=== PATIENT | male | born 1940 | race Caucasian/White ===

== ENCOUNTER → 2016-07-02 | Outpatient (CLI) | payer MEDICARE ==
[2016-07-02 13:36] LABS: CHLORIDE,CL 105 mmol/L (98-110); SODIUM,NA 140 mmol/L (136-146)
== END | disposition home or self-care (01) ==
LOC: MW.CHFP 12:37
PROVIDERS: ATTEND Student in an Organized Health Care Education/Training Program
DX: R63.4 Abnormal weight loss (principal); Z87.01 Personal history of pneumonia (recurrent)
CPT/HCPCS: 36415; 80053; G0463

== ENCOUNTER → 2016-07-30 | Outpatient (CLI) | payer MEDICARE | LOC: MW.CHFP 10:41 | PROVIDERS: ATTEND Student in an Organized Health Care Education/Training Program | DX: D64.9 Anemia, unspecified (principal) | CPT/HCPCS: 36415; 85027; G0463 ==

== ENCOUNTER 2016-08-08 03:04 | Emergency (ER) | payer MEDICARE ==
[2016-08-08 04:26] LABS: CHLORIDE,CL 108 mmol/L (98-110); SODIUM,NA 142 mmol/L (136-146)
--- NOTE | 2016-08-08 05:45 | EDM.PDOC ---
ED HPI GENERAL MEDICAL PROBLEM - General Chief Complaint: General Stated Complaint: AMBULANCE Time Seen by Provider: 08/08/16 05:45 - History of Present Illness INITIAL COMMENTS - FREE TEXT/NARRATIVE: HISTORY AND PHYSICAL: History of present illness: Patient is a 76-year-old white male well-known to our hospital history COPD chronic anemia who presents with generalized weakness is not unusual for the patient needs to multiple ER visits multiple hospitalizations and been compliant with her medications she also had a fall one week prior and has some right abdominal/flank bruising from his fall he has chronic shortness of breath related to COPD denies chest pain vomiting head or neck pain or trauma or other concern Review of systems: As per history of present illness and below otherwise all systems reviewed and negative. Past medical history: As per history of present illness and as reviewed below otherwise noncontributory. Surgical history: As per history of present illness and as reviewed below otherwise noncontributory. Social history: No reported history of drug or alcohol abuse. Family history: As per history of present illness and as reviewed below otherwise noncontributory. Physical exam: HEENT: Atraumatic, normocephalic, pupils reactive, negative for conjunctival pallor or scleral icterus, mucous membranes dry, throat clear, neck supple, nontender, trachea midline. Lungs: Slightly coarse bilaterally, breath sounds equal bilaterally, chest nontender. Heart: S1S2, regular, negative for clicks, rubs, or JVD. Abdomen: Soft, nondistended, mild tenderness in the area of bruising in the right abdomen and flank nonlocalized no rebound no guarding. Negative for masses or hepatosplenomegaly. Negative for costovertebral tenderness. Pelvis: Stable nontender. Genitourinary: Deferred. Rectal: Deferred. Extremities: Atraumatic, negative for cords or calf pain. Neurovascular unremarkable. Neuro: Awake, alert, moves all extremities follows commands at baseline per family nonfocal Diagnostics: CBC CMP troponin lactic acid CT abdomen and pelvis chest x-ray EKG Therapeutics: IV O2 monitor Impression: #1 generalized weakness #2 chronic anemia #3 COPD Definitive disposition and diagnosis as appropriate pending reevaluation and review of above. right hand and back area Pain Score (Numeric/FACES): 4 - Related Data Allergies Allergy/AdvReac Type Severity Reaction Status Date / Time No Known Allergies Allergy Verified 07/18/16 04:30 Home Meds: Home Meds Albuterol Sulfate [Proair Hfa] 2 puff IH QID PRN 06/14/16 [History] Albuterol/Ipratropium [DuoNeb 3.0-0.5 MG/3 ML] 3 ml NEB Q4H PRN 06/14/16 [ History] Bisacodyl [Dulcolax] 5 - 10 mg PO DAILY PRN 06/14/16 [History] Bisacodyl [Dulcolax] 10 mg RC DAILY PRN 06/14/16 [History] Budesonide/Formoterol Fumarate [Symbicort 160-4.5 Mcg Inhaler] 2 puff IH BID 01/21 [History] Diltiazem [Cardizem CD] 240 mg PO DAILY 06/14/16 [History] Hypromellose [Genteal Mild] 2 drop EYEBOTH DAILY 06/14/16 [History] Metoclopramide HCl [Reglan] 10 mg PO QIDACANDBED PRN 06/14/16 [History] Multivitamin [Multivitamins] 1 each PO DAILY 06/14/16 [History] Orphenadrine Citrate 100 mg PO Q12HR PRN 06/14/16 [History] Tamsulosin [Flomax] 0.4 mg PO PCBREAKFAST 06/14/16 [History] Ticagrelor [Brilinta] 90 mg PO BID 06/14/16 [History] Acetaminophen [Tylenol] 500 mg PO Q4H PRN 06/15/16 [History] Albuterol Sulfate 2.5 mg IH Q6H PRN 06/15/16 [History] Pantoprazole [Protonix] 40 mg PO BIDAC 06/15/16 [History] Tiotropium [Spiriva HandiHaler] 18 mcg IH DAILY 06/15/16 [History] Iron Polysaccharides Complex [Ferrex 150] 150 mg PO BID cap 06/17/16 [Rx] Vancomycin 125 mg .XX QID #40 sdv 06/17/16 [Rx] Prednisone [IMW: Prednisone] 10 mg PO DAILY 06/23/16 [History] Potassium Chloride 20 meq PO BID #30 tab.er.prt 06/26/16 [Rx] Cephalexin 500 mg PO BID 08/08/16 [History] Past Medical History HEENT History: Reports: Cataract Other HEENT History: glasses Cardiovascular History: Reports: Afib, CAD, High cholesterol, Hypertension, Stents Respiratory History: Reports: COPD, Pneumonia, recurrent, Pneumothorax, SOB, Other (see below) Other Respiratory History: chronic respiratory failure with hypoxia Gastrointestinal History: Reports: GI bleed Other Gastrointestinal History: GI Bleed. 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 - Past Surgical History Head Surgeries/Procedures: Reports: None Cardiovascular Surgical History: Reports: Coronary artery stent, Carotid stents Social & Family History - Family History Family Medical History: Noncontributory Cardiac: Reports: Hypertension Other Cardiac Family History: Father, Mother GI: Reports: GI bleed OBGYN: Reports: Musculoskeletal: Reports: Arthritis Psychiatric: Reports: None Endocrine/Metabolic: Reports: Diabetes, type II Hematologic: Reports: None Immunologic: Reports: None Oncologic: Reports: Prostate - Tobacco Use Smoking Status *Q: Former Smoker Years of Tobacco use: 50 Packs/Tins Daily: 4 Used Tobacco, but Quit: Yes Month Tobacco Last Used: 2004 Second Hand Smoke Exposure: No - Caffeine Use Caffeine Use: Reports: Coffee, Soda - Alcohol Use Days Per Week of Alcohol Use: 2 Number of Drinks Per Day: 2 Total Drinks Per Week: 4 - Recreational Drug Use Recreational Drug Use: No Drug Use in Last 12 Months: No ED ROS GENERAL - Review of Systems Review Of Systems: ROS reveals no pertinent complaints other than HPI. ED EXAM, GENERAL - Physical Exam Exam: See Below (See dictation) Course - Vital Signs Text/Narrative:: Discussed with patient and son CT and diagnostics offered admission for observation patient family declined request discharge home and followup private medical doctor Last Recorded V/S: Last Vital Signs Temp 36.6 C 08/08/16 03:14 Pulse 120 H 08/08/16 03:14 Resp 32 H 08/08/16 03:14 BP 127/64 08/08/16 03:14 Pulse Ox 97 08/08/16 03:14 - Orders/Labs/Meds Orders: Active Orders 24 hr Category Date Time Status EKG 12 Lead [EKG Documentation Completion] [RC] STAT Care 08/08/16 03:16 Active Abdomen Pelvis wo Cont [CT] Stat Exams 08/08/16 03:28 Taken Chest 1V Frontal [CR] Stat Exams 08/08/16 03:29 Taken CULTURE BLOOD [BC] Stat Lab 08/08/16 02:35 Received CULTURE BLOOD [BC] Stat Lab 08/08/16 04:35 Results UA W/MICROSCOPIC [URIN] Stat Lab 08/08/16 03:15 Uncollected Blood Culture x2 Reflex Set [OM.PC] Stat Oth 08/08/16 04:35 Ordered Labs: Laboratory Tests 08/08/16 08/08/16 08/08/16 Range/Units 03:30 03:30 03:30 WBC 15.18 H (4.0-11.0) K/uL RBC 2.63 L (4.50-5.90) M/uL Hgb 8.0 L (13.0-17.0) g/dL Hct 25.6 L (38.0-50.0) % MCV 97.3 (80.0-98.0) fL MCH 30.4 (27.0-32.0) pg MCHC 31.3 (31.0-37.0) g/dL RDW Std Deviation 57.3 (28.0-62.0) fl RDW Coeff of Mavis 17 H (11.0-15.0) % Plt Count 271 (150-400) K/uL MPV 8.40 (7.40-12.00) fL Neut % (Auto) 82.3 H (48.0-80.0) % Lymph % (Auto) 8.0 L (16.0-40.0) % [place] % (Auto) 8.6 (0.0-15.0) % Eos % (Auto) 0.8 (0.0-7.0) % Baso % (Auto) 0.3 (0.0-1.5) % Neut # 12.5 H (1.4-5.7) K/uL Lymph # 1.2 (0.6-2.4) K/uL [place] # 1.3 H (0.0-0.8) K/uL Eos # 0.1 (0.0-0.7) K/uL Baso # 0.1 (0.0-0.1) K/uL INR (0.86-1.11) Lactate (0.20-2.00) mmol/L Sodium 142 (136-146) mmol/L Potassium 5.2 H (3.5-5.1) mmol/L Chloride 108 (98-110) mmol/L Carbon Dioxide 26 (21-31) mmol/L BUN 30 H (6.0-23.0) mg/dL Creatinine 1.0 (0.6-1.5) mg/dL Est Cr Clr Drug Dosing 53.18 mL/min Estimated GFR (MDRD) > 60.0 ml/min Glucose 102 (60-110) mg/dL Calcium 8.5 L (8.8-10.8) mg/dL Total Bilirubin 0.3 (0.1-1.5) mg/dL AST 13 (5-40) IU/L ALT 15 (8-54) IU/L Alkaline Phosphatase 63 (40-150) Troponin I < 0.10 (0.0-0.29) NG/ML Total Protein 5.2 L (6.0-8.0) g/dL Albumin 2.7 L (3.4-4.8) g/dL Globulin 2.5 (2.0-3.5) g/dL Albumin/Globulin Ratio 1.1 L (1.3-2.8) 08/08/16 08/08/16 Range/Units 03:30 04:35 WBC (4.0-11.0) K/uL RBC (4.50-5.90) M/uL Hgb (13.0-17.0) g/dL Hct (38.0-50.0) % MCV (80.0-98.0) fL MCH (27.0-32.0) pg MCHC (31.0-37.0) g/dL RDW Std Deviation (28.0-62.0) fl RDW Coeff of Mavis (11.0-15.0) % Plt Count (150-400) K/uL MPV (7.40-12.00) fL Neut % (Auto) (48.0-80.0) % Lymph % (Auto) (16.0-40.0) % [place] % (Auto) (0.0-15.0) % Eos % (Auto) (0.0-7.0) % Baso % (Auto) (0.0-1.5) % Neut # (1.4-5.7) K/uL Lymph # (0.6-2.4) K/uL [place] # (0.0-0.8) K/uL Eos # (0.0-0.7) K/uL Baso # (0.0-0.1) K/uL INR 0.95 (0.86-1.11) Lactate 1.3 (0.20-2.00) mmol/L Sodium (136-146) mmol/L Potassium (3.5-5.1) mmol/L Chloride (98-110) mmol/L Carbon Dioxide (21-31) mmol/L BUN (6.0-23.0) mg/dL Creatinine (0.6-1.5) mg/dL Est Cr Clr Drug Dosing mL/min Estimated GFR (MDRD) ml/min Glucose (60-110) mg/dL Calcium (8.8-10.8) mg/dL Total Bilirubin (0.1-1.5) mg/dL AST (5-40) IU/L ALT (8-54) IU/L Alkaline Phosphatase (40-150) Troponin I (0.0-0.29) NG/ML Total Protein (6.0-8.0) g/dL Albumin (3.4-4.8) g/dL Globulin (2.0-3.5) g/dL Albumin/Globulin Ratio (1.3-2.8) Departure - Departure Time of Disposition: 05:44 Disposition: Home, Self-Care 01 Condition: good Clinical Impression: COPD (chronic obstructive pulmonary disease), Anemia, Generalized weakness Forms: ED Department Discharge Additional Instructions: The following information is given to patients seen in the emergency department who are being discharged to home. This information is to outline your options for follow-up care. We provide all patients seen in our emergency department with a follow-up referral. The need for follow-up, as well as the timing and circumstances, are variable depending upon the specifics of your emergency department visit. If you don't have a primary care physician on staff, we will provide you with a referral. We always advise you to contact your personal physician following an emergency department visit to inform them of the circumstance of the visit and for follow-up with them and/or the need for any referrals to a consulting specialist. The emergency department will also refer you to a specialist when appropriate. This referral assures that you have the opportunity for followup care with a specialist. All of these measure are taken in an effort to provide you with optimal care, which includes your followup. Under all circumstances we always encourage you to contact your private physician who remains a resource for coordinating your care. When calling for followup care, please make the office aware that this follow-up is from your recent emergency room visit. If for any reason you are refused follow-up, please contact the [facility] emergency department at and asked to speak to the emergency department charge nurse. Continue current medications follow up private medical doctor 24-48 hours return as needed as discussed - My Orders Last 24 Hours: My Active Orders 08/08/16 02:35 CULTURE BLOOD [BC] Stat 08/08/16 03:15 UA W/MICROSCOPIC [URIN] Stat 08/08/16 03:16 EKG 12 Lead [EKG Documentation Completion] [RC] STAT 08/08/16 03:28 Abdomen Pelvis wo Cont [CT] Stat 08/08/16 03:29 Chest 1V Frontal [CR] Stat 08/08/16 04:35 CULTURE BLOOD [BC] Stat Blood Culture x2 Reflex Set [OM.PC] Stat - Assessment/Plan Last 24 Hours: My Active Orders 08/08/16 02:35 CULTURE BLOOD [BC] Stat 08/08/16 03:15 UA W/MICROSCOPIC [URIN] Stat 08/08/16 03:16 EKG 12 Lead [EKG Documentation Completion] [RC] STAT 08/08/16 03:28 Abdomen Pelvis wo Cont [CT] Stat 08/08/16 03:29 Chest 1V Frontal [CR] Stat 08/08/16 04:35 CULTURE BLOOD [BC] Stat Blood Culture x2 Reflex Set [OM.PC] Stat
[2016-08-08 06:46] VITALS: BP 110/76
--- NOTE | 2016-08-10 17:19 | CR ---
EXAM DATE: 08/08/16 PATIENT'S AGE: 76 Patient: GILBERTO SIMONS Facility: [place], [place] Site . Site : 1940 Study: XRay Chest [id number]/4/2017 4:15:55 AM Ordering Physician: Luisa Urrutia Final Report: INDICATION: Trauma with right leg bruising TECHNIQUE: Chest 2 views. COMPARISON: 07/18/2016 FINDINGS: Cardiovascular and mediastinum: Heart size and vasculature are normal in caliber and appearance. Mediastinum is within normal limits. Lungs and pleural spaces: Lungs are clear. No sign of infiltrate or mass. No sign of pleural effusion. No pneumothorax. Bones and soft tissues: No significant findings. IMPRESSION: Unremarkable chest. Dictated by Adam Knight MD @ 08/08/2016 4:22:47 AM Dictated by: Adam Knight MD @ 08/08/2016 04:22:55 (Electronic Signature) Report Signed by Proxy and Original Signed Document filed in the Medical Record. MTDD
--- NOTE | 2016-08-10 17:20 | CT ---
EXAM DATE: 08/08/16 PATIENT'S AGE: 76 Patient: GILBERTO SIMONS Facility: [place], [place] Site . Site : 1940 Study: CT Abdomen/Pelvis [id number]/4/2017 4:17:05 AM Ordering Physician: Luisa Urrutia Final Report: INDICATION: Fall on right side of 5 days prior. TECHNIQUE: CT abdomen and pelvis without contrast. COMPARISON: 06/14/2016 FINDINGS: Lower chest: Unremarkable. Liver: Unremarkable. Spleen: Unremarkable. Pancreas: Unremarkable. Gallbladder and bile ducts: Unremarkable. Kidneys: Stable left renal and parapelvic cysts. No kidney or ureteral stones and no hydronephrosis. Adrenal glands: Unremarkable. GI tract: Unremarkable. Appendix is normal. Vascular structures: Slight prominence of the infrarenal abdominal aorta measuring 2.8 centimeters. . Lymph nodes: Unremarkable. Miscellaneous: Unremarkable. No free air or significant free fluid. Pelvic Organs: Unremarkable. Bones: Slightly increased within T12 compression fracture compared to 2016. Stable severe T11 compression deformity. Slight increase superior endplate compression L3 vertebral body. IMPRESSION: No evidence of intra-abdominal or pelvic trauma. Slight increased T12 compression fracture compared to 06/14/16. Slight increased superior endplate compression L3 vertebral body fracture. Stable T11 severe compression deformity. Dictated by Adam Knight MD @ 08/08/2016 4:55:12 AM Dictated by: Adam Knight MD @ 08/08/2016 04:55:34 (Electronic Signature) Report Signed by Proxy and Original Signed Document filed in the Medical Record. [facility]
== END 2016-08-08 06:00 | disposition home or self-care (01) ==
LOC: MW.ED 03:04
DX: J44.9 Chronic obstructive pulmonary disease, unspecified (principal); D64.9 Anemia, unspecified; R53.1 Weakness; I48.91 Unspecified atrial fibrillation; E78.00 Pure hypercholesterolemia, unspecified; I10 Essential (primary) hypertension; Z86.73 Personal history of transient ischemic attack (TIA), and cerebral infarction without residual deficits; Z98.49 Cataract extraction status, unspecified eye; Z87.891 Personal history of nicotine dependence
CPT/HCPCS: 71010; 71010-26; 74176; 74176-26; 80053; 83605; 84484; 85025; 85610; 87040; 87804; 93005; 99284; 99285-25

== ENCOUNTER 2016-08-08 13:22 | Inpatient (IN) | payer MEDICARE ==
--- NOTE | 2016-08-08 14:30 | EDM.PDOC ---
ED HPI Trauma - General Chief Complaint: Lower Extremity Injury/Pain Stated Complaint: FALL Time Seen by Provider: 08/08/16 13:25 Source: Reports: Patient, EMS, Family History Limitations: Reports: No limitations - History of Present Illness INITIAL COMMENTS - FREE TEXT/NARRATIVE: HISTORY AND PHYSICAL: History of present illness: [Patient comes to the emergency room via EMS. Patient reports that he fell this morning landing on his right hip while he was walking by himself to the bathroom. He lives with his daughter and his . He complains of pain to his right hip. States that he also fell on Wednesday, August 03. He was evaluated in the ER earlier this morning for generalized weakness and anemia. Since he was discharged home, he has been having dark brown to black colored grainy stools. Has a history of anemia requiring frequent blood transfusions.] Review of systems: As per history of present illness and below otherwise all systems reviewed and negative. Past medical history: As per history of present illness and as reviewed below otherwise noncontributory. Surgical history: As per history of present illness and as reviewed below otherwise noncontributory. Social history: No reported history of drug or alcohol abuse. Family history: As per history of present illness and as reviewed below otherwise noncontributory. Physical exam: General: Well-developed well-nourished, frail elderly male in no acute distress lying on exam table. HEENT: Atraumatic, normocephalic. Lungs: Clear to auscultation, breath sounds equal bilaterally., chest nontender. Heart: S1S2, regular, negative for clicks, rubs, or JVD. Abdomen: Ecchymosis present to left side of chest and abdomen. Soft, nondistended, nontender. Pelvis: Stable nontender. Genitourinary: Deferred. Rectal: Normal sphincter tone. Small amount of soft stool in his rectum. SFOB positive Extremities: Atraumatic, negative for cords or calf pain. No external or internal rotation of his leg. Palpation over his hip reveals no tenderness to Neuro: Awake, alert, oriented. Motor and sensory unremarkable throughout. Exam nonfocal. Diagnostics: [Pelvis x-ray, CBC] Therapeutics: [250 mL's normal saline IV] Impression: [symptomatic anemia Recent falls] Plan: [Hemoglobin 7.1. This is down from 8.0 at 3:30 this morning area. Discussed patient's condition and lab results with Dr. Brown, hospitalist. She agrees to accept patient to inpatient services on the medical/surgical floor with telemetry, with the diagnosis of upper GI bleed. Patient and his family are in agreement with today's plan.] Definitive disposition and diagnosis as appropriate pending reevaluation and review of above. Allergies/ADRs: Allergies No Known Allergies Allergy (Verified 08/08/16 13:36) Home Medications: Ambulatory Orders Albuterol Sulfate [Proair Hfa] 2 puff IH QID PRN 06/14/16 [Confirmed 08/08/16] Albuterol/Ipratropium [DuoNeb 3.0-0.5 MG/3 ML] 3 ml NEB Q4H PRN 06/14/16 [ Confirmed 08/08/16] Bisacodyl [Dulcolax] 5 - 10 mg PO DAILY PRN 06/14/16 [Confirmed 08/08/16] Bisacodyl [Dulcolax] 10 mg RC DAILY PRN 06/14/16 [Confirmed 08/08/16] Budesonide/Formoterol Fumarate [Symbicort 160-4.5 Mcg Inhaler] 2 puff IH BID 01/21 [Confirmed 08/08/16] Diltiazem [Cardizem CD] 240 mg PO DAILY 06/14/16 [Confirmed 08/08/16] Hypromellose [Genteal Mild] 2 drop EYEBOTH DAILY 06/14/16 [Confirmed 08/08/16] Metoclopramide HCl [Reglan] 10 mg PO QIDACANDBED PRN 06/14/16 [Confirmed ] Multivitamin [Multivitamins] 1 each PO DAILY 06/14/16 [Confirmed 08/08/16] Orphenadrine Citrate 100 mg PO Q12HR PRN 06/14/16 [Confirmed 08/08/16] Tamsulosin [Flomax] 0.4 mg PO PCBREAKFAST 06/14/16 [Confirmed 08/08/16] Ticagrelor [Brilinta] 90 mg PO BID 06/14/16 [Confirmed 08/08/16] Acetaminophen [Tylenol] 500 mg PO Q4H PRN 06/15/16 [Confirmed 08/08/16] Albuterol Sulfate 2.5 mg IH Q6H PRN 06/15/16 [Confirmed 08/08/16] Pantoprazole [Protonix] 40 mg PO BIDAC 06/15/16 [Confirmed 08/08/16] Tiotropium [Spiriva HandiHaler] 18 mcg IH DAILY 06/15/16 [Confirmed 08/08/16] Iron Polysaccharides Complex [Ferrex 150] 150 mg PO BID cap 06/17/16 [ Confirmed 08/08/16] Prednisone [IMW: Prednisone] 10 mg PO DAILY 06/23/16 [Confirmed 08/08/16] Potassium Chloride 20 meq PO BID #30 tab.er.prt 06/26/16 [Confirmed 08/08/16] Cephalexin 500 mg PO BID 08/08/16 [Confirmed 08/08/16] Vancomycin 125 mg PO DAILY 08/08/16 [Confirmed 08/08/16] Past Medical History HEENT History: Reports: Cataract Other HEENT History: glasses Cardiovascular History: Reports: Afib, CAD, High cholesterol, Hypertension, Stents Respiratory History: Reports: COPD, Pneumonia, recurrent, Pneumothorax, SOB, Other (see below) Other Respiratory History: chronic respiratory failure with hypoxia Gastrointestinal History: Reports: GI bleed Other Gastrointestinal History: GI Bleed. 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 - Past Surgical History Head Surgeries/Procedures: Reports: None HEENT Surgical History: Reports: None Cardiovascular Surgical History: Reports: Coronary artery stent, Carotid stents Respiratory Surgical History: Reports: None GI Surgical History: Reports: None Male Surgical History: Reports: None Endocrine Surgical History: Reports: None Neurological Surgical History: Reports: None Musculoskeletal Surgical History: Reports: None Oncologic Surgical History: Reports: None Dermatological Surgical History: Reports: None Social & Family History - Family History Family Medical History: Noncontributory Cardiac: Reports: Hypertension Other Cardiac Family History: Father, Mother GI: Reports: GI bleed OBGYN: Reports: Musculoskeletal: Reports: Arthritis Neurological: Reports: None Psychiatric: Reports: None Endocrine/Metabolic: Reports: Diabetes, type II Hematologic: Reports: None Immunologic: Reports: None Dermatologic: Reports: None Oncologic: Reports: Prostate - Tobacco Use Smoking Status *Q: Never Smoker Years of Tobacco use: 50 Packs/Tins Daily: 4 Used Tobacco, but Quit: Yes Month Tobacco Last Used: 2004 Second Hand Smoke Exposure: No - Caffeine Use Caffeine Use: Reports: None - Alcohol Use Days Per Week of Alcohol Use: 2 Number of Drinks Per Day: 2 Total Drinks Per Week: 4 - Recreational Drug Use Recreational Drug Use: No Drug Use in Last 12 Months: No Review of Systems - Review of Systems Review Of Systems: ROS reveals no pertinent complaints other than HPI. Trauma Exam - Physical Exam Exam: See Below Course - Vital Signs Last Recorded V/S: Last Vital Signs Temp 98.2 F 08/08/16 16:58 Pulse 90 08/08/16 16:58 Resp 19 08/08/16 16:58 BP 131/58 L 08/08/16 16:58 Pulse Ox 99 08/08/16 16:58 - Orders/Labs/Meds Orders: Active Orders 24 hr Category Date Time Status Pelvis 1V or 2V [CR] Stat Exams 08/08/16 13:27 Taken PACKED CELLS [RED BLOOD CELLS LP] [BBK] Stat Lab 08/08/16 14:45 Results TYPE AND SCREEN [BBK] Stat Lab 08/08/16 14:45 Results Sodium Chloride 0.9% [Normal Saline] 250 ml Med 08/08/16 14:45 Active IV STAT Sodium Chloride 0.9% [Saline Flush] Med 08/08/16 14:31 Active 10 ml FLUSH ASDIRECTED PRN Sodium Chloride 0.9% [Saline Flush] Med 08/08/16 14:31 Active 2.5 ml FLUSH ASDIRECTED PRN Saline Lock Insert [OM.PC] Stat Oth 08/08/16 14:31 Ordered Medication Orders Sodium Chloride (Normal Saline) 250 mls @ 999 mls/hr IV STAT KYMBERLY Last Admin: 08/08/16 15:04 Dose: 999 mls/hr Pantoprazole Sodium 80 mg/ (Sodium Chloride) 100 mls @ 10 mls/hr IV Q10H KYMBERLY Sodium Chloride (Saline Flush) 10 ml FLUSH ASDIRECTED PRN PRN Reason: Keep Vein Open Last Admin: 08/08/16 15:04 Dose: 10 ml Sodium Chloride (Saline Flush) 2.5 ml FLUSH ASDIRECTED PRN PRN Reason: Keep Vein Open Last Admin: 08/08/16 15:04 Dose: 2.5 ml Sodium Chloride (Saline Flush) 10 ml FLUSH ASDIRECTED PRN PRN Reason: Keep Vein Open Sodium Chloride (Saline Flush) 2.5 ml FLUSH ASDIRECTED PRN PRN Reason: Keep Vein Open Labs: Laboratory Tests 08/08/16 08/08/16 08/08/16 Range/Units 14:45 14:45 14:45 WBC 16.34 H (4.0-11.0) K/uL RBC 2.37 L (4.50-5.90) M/uL Hgb 7.1 L (13.0-17.0) g/dL Hct 22.2 L (38.0-50.0) % MCV 93.7 (80.0-98.0) fL MCH 30.0 (27.0-32.0) pg MCHC 32.0 (31.0-37.0) g/dL RDW Std Deviation 58.8 (28.0-62.0) fl RDW Coeff of Mavis 17 H (11.0-15.0) % Plt Count 185 (150-400) K/uL MPV 8.40 (7.40-12.00) fL Neut % (Auto) 91.3 H (48.0-80.0) % Lymph % (Auto) 3.4 L (16.0-40.0) % [place] % (Auto) 5.1 (0.0-15.0) % Eos % (Auto) 0.1 (0.0-7.0) % Baso % (Auto) 0.1 (0.0-1.5) % Neut # 14.9 H (1.4-5.7) K/uL Lymph # 0.6 (0.6-2.4) K/uL [place] # 0.8 (0.0-0.8) K/uL Eos # 0.0 (0.0-0.7) K/uL Baso # 0.0 (0.0-0.1) K/uL Nucleated RBC % 0.0 /100WBC Nucleated RBCs # 0 K/uL Sodium 140 (136-146) mmol/L Potassium 5.0 (3.5-5.1) mmol/L Chloride 108 (98-110) mmol/L Carbon Dioxide 23 (21-31) mmol/L BUN 49 H (6.0-23.0) mg/dL Creatinine 0.9 (0.6-1.5) mg/dL Est Cr Clr Drug Dosing 59.01 mL/min Estimated GFR (MDRD) > 60.0 ml/min Glucose 94 (60-110) mg/dL Calcium 8.6 L (8.8-10.8) mg/dL Total Bilirubin 0.3 (0.1-1.5) mg/dL AST 13 (5-40) IU/L ALT 15 (8-54) IU/L Alkaline Phosphatase 57 (40-150) Total Protein 5.0 L (6.0-8.0) g/dL Albumin 2.7 L (3.4-4.8) g/dL Globulin 2.3 (2.0-3.5) g/dL Albumin/Globulin Ratio 1.2 L (1.3-2.8) Blood Type O POSITIVE Antibody Screen NEGATIVE Crossmatch See Detail Meds: Medications Generic Name Dose Route Start Last Admin Trade Name Freq PRN Reason Stop Dose Admin Sodium Chloride 250 mls @ 999 mls/hr 08/08/16 14:45 08/08/16 15:04 Normal Saline IV 999 mls/hr STAT KYMBERLY Administration Pantoprazole Sodium 80 mg/ 100 mls @ 10 mls/hr 08/08/16 17:30 Sodium Chloride IV Q10H KYMBERLY Sodium Chloride 10 ml 08/08/16 14:31 08/08/16 15:04 Saline Flush FLUSH 10 ml ASDIRECTED PRN Administration Keep Vein Open Sodium Chloride 2.5 ml 08/08/16 14:31 08/08/16 15:04 Saline Flush FLUSH 2.5 ml ASDIRECTED PRN Administration Keep Vein Open Sodium Chloride 10 ml 08/08/16 17:15 Saline Flush FLUSH ASDIRECTED PRN Keep Vein Open Sodium Chloride 2.5 ml 08/08/16 17:15 Saline Flush FLUSH ASDIRECTED PRN Keep Vein Open Departure - Departure Time of Disposition: 15:30 Disposition: Admitted As Inpatient 65 Condition: fair Clinical Impression: Symptomatic anemia Fall at home Qualifiers: Encounter type: initial encounter Qualified Code(s): W19.XXXA - Unspecified fall, initial encounter; Y92.099 - Unspecified place in other non-institutional residence as the place of occurrence of the external cause - My Orders Last 24 Hours: My Active Orders 08/08/16 13:27 Pelvis 1V or 2V [CR] Stat 08/08/16 14:31 Sodium Chloride 0.9% [Saline Flush] 10 ml FLUSH ASDIRECTED PRN Sodium Chloride 0.9% [Saline Flush] 2.5 ml FLUSH ASDIRECTED PRN Saline Lock Insert [OM.PC] Stat 08/08/16 14:45 PACKED CELLS [RED BLOOD CELLS LP] [BBK] Stat TYPE AND SCREEN [BBK] Stat Sodium Chloride 0.9% [Normal Saline] 250 ml IV STAT - Assessment/Plan Last 24 Hours: My Active Orders 08/08/16 13:27 Pelvis 1V or 2V [CR] Stat 08/08/16 14:31 Sodium Chloride 0.9% [Saline Flush] 10 ml FLUSH ASDIRECTED PRN Sodium Chloride 0.9% [Saline Flush] 2.5 ml FLUSH ASDIRECTED PRN Saline Lock Insert [OM.PC] Stat 08/08/16 14:45 PACKED CELLS [RED BLOOD CELLS LP] [BBK] Stat TYPE AND SCREEN [BBK] Stat Sodium Chloride 0.9% [Normal Saline] 250 ml IV STAT
[2016-08-08] MEDS ORDERED: Sodium Chloride 0.9% 10 ML Syringe FLUSH PRN ×2 (14:31→17:15)
[2016-08-08] MEDS ORDERED: Sodium Chloride 0.9% 2.5 ML Syringe FLUSH PRN ×2 (14:31→17:15)
[2016-08-08] MEDS ORDERED: Sodium Chloride 0.9% 250 ML IV SCH (14:45)
[2016-08-08 18:19] LABS: CHLORIDE,CL 108 mmol/L (98-110); SODIUM,NA 140 mmol/L (136-146)
[2016-08-08] MEDS: Pantoprazole 80 MG in Sodium Chloride 0.9% 100 ML IV SCH (18:23)
[2016-08-08] MEDS: SYMBICORT IH SCH (21:41)
[2016-08-09] MEDS: Pantoprazole 80 MG in Sodium Chloride 0.9% 100 ML IV SCH ×3 (03:48→16:40)
[2016-08-09 06:11] LABS: CHLORIDE,CL 113 mmol/L (98-110); SODIUM,NA 144 mmol/L (136-146)
[2016-08-09] MEDS: SYMBICORT IH SCH ×2 (08:38→20:04)
[2016-08-09] MEDS: Diltiazem 120 MG Cap.CD PO SCH (10:21)
[2016-08-09] MEDS: Tamsulosin 0.4 MG Cap.ER PO SCH (10:21)
[2016-08-09] MEDS: predniSONE 10 MG Tab PO SCH (10:22)
[2016-08-09] MEDS: Albuterol/Ipratropium 3.0-0.5 MG/3 ML Neb Soln NEB PRN ×2 (11:49→17:55)
[2016-08-09] MEDS ORDERED: Vancomycin 25 MG/ML Compounding Kit PO SCH (12:00)
--- NOTE | 2016-08-09 12:27 | PCM.PN ---
- General Info Date of Service: 08/09/16 Admission Dx/Problem (Free Text): generalized weakness , melena Functional Status: Reports: pain controlled - Review of Systems General: Reports: no symptoms HEENT: Reports: no symptoms Pulmonary: Reports: no symptoms Cardiovascular: Reports: no symptoms Gastrointestinal: Reports: No symptoms Genitourinary: Reports: no symptoms Musculoskeletal: Reports: no symptoms Skin: Reports: no symptoms Neurological: Reports: no symptoms Psychiatric: Reports: no symptoms - Patient Data Vitals - most recent: Last Vital Signs Temp 97.3 F 08/09/16 10:49 Pulse 82 08/09/16 10:49 Resp 18 08/09/16 10:49 BP 121/57 L 08/09/16 10:49 Pulse Ox 96 08/09/16 10:49 Weight - most recent: 134 lb 7.712 oz I&O - last 24 hours: Intake & Output 08/08/16 08/09/16 08/09/16 22:59 06:59 14:59 Intake Total 208 113 Output Total 660 Balance 208 -547 Lab Results last 24 hrs: Laboratory Results - last 24 hr 08/08/16 08/09/16 08/09/16 Range/Units 23:23 05:35 05:35 WBC 10.64 9.56 (4.0-11.0) K/uL RBC 3.07 L 3.38 L (4.50-5.90) M/uL Hgb 9.1 L 10.0 L (13.0-17.0) g/dL Hct 27.2 L 29.5 L (38.0-50.0) % MCV 88.6 87.3 (80.0-98.0) fL MCH 29.6 29.6 (27.0-32.0) pg MCHC 33.5 33.9 (31.0-37.0) g/dL RDW Std Deviation 51.9 51.5 (28.0-62.0) fl RDW Coeff of Mavis 16 H 16 H (11.0-15.0) % Plt Count 137 L 126 L (150-400) K/uL MPV 8.30 8.40 (7.40-12.00) fL Nucleated RBC % 0.0 0.0 /100WBC Nucleated RBCs # 0 0 K/uL Sodium 144 (136-146) mmol/L Potassium 3.7 (3.5-5.1) mmol/L Chloride 113 H (98-110) mmol/L Carbon Dioxide 23 (21-31) mmol/L BUN 30 H (6.0-23.0) mg/dL Creatinine 0.8 (0.6-1.5) mg/dL Est Cr Clr Drug Dosing 66.72 mL/min Estimated GFR (MDRD) > 60.0 ml/min Glucose 68 (60-110) mg/dL Calcium 8.1 L (8.8-10.8) mg/dL 08/09/16 Range/Units 09:09 WBC 9.62 (4.0-11.0) K/uL RBC 3.52 L (4.50-5.90) M/uL Hgb 10.5 L (13.0-17.0) g/dL Hct 30.9 L (38.0-50.0) % MCV 87.8 (80.0-98.0) fL MCH 29.8 (27.0-32.0) pg MCHC 34.0 (31.0-37.0) g/dL RDW Std Deviation 53.0 (28.0-62.0) fl RDW Coeff of Mavis 17 H (11.0-15.0) % Plt Count 123 L (150-400) K/uL MPV 8.50 (7.40-12.00) fL Nucleated RBC % 0.0 /100WBC Nucleated RBCs # 0 K/uL Sodium (136-146) mmol/L Potassium (3.5-5.1) mmol/L Chloride (98-110) mmol/L Carbon Dioxide (21-31) mmol/L BUN (6.0-23.0) mg/dL Creatinine (0.6-1.5) mg/dL Est Cr Clr Drug Dosing mL/min Estimated GFR (MDRD) ml/min Glucose (60-110) mg/dL Calcium (8.8-10.8) mg/dL Med Orders - Current: Current Medications Acetaminophen (Tylenol Extra Strength) 500 mg PO Q4H PRN PRN Reason: fever/pain Albuterol/Ipratropium (Duoneb 3.0-0.5 Mg/3 Ml) 3 ml NEB Q4H PRN PRN Reason: Shortness of Breath Last Admin: 08/09/16 11:49 Dose: 3 ml Diltiazem HCl (Cardizem Cd) 240 mg PO DAILY [facility] Last Admin: 08/09/16 10:21 Dose: 240 mg Pantoprazole Sodium 80 mg/ (Sodium Chloride) 100 mls @ 10 mls/hr IV Q10H [facility] Last Admin: 08/09/16 03:48 Dose: 10 mls/hr Symbicort 160/4.5 (Inhaler Own Med) 0 puff IH BID [facility] Last Admin: 08/09/16 08:38 Dose: 2 puff Prednisone (Prednisone) 10 mg PO DAILY [facility] Last Admin: 08/09/16 10:22 Dose: 10 mg Sodium Chloride (Saline Flush) 10 ml FLUSH ASDIRECTED PRN PRN Reason: Keep Vein Open Sodium Chloride (Saline Flush) 2.5 ml FLUSH ASDIRECTED PRN PRN Reason: Keep Vein Open Tamsulosin HCl (Flomax) 0.4 mg PO PCBREAKFAST [facility] Last Admin: 08/09/16 10:21 Dose: 0.4 mg Vancomycin HCl (First-Vancomycin 25 Compounding Kit) 125 mg PO QID [facility] Discontinued Medications Sodium Chloride (Normal Saline) 250 mls @ 999 mls/hr IV STAT [facility] Last Admin: 08/08/16 15:04 Dose: 999 mls/hr Sodium Chloride (Saline Flush) 10 ml FLUSH ASDIRECTED PRN PRN Reason: Keep Vein Open Last Admin: 08/08/16 15:04 Dose: 10 ml Sodium Chloride (Saline Flush) 2.5 ml FLUSH ASDIRECTED PRN PRN Reason: Keep Vein Open Last Admin: 08/08/16 15:04 Dose: 2.5 ml - Exam Quality Assessment: supplemental oxygen General: alert, oriented HEENT: Pupils equal, Pupils reactive, EOMI, Mucous membr. moist/pink Neck: supple Lungs: Clear to auscultation, Normal respiratory effort Cardiovascular: regular rate, regular rhythm Abdomen: bowel sounds present, soft, no tenderness, no distension (Male) Exam: No hernia, Normal inspection, Normal prostate, Circumcised Back Exam: normal inspection, full range of motion Extremities: no edema Skin: warm, dry, intact Wound/Incisions: healing well Neurological: no new focal deficit Psy/Mental Status: alert, normal affect, normal mood - Problem List & Annotations (1) C. difficile colitis SNOMED Code(s): 668316697 Code(s): A04.7 - ENTEROCOLITIS DUE TO CLOSTRIDIUM DIFFICILE Status: Acute Current Visit: Yes (2) Fall at home SNOMED Code(s): 38811954 Code(s): W19.XXXA - UNSPECIFIED FALL, INITIAL ENCOUNTER; Y92.099 - UNSP PLACE IN OTH NON-INSTITUTIONAL RESIDENCE PLACE Status: Acute Current Visit: Yes Qualifiers: Encounter type: initial encounter Qualified Code(s): W19.XXXA - Unspecified fall, initial encounter; Y92.099 - Unspecified place in other non- institutional residence as the place of occurrence of the external cause (3) Symptomatic anemia SNOMED Code(s): 019331617 Code(s): D64.9 - ANEMIA, UNSPECIFIED Status: Acute Current Visit: Yes (4) COPD (chronic obstructive pulmonary disease) SNOMED Code(s): 31086509 Code(s): J44.9 - CHRONIC OBSTRUCTIVE PULMONARY DISEASE, UNSPECIFIED Status : Acute Current Visit: No (5) GI bleed SNOMED Code(s): 63602344 Code(s): K92.2 - GASTROINTESTINAL HEMORRHAGE, UNSPECIFIED Status: Acute Current Visit: No - Problem List Review Problem List Initiated/Reviewed/Updated: Yes - My Orders Last 24 Hours: My Active Orders 08/08/16 17:15 Patient Status [ADT] Routine Blood Glucose Check, Bedside [RC] WITHMEALSANDBED Oxygen Therapy [RC] PRN Up ad Gretchen [RC] ASDIRECTED VTE/DVT Education [RC] PER UNIT ROUTINE Vital Signs [RC] Q4H Sodium Chloride 0.9% [Saline Flush] 10 ml FLUSH ASDIRECTED PRN Sodium Chloride 0.9% [Saline Flush] 2.5 ml FLUSH ASDIRECTED PRN Peripheral IV Insertion Adult [OM.PC] Routine 08/08/16 17:17 Sequential Compression Device [OM.PC] Per Unit Routine 08/08/16 17:18 Antiembolic Devices [RC] PER UNIT ROUTINE 08/08/16 17:30 Pantoprazole [Protonix IV] 80 mg Sodium Chloride 0.9% [Normal Saline] 100 ml IV Q10H 08/08/16 17:44 Telemetry Monitoring [Cardiac Monitoring] [RC] Q8H 08/08/16 17:47 Isolation [COMM] Routine 08/08/16 21:00 Acetaminophen [Tylenol Extra Strength] 500 mg PO Q4H PRN Albuterol/Ipratropium [DuoNeb 3.0-0.5 MG/3 ML] 3 ml NEB Q4H PRN Budesonide/Formoterol 0 puff IH BID 08/08/16 21:04 Communication Order [RC] ROUTINE 08/08/16 23:49 Transfuse PRBC [Transfuse Red Blood Cells] [COMM] Routine 08/08/16 23:54 Communication Order [RC] ROUTINE 08/09/16 08:30 Tamsulosin [Flomax] 0.4 mg PO PCBREAKFAST 08/09/16 08:42 Code Status [Resuscitation Status] Routine 08/09/16 09:00 Diltiazem [Cardizem CD] 240 mg PO DAILY predniSONE 10 mg PO DAILY 08/09/16 12:00 Vancomycin [First-Vancomycin 25 Compounding Kit] 125 mg PO QID 08/09/16 15:15 CBC W/O DIFF,HEMOGRAM [HEME] Q6H 08/09/16 21:15 CBC W/O DIFF,HEMOGRAM [HEME] Q6H 08/09/16 Lunch Mechanical Soft Diet [DIET] 08/10/16 05:11 BASIC METABOLIC PANEL,BMP [CHEM] AM CBC W/O DIFF,HEMOGRAM [HEME] AM 08/11/16 05:11 BASIC METABOLIC PANEL,BMP [CHEM] AM CBC W/O DIFF,HEMOGRAM [HEME] AM 08/12/16 05:11 BASIC METABOLIC PANEL,BMP [CHEM] AM CBC W/O DIFF,HEMOGRAM [HEME] AM 08/13/16 05:11 BASIC METABOLIC PANEL,BMP [CHEM] AM CBC W/O DIFF,HEMOGRAM [HEME] AM - Plan Plan:: s/p transfussion of 3 units of blood , will monitor hb q 12h , and transfuse prn to maintain hb above 10. repeat hb if patient has frequent or large amount of melena cont protonix drip , started on soft diet , thickend liquids , anticoagulation on hold. for comorbidities will continue treatment as per reconciliation DVT prof : scd
[2016-08-09] MEDS: Acetaminophen 500 MG Tab PO PRN (18:00)
[2016-08-10] MEDS: Pantoprazole 80 MG in Sodium Chloride 0.9% 100 ML IV SCH ×3 (02:42→21:54)
[2016-08-10 06:35] LABS: CHLORIDE,CL 110 mmol/L (98-110); SODIUM,NA 143 mmol/L (136-146)
--- NOTE | 2016-08-10 07:38 | HP ---
DATE OF : 1940 PRIMARY CARE PHYSICIAN: None PCP CHIEF COMPLAINT: Generalized weakness, status post fall, and melena. HISTORY OF PRESENT ILLNESS: The patient, a 76-year-old man, on anticoagulation with Brilinta and aspirin, status post carotid surgery in the middle of April as per his son, presented to the emergency room because today he felt weak and he fell landing on the floor on his right hip when he tried to walk to the bathroom. The patient lives with his daughter and his . He denies any hip pain at the moment of examination. He had this hip pain when he came to the emergency room. He also fell on Wednesday on August 03. He was evaluated in the ER earlier this morning for generalized weakness and anemia. He was found to have a hemoglobin of 8 early in the morning, and later on, the patient had black stool, and he came to the emergency room where he had his Hb 7.2 . REVIEW OF SYSTEMS: A 12-point review of systems is negative except as in the history of present illness. ALLERGIES: The patient does not have any known drug allergies. PAST MEDICAL HISTORY: He has cataract; history of AFib; coronary artery disease; high cholesterol; hypertension; stent; COPD with pneumonia, recurrent; history of pneumothorax; shortness of breath; history of chronic respiratory failure with hypoxia; history of GI bleed history of back problem; and history of TIA. He has a history of C. diff, and he is on vancomycin. FAMILY HISTORY: He has hypertension and history of GI bleed in his family, also arthritis. PAST SURGICAL HISTORY: He has a history of carotid surgery. SOCIAL HISTORY: He is a former smoker, he smoked for about 50 years, and last tobacco exposure was in 2004. No drug use. No alcohol use. VITAL SIGNS: At admission, his temperature was 96.8, heart rate was 111, blood pressure was sitting 91/52, respiratory rate was 16, and oxygen by pulse oximetry was 98. PE Head : atraumatic , normocephalic Pupils: PERRLA Lungs: CTA b/l Heart : S1 , S2 IRR , No M Abd : soft , NT , mild D , positive bs Ext : no edema Neurol : AO times 3 , no gross focal neurologic deficits LABORATORY DATA: At admission: WBC 16.34, hemoglobin 7.1, hematocrit 22.2, platelets 185. Sodium 140, potassium 5, chloride 108, BUN 49, creatinine 0.9, GFR more than 60, glucose 94, calcium 8.6, total bilirubin 0.3, AST 13, ALT 15, alkaline phosphatase 57, total protein 5, albumin 2.7, globulin 2.3. The patient had a pelvis x-ray, which was negative for fracture, and also he had a chest x-ray, which did not show any acute disease. Follow up official report. ASSESSMENT AND PLAN: Upper gastrointestinal bleed and melena, we will admit the patient to medical telemetry, and we will transfuse the patient with 2 units of blood. We will put the patient on Protonix IV. The patient was started on transfusion in the ER, and we will follow up hemoglobin and hematocrit q.6 hours, and we will transfuse as needed with a goal to have the patient's hemoglobin above 10, and we will hold his aspirin and Brilinta right now. For history of Clostridium difficile, we will put the patient on contact isolation, and we will continue the patient on his vancomycin 125 mg p.o. every other day for another 9 days. . For benign prostatic hyperplasia, we will continue the patient with tamsulosin 0.4 mg p.o. daily. For chronic obstructive pulmonary disease, we will continue the patient with prednisone 10 mg p.o. daily and Symbicort 2 puffs inhalation b.i.d. For atrial fibrillation, we will continue the patient with diltiazem 240 mg p.o. daily currently when we will start the patient on p.o. Also, because of gastrointestinal bleed, we will hold his BP medication tonight, and we will put the patient n.p.o. ANTOPET / MODL /[id number] MTDHeladio
[2016-08-10] MEDS: SYMBICORT IH SCH ×2 (09:09→20:30)
[2016-08-10] MEDS: Tamsulosin 0.4 MG Cap.ER PO SCH (09:30)
[2016-08-10] MEDS: Diltiazem 120 MG Cap.CD PO SCH (09:31)
[2016-08-10] MEDS: predniSONE 10 MG Tab PO SCH (09:32)
--- NOTE | 2016-08-10 10:29 | PCM.PN ---
- General Info Date of Service: 08/10/16 Admission Dx/Problem (Free Text): generalized weakness , melena Subjective Update: Doing well this morning, still feeling slightly weak. Denies increased SOB. Some chest pain to the L lower chest and flank from fall. It is tender to palpation. No palpitations. Still having black soft stools. Functional Status: Reports: pain controlled, tolerating diet, ambulating - Review of Systems General: Reports: weakness, fatigue. Denies: fever HEENT: Reports: no symptoms. Denies: headaches, sore throat Pulmonary: Reports: cough (intermittently). Denies: shortness of breath Cardiovascular: Reports: no symptoms. Denies: chest pain, palpitations Gastrointestinal: Reports: No symptoms. Denies: Abdominal pain, Nausea, Vomiting Genitourinary: Reports: no symptoms. Denies: dysuria, frequency, burning Musculoskeletal: Reports: no symptoms Skin: Reports: no symptoms Neurological: Reports: no symptoms Psychiatric: Reports: no symptoms - Patient Data Vitals - most recent: Last Vital Signs Temp 97.6 F 08/10/16 09:18 Pulse 74 08/10/16 09:31 Resp 16 08/10/16 09:18 BP 131/62 08/10/16 09:31 Pulse Ox 96 08/10/16 09:18 Weight - most recent: 61 kg I&O - last 24 hours: Intake & Output 08/09/16 08/10/16 08/10/16 22:59 06:59 14:59 Intake Total 300 100 Output Total 495 300 Balance -195 -200 Lab Results last 24 hrs: Laboratory Results - last 24 hr 08/09/16 08/09/16 08/10/16 Range/Units 15:15 21:18 05:25 WBC 11.12 H 9.26 7.96 (4.0-11.0) K/uL RBC 3.42 L 3.30 L 3.29 L (4.50-5.90) M/uL Hgb 10.4 L 9.8 L 9.7 L (13.0-17.0) g/dL Hct 30.1 L 29.1 L 29.4 L (38.0-50.0) % MCV 88.0 88.2 89.4 (80.0-98.0) fL MCH 30.4 29.7 29.5 (27.0-32.0) pg MCHC 34.6 33.7 33.0 (31.0-37.0) g/dL RDW Std Deviation 53.2 53.6 54.6 (28.0-62.0) fl RDW Coeff of Mavis 17 H 17 H 17 H (11.0-15.0) % Plt Count 127 L 128 L 127 L (150-400) K/uL MPV 8.50 8.40 8.50 (7.40-12.00) fL Nucleated RBC % 0.0 0.0 0.0 /100WBC Nucleated RBCs # 0 0 0 K/uL Sodium (136-146) mmol/L Potassium (3.5-5.1) mmol/L Chloride (98-110) mmol/L Carbon Dioxide (21-31) mmol/L BUN (6.0-23.0) mg/dL Creatinine (0.6-1.5) mg/dL Est Cr Clr Drug Dosing mL/min Estimated GFR (MDRD) ml/min Glucose (60-110) mg/dL Calcium (8.8-10.8) mg/dL 08/10/16 Range/Units 05:25 WBC (4.0-11.0) K/uL RBC (4.50-5.90) M/uL Hgb (13.0-17.0) g/dL Hct (38.0-50.0) % MCV (80.0-98.0) fL MCH (27.0-32.0) pg MCHC (31.0-37.0) g/dL RDW Std Deviation (28.0-62.0) fl RDW Coeff of Mavis (11.0-15.0) % Plt Count (150-400) K/uL MPV (7.40-12.00) fL Nucleated RBC % /100WBC Nucleated RBCs # K/uL Sodium 143 (136-146) mmol/L Potassium 3.6 (3.5-5.1) mmol/L Chloride 110 (98-110) mmol/L Carbon Dioxide 23 (21-31) mmol/L BUN 18 (6.0-23.0) mg/dL Creatinine 0.8 (0.6-1.5) mg/dL Est Cr Clr Drug Dosing 66.72 mL/min Estimated GFR (MDRD) > 60.0 ml/min Glucose 64 (60-110) mg/dL Calcium 8.4 L (8.8-10.8) mg/dL Med Orders - Current: Current Medications Acetaminophen (Tylenol Extra Strength) 500 mg PO Q4H PRN PRN Reason: fever/pain Last Admin: 08/09/16 18:00 Dose: 500 mg Albuterol/Ipratropium (Duoneb 3.0-0.5 Mg/3 Ml) 3 ml NEB Q4H PRN PRN Reason: Shortness of Breath Last Admin: 08/09/16 17:55 Dose: 3 ml Diltiazem HCl (Cardizem Cd) 240 mg PO DAILY [facility] Last Admin: 08/10/16 09:31 Dose: 240 mg Pantoprazole Sodium 80 mg/ (Sodium Chloride) 100 mls @ 10 mls/hr IV Q10H [facility] Last Admin: 08/10/16 02:42 Dose: 10 mls/hr Symbicort 160/4.5 (Inhaler Own Med) 0 puff IH BID [facility] Last Admin: 08/10/16 09:09 Dose: 1 puff Prednisone (Prednisone) 10 mg PO DAILY [facility] Last Admin: 08/10/16 09:32 Dose: 10 mg Sodium Chloride (Saline Flush) 10 ml FLUSH ASDIRECTED PRN PRN Reason: Keep Vein Open Sodium Chloride (Saline Flush) 2.5 ml FLUSH ASDIRECTED PRN PRN Reason: Keep Vein Open Tamsulosin HCl (Flomax) 0.4 mg PO PCBREAKFAST [facility] Last Admin: 08/10/16 09:30 Dose: 0.4 mg Vancomycin HCl (First-Vancomycin 25 Compounding Kit) 125 mg PO SEECOMMENT [facility] Stop: 08/18/16 09:01 Discontinued Medications Sodium Chloride (Normal Saline) 250 mls @ 999 mls/hr IV STAT [facility] Last Admin: 08/08/16 15:04 Dose: 999 mls/hr Pantoprazole Sodium 80 mg/ (Sodium Chloride) 100 mls @ 10 mls/hr IV Q10H [facility] Last Admin: 08/09/16 13:47 Dose: Not Given Sodium Chloride (Saline Flush) 10 ml FLUSH ASDIRECTED PRN PRN Reason: Keep Vein Open Last Admin: 08/08/16 15:04 Dose: 10 ml Sodium Chloride (Saline Flush) 2.5 ml FLUSH ASDIRECTED PRN PRN Reason: Keep Vein Open Last Admin: 08/08/16 15:04 Dose: 2.5 ml Vancomycin HCl (First-Vancomycin 25 Compounding Kit) 125 mg PO QID [facility] Last Admin: 08/09/16 12:40 Dose: 125 mg - Exam Quality Assessment: supplemental oxygen, DVT prophylaxis (SCDs) General: alert, oriented, cooperative HEENT: Pupils equal, Pupils reactive, EOMI, Mucous membr. moist/pink Neck: supple, no JVD Lungs: Clear to auscultation, Normal respiratory effort Cardiovascular: regular rate, no murmurs, irregular rhythm Abdomen: bowel sounds present, soft, no tenderness, no distension Extremities: no edema, normal pulses Skin: other (bruising and skin tears noted to R and L arms from falls. Also noted to R flank. Small bruise to L flank with tenderness. ) Neurological: no new focal deficit Psy/Mental Status: alert, normal affect, normal mood - Problem List & Annotations (1) Symptomatic anemia SNOMED Code(s): 261832710 Code(s): D64.9 - ANEMIA, UNSPECIFIED Status: Acute Current Visit: Yes (2) Fall at home SNOMED Code(s): 07647968 Code(s): W19.XXXA - UNSPECIFIED FALL, INITIAL ENCOUNTER; Y92.099 - UNSP PLACE IN OTH NON-INSTITUTIONAL RESIDENCE PLACE Status: Acute Current Visit: Yes Qualifiers: Encounter type: initial encounter Qualified Code(s): W19.XXXA - Unspecified fall, initial encounter; Y92.099 - Unspecified place in other non- institutional residence as the place of occurrence of the external cause (3) Generalized weakness SNOMED Code(s): 82652825 Code(s): R53.1 - WEAKNESS Status: Acute Current Visit: No (4) COPD (chronic obstructive pulmonary disease) SNOMED Code(s): 02839468 Code(s): J44.9 - CHRONIC OBSTRUCTIVE PULMONARY DISEASE, UNSPECIFIED Status : Chronic Current Visit: No Qualifiers: COPD type: unspecified COPD Qualified Code(s): J44.9 - Chronic obstructive pulmonary disease, unspecified (5) CHF (congestive heart failure) SNOMED Code(s): 19593154 Code(s): I50.9 - HEART FAILURE, UNSPECIFIED Status: Chronic Current Visit : No Qualifiers: Congestive heart failure type: diastolic Congestive heart failure chronicity: chronic Qualified Code(s): I50.32 - Chronic diastolic (congestive ) heart failure (6) COPD (chronic obstructive pulmonary disease) SNOMED Code(s): 35527915 Code(s): J44.9 - CHRONIC OBSTRUCTIVE PULMONARY DISEASE, UNSPECIFIED Status : Chronic Priority: High Current Visit: No Qualifiers: COPD type: emphysema Emphysema type: unspecified Qualified Code(s): J43.9 - Emphysema, unspecified (7) Pulmonary aspiration, history of SNOMED Code(s): 616816675 Code(s): Z87.09 - PERSONAL HISTORY OF OTHER DISEASES OF THE RESPIRATORY SYSTEM Status: Chronic Current Visit: Yes (8) Hx of carotid stenosis SNOMED Code(s): 567967924 Code(s): Z86.79 - PERSONAL HISTORY OF OTHER DISEASES OF THE CIRCULATORY SYSTEM Status: Acute Current Visit: Yes (9) Afib SNOMED Code(s): 07481203 Code(s): I48.91 - UNSPECIFIED ATRIAL FIBRILLATION Status: Chronic Priority: Medium Current Visit: No Qualifiers: Atrial fibrillation type: chronic Qualified Code(s): I48.2 - Chronic atrial fibrillation - Problem List Review Problem List Initiated/Reviewed/Updated: Yes - My Orders Last 24 Hours: My Active Orders 08/10/16 10:12 Consult to Physical Therapy [PT Evaluation and Treatment] [CONS] Routine 08/10/16 10:18 MAGNESIUM [CHEM] Routine - Plan Plan:: This 76 year old male admitted with melena and symptomatic anemia 1. GI bleed: Holding Brillinta for now. Continues to have some melena last evening. Hgb 9.7 this morning. Will check this afternoon. Continue Protonix gtt. Mechanical soft diet I spoke with Dr. Andrade, Line Maintenance Technician in [place] who placed R carotid stent. He recommends stopping Brillinta until bleeding controlled, a couple days, then restart. Dr. Andrade recommends some type of anticoagulation needs to be continued or else there is a definite chance of stroke. But he also stated, if Ishmael and family understand the risks of stroke being off anticoagulation then he is ok with stopping everything. I discussed this briefly with Ishmael. He wants me to return when Fran, Son and POA is present. 2. Falls/generalized weakness: Consult PT to evaluate and treat. 3. Afib: Continue Diltiazem. supplement Magnesium as needed to keep at 2.0.Supplemented with 4 gm Magnesium today. 4. COPD: Stable. Continue Home nebulizers and inhalers 5. Hx silent aspiration: Continue with thickened liquids. 6. CHF: stable. Monitor fluid status. daily weights. VTE: SCDs only due to GI bleeding Dispo: 1-2 days pending improvement. Hope is to be discharged home with Home Health with PT/OT
[2016-08-10] MEDS ORDERED: ORPHENADRINE CITRATE 100 MG PO PRN (11:00)
[2016-08-10] MEDS ORDERED: Albuterol 8 GM Inhaler INH PRN (11:01)
[2016-08-10] MEDS ORDERED: Albuterol 0.083% 2.5 MG/3 ML Neb Soln INH PRN (11:01)
[2016-08-10] MEDS: Magnesium Sulfate/Water 4 GM in Premix Bag 1 BAG IV ONE ×2 (11:24→12:02)
[2016-08-10] MEDS: Tiotropium Inhaler 18 MCG Inhalation Powder Cap Kit of 5 INH SCH (11:25)
[2016-08-10] MEDS: Potassium Chloride 20 MEQ Tab.ER PO SCH ×2 (11:38→21:30)
[2016-08-10] MEDS: Acetaminophen 500 MG Tab PO PRN ×2 (11:49→18:13)
--- NOTE | 2016-08-10 17:38 | CR ---
EXAM DATE: 08/08/16 PATIENT'S AGE: 76 Patient: GILBERTO SIMONS Facility: [place], [place] Site . Site : 1940 Study: XRay Pelvis [id number]/4/2017 2:05:34 PM Ordering Physician: Doctor Sadler Final Report: INDICATION: Pain. Technique: Single view of the pelvis. Findings: The bony pelvic ring is intact. No acute abnormality of either hip. Sacroiliac joints bilaterally symmetrical. Mild narrowing of hip joint spaces. Impression: 1. No acute fracture. 2. Mild narrowing of the hip joint spaces. Dictated by Madeline Govea MD @ Aug 08 2016 2:07PM (Electronic Signature) Report Signed by Proxy and Original Signed Document filed in the Medical Record. MTDHeladio
[2016-08-11 05:15] LABS: CHLORIDE,CL 108 mmol/L (98-110); SODIUM,NA 142 mmol/L (136-146)
[2016-08-11] MEDS: Pantoprazole 80 MG in Sodium Chloride 0.9% 100 ML IV SCH (07:56)
[2016-08-11] MEDS: Tamsulosin 0.4 MG Cap.ER PO SCH (07:57)
[2016-08-11] MEDS: predniSONE 10 MG Tab PO SCH (08:04)
[2016-08-11] MEDS: Potassium Chloride 20 MEQ Tab.ER PO SCH (08:04)
[2016-08-11] MEDS: Diltiazem 120 MG Cap.CD PO SCH (08:04)
[2016-08-11] MEDS: Tiotropium Inhaler 18 MCG Inhalation Powder Cap Kit of 5 INH SCH (08:57)
[2016-08-11] MEDS ORDERED: Iron Polysaccharides Complex 150 MG Cap PO SCH (09:00)
[2016-08-11] MEDS ORDERED: Carboxymethylcellulose Sodium 0.5% Ophth Soln 0.4 ML UD Box of 30 EYEBOTH SCH (09:00)
[2016-08-11] MEDS ORDERED: Vancomycin 25 MG/ML Compounding Kit PO SCH ×2 (09:00)
[2016-08-11] MEDS: SYMBICORT IH SCH (09:15)
--- NOTE | 2016-08-11 09:28 | PCM.PN ---
- General Info Date of Service: 08/11/16 Admission Dx/Problem (Free Text): generalized weakness , melena Subjective Update: Doing well this morning, still feeling slightly weak. Would like to do PT this morning. Nervous about going home due to weakness. Denies increased SOB. Continues to have some R and L flank pain from falls at home. No palpitations. Only had 1 stool yesterday evening, still black soft. Functional Status: Reports: pain controlled, tolerating diet, ambulating, urinating - Review of Systems General: Reports: weakness HEENT: Reports: no symptoms. Denies: sinus congestion, sore throat Pulmonary: Reports: shortness of breath (at baseline.) Cardiovascular: Denies: chest pain, palpitations Gastrointestinal: Denies: Abdominal pain, Nausea, Vomiting Genitourinary: Reports: no symptoms. Denies: dysuria, frequency, burning Musculoskeletal: Reports: no symptoms Skin: Reports: no symptoms Neurological: Reports: no symptoms Psychiatric: Reports: no symptoms - Patient Data Vitals - most recent: Last Vital Signs Temp 97.9 F 08/11/16 08:00 Pulse 66 08/11/16 08:04 Resp 16 08/11/16 08:00 BP 122/57 L 08/11/16 08:04 Pulse Ox 95 08/11/16 08:00 Weight - most recent: 61 kg I&O - last 24 hours: Intake & Output 08/10/16 08/11/16 08/11/16 22:59 06:59 14:59 Intake Total 980 240 100 Output Total 800 350 Balance 180 -110 100 Lab Results last 24 hrs: Laboratory Results - last 24 hr 08/10/16 08/10/16 08/11/16 Range/Units 05:25 14:47 04:37 WBC 7.29 (4.0-11.0) K/uL RBC 3.34 L (4.50-5.90) M/uL Hgb 10.2 L 9.9 L (13.0-17.0) g/dL Hct 30.6 L 30.1 L (38.0-50.0) % MCV 90.1 (80.0-98.0) fL MCH 29.6 (27.0-32.0) pg MCHC 32.9 (31.0-37.0) g/dL RDW Std Deviation 53.7 (28.0-62.0) fl RDW Coeff of Mavis 17 H (11.0-15.0) % Plt Count 130 L (150-400) K/uL MPV 8.60 (7.40-12.00) fL Nucleated RBC % 0.0 /100WBC Nucleated RBCs # 0 K/uL Sodium (136-146) mmol/L Potassium (3.5-5.1) mmol/L Chloride (98-110) mmol/L Carbon Dioxide (21-31) mmol/L BUN (6.0-23.0) mg/dL Creatinine (0.6-1.5) mg/dL Est Cr Clr Drug Dosing mL/min Estimated GFR (MDRD) ml/min Glucose (60-110) mg/dL Calcium (8.8-10.8) mg/dL Magnesium 1.2 L (1.5-2.3) mEq/L 08/11/16 08/11/16 Range/Units 04:37 04:37 WBC (4.0-11.0) K/uL RBC (4.50-5.90) M/uL Hgb (13.0-17.0) g/dL Hct (38.0-50.0) % MCV (80.0-98.0) fL MCH (27.0-32.0) pg MCHC (31.0-37.0) g/dL RDW Std Deviation (28.0-62.0) fl RDW Coeff of Mavis (11.0-15.0) % Plt Count (150-400) K/uL MPV (7.40-12.00) fL Nucleated RBC % /100WBC Nucleated RBCs # K/uL Sodium 142 (136-146) mmol/L Potassium 4.0 (3.5-5.1) mmol/L Chloride 108 (98-110) mmol/L Carbon Dioxide 25 (21-31) mmol/L BUN 11 (6.0-23.0) mg/dL Creatinine 0.8 (0.6-1.5) mg/dL Est Cr Clr Drug Dosing 66.72 mL/min Estimated GFR (MDRD) > 60.0 ml/min Glucose 71 (60-110) mg/dL Calcium 8.1 L (8.8-10.8) mg/dL Magnesium 2.2 (1.5-2.3) mEq/L Med Orders - Current: Current Medications Acetaminophen (Tylenol Extra Strength) 500 mg PO Q4H PRN PRN Reason: fever/pain Last Admin: 08/10/16 18:13 Dose: 500 mg Albuterol (Proventil Neb Soln) 2.5 mg INH Q6H PRN PRN Reason: Shortness of Breath Albuterol (Ventolin Hfa) 0 gm INH QID PRN PRN Reason: Shortness of Breath Albuterol/Ipratropium (Duoneb 3.0-0.5 Mg/3 Ml) 3 ml NEB Q4H PRN PRN Reason: Shortness of Breath Last Admin: 08/09/16 17:55 Dose: 3 ml Artificial Tears (Refresh Plus 0.5%) 1 each EYEBOTH DAILY [facility] Last Admin: 08/11/16 08:04 Dose: 1 each Diltiazem HCl (Cardizem Cd) 240 mg PO DAILY [facility] Last Admin: 08/11/16 08:04 Dose: 240 mg Pantoprazole Sodium 80 mg/ (Sodium Chloride) 100 mls @ 10 mls/hr IV Q10H [facility] Last Admin: 08/11/16 07:56 Dose: 10 mls/hr Symbicort 160/4.5 (Inhaler Own Med) 0 puff IH BID [facility] Last Admin: 08/10/16 20:30 Dose: 2 puff Orphenadrine Citrate (100 Mg) 1 each PO Q12HR PRN PRN Reason: Pain Last Admin: 08/11/16 08:56 Dose: 1 each Polysaccharide Iron Complex (Ferrex 150) 150 mg PO BID [facility] Last Admin: 08/11/16 08:11 Dose: 150 mg Potassium Chloride (Klor-Con M20) 20 meq PO BID [facility] Last Admin: 08/11/16 08:04 Dose: 20 meq Prednisone (Prednisone) 10 mg PO DAILY [facility] Last Admin: 08/11/16 08:04 Dose: 10 mg Sodium Chloride (Saline Flush) 10 ml FLUSH ASDIRECTED PRN PRN Reason: Keep Vein Open Sodium Chloride (Saline Flush) 2.5 ml FLUSH ASDIRECTED PRN PRN Reason: Keep Vein Open Tamsulosin HCl (Flomax) 0.4 mg PO PCBREAKFAST [facility] Last Admin: 08/11/16 07:57 Dose: 0.4 mg Tiotropium [place] (Spiriva Handihaler) 18 mcg INH DAILY [facility] Last Admin: 08/11/16 08:57 Dose: 1 cap Vancomycin HCl (First-Vancomycin 25 Compounding Kit) 125 mg PO Q2D@0900 [facility] Stop: 08/18/16 09:01 Last Admin: 08/11/16 08:11 Dose: 125 mg Vancomycin HCl (First-Vancomycin 25 Compounding Kit) 125 mg PO Q3D@0900 [facility] Discontinued Medications Sodium Chloride (Normal Saline) 250 mls @ 999 mls/hr IV STAT [facility] Last Admin: 08/08/16 15:04 Dose: 999 mls/hr Pantoprazole Sodium 80 mg/ (Sodium Chloride) 100 mls @ 10 mls/hr IV Q10H [facility] Last Admin: 08/09/16 13:47 Dose: Not Given Magnesium Sulfate 4 gm/ Premix 100 mls @ 50 mls/hr IV ONETIME ONE Stop: 08/10/16 12:59 Last Admin: 08/10/16 12:02 Dose: 50 mls/hr Sodium Chloride (Saline Flush) 10 ml FLUSH ASDIRECTED PRN PRN Reason: Keep Vein Open Last Admin: 08/08/16 15:04 Dose: 10 ml Sodium Chloride (Saline Flush) 2.5 ml FLUSH ASDIRECTED PRN PRN Reason: Keep Vein Open Last Admin: 08/08/16 15:04 Dose: 2.5 ml Vancomycin HCl (First-Vancomycin 25 Compounding Kit) 125 mg PO QID [facility] Last Admin: 08/09/16 12:40 Dose: 125 mg Vancomycin HCl (First-Vancomycin 25 Compounding Kit) 125 mg PO SEECOMMENT [facility] Stop: 08/18/16 09:01 - Exam General: alert, oriented, cooperative HEENT: Pupils equal, Pupils reactive, EOMI, Mucous membr. moist/pink Neck: supple Lungs: Clear to auscultation, Normal respiratory effort. No: Decreased breath sounds, Crackles, Wheezing Cardiovascular: regular rate, regular rhythm, no murmurs Abdomen: bowel sounds present, soft, no tenderness, no distension Extremities: no edema, normal pulses Psy/Mental Status: alert, normal affect, normal mood - Problem List & Annotations (1) Symptomatic anemia SNOMED Code(s): 345285882 Code(s): D64.9 - ANEMIA, UNSPECIFIED Status: Acute Current Visit: Yes (2) Fall at home SNOMED Code(s): 64667240 Code(s): W19.XXXA - UNSPECIFIED FALL, INITIAL ENCOUNTER; Y92.099 - UNSP PLACE IN OTH NON-INSTITUTIONAL RESIDENCE PLACE Status: Acute Current Visit: Yes Qualifiers: Encounter type: initial encounter Qualified Code(s): W19.XXXA - Unspecified fall, initial encounter; Y92.099 - Unspecified place in other non- institutional residence as the place of occurrence of the external cause (3) Generalized weakness SNOMED Code(s): 63258065 Code(s): R53.1 - WEAKNESS Status: Acute Current Visit: No (4) COPD (chronic obstructive pulmonary disease) SNOMED Code(s): 22232683 Code(s): J44.9 - CHRONIC OBSTRUCTIVE PULMONARY DISEASE, UNSPECIFIED Status : Chronic Current Visit: No Qualifiers: COPD type: unspecified COPD Qualified Code(s): J44.9 - Chronic obstructive pulmonary disease, unspecified (5) CHF (congestive heart failure) SNOMED Code(s): 98314325 Code(s): I50.9 - HEART FAILURE, UNSPECIFIED Status: Chronic Current Visit : No Qualifiers: Congestive heart failure type: diastolic Congestive heart failure chronicity: chronic Qualified Code(s): I50.32 - Chronic diastolic (congestive ) heart failure (6) COPD (chronic obstructive pulmonary disease) SNOMED Code(s): 00728804 Code(s): J44.9 - CHRONIC OBSTRUCTIVE PULMONARY DISEASE, UNSPECIFIED Status : Chronic Priority: High Current Visit: No Qualifiers: COPD type: emphysema Emphysema type: unspecified Qualified Code(s): J43.9 - Emphysema, unspecified (7) Pulmonary aspiration, history of SNOMED Code(s): 682148641 Code(s): Z87.09 - PERSONAL HISTORY OF OTHER DISEASES OF THE RESPIRATORY SYSTEM Status: Chronic Current Visit: Yes (8) Hx of carotid stenosis SNOMED Code(s): 488161568 Code(s): Z86.79 - PERSONAL HISTORY OF OTHER DISEASES OF THE CIRCULATORY SYSTEM Status: Acute Current Visit: Yes (9) Afib SNOMED Code(s): 23568660 Code(s): I48.91 - UNSPECIFIED ATRIAL FIBRILLATION Status: Chronic Priority: Medium Current Visit: No Qualifiers: Atrial fibrillation type: chronic Qualified Code(s): I48.2 - Chronic atrial fibrillation - Problem List Review Problem List Initiated/Reviewed/Updated: Yes - My Orders Last 24 Hours: My Active Orders 08/10/16 10:12 Consult to Physical Therapy [PT Evaluation and Treatment] [CONS] Routine 08/10/16 11:00 Patient's Own Medication [Ptom] 1 each PO Q12HR PRN Tiotropium [Spiriva HandiHaler] 18 mcg INH DAILY 08/10/16 11:01 Albuterol [Proventil Neb Soln] 2.5 mg INH Q6H PRN Albuterol [Ventolin HFA] 0 gm INH QID PRN 08/10/16 11:15 Potassium Chloride [Klor-Con M20] 20 meq PO BID 08/11/16 09:00 Carboxymethylcellulose Sodium [Refresh Plus 0.5%] 1 each EYEBOTH DAILY Iron Polysaccharides Complex [Ferrex 150] 150 mg PO BID 08/12/16 05:00 MAGNESIUM [CHEM] DAILY 08/13/16 05:00 MAGNESIUM [CHEM] DAILY - Plan Plan:: This 76 year old male admitted with melena and symptomatic anemia 1. GI bleed: Holding Brillinta for now. Continues to have 1 melena stool last evening. Hgb 9.9 this morning. Continue Protonix gtt. Mechanical soft diet with thickened liquids 2. Falls/generalized weakness: Consult PT to evaluate and treat. 3. Afib: Continue Diltiazem. Magnesium today 2.2, K+ 4.0 4. COPD: Stable. Continue Home nebulizers and inhalers 5. Hx silent aspiration: Continue with thickened liquids. 6. CHF: stable. Monitor fluid status. daily weights. VTE: SCDs only due to GI bleeding Dispo: Hope is to be discharged home with Home Health with PT/OT today. Will reassess after seeing PT this morning.
[2016-08-11] MEDS: Albuterol/Ipratropium 3.0-0.5 MG/3 ML Neb Soln NEB PRN (11:35)
[2016-08-11 12:59] VITALS: BP 116/58
--- NOTE | 2016-08-11 13:18 | PCM.DCSUM1 ---
Discharge Summary - Hospital Course Brief History: This 76 year old male with pmh of CHF, Afib, severe enstage COPD oxygen dependent, R carotid stent (04/2016), recurrent GI bleed and recurrent aspiration pneumonia presented to the ED with complaints of falls, generalized weakness, falls and melena. Hgb in the ED was noted to be 7.1. He was admitted for symptomatic anemia, GI bleed and weakness. - Discharge Data Discharge Date: 08/11/16 Discharge Disposition: Home, W Home Health Agency 06 Condition: Good - Discharge Diagnosis/Problem(s) (1) Symptomatic anemia SNOMED Code(s): 544708503 ICD Code: D64.9 - ANEMIA, UNSPECIFIED Status: Acute Current Visit: Yes (2) Fall at home SNOMED Code(s): 40158817 ICD Code: W19.XXXA - UNSPECIFIED FALL, INITIAL ENCOUNTER; Y92.099 - UNSP PLACE IN OTH NON-INSTITUTIONAL RESIDENCE PLACE Status: Acute Current Visit: Yes Qualifiers: Encounter type: initial encounter Qualified Code(s): W19.XXXA - Unspecified fall, initial encounter; Y92.099 - Unspecified place in other non- institutional residence as the place of occurrence of the external cause (3) Generalized weakness SNOMED Code(s): 52043432 ICD Code: R53.1 - WEAKNESS Status: Acute Current Visit: No (4) COPD (chronic obstructive pulmonary disease) SNOMED Code(s): 56936655 ICD Code: J44.9 - CHRONIC OBSTRUCTIVE PULMONARY DISEASE, UNSPECIFIED Status : Chronic Current Visit: No Qualifiers: COPD type: unspecified COPD Qualified Code(s): J44.9 - Chronic obstructive pulmonary disease, unspecified (5) CHF (congestive heart failure) SNOMED Code(s): 99179354 ICD Code: I50.9 - HEART FAILURE, UNSPECIFIED Status: Chronic Current Visit: No Qualifiers: Congestive heart failure type: diastolic Congestive heart failure chronicity: chronic Qualified Code(s): I50.32 - Chronic diastolic (congestive ) heart failure (6) COPD (chronic obstructive pulmonary disease) SNOMED Code(s): 07738486 ICD Code: J44.9 - CHRONIC OBSTRUCTIVE PULMONARY DISEASE, UNSPECIFIED Status : Chronic Priority: High Current Visit: No Qualifiers: COPD type: emphysema Emphysema type: unspecified Qualified Code(s): J43.9 - Emphysema, unspecified (7) Pulmonary aspiration, history of SNOMED Code(s): 546382242 ICD Code: Z87.09 - PERSONAL HISTORY OF OTHER DISEASES OF THE RESPIRATORY SYSTEM Status: Chronic Current Visit: Yes (8) Hx of carotid stenosis SNOMED Code(s): 358929450 ICD Code: Z86.79 - PERSONAL HISTORY OF OTHER DISEASES OF THE CIRCULATORY SYSTEM Status: Acute Current Visit: Yes (9) Afib SNOMED Code(s): 61813162 ICD Code: I48.91 - UNSPECIFIED ATRIAL FIBRILLATION Status: Chronic Priority: Medium Current Visit: No Qualifiers: Atrial fibrillation type: chronic Qualified Code(s): I48.2 - Chronic atrial fibrillation - Patient Summary/Data Consults: Consultations 08/10/16 10:12 Consult to Physical Therapy [PT Evaluation and Treatment] [CONS] Routine - Patient Instructions Diet: Heart Healthy Diet (thickened liquids) Activity: As Tolerated Showering/Bathing: May Shower Notify Provider of: Fever, Increased Pain, Swelling and Redness, Drainage, Nausea and/or Vomiting Other/Special Instructions: Resume Home health. Home health to check H/H on August 13 and results to PCP. HOLD Brillinta until follow up with Dr. Michel next week. Then you may restart it. - Discharge Plan Home Medications: Home Meds Albuterol Sulfate [Proair Hfa] 2 puff IH QID PRN 06/14/16 [History] Albuterol/Ipratropium [DuoNeb 3.0-0.5 MG/3 ML] 3 ml NEB Q4H PRN 06/14/16 [ History] Bisacodyl [Dulcolax] 5 - 10 mg PO DAILY PRN 06/14/16 [History] Bisacodyl [Dulcolax] 10 mg RC DAILY PRN 06/14/16 [History] Budesonide/Formoterol Fumarate [Symbicort 160-4.5 Mcg Inhaler] 2 puff IH BID 01/21 [History] Diltiazem [Cardizem CD] 240 mg PO DAILY 06/14/16 [History] Hypromellose [Genteal Mild] 2 drop EYEBOTH DAILY 06/14/16 [History] Metoclopramide HCl [Reglan] 10 mg PO QIDACANDBED PRN 06/14/16 [History] Multivitamin [Multivitamins] 1 each PO DAILY 06/14/16 [History] Orphenadrine Citrate 100 mg PO Q12HR PRN 06/14/16 [History] Tamsulosin [Flomax] 0.4 mg PO PCBREAKFAST 06/14/16 [History] Acetaminophen [Tylenol] 500 mg PO Q4H PRN 06/15/16 [History] Albuterol Sulfate 2.5 mg IH Q6H PRN 06/15/16 [History] Pantoprazole [Protonix] 40 mg PO BIDAC 06/15/16 [History] Tiotropium [Spiriva HandiHaler] 18 mcg IH DAILY 06/15/16 [History] Iron Polysaccharides Complex [Ferrex 150] 150 mg PO BID cap 06/17/16 [Rx] Prednisone [IMW: Prednisone] 10 mg PO DAILY 06/23/16 [History] Potassium Chloride 20 meq PO BID #30 tab.er.prt 06/26/16 [Rx] Vancomycin 125 mg PO DAILY #0 08/11/16 [Rx] Referrals: PCP,None [Primary Care Provider] - Adam Michel MD [Physician] - (Follow up next week with Dr. Michel.) - Discharge Summary/Plan Comment DC Time >30 min.: No Discharge Summary/Plan Comment: Discharge diagnoses: Acute GI Bleed COPD: stable CHF: stable CAD: stable Afib: stable Chronic anticoagulation: On hold until follow up. Ishmael was admitted and started on a Protonix gtt. He was transfused 3 units PRBCs and hgb then stabilized at 9.8 for the past two days. He has had 1 melena stool last evening and nothing today. He is wanting to go home, he and his have appointments in [place] tomorrow. He is gaining strength back. PT felt he is strong enough for discharge and was discharging him from their service. I spoke at length with Dr. Andrade regarding his Brillinta. Dr. Andrade recommends him to stay on the Brillinta indefinitely. He is ok with it being held now for GI bleed and to be restarted in a week. If anticoagulation is discontinued Dr. Andrade feels Ishmael is at a very high risk for CVA. Patient and family aware of this and would like to remain on anticoagulation for now, but will have a discussion about it and with PCP, Dr. Michel. Ishmael will resume Home Health with PT/OT upon discharge. I would recommend Home Health to draw HH on August 13 and get results to Dr. Michel. Dr. Michel is to follow Home Health plan of care. He will conitnue with Protonix for another week, 40 mg BID. HOLD Brillinta until next week follow up with Dr. Michel, if stable this may be restarted. No other changes to medications. He was urged to return to ED or clinic in melenotic stools increase, sadia blood is noted in stools or he becomes generally weak again. Fran, son and POA aware and agrees with discharge home. - General Info Date of Service: 08/11/16 - Review of Systems General: Reports: no symptoms. Denies: fever HEENT: Reports: no symptoms. Denies: sinus congestion, sore throat Pulmonary: Reports: no symptoms, shortness of breath (at baseline). Denies: cough, sputum Cardiovascular: Reports: no symptoms. Denies: chest pain, edema Gastrointestinal: Reports: No symptoms. Denies: Abdominal pain, Constipation, Melena (no stools since last evening. ), Nausea, Vomiting Genitourinary: Reports: no symptoms. Denies: dysuria, frequency, burning Musculoskeletal: Reports: back pain (chronic back pain) Skin: Reports: no symptoms Neurological: Reports: no symptoms Psychiatric: Reports: no symptoms - Patient Data Vitals - Most Recent: Last Vital Signs Temp 98.3 F 08/11/16 12:00 Pulse 76 08/11/16 12:00 Resp 16 08/11/16 12:00 BP 116/58 L 08/11/16 12:00 Pulse Ox 95 08/11/16 12:00 Weight - Most Recent: 61 kg I&O - Last 24 hours: Intake & Output 08/10/16 08/11/16 08/11/16 22:59 06:59 14:59 Intake Total 980 240 100 Output Total 800 350 Balance 180 -110 100 Lab Results - Last 24 hrs: Laboratory Results - last 24 hr 08/10/16 08/11/16 08/11/16 Range/Units 14:47 04:37 04:37 WBC 7.29 (4.0-11.0) K/uL RBC 3.34 L (4.50-5.90) M/uL Hgb 10.2 L 9.9 L (13.0-17.0) g/dL Hct 30.6 L 30.1 L (38.0-50.0) % MCV 90.1 (80.0-98.0) fL MCH 29.6 (27.0-32.0) pg MCHC 32.9 (31.0-37.0) g/dL RDW Std Deviation 53.7 (28.0-62.0) fl RDW Coeff of Mavis 17 H (11.0-15.0) % Plt Count 130 L (150-400) K/uL MPV 8.60 (7.40-12.00) fL Nucleated RBC % 0.0 /100WBC Nucleated RBCs # 0 K/uL Sodium 142 (136-146) mmol/L Potassium 4.0 (3.5-5.1) mmol/L Chloride 108 (98-110) mmol/L Carbon Dioxide 25 (21-31) mmol/L BUN 11 (6.0-23.0) mg/dL Creatinine 0.8 (0.6-1.5) mg/dL Est Cr Clr Drug Dosing 66.72 mL/min Estimated GFR (MDRD) > 60.0 ml/min Glucose 71 (60-110) mg/dL Calcium 8.1 L (8.8-10.8) mg/dL Magnesium (1.5-2.3) mEq/L 08/11/16 Range/Units 04:37 WBC (4.0-11.0) K/uL RBC (4.50-5.90) M/uL Hgb (13.0-17.0) g/dL Hct (38.0-50.0) % MCV (80.0-98.0) fL MCH (27.0-32.0) pg MCHC (31.0-37.0) g/dL RDW Std Deviation (28.0-62.0) fl RDW Coeff of Mavis (11.0-15.0) % Plt Count (150-400) K/uL MPV (7.40-12.00) fL Nucleated RBC % /100WBC Nucleated RBCs # K/uL Sodium (136-146) mmol/L Potassium (3.5-5.1) mmol/L Chloride (98-110) mmol/L Carbon Dioxide (21-31) mmol/L BUN (6.0-23.0) mg/dL Creatinine (0.6-1.5) mg/dL Est Cr Clr Drug Dosing mL/min Estimated GFR (MDRD) ml/min Glucose (60-110) mg/dL Calcium (8.8-10.8) mg/dL Magnesium 2.2 (1.5-2.3) mEq/L Med Orders - Current: Current Medications Acetaminophen (Tylenol Extra Strength) 500 mg PO Q4H PRN PRN Reason: fever/pain Last Admin: 08/10/16 18:13 Dose: 500 mg Albuterol (Proventil Neb Soln) 2.5 mg INH Q6H PRN PRN Reason: Shortness of Breath Albuterol (Ventolin Hfa) 0 gm INH QID PRN PRN Reason: Shortness of Breath Albuterol/Ipratropium (Duoneb 3.0-0.5 Mg/3 Ml) 3 ml NEB Q4H PRN PRN Reason: Shortness of Breath Last Admin: 08/11/16 11:35 Dose: 3 ml Artificial Tears (Refresh Plus 0.5%) 1 each EYEBOTH DAILY [facility] Last Admin: 08/11/16 08:04 Dose: 1 each Diltiazem HCl (Cardizem Cd) 240 mg PO DAILY [facility] Last Admin: 08/11/16 08:04 Dose: 240 mg Pantoprazole Sodium 80 mg/ (Sodium Chloride) 100 mls @ 10 mls/hr IV Q10H [facility] Last Admin: 08/11/16 07:56 Dose: 10 mls/hr Symbicort 160/4.5 (Inhaler Own Med) 0 puff IH BID [facility] Last Admin: 08/11/16 09:15 Dose: 2 puff Orphenadrine Citrate (100 Mg) 1 each PO Q12HR PRN PRN Reason: Pain Last Admin: 08/11/16 08:56 Dose: 1 each Polysaccharide Iron Complex (Ferrex 150) 150 mg PO BID [facility] Last Admin: 08/11/16 08:11 Dose: 150 mg Potassium Chloride (Klor-Con M20) 20 meq PO BID [facility] Last Admin: 08/11/16 08:04 Dose: 20 meq Prednisone (Prednisone) 10 mg PO DAILY [facility] Last Admin: 08/11/16 08:04 Dose: 10 mg Sodium Chloride (Saline Flush) 10 ml FLUSH ASDIRECTED PRN PRN Reason: Keep Vein Open Sodium Chloride (Saline Flush) 2.5 ml FLUSH ASDIRECTED PRN PRN Reason: Keep Vein Open Tamsulosin HCl (Flomax) 0.4 mg PO PCBREAKFAST [facility] Last Admin: 08/11/16 07:57 Dose: 0.4 mg Tiotropium [place] (Spiriva Handihaler) 18 mcg INH DAILY [facility] Last Admin: 08/11/16 08:57 Dose: 1 cap Vancomycin HCl (First-Vancomycin 25 Compounding Kit) 125 mg PO Q2D@0900 [facility] Stop: 08/18/16 09:01 Last Admin: 08/11/16 08:11 Dose: 125 mg Vancomycin HCl (First-Vancomycin 25 Compounding Kit) 125 mg PO Q3D@0900 [facility] Discontinued Medications Sodium Chloride (Normal Saline) 250 mls @ 999 mls/hr IV STAT [facility] Last Admin: 08/08/16 15:04 Dose: 999 mls/hr Pantoprazole Sodium 80 mg/ (Sodium Chloride) 100 mls @ 10 mls/hr IV Q10H [facility] Last Admin: 08/09/16 13:47 Dose: Not Given Magnesium Sulfate 4 gm/ Premix 100 mls @ 50 mls/hr IV ONETIME ONE Stop: 08/10/16 12:59 Last Admin: 08/10/16 12:02 Dose: 50 mls/hr Sodium Chloride (Saline Flush) 10 ml FLUSH ASDIRECTED PRN PRN Reason: Keep Vein Open Last Admin: 08/08/16 15:04 Dose: 10 ml Sodium Chloride (Saline Flush) 2.5 ml FLUSH ASDIRECTED PRN PRN Reason: Keep Vein Open Last Admin: 08/08/16 15:04 Dose: 2.5 ml Vancomycin HCl (First-Vancomycin 25 Compounding Kit) 125 mg PO QID [facility] Last Admin: 08/09/16 12:40 Dose: 125 mg Vancomycin HCl (First-Vancomycin 25 Compounding Kit) 125 mg PO SEECOMMENT [facility] Stop: 08/18/16 09:01 - Exam General: Reports: alert, oriented, cooperative HEENT: Reports: Pupils equal, Pupils reactive, EOMI, Mucous membr. moist/pink Neck: Reports: supple Lungs: Reports: Clear to auscultation, Normal respiratory effort. Denies: Crackles, Rhonchi, Wheezing Cardiovascular: Reports: regular rate, regular rhythm, no murmurs Abdomen: Reports: bowel sounds present, soft, no tenderness, no distension Extremities: Reports: no edema, normal pulses Skin: Reports: other (skin tears to bilateral forearms, bruising to bilateral flanks from falls) Wound/Incisions: Reports: healing well Psy/Mental Status: Reports: alert, normal affect, normal mood *Q Meaningful Use (DIS) - VTE *Q VTE Criteria *Q: - Stroke *Q Stroke Criteria *Q: - AMI *Q AMI Criteria *Q:
[2016-08-20] MEDS ORDERED: Vancomycin 25 MG/ML Compounding Kit PO SCH (09:00)
== END 2016-08-11 14:30 | disposition home health service (06) | DRG 378 ==
LOC: MW.ED 13:22 → UNDOADMIN 16:06 → MW.MS 16:06 → UNDODISIN 08-11 14:30
PROVIDERS: ADMIT Internal Medicine; ATTEND Internal Medicine
PROC: 30233N0 Transfusion of Autologous Red Blood Cells into Peripheral Vein, Percutaneous Approach (ICD-10-PCS; principal; 2016-08-08)
DX: K92.1 Melena (principal); I50.32 Chronic diastolic (congestive) heart failure; J96.11 Chronic respiratory failure with hypoxia; A04.7 Enterocolitis due to Clostridium difficile; N40.0 Benign prostatic hyperplasia without lower urinary tract symptoms; I10 Essential (primary) hypertension; J44.9 Chronic obstructive pulmonary disease, unspecified; I48.91 Unspecified atrial fibrillation; D64.9 Anemia, unspecified; R53.1 Weakness; I11.0 Hypertensive heart disease with heart failure; E78.00 Pure hypercholesterolemia, unspecified; I25.10 Atherosclerotic heart disease of native coronary artery without angina pectoris; M25.551 Pain in right hip; Z95.5 Presence of coronary angioplasty implant and graft; Z87.891 Personal history of nicotine dependence; Z86.73 Personal history of transient ischemic attack (TIA), and cerebral infarction without residual deficits; Z79.899 Other long term (current) drug therapy; Z99.81 Dependence on supplemental oxygen; W19.XXXA Unspecified fall, initial encounter; Z98.49 Cataract extraction status, unspecified eye
CPT/HCPCS: 36415; 36430; 71010; 72170; 74176; 80053 ×2; 83605; 84484; 85025 ×2; 85610; 86850; 86900; 86901; 86920 ×2; 86921 ×2; 86922 ×2; 87040 ×2; 87804 ×2; 93005; 99285 ×2; J7050; P9016; 80048; 83735; 85014; 85018; 85027; 94640; 94664; 97161-GP; 97530-GP; 99284; A9270-GY; C9113; J3475; J7030

== ENCOUNTER → 2016-08-18 | Outpatient (CLI) | payer MEDICARE | LOC: MW.CHFP 11:23 | PROVIDERS: ATTEND Student in an Organized Health Care Education/Training Program | DX: D64.9 Anemia, unspecified (principal); Z09 Encounter for follow-up examination after completed treatment for conditions other than malignant neoplasm | CPT/HCPCS: 36415; 85027; 99214 ==

== ENCOUNTER → 2016-08-20 | Outpatient (CLI) | payer MEDICARE | LOC: MW.CHFP 08:00 | PROVIDERS: ATTEND Student in an Organized Health Care Education/Training Program | DX: J44.9 Chronic obstructive pulmonary disease, unspecified (principal); D64.9 Anemia, unspecified | CPT/HCPCS: G0463 ==

== ENCOUNTER 2016-09-02 11:02 | Inpatient (IN) | payer MEDICARE ==
[2016-09-02] MEDS ORDERED: Albuterol/Ipratropium 3.0-0.5 MG/3 ML Neb Soln NEB ONE (11:04)
[2016-09-02] MEDS ORDERED: methylPREDNISolone Sodium Succinate 125 MG/2 ML SDV IVPUSH ONE (11:04)
--- NOTE | 2016-09-02 11:06 | EDM.PDOC ---
ED HPI GENERAL MEDICAL PROBLEM - General Stated Complaint: SHORTNES OF BREATH/CHEST PAINS Time Seen by Provider: 09/02/16 11:05 Source of Information: Reports: Patient - History of Present Illness INITIAL COMMENTS - FREE TEXT/NARRATIVE: HISTORY AND PHYSICAL: History of present illness: [] Patient presents with right-sided chest pain and shortness of breath over last 24 hours pain is reproducible however he does have increasing shortness of breath and some cough over the last 24 hours he does have a history of chronic pneumonia and COPD home oxygen dependent requiring increased oxygen, he is more weak than usual however able to ambulate to the bathroom on his own with a walker No fever nausea vomiting chills sweats Review of systems: As per history of present illness and below otherwise all systems reviewed and negative. Past medical history: As per history of present illness and as reviewed below otherwise noncontributory. Surgical history: As per history of present illness and as reviewed below otherwise noncontributory. Social history: No reported history of drug or alcohol abuse. Family history: As per history of present illness and as reviewed below otherwise noncontributory. Physical exam: HEENT: Atraumatic, normocephalic, pupils reactive, negative for conjunctival pallor or scleral icterus, mucous membranes moist, throat clear, neck supple, nontender, trachea midline. Lungs: Clear to auscultation, breath sounds equal bilaterally, chest nontender. Post DuoNeb Heart: S1S2, regular, negative for clicks, rubs, or JVD. Abdomen: Soft, nondistended, nontender. Negative for masses or hepatosplenomegaly. Negative for costovertebral tenderness. Pelvis: Stable nontender. Genitourinary: Deferred. Rectal: Deferred. Extremities: Atraumatic, negative for cords or calf pain. Neurovascular unremarkable. Neuro: Awake, alert, oriented. Cranial nerves II through XII unremarkable. Cerebellum unremarkable. Motor and sensory unremarkable throughout. Exam nonfocal. Diagnostics: [] Lab as below EKG Chest one view Therapeutics: [] DuoNeb Solu-Medrol 125 mg IV Zosyn 3.375 mg IV Impression: [] COPD exacerbation Infiltrate on chest x-ray Increasing leukocytosis History of chronic pneumonias Hypoxia secondary to above on home oxygen requiring additional oxygen Dehydration Sinus tachycardia secondary to above Definitive disposition and diagnosis as appropriate pending reevaluation and review of above. Right Chest Pain Score (Numeric/FACES): 6 - Related Data Allergies Allergy/AdvReac Type Severity Reaction Status Date / Time No Known Allergies Allergy Verified 09/02/16 11:15 Home Meds: Home Meds Albuterol Sulfate [Proair Hfa] 2 puff IH QID PRN 06/14/16 [History] Albuterol/Ipratropium [DuoNeb 3.0-0.5 MG/3 ML] 3 ml NEB Q4H PRN 06/14/16 [ History] Bisacodyl [Dulcolax] 5 - 10 mg PO DAILY PRN 06/14/16 [History] Bisacodyl [Dulcolax] 10 mg RC DAILY PRN 06/14/16 [History] Budesonide/Formoterol Fumarate [Symbicort 160-4.5 Mcg Inhaler] 2 puff IH BID 01/21 [History] Diltiazem [Cardizem CD] 240 mg PO DAILY 06/14/16 [History] Hypromellose [Genteal Mild] 2 drop EYEBOTH DAILY 06/14/16 [History] Metoclopramide HCl [Reglan] 10 mg PO QIDACANDBED PRN 06/14/16 [History] Multivitamin [Multivitamins] 1 each PO DAILY 06/14/16 [History] Orphenadrine Citrate 100 mg PO Q12HR PRN 06/14/16 [History] Tamsulosin [Flomax] 0.4 mg PO PCBREAKFAST 06/14/16 [History] Acetaminophen [Tylenol] 500 mg PO Q4H PRN 06/15/16 [History] Albuterol Sulfate 2.5 mg IH Q6H PRN 06/15/16 [History] Pantoprazole [Protonix] 40 mg PO BIDAC 06/15/16 [History] Tiotropium [Spiriva HandiHaler] 18 mcg IH DAILY 06/15/16 [History] Iron Polysaccharides Complex [Ferrex 150] 150 mg PO BID cap 06/17/16 [Rx] Prednisone [IMW: Prednisone] 10 mg PO DAILY 06/23/16 [History] Potassium Chloride 20 meq PO BID #30 tab.er.prt 06/26/16 [Rx] LORazepam [Ativan] 0.25 mg PO Q6H #5 tablet 08/11/16 [Rx] Vancomycin 125 mg PO DAILY #0 08/11/16 [Rx] Cephalexin 500 mg PO BID 09/02/16 [History] Polymyxin B Sulf/Trimethoprim [Polymyxin B-Tmp Eye Drops] 1 drop EYEBOTH ASDIRECTED 09/02/16 [History] Past Medical History HEENT History: Reports: Cataract Other HEENT History: glasses Cardiovascular History: Reports: Afib, CAD, High cholesterol, Hypertension, Stents Respiratory History: Reports: COPD, Pneumonia, recurrent, Pneumothorax, SOB, Other (see below) Other Respiratory History: chronic respiratory failure with hypoxia Gastrointestinal History: Reports: GI bleed Other Gastrointestinal History: GI Bleed. 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 - Past Surgical History Head Surgeries/Procedures: Reports: None HEENT Surgical History: Reports: None Cardiovascular Surgical History: Reports: Coronary artery stent, Carotid stents Respiratory Surgical History: Reports: None GI Surgical History: Reports: None Male Surgical History: Reports: None Endocrine Surgical History: Reports: None Neurological Surgical History: Reports: None Musculoskeletal Surgical History: Reports: None Oncologic Surgical History: Reports: None Dermatological Surgical History: Reports: None Social & Family History - Family History Family Medical History: Noncontributory Cardiac: Reports: Hypertension Other Cardiac Family History: Father, Mother GI: Reports: GI bleed OBGYN: Reports: Musculoskeletal: Reports: Arthritis Neurological: Reports: None Psychiatric: Reports: None Endocrine/Metabolic: Reports: Diabetes, type II Hematologic: Reports: None Immunologic: Reports: None Dermatologic: Reports: None Oncologic: Reports: Prostate - Tobacco Use Smoking Status *Q: Never Smoker Years of Tobacco use: 50 Packs/Tins Daily: 4 Used Tobacco, but Quit: Yes Month Tobacco Last Used: 2004 Second Hand Smoke Exposure: No - Caffeine Use Caffeine Use: Reports: None - Alcohol Use Days Per Week of Alcohol Use: 2 Number of Drinks Per Day: 2 Total Drinks Per Week: 4 - Recreational Drug Use Recreational Drug Use: No Drug Use in Last 12 Months: No ED ROS GENERAL - Review of Systems Review Of Systems: ROS reveals no pertinent complaints other than HPI. ED EXAM, GENERAL - Physical Exam Exam: See Below Course - Vital Signs Last Recorded V/S: Last Vital Signs Temp 36.9 C 09/02/16 11:10 Pulse 114 H 09/02/16 11:40 Resp 28 H 09/02/16 11:40 BP 109/59 L 09/02/16 11:40 Pulse Ox 97 09/02/16 11:40 - Orders/Labs/Meds Orders: Active Orders 24 hr Category Date Time Status EKG Documentation Completion [RC] STAT Care 09/02/16 11:05 Active RT Aerosol Therapy [RC] ASDIRECTED Care 09/02/16 11:04 Active UA W/MICROSCOPIC [URIN] Stat Lab 09/02/16 11:04 Uncollected Piperacillin/Tazobactam [Piperacil-Tazobact] 3.375 gm Med 09/02/16 12:01 Ordered Sodium Chloride 0.9% [Normal Saline] 50 ml IV ONETIME Sodium Chloride 0.9% [Normal Saline] 1,000 ml Med 09/02/16 11:45 Active IV STAT Medication Orders Sodium Chloride (Normal Saline) 1,000 mls @ 125 mls/hr IV STAT KYMBERLY Last Admin: 09/02/16 11:51 Dose: 125 mls/hr Labs: Laboratory Tests 09/02/16 09/02/16 09/02/16 Range/Units 11:10 11:10 11:10 WBC 24.20 H (4.0-11.0) K/uL RBC 3.62 L (4.50-5.90) M/uL Hgb 10.6 L (13.0-17.0) g/dL Hct 33.4 L (38.0-50.0) % MCV 92.3 (80.0-98.0) fL MCH 29.3 (27.0-32.0) pg MCHC 31.7 (31.0-37.0) g/dL RDW Std Deviation 54.5 (28.0-62.0) fl RDW Coeff of Mavis 16 H (11.0-15.0) % Plt Count 222 (150-400) K/uL MPV 8.60 (7.40-12.00) fL Add Manual Diff YES Neutrophils % (Manual) 87 H (48.0-80.0) % Band Neutrophils % 2 % Lymphocytes % (Manual) 4 L (16.0-40.0) % Monocytes % (Manual) 6 (0.0-15.0) % Basophils % (Manual) 1 (0.0-1.5) % Nucleated RBC % 0.0 /100WBC Absolute Seg Neuts 21.1 Band Neutrophils # 0.5 Lymphocytes # (Manual) 1.0 Monocytes # (Manual) 1.5 Basophils # (Manual) 0 Nucleated RBCs # 0 K/uL Sodium 141 (136-146) mmol/L Potassium 4.5 (3.5-5.1) mmol/L Chloride 104 (98-110) mmol/L Carbon Dioxide 24 (21-31) mmol/L BUN 15 (6.0-23.0) mg/dL Creatinine 1.0 (0.6-1.5) mg/dL Est Cr Clr Drug Dosing 50.31 mL/min Estimated GFR (MDRD) > 60.0 ml/min Glucose 109 (60-110) mg/dL Calcium 10.0 (8.8-10.8) mg/dL Total Bilirubin 0.7 (0.1-1.5) mg/dL AST 11 (5-40) IU/L ALT 14 (8-54) IU/L Alkaline Phosphatase 68 (40-150) Troponin I < 0.10 (0.0-0.29) NG/ML Total Protein 6.8 (6.0-8.0) g/dL Albumin 3.4 (3.4-4.8) g/dL Globulin 3.4 (2.0-3.5) g/dL Albumin/Globulin Ratio 1.0 L (1.3-2.8) Amylase 45 (10-90) U/L Lipase 16 (7-80) U/L Meds: Medications Generic Name Dose Route Start Last Admin Trade Name Freq PRN Reason Stop Dose Admin Sodium Chloride 1,000 mls @ 125 mls/hr 09/02/16 11:45 09/02/16 11:51 Normal Saline IV 125 mls/hr STAT KYMBERLY Administration Discontinued Medications Generic Name Dose Route Start Last Admin Trade Name Freq PRN Reason Stop Dose Admin Albuterol/Ipratropium 3 ml 09/02/16 11:04 09/02/16 11:16 Duoneb 3.0-0.5 Mg/3 Ml NEB 09/02/16 11:05 3 ml ONETIME ONE Administration Methylprednisolone Sodium Succinate 125 mg 09/02/16 11:04 09/02/16 11:15 Solu-Medrol IVPUSH 09/02/16 11:05 125 mg ONETIME ONE Administration Departure - Departure Time of Disposition: 12:03 Disposition: Admitted As Inpatient 65 Condition: poor Clinical Impression: Pneumonia, COPD (chronic obstructive pulmonary disease) - My Orders Last 24 Hours: My Active Orders 09/02/16 11:04 RT Aerosol Therapy [RC] ASDIRECTED UA W/MICROSCOPIC [URIN] Stat 09/02/16 11:05 EKG Documentation Completion [RC] STAT 09/02/16 11:45 Sodium Chloride 0.9% [Normal Saline] 1,000 ml IV STAT 09/02/16 12:01 Piperacillin/Tazobactam [Piperacil-Tazobact] 3.375 gm Sodium Chloride 0.9% [ Normal Saline] 50 ml IV ONETIME - Assessment/Plan Last 24 Hours: My Active Orders 09/02/16 11:04 RT Aerosol Therapy [RC] ASDIRECTED UA W/MICROSCOPIC [URIN] Stat 09/02/16 11:05 EKG Documentation Completion [RC] STAT 09/02/16 11:45 Sodium Chloride 0.9% [Normal Saline] 1,000 ml IV STAT 09/02/16 12:01 Piperacillin/Tazobactam [Piperacil-Tazobact] 3.375 gm Sodium Chloride 0.9% [ Normal Saline] 50 ml IV ONETIME
--- NOTE | 2016-09-02 11:27 | CR ---
EXAMINATION: Portable chest radiograph. HISTORY: Shortness of breath. FINDINGS: The trachea is midline. The cardiomediastinal silhouette is within normal limits. Chronic interstiti al scarring and prominence is again noted. This is most notable in the medial left upper lobe and le ft lung base. No definite focal infiltrate. No pleural effusion or pneumothorax. Osseous structures appears osteopenic. IMPRESSION: Chronic interstitial prominence without acute cardiopulmonary finding.
[2016-09-02 11:44] LABS: CHLORIDE,CL 104 mmol/L (98-110); SODIUM,NA 141 mmol/L (136-146)
[2016-09-02] MEDS ORDERED: Sodium Chloride 0.9% 1,000 ML IV SCH (11:45)
[2016-09-02] MEDS ORDERED: Piperacillin/Tazobactam 3.375 GM in Sodium Chloride 0.9% 50 ML IV ONE (12:01)
[2016-09-02] MEDS ORDERED: Albuterol 0.083% 2.5 MG/3 ML Neb Soln NEB PRN (13:27)
[2016-09-02] MEDS ORDERED: Ondansetron 4 MG/2 ML SDV IVPUSH PRN (13:27)
[2016-09-02] MEDS ORDERED: Acetaminophen 325 MG Tab PO PRN (13:27)
[2016-09-02] MEDS ORDERED: Albuterol 8 GM Inhaler INH PRN (13:32)
[2016-09-02] MEDS ORDERED: Bisacodyl 10 MG Supp RECTAL PRN (13:32)
[2016-09-02] MEDS ORDERED: ORPHENADRINE CITRATE 100 MG PO PRN (13:32)
[2016-09-02] MEDS ORDERED: Polymyxin B/Trimethoprim 10 ML Bottle EYEBOTH SCH (13:45)
--- NOTE | 2016-09-02 13:50 | PCM.HP ---
H&P History of Present Illness - General Date of Service: 09/02/16 Admit Problem/Dx: Admission Diagnosis/Problem Admission Diagnosis/Problem Pneumonia Source of Information: Patient History Limitations: Reports: No limitations - History of Present Illness Initial Comments - Free Text/Narative: This 76 year old male with pmh of severe end stage COPD, oxygen dependent on 2 L NC, steroid dependent, CHF, afib, R carotid stent placement with anticoagulation on Brilinta, recurrent GI bleeds and anemia, recurrent aspiration pneumonia and Cdiff, presented to the ED today with 24 hours of worsening dyspnea and cough, slight elevation in temperature and malaise. She reports he has been following his thickened liquid diet at home. He is followed by Home Health with PT as well. He reports no further falls at home. No current black or bloody BMs. He received blood two weeks ago. He reports some chest pain to his R chest which is reproducible and worse with coughing or deep breath. In the ED leukocytosis noted, 24,200, hgb 10.6, BMP WNL. UA pending. Sputum pending. CXR was negative, but clinically appears to have pnuemonia. He was treated with Levaquin, Vanco and Zosyn in ED as well as Solu-medrol. He will be admitted for HCAP and mild COPD exacerbation. PCP, Dr. Michel. Right Chest Pain Score (Numeric/FACES): 6 - Related Data Allergies/Adverse Reactions: Allergies Allergy/AdvReac Type Severity Reaction Status Date / Time No Known Allergies Allergy Verified 09/02/16 11:15 Home Medications: Home Meds Albuterol Sulfate [Proair Hfa] 2 puff IH QID PRN 06/14/16 [History] Albuterol/Ipratropium [DuoNeb 3.0-0.5 MG/3 ML] 3 ml NEB Q4H PRN 06/14/16 [ History] Bisacodyl [Dulcolax] 5 - 10 mg PO DAILY PRN 06/14/16 [History] Bisacodyl [Dulcolax] 10 mg RC DAILY PRN 06/14/16 [History] Budesonide/Formoterol Fumarate [Symbicort 160-4.5 Mcg Inhaler] 2 puff IH BID 01/21 [History] Diltiazem [Cardizem CD] 240 mg PO DAILY 06/14/16 [History] Hypromellose [Genteal Mild] 2 drop EYEBOTH DAILY 06/14/16 [History] Metoclopramide HCl [Reglan] 10 mg PO QIDACANDBED PRN 06/14/16 [History] Multivitamin [Multivitamins] 1 each PO DAILY 06/14/16 [History] Orphenadrine Citrate 100 mg PO Q12HR PRN 06/14/16 [History] Tamsulosin [Flomax] 0.4 mg PO PCBREAKFAST 06/14/16 [History] Acetaminophen [Tylenol] 500 mg PO Q4H PRN 06/15/16 [History] Albuterol Sulfate 2.5 mg IH Q6H PRN 06/15/16 [History] Pantoprazole [Protonix] 40 mg PO BIDAC 06/15/16 [History] Tiotropium [Spiriva HandiHaler] 18 mcg IH DAILY 06/15/16 [History] Iron Polysaccharides Complex [Ferrex 150] 150 mg PO BID cap 06/17/16 [Rx] Prednisone [IMW: Prednisone] 10 mg PO DAILY 06/23/16 [History] Potassium Chloride 20 meq PO BID #30 tab.er.prt 06/26/16 [Rx] LORazepam [Ativan] 0.25 mg PO Q6H #5 tablet 08/11/16 [Rx] Vancomycin 125 mg PO DAILY #0 08/11/16 [Rx] Cephalexin 500 mg PO BID 09/02/16 [History] Polymyxin B Sulf/Trimethoprim [Polymyxin B-Tmp Eye Drops] 1 drop EYEBOTH ASDIRECTED 09/02/16 [History] Past Medical History HEENT History: Reports: Cataract Other HEENT History: glasses Cardiovascular History: Reports: Afib, CAD, High cholesterol, Hypertension, Stents Respiratory History: Reports: COPD, Pneumonia, recurrent, Pneumothorax, SOB, Other (see below) Other Respiratory History: chronic respiratory failure with hypoxia Gastrointestinal History: Reports: GI bleed Other Gastrointestinal History: GI Bleed. Ileus Genitourinary History: Reports: None Musculoskeletal History: Reports: Other (see below) Other Musculoskeletal History: Back Problem Neurological History: Reports: TIA Psychiatric History: Reports: None Endocrine/Metabolic History: Reports: None. Denies: Diabetes, type II, Hypothyroidism Hematologic History: Reports: Anemia Immunologic History: Reports: None Oncologic (Cancer) History: Reports: Other (see below) Other Oncologic History: throat Dermatologic History: Reports: None - Infectious Disease History Infectious Disease History: Reports: None Other Infectious Disease History: clear for MRSA per patient. current C-diff - Past Surgical History Head Surgeries/Procedures: Reports: None HEENT Surgical History: Reports: None Cardiovascular Surgical History: Reports: Coronary artery stent, Carotid stents Respiratory Surgical History: Reports: None GI Surgical History: Reports: None Male Surgical History: Reports: None Endocrine Surgical History: Reports: None Neurological Surgical History: Reports: None Musculoskeletal Surgical History: Reports: None Oncologic Surgical History: Reports: None Dermatological Surgical History: Reports: None Social & Family History - Family History Family Medical History: Noncontributory Cardiac: Reports: Hypertension Other Cardiac Family History: Father, Mother GI: Reports: GI bleed OBGYN: Reports: Musculoskeletal: Reports: Arthritis Neurological: Reports: None Psychiatric: Reports: None Endocrine/Metabolic: Reports: Diabetes, type II Hematologic: Reports: None Immunologic: Reports: None Dermatologic: Reports: None Oncologic: Reports: Prostate - Tobacco Use Smoking Status *Q: Former Smoker Years of Tobacco use: 50 Packs/Tins Daily: 4 Used Tobacco, but Quit: Yes Month Tobacco Last Used: 2004 Second Hand Smoke Exposure: No - Caffeine Use Caffeine Use: Reports: Coffee - Alcohol Use Days Per Week of Alcohol Use: 2 Number of Drinks Per Day: 2 Total Drinks Per Week: 4 - Recreational Drug Use Recreational Drug Use: No Drug Use in Last 12 Months: No H&P Review of Systems - Review of Systems: Review Of Systems: See Below General: Reports: fever, chills, malaise HEENT: Reports: no symptoms. Denies: headaches, sinus congestion, sore throat, visual changes Pulmonary: Reports: Shortness of Breath, Wheezing, Pleuritic Chest Pain, Cough, Sputum Cardiovascular: Reports: no symptoms. Denies: palpitations, edema, lightheadedness, syncope Gastrointestinal: Reports: No symptoms, Flatus. Denies: Abdominal pain, Black stool, Bloody stool, Decreased appetite, Distension, Nausea, Vomiting Genitourinary: Reports: no symptoms. Denies: dysuria, frequency, burning Musculoskeletal: Reports: back pain Skin: Reports: erythema, wound Neurological: Reports: No Symptoms. Denies: Confusion, Paresthesia, Seizure, Trouble Speaking, Gait Disturbance Hematologic/Lymphatic: Reports: anemia, easy bleeding Immunologic: Reports: no symptoms Exam - Exam Exam: See Below - Vital Signs Vital Signs: Last Vital Signs Temp 99.4 F 09/02/16 12:38 Pulse 105 H 09/02/16 12:38 Resp 28 H 09/02/16 12:38 BP 102/60 09/02/16 12:38 Pulse Ox 97 09/02/16 12:38 Weight: 58 kg - Exam Quality Assessment: supplemental oxygen, DVT prophylaxis (SCDs only) General: alert, oriented, cooperative HEENT: Conjunctiva clear, EACs clear, EOMI, Hearing intact, Mucosa moist & pink , Nares patent, Posterior pharynx clear Neck: supple, trachea midline, 2+ carotid pulse wo bruit. No: JVD Lungs: Rales (R mid lobe), Rhonchi, Wheezing. No: Normal respiratory effort ( tachypnea) Cardiovascular: regular rate, regular rhythm, normal S1, normal S2 Abdomen: normal bowel sounds, soft. No: organomegaly, tenderness Extremities: normal inspection, normal pulses, edema Skin: wound (L occiput, erythema with tenderness noted. Scabbed region approximately the size of a quarter, no drainage or fluctuance noted. Will monitor.) Neuro Extensive - Mental Status: alert, oriented x3, normal mood/affect, normal cognition Neuro Extensive - Motor, Sensory, Reflexes: CN II-XII intact, normal gait, normal reflexes Psychiatric: alert, normal affect, normal mood - Patient Data Result Diagrams: 09/02/16 11:10 09/02/16 11:10 *Q Meaningful Use (ADM) - VTE *Q VTE Criteria *Q: VTE Pharmacological Contraindications *Q: Risk of Bleeding - Stroke *Q Stroke Criteria *Q: - AMI *Q AMI Criteria *Q: - Problem List (1) COPD (chronic obstructive pulmonary disease) SNOMED Code(s): 72137717 ICD Code: J44.9 - CHRONIC OBSTRUCTIVE PULMONARY DISEASE, UNSPECIFIED Status : Acute Current Visit: Yes Qualifiers: COPD type: COPD with acute exacerbation Qualified Code(s): J44.1 - Chronic obstructive pulmonary disease with (acute) exacerbation (2) HCAP (healthcare-associated pneumonia) SNOMED Code(s): 075146281 ICD Code: J18.9 - PNEUMONIA, UNSPECIFIED ORGANISM Status: Acute Current Visit: No (3) Cellulitis SNOMED Code(s): 045790776 ICD Code: L03.90 - CELLULITIS, UNSPECIFIED Status: Acute Current Visit: Yes Qualifiers: Site of cellulitis: head Qualified Code(s): L03.811 - Cellulitis of head [ any part, except face] (4) Anemia SNOMED Code(s): 385603854 ICD Code: D64.9 - ANEMIA, UNSPECIFIED Status: Chronic Current Visit: No Qualifiers: Anemia type: other cause Other causes of anemia: other cause, not classified Qualified Code(s): D64.89 - Other specified anemias (5) Hx of carotid stenosis SNOMED Code(s): 357143241 ICD Code: Z86.79 - PERSONAL HISTORY OF OTHER DISEASES OF THE CIRCULATORY SYSTEM Status: Chronic Current Visit: No Problem Details: R carotid stent (6) Afib SNOMED Code(s): 48601756 ICD Code: I48.91 - UNSPECIFIED ATRIAL FIBRILLATION Status: Chronic Priority: Medium Current Visit: No Qualifiers: Atrial fibrillation type: chronic Qualified Code(s): I48.2 - Chronic atrial fibrillation (7) CHF (congestive heart failure) SNOMED Code(s): 80660807 ICD Code: I50.9 - HEART FAILURE, UNSPECIFIED Status: Chronic Current Visit: No Qualifiers: Congestive heart failure type: diastolic Congestive heart failure chronicity: chronic Qualified Code(s): I50.32 - Chronic diastolic (congestive ) heart failure (8) Hx of lower gastrointestinal bleeding SNOMED Code(s): 464576601632692 ICD Code: Z87.19 - PERSONAL HISTORY OF OTHER DISEASES OF THE DIGESTIVE SYSTEM Status: Chronic Current Visit: No (9) Hx-TIA (transient ischemic attack) SNOMED Code(s): 094291864 ICD Code: Z86.73 - PRSNL HX OF TIA (TIA), AND CEREB INFRC W/O RESID DEFICITS Status: Chronic Current Visit: No (10) Iron deficiency anemia due to chronic blood loss SNOMED Code(s): 78337456, 147662750 ICD Code: D50.0 - IRON DEFICIENCY ANEMIA SECONDARY TO BLOOD LOSS (CHRONIC) Status: Chronic Priority: High Current Visit: No Problem List Initiated/Reviewed/Updated: Yes Orders Last 24hrs: Active Orders 24 hr Category Date Time Status Patient Status [ADT] Routine ADT 09/02/16 13:27 Ordered Antiembolic Devices [RC] PER UNIT ROUTINE Care 09/02/16 13:29 Ordered Height and Weight [RC] DAILY Care 09/02/16 13:27 Ordered Intake and Output [RC] QSHIFT Care 09/02/16 13:28 Ordered May Shower [RC] ASDIRECTED Care 09/02/16 13:27 Ordered Oxygen Therapy [RC] PRN Care 09/02/16 13:27 Ordered RT Aerosol Therapy [RC] ASDIRECTED Care 09/02/16 13:29 Ordered Up ad Gretchen [RC] ASDIRECTED Care 09/02/16 13:27 Ordered VTE/DVT Education [RC] PER UNIT ROUTINE Care 09/02/16 13:27 Ordered Vital Signs [RC] Q4H Care 09/02/16 13:27 Ordered PT Evaluation and Treatment [CONS] Routine Cons 09/03/16 08:00 Ordered 2 Gram Sodium Diet [DIET] Diet 09/02/16 Dinner Ordered BASIC METABOLIC PANEL,BMP [CHEM] AM Lab 09/03/16 05:11 Ordered BASIC METABOLIC PANEL,BMP [CHEM] AM Lab 09/04/16 05:11 Ordered BASIC METABOLIC PANEL,BMP [CHEM] AM Lab 09/05/16 05:11 Ordered BASIC METABOLIC PANEL,BMP [CHEM] AM Lab 09/06/16 05:11 Ordered CBC WITH AUTO DIFF [HEME] AM Lab 09/03/16 05:11 Ordered CBC WITH AUTO DIFF [HEME] AM Lab 09/04/16 05:11 Ordered CBC WITH AUTO DIFF [HEME] AM Lab 09/05/16 05:11 Ordered CBC WITH AUTO DIFF [HEME] AM Lab 09/06/16 05:11 Ordered CULTURE SPUTUM + SMEAR [RM] Stat Lab 09/02/16 13:27 Uncollected MAGNESIUM [CHEM] AM Lab 09/03/16 05:11 Ordered MAGNESIUM [CHEM] AM Lab 09/04/16 05:11 Ordered MAGNESIUM [CHEM] AM Lab 09/05/16 05:11 Ordered MAGNESIUM [CHEM] AM Lab 09/06/16 05:11 Ordered MAGNESIUM [CHEM] Routine Lab 09/02/16 13:38 Ordered Acetaminophen [Tylenol] Med 09/02/16 13:27 Ordered 650 mg PO Q4H PRN Albuterol [Proventil HFA] Med 09/02/16 13:32 Ordered 2 puff INH QID PRN Albuterol [Proventil Neb Soln] Med 09/02/16 13:27 Ordered 2.5 mg NEB Q2H PRN Albuterol/Ipratropium [DuoNeb 3.0-0.5 MG/3 ML] Med 09/02/16 14:00 Ordered 3 ml NEB Q4HRRT Bisacodyl [Dulcolax] Med 09/02/16 13:32 Ordered 10 mg RECTAL DAILY PRN Budesonide/Formoterol Med 09/02/16 21:00 Ordered 2 puff IH BID Diltiazem Med 09/03/16 09:00 Ordered 240 mg PO DAILY Hypromellose [Genteal Mild] Med 09/03/16 09:00 Ordered 2 drop EYEBOTH DAILY Iron Polysaccharides Complex [Ferrex 150] Med 09/02/16 21:00 Ordered 150 mg PO BID LORazepam [Ativan] Med 09/02/16 13:45 Ordered 0.25 mg PO Q6H Levofloxacin/Dextrose 5%-Water [Levaquin in D5W 750 MG/ Med 09/03/16 12:00 Ordered 150 ML] 750 mg Premix Bag 1 bag IV Q24H Multivitamin [Multivitamins] Med 09/03/16 09:00 Ordered 1 each PO DAILY Ondansetron [Zofran] Med 09/02/16 13:27 Ordered 4 mg IVPUSH Q4H PRN Orphenadrine Citrate Med 09/02/16 13:32 Ordered 100 mg PO Q12HR PRN Pantoprazole [Protonix] Med 09/02/16 17:00 Ordered 40 mg PO BIDAC Piperacillin/Tazobactam [Piperacil-Tazobact] 4.5 gm Med 09/02/16 18:00 Ordered Sodium Chloride 0.9% [Normal Saline] 100 ml IV Q6H Polymyxin B/Trimethoprim [PolyTrim Ophth Soln] Med 09/02/16 13:45 Ordered 1 drop EYEBOTH ASDIRECTED Potassium Chloride [Klor-Con M20] Med 09/02/16 21:00 Ordered 20 meq PO BID Tamsulosin [Flomax] Med 09/03/16 08:30 Ordered 0.4 mg PO PCBREAKFAST Tiotropium [Spiriva HandiHaler] Med 09/03/16 09:00 Ordered 18 mcg INH DAILY Vancomycin Pharmacy to Dose [Pharmacy to Dose - Med 09/02/16 13:30 Ordered Vancomycin] 1 dose .XX ASDIRECTED methylPREDNISolone Sod Succ [Solu-MEDROL] Med 09/02/16 20:00 Ordered 125 mg IVPUSH Q8H Sequential Compression Device [OM.PC] Per Unit Routine Oth 09/02/16 13:29 Ordered Resuscitation Status Routine Resus Stat 09/02/16 13:27 Ordered Medication Orders Acetaminophen (Tylenol) 650 mg PO Q4H PRN PRN Reason: Pain (Mild 1-3)/fever Albuterol (Proventil Neb Soln) 2.5 mg NEB Q2HR PRN PRN Reason: Shortness Of Breath/wheezing Albuterol (Ventolin Hfa) 8 gm INH QID PRN PRN Reason: Shortness of Breath Albuterol/Ipratropium (Duoneb 3.0-0.5 Mg/3 Ml) 3 ml NEB Q4HRRT [facility] Bisacodyl (Dulcolax) 10 mg RECTAL DAILY PRN PRN Reason: Constipation Sodium Chloride (Normal Saline) 1,000 mls @ 125 mls/hr IV STAT [facility] Last Admin: 09/02/16 11:51 Dose: 125 mls/hr Levofloxacin/Dextrose 750 mg/ (Premix) 150 mls @ 100 mls/hr IV Q24H [facility] Piperacillin Sod/Tazobactam (Sod 4.5 gm/ Sodium Chloride) 100 mls @ 100 mls/hr IV Q6H [facility] Lorazepam (Ativan) 0.25 mg PO Q6H [facility] Methylprednisolone Sodium Succinate (Solu-Medrol) 125 mg IVPUSH Q8H [facility] Non-Formulary Medication (Budesonide/Formoterol) 2 puff IH BID [facility] Non-Formulary Medication (Diltiazem) 240 mg PO DAILY [facility] Non-Formulary Medication (Hypromellose [Genteal Mild]) 2 drop EYEBOTH DAILY [facility] Non-Formulary Medication (Multivitamin [Multivitamins]) 1 each PO DAILY [facility] Non-Formulary Medication (Orphenadrine Citrate) 100 mg PO Q12HR PRN PRN Reason: Pain Ondansetron HCl (Zofran) 4 mg IVPUSH Q4H PRN PRN Reason: Nausea Pantoprazole Sodium (Protonix) 40 mg PO BIDAC [facility] Polymyxin/Trimethoprim Sulfate (Polytrim Ophth Soln) ml EYEBOTH ASDIRECTED [facility] Polysaccharide Iron Complex (Ferrex 150) 150 mg PO BID [facility] Potassium Chloride (Klor-Con M20) 20 meq PO BID [facility] Tamsulosin HCl (Flomax) 0.4 mg PO PCBREAKFAST [facility] Tiotropium [place] (Spiriva Handihaler) 18 mcg INH DAILY [facility] Vancomycin HCl (Pharmacy To Dose - Vancomycin) 1 dose .XX ASDIRECTED [facility] Assessment/Plan Comment:: This 76 year old male admitted with HCAP, COPD exacerbation, and cellulitis to head 1. HCAP: Broad spectrum antibiotics due to recent admission. Levaquin, Vancomycin and Zosyn. Will de-escalate as possible due to high risk CDiff. Sputum culture pending. Duonebs. Encourage IS 2. COPD exacerbation: Solumderol 125 mg Q8hr IV. Titrate slowly. Duonebs and continue home inhalers 3. Cellulitis: Area noted to L occiput. Will apply bacitracin BID and Vancomycin as above. Monitor. 4. CAD: Continue Ticagrelor and ASA. 5. Afib: Continue Cardiazem. Monitor Magnesium and supplement PRN. 6. CHF: Monitor fluid status, strict I/O and daily weights. Appears euvolemic, will not give any further IVFs. 7. Anemia with Hx gi bleed: Monitor closely, was transfused 2 weeks ago. No recent black or bloody stools. 8. Hx cdiff: Was on Vanco PO taper, son, Fran checking as he feels they are almost finished with this. Not currently having diarrhea. VTE: SCDs and ambulation Dispo: 2-3 days pending improvement.
[2016-09-02] MEDS: LORazepam 0.5 MG Tab PO SCH ×2 (14:08→20:16)
[2016-09-02] MEDS: Bacitracin Oint 28.35 GM Tube TOP SCH (14:13)
[2016-09-02] MEDS ORDERED: Magnesium Sulfate/Water 2 GM in Premix Bag 1 BAG IV ONE (14:57)
[2016-09-02] MEDS: Albuterol/Ipratropium 3.0-0.5 MG/3 ML Neb Soln NEB SCH ×3 (15:11→22:02)
--- NOTE | 2016-09-02 15:11 | PCM.SN ---
- Free Text/Narrative Note: Per son Fran and daughter Jana he has completely completed Vanco tapering course.
[2016-09-02] MEDS: Pantoprazole 40 MG Tab.CR PO SCH (17:16)
[2016-09-02] MEDS: Piperacillin/Tazobactam 4.5 GM in Sodium Chloride 0.9% 100 ML IV SCH (17:16)
[2016-09-02] MEDS: methylPREDNISolone Sodium Succinate 125 MG/2 ML SDV IVPUSH SCH (20:13)
[2016-09-03] MEDS: Iron Polysaccharides Complex 150 MG Cap PO SCH ×3 (00:04→20:07)
[2016-09-03] MEDS: Potassium Chloride 20 MEQ Tab.ER PO SCH ×3 (00:04→20:07)
[2016-09-03] MEDS: Budesonide/Formoterol 2 PUFF INH SCH ×3 (00:06→21:41)
[2016-09-03] MEDS: Bacitracin Oint 28.35 GM Tube TOP SCH ×4 (00:08→22:24)
[2016-09-03] MEDS: Piperacillin/Tazobactam 4.5 GM in Sodium Chloride 0.9% 100 ML IV SCH ×5 (00:33→23:53)
[2016-09-03] MEDS: Albuterol/Ipratropium 3.0-0.5 MG/3 ML Neb Soln NEB SCH ×6 (01:33→21:41)
[2016-09-03] MEDS: LORazepam 0.5 MG Tab PO SCH ×2 (01:45→07:00)
[2016-09-03] MEDS: methylPREDNISolone Sodium Succinate 125 MG/2 ML SDV IVPUSH SCH ×3 (03:20→20:07)
[2016-09-03 05:54] LABS: CHLORIDE,CL 109 mmol/L (98-110); SODIUM,NA 142 mmol/L (136-146)
[2016-09-03] MEDS: Pantoprazole 40 MG Tab.CR PO SCH ×2 (07:00→17:56)
[2016-09-03] MEDS ORDERED: Calcium Carbonate 500 MG Tab.Chew PO ONE (08:08)
[2016-09-03] MEDS: Tamsulosin 0.4 MG Cap.ER PO SCH (08:40)
[2016-09-03] MEDS: Multivitamins with Iron/Calcium/Folic Acid/Minerals Tab PO SCH (08:41)
[2016-09-03] MEDS: Diltiazem 120 MG Cap.CD PO SCH (08:48)
[2016-09-03] MEDS ORDERED: Carboxymethylcellulose Sodium 0.5% Ophth Soln 0.4 ML UD Box of 30 EYEBOTH SCH (09:00)
[2016-09-03] MEDS ORDERED: Carboxymethylcellulose/Hypromellose Ophth Gel 15 ML Bottle EYEBOTH SCH (09:00)
[2016-09-03] MEDS: Carboxymethylcellulose Sodium 0.5% Ophth Soln 0.4 ML UD Box of 30 EYEBOTH SCH (11:01)
[2016-09-03] MEDS: Levofloxacin/Dextrose 5%-Water 750 MG in Premix Bag 1 BAG IV SCH (11:02)
[2016-09-03] MEDS ORDERED: LORazepam 0.5 MG Tab PO PRN (11:29)
[2016-09-03] MEDS: Tiotropium Inhaler 18 MCG Inhalation Powder Cap Kit of 5 INH SCH (11:29)
--- NOTE | 2016-09-03 11:33 | PCM.PN ---
- General Info Date of Service: 09/03/16 Admission Dx/Problem (Free Text): Admission Diagnosis/Problem Admission Diagnosis/Problem Pneumonia Subjective Update: Doing well today. SOB is improving. No chest pain. he has been up with PT this am. No diarrhea Functional Status: Reports: pain controlled, tolerating diet, ambulating, urinating - Review of Systems General: Reports: No Symptoms. Denies: Fever HEENT: Reports: no symptoms. Denies: sinus congestion, sore throat, rhinitis Pulmonary: Reports: shortness of breath (improved), cough, sputum Cardiovascular: Reports: No Symptoms. Denies: Chest Pain, Palpitations, Edema Gastrointestinal: Reports: No symptoms. Denies: Abdominal pain, Nausea, Vomiting Genitourinary: Reports: no symptoms Musculoskeletal: Reports: back pain (chronic) Skin: Reports: no symptoms Neurological: Reports: No Symptoms Psychiatric: Reports: no symptoms - Patient Data Vitals - most recent: Last Vital Signs Temp 97.3 F 09/03/16 08:00 Pulse 88 09/03/16 08:48 Resp 20 09/03/16 08:00 BP 115/52 L 09/03/16 08:48 Pulse Ox 98 09/03/16 08:00 Weight - most recent: 58 kg I&O - last 24 hours: Intake & Output 09/02/16 09/03/16 09/03/16 22:59 06:59 14:59 Intake Total 500 470 150 Output Total 0 280 Balance 500 190 150 Lab Results last 24 hrs: Laboratory Results - last 24 hr 09/03/16 09/03/16 09/03/16 Range/Units 05:06 05:06 06:20 WBC 11.18 H (4.0-11.0) K/uL RBC 2.97 L (4.50-5.90) M/uL Hgb 8.7 L (13.0-17.0) g/dL Hct 27.2 L (38.0-50.0) % MCV 91.6 (80.0-98.0) fL MCH 29.3 (27.0-32.0) pg MCHC 32.0 (31.0-37.0) g/dL RDW Std Deviation 53.0 (28.0-62.0) fl RDW Coeff of Mavis 16 H (11.0-15.0) % Plt Count 177 (150-400) K/uL MPV 8.50 (7.40-12.00) fL Neut % (Auto) 97.4 H (48.0-80.0) % Lymph % (Auto) 1.7 L (16.0-40.0) % [place] % (Auto) 0.8 (0.0-15.0) % Eos % (Auto) 0.0 (0.0-7.0) % Baso % (Auto) 0.1 (0.0-1.5) % Neut # (Auto) 10.9 H (1.4-5.7) K/uL Lymph # (Auto) 0.2 L (0.6-2.4) K/uL [place] # (Auto) 0.1 (0.0-0.8) K/uL Eos # (Auto) 0.0 (0.0-0.7) K/uL Baso # (Auto) 0.0 (0.0-0.1) K/uL Nucleated RBC % 0.0 /100WBC Nucleated RBCs # 0 K/uL Sodium 142 (136-146) mmol/L Potassium 4.1 (3.5-5.1) mmol/L Chloride 109 (98-110) mmol/L Carbon Dioxide 22 (21-31) mmol/L BUN 18 (6.0-23.0) mg/dL Creatinine 0.9 (0.6-1.5) mg/dL Est Cr Clr Drug Dosing 56.39 mL/min Estimated GFR (MDRD) > 60.0 ml/min Glucose 167 H (60-110) mg/dL Calcium 8.2 L (8.8-10.8) mg/dL Magnesium 2.1 (1.5-2.3) mEq/L Urine Color YELLOW Urine Appearance SLT CLOUDY Urine pH 5.0 (5.0-8.0) Ur Specific [place] >= 1.030 (1.001-1.035) Urine Protein TRACE (NEGATIVE) mg/dL Urine Glucose (UA) NEGATIVE (NEGATIVE) mg/dL Urine Ketones 15 H (NEGATIVE) mg/dL Urine Occult Blood TRACE-INTACT (NEGATIVE) Urine Nitrite NEGATIVE (NEGATIVE) Urine Bilirubin NEGATIVE (NEGATIVE) Urine Urobilinogen 0.2 (<2.0) EU/dL Ur Leukocyte Esterase NEGATIVE (NEGATIVE) Urine RBC 0-2 (0-2/HPF) Urine WBC 0-2 (0-5/HPF) Ur Epithelial Cells RARE (NONE-FEW) Urine Bacteria FEW (NEGATIVE) Kofi Results last 24 hrs: Microbiology 09/03/16 08:20 Gram Stain - Final Sputum - Expectorated Med Orders - Current: Current Medications Acetaminophen (Tylenol) 650 mg PO Q4H PRN PRN Reason: Pain (Mild 1-3)/fever Albuterol (Proventil Neb Soln) 2.5 mg NEB Q2HR PRN PRN Reason: Shortness Of Breath/wheezing Albuterol (Ventolin Hfa) 8 gm INH QID PRN PRN Reason: Shortness of Breath Albuterol/Ipratropium (Duoneb 3.0-0.5 Mg/3 Ml) 3 ml NEB Q4HRRT [facility] Last Admin: 09/03/16 10:10 Dose: 3 ml Artificial Tears (Refresh Plus 0.5%) 1 each EYEBOTH DAILY [facility] Last Admin: 09/03/16 11:01 Dose: 1 drop Bacitracin (Bacitracin Oint) 1 gm TOP TID [facility] Last Admin: 09/03/16 06:12 Dose: 1 applic Bisacodyl (Dulcolax) 10 mg RECTAL DAILY PRN PRN Reason: Constipation Diltiazem HCl (Cardizem Cd) 240 mg PO DAILY [facility] Last Admin: 09/03/16 08:48 Dose: 240 mg Levofloxacin/Dextrose 750 mg/ (Premix) 150 mls @ 100 mls/hr IV Q24H [facility] Last Admin: 09/03/16 11:02 Dose: 100 mls/hr Piperacillin Sod/Tazobactam (Sod 4.5 gm/ Sodium Chloride) 100 mls @ 100 mls/hr IV Q6H [facility] Last Admin: 09/03/16 06:07 Dose: 100 mls/hr Vancomycin HCl 1 gm/ Sodium (Chloride) 250 mls @ 166.667 mls/hr IV Q12H [facility] Last Admin: 09/03/16 01:40 Dose: 166.667 mls/hr Lorazepam (Ativan) 0.25 mg PO Q6H PRN PRN Reason: Anxiety Methylprednisolone Sodium Succinate (Solu-Medrol) 125 mg IVPUSH Q8H [facility] Last Admin: 09/03/16 03:20 Dose: 125 mg Multivitamins/Minerals (Thera M Plus) 1 tab PO DAILY [facility] Last Admin: 09/03/16 08:41 Dose: 1 tab Ondansetron HCl (Zofran) 4 mg IVPUSH Q4H PRN PRN Reason: Nausea Pantoprazole Sodium (Protonix) 40 mg PO BIDAC [facility] Last Admin: 09/03/16 07:00 Dose: 40 mg Budesonide/ (Formoterol 2 Puff) 2 each INH BID [facility] Last Admin: 09/03/16 10:10 Dose: 2 each Orphenadrine Citrate (100 Mg) 1 each PO Q12HR PRN PRN Reason: Pain Polymyxin/Trimethoprim Sulfate (Polytrim Ophth Soln) 10 ml EYEBOTH ASDIRECTED [facility] Polysaccharide Iron Complex (Ferrex 150) 150 mg PO BID [facility] Last Admin: 09/03/16 08:41 Dose: 150 mg Potassium Chloride (Klor-Con M20) 20 meq PO BID [facility] Last Admin: 09/03/16 08:41 Dose: 20 meq Tamsulosin HCl (Flomax) 0.4 mg PO PCBREAKFAST [facility] Last Admin: 09/03/16 08:40 Dose: 0.4 mg Tiotropium [place] (Spiriva Handihaler) 18 mcg INH DAILY [facility] Vancomycin HCl (Pharmacy To Dose - Vancomycin) 1 dose .XX ASDIRECTED [facility] Discontinued Medications Albuterol/Ipratropium (Duoneb 3.0-0.5 Mg/3 Ml) 3 ml NEB ONETIME ONE Stop: 09/02/16 11:05 Last Admin: 09/02/16 11:16 Dose: 3 ml Artificial Tears (Refresh Plus 0.5%) 15 each EYEBOTH DAILY [facility] Calcium Carbonate/Glycine (Tums) 1,000 mg PO ONETIME ONE Stop: 09/03/16 08:09 Last Admin: 09/03/16 08:41 Dose: 1,000 mg Carboxymethylcellu Sod/Hypromellose (Genteal Moderate To Severe Ophth Gel) 15 ml EYEBOTH DAILY [facility] Last Admin: 09/03/16 09:45 Dose: Not Given Sodium Chloride (Normal Saline) 1,000 mls @ 125 mls/hr IV STAT [facility] Last Admin: 09/02/16 11:51 Dose: 125 mls/hr Piperacillin Sod/Tazobactam (Sod 3.375 gm/ Sodium Chloride) 50 mls @ 100 mls/ hr IV ONETIME ONE Stop: 09/02/16 12:30 Last Admin: 09/02/16 12:21 Dose: 100 mls/hr Magnesium Sulfate 2 gm/ Premix 50 mls @ 50 mls/hr IV ONETIME ONE Stop: 09/02/16 15:56 Last Admin: 09/02/16 15:47 Dose: 50 mls/hr Lorazepam (Ativan) 0.25 mg PO Q6H [facility] Last Admin: 09/03/16 07:00 Dose: 0.25 mg Methylprednisolone Sodium Succinate (Solu-Medrol) 125 mg IVPUSH ONETIME ONE Stop: 09/02/16 11:05 Last Admin: 09/02/16 11:15 Dose: 125 mg - Exam Quality Assessment: supplemental oxygen, DVT prophylaxis General: alert, oriented, cooperative Lungs: Clear to auscultation, Normal respiratory effort Cardiovascular: Regular Rate, Regular Rhythm, No Murmurs (Male) Exam: No hernia, Normal inspection, Normal prostate, Circumcised Extremities: no edema, normal pulses Wound/Incisions: no drainage (woundto L occiput, less red, slightly tender, slihgt induration noted. Will monitor. No fluctuance or drainage.), erythema improving Neurological: no new focal deficit Psy/Mental Status: alert, normal affect, normal mood - Problem List & Annotations (1) COPD (chronic obstructive pulmonary disease) SNOMED Code(s): 28926334 Code(s): J44.9 - CHRONIC OBSTRUCTIVE PULMONARY DISEASE, UNSPECIFIED Status : Acute Current Visit: Yes Qualifiers: COPD type: COPD with acute exacerbation Qualified Code(s): J44.1 - Chronic obstructive pulmonary disease with (acute) exacerbation (2) HCAP (healthcare-associated pneumonia) SNOMED Code(s): 144314121 Code(s): J18.9 - PNEUMONIA, UNSPECIFIED ORGANISM Status: Acute Current Visit: No (3) Cellulitis SNOMED Code(s): 083639665 Code(s): L03.90 - CELLULITIS, UNSPECIFIED Status: Acute Current Visit: Yes Qualifiers: Site of cellulitis: head Qualified Code(s): L03.811 - Cellulitis of head [ any part, except face] (4) Anemia SNOMED Code(s): 179553098 Code(s): D64.9 - ANEMIA, UNSPECIFIED Status: Chronic Current Visit: No Qualifiers: Anemia type: other cause Other causes of anemia: other cause, not classified Qualified Code(s): D64.89 - Other specified anemias (5) Hx of carotid stenosis SNOMED Code(s): 366743981 Code(s): Z86.79 - PERSONAL HISTORY OF OTHER DISEASES OF THE CIRCULATORY SYSTEM Status: Chronic Current Visit: No Annotation/Comment:: R carotid stent (6) Afib SNOMED Code(s): 09394980 Code(s): I48.91 - UNSPECIFIED ATRIAL FIBRILLATION Status: Chronic Priority: Medium Current Visit: No Qualifiers: Atrial fibrillation type: chronic Qualified Code(s): I48.2 - Chronic atrial fibrillation (7) CHF (congestive heart failure) SNOMED Code(s): 60827048 Code(s): I50.9 - HEART FAILURE, UNSPECIFIED Status: Chronic Current Visit : No Qualifiers: Congestive heart failure type: diastolic Congestive heart failure chronicity: chronic Qualified Code(s): I50.32 - Chronic diastolic (congestive ) heart failure (8) Hx of lower gastrointestinal bleeding SNOMED Code(s): 595088946007993 Code(s): Z87.19 - PERSONAL HISTORY OF OTHER DISEASES OF THE DIGESTIVE SYSTEM Status: Chronic Current Visit: No (9) Hx-TIA (transient ischemic attack) SNOMED Code(s): 054464668 Code(s): Z86.73 - PRSNL HX OF TIA (TIA), AND CEREB INFRC W/O RESID DEFICITS Status: Chronic Current Visit: No (10) Iron deficiency anemia due to chronic blood loss SNOMED Code(s): 62648115, 819578479 Code(s): D50.0 - IRON DEFICIENCY ANEMIA SECONDARY TO BLOOD LOSS (CHRONIC) Status: Chronic Priority: High Current Visit: No - Problem List Review Problem List Initiated/Reviewed/Updated: Yes - My Orders Last 24 Hours: My Active Orders 09/02/16 13:27 Patient Status [ADT] Routine Height and Weight [RC] DAILY May Shower [RC] ASDIRECTED Oxygen Therapy [RC] PRN Up ad Gretchen [RC] ASDIRECTED VTE/DVT Education [RC] PER UNIT ROUTINE Vital Signs [RC] Q4H Acetaminophen [Tylenol] 650 mg PO Q4H PRN Albuterol [Proventil Neb Soln] 2.5 mg NEB Q2HR PRN Ondansetron [Zofran] 4 mg IVPUSH Q4H PRN Resuscitation Status Routine 09/02/16 13:28 Intake and Output [RC] Q12H 09/02/16 13:29 Antiembolic Devices [RC] PER UNIT ROUTINE RT Aerosol Therapy [RC] ASDIRECTED Sequential Compression Device [OM.PC] Per Unit Routine 09/02/16 13:30 Vancomycin Pharmacy to Dose [Pharmacy to Dose - Vancomycin] 1 dose .XX ASDIRECTED 09/02/16 13:32 Albuterol [Ventolin HFA] 8 gm INH QID PRN Bisacodyl [Dulcolax] 10 mg RECTAL DAILY PRN Patient's Own Medication [Ptom] 1 each PO Q12HR PRN 09/02/16 13:45 Polymyxin B/Trimethoprim [PolyTrim Ophth Soln] 10 ml EYEBOTH ASDIRECTED 09/02/16 14:00 Albuterol/Ipratropium [DuoNeb 3.0-0.5 MG/3 ML] 3 ml NEB Q4HRRT Vancomycin [Vancocin] 1 gm Sodium Chloride 0.9% [Normal Saline] 250 ml IV Q12H 09/02/16 14:05 RT Incentive Spirometry [RC] ASDIRECTED 09/02/16 14:15 Bacitracin [Bacitracin Oint] 1 gm TOP TID 09/02/16 17:00 Pantoprazole [ProTONIX] 40 mg PO BIDAC 09/02/16 18:00 Piperacillin/Tazobactam [Piperacil-Tazobact] 4.5 gm Sodium Chloride 0.9% [ Normal Saline] 100 ml IV Q6H 09/02/16 20:00 methylPREDNISolone Sod Succ [Solu-MEDROL] 125 mg IVPUSH Q8H 09/02/16 21:00 Iron Polysaccharides Complex [Ferrex 150] 150 mg PO BID Patient's Own Medication [Ptom] 2 each INH BID Potassium Chloride [Klor-Con M20] 20 meq PO BID 09/02/16 Dinner 2 Gram Sodium Diet [DIET] 09/03/16 08:00 PT Evaluation and Treatment [CONS] Routine 09/03/16 08:20 CULTURE SPUTUM + SMEAR [RM] Stat 09/03/16 08:30 Tamsulosin [Flomax] 0.4 mg PO PCBREAKFAST 09/03/16 09:00 Diltiazem [Cardizem CD] 240 mg PO DAILY Multivitamins w-Iron/Ca/FA/Min [Thera M Plus] 1 tab PO DAILY Tiotropium [Spiriva HandiHaler] 18 mcg INH DAILY 09/03/16 10:45 Carboxymethylcellulose Sodium [Refresh Plus 0.5%] 1 each EYEBOTH DAILY 09/03/16 11:29 LORazepam [Ativan] 0.25 mg PO Q6H PRN 09/03/16 12:00 Levofloxacin/Dextrose 5%-Water [Levaquin in D5W 750 MG/150 ML] 750 mg Premix Bag 1 bag IV Q24H 09/04/16 01:00 VANCOMYCIN TROUGH [CHEM] Routine 09/04/16 05:11 BASIC METABOLIC PANEL,BMP [CHEM] AM CBC WITH AUTO DIFF [HEME] AM MAGNESIUM [CHEM] AM 09/05/16 05:11 BASIC METABOLIC PANEL,BMP [CHEM] AM CBC WITH AUTO DIFF [HEME] AM MAGNESIUM [CHEM] AM 09/06/16 05:11 BASIC METABOLIC PANEL,BMP [CHEM] AM CBC WITH AUTO DIFF [HEME] AM MAGNESIUM [CHEM] AM - Plan Plan:: This 76 year old male admitted with HCAP, COPD exacerbation, and cellulitis to head 1. HCAP: Continue Levaquin, Vancomycin and Zosyn. Will de-escalate as possible due to high risk CDiff. Sputum culture pending. Duonebs. Encourage IS 2. COPD exacerbation: Solumderol 125 mg Q8hr IV. Titrate slowly. Duonebs and continue home inhalers 3. Cellulitis: Improved. Area noted to L occiput. Will apply bacitracin BID and Vancomycin as above. Monitor. 4. CAD: Continue Ticagrelor and ASA. 5. Afib: Continue Cardiazem. Monitor Magnesium and supplement PRN. 6. CHF: Monitor fluid status, strict I/O and daily weights. Appears euvolemic, will not give any further IVFs. 7. Anemia with Hx gi bleed: Monitor closely, was transfused 2 weeks ago. No recent black or bloody stools. Hgb 8.7 today, will monitor 8. Hx cdiff: Not currently having diarrhea. Finished Vancomycin taper. VTE: SCDs and ambulation Dispo: 2-3 days pending improvement.
[2016-09-04] MEDS: Albuterol/Ipratropium 3.0-0.5 MG/3 ML Neb Soln NEB SCH ×6 (01:47→21:00)
[2016-09-04] MEDS: methylPREDNISolone Sodium Succinate 125 MG/2 ML SDV IVPUSH SCH ×3 (03:48→21:00)
[2016-09-04] MEDS: Bacitracin Oint 28.35 GM Tube TOP SCH ×3 (05:04→21:21)
[2016-09-04] MEDS: Piperacillin/Tazobactam 4.5 GM in Sodium Chloride 0.9% 100 ML IV SCH ×3 (05:04→17:36)
[2016-09-04 06:00] LABS: CHLORIDE,CL 112 mmol/L (98-110); SODIUM,NA 143 mmol/L (136-146)
[2016-09-04] MEDS: Pantoprazole 40 MG Tab.CR PO SCH ×2 (06:38→17:36)
[2016-09-04] MEDS: Tiotropium Inhaler 18 MCG Inhalation Powder Cap Kit of 5 INH SCH (09:11)
[2016-09-04] MEDS: Budesonide/Formoterol 2 PUFF INH SCH ×2 (09:12→20:59)
[2016-09-04] MEDS: Tamsulosin 0.4 MG Cap.ER PO SCH (09:44)
[2016-09-04] MEDS: Iron Polysaccharides Complex 150 MG Cap PO SCH ×2 (09:44→21:20)
[2016-09-04] MEDS: Multivitamins with Iron/Calcium/Folic Acid/Minerals Tab PO SCH (09:44)
[2016-09-04] MEDS: Potassium Chloride 20 MEQ Tab.ER PO SCH ×2 (09:44→21:20)
[2016-09-04] MEDS: Diltiazem 120 MG Cap.CD PO SCH (09:44)
[2016-09-04] MEDS: Carboxymethylcellulose Sodium 0.5% Ophth Soln 0.4 ML UD Box of 30 EYEBOTH SCH (09:45)
--- NOTE | 2016-09-04 12:35 | PCM.PN ---
- General Info Date of Service: 09/04/16 Admission Dx/Problem (Free Text): Admission Diagnosis/Problem Admission Diagnosis/Problem Pneumonia Subjective Update: Doing well today. SOB is back to baseline. No chest pain. No diarrhea. Very anxious this am wanting to get home to [place]ae[place], on [facility], because no one will be at home with her. Asked me to call Fran, son and POA. I spoke with Fran who requests he not be discharged tonight after blood and will come back and speak with Ishmael today. He would rather he stay tonight and likely home in the am when cultures are back. Functional Status: Reports: pain controlled, tolerating diet, ambulating, urinating - Review of Systems General: Reports: No Symptoms. Denies: Fever HEENT: Reports: no symptoms. Denies: sinus congestion, sore throat Pulmonary: Reports: shortness of breath (at baseline), cough. Denies: sputum Cardiovascular: Reports: No Symptoms. Denies: Chest Pain, Palpitations, Edema Gastrointestinal: Reports: No symptoms. Denies: Abdominal pain, Nausea, Vomiting Genitourinary: Reports: no symptoms. Denies: dysuria Musculoskeletal: Reports: back pain (chronic) Skin: Reports: no symptoms Neurological: Reports: No Symptoms Psychiatric: Reports: no symptoms - Patient Data Vitals - most recent: Last Vital Signs Temp 97.7 F 09/04/16 11:01 Pulse 89 09/04/16 11:01 Resp 20 09/04/16 11:01 BP 118/59 L 09/04/16 11:01 Pulse Ox 96 09/04/16 11:01 Weight - most recent: 59 kg I&O - last 24 hours: Intake & Output 09/03/16 09/04/16 09/04/16 22:59 06:59 14:59 Intake Total 820 570 115 Output Total 100 600 Balance 720 -30 115 Lab Results last 24 hrs: Laboratory Results - last 24 hr 09/04/16 09/04/16 09/04/16 Range/Units 01:50 05:30 05:30 WBC 10.39 (4.0-11.0) K/uL RBC 2.76 L (4.50-5.90) M/uL Hgb 8.0 L (13.0-17.0) g/dL Hct 25.2 L (38.0-50.0) % MCV 91.3 (80.0-98.0) fL MCH 29.0 (27.0-32.0) pg MCHC 31.7 (31.0-37.0) g/dL RDW Std Deviation 52.5 (28.0-62.0) fl RDW Coeff of Mavis 16 H (11.0-15.0) % Plt Count 165 (150-400) K/uL MPV 8.60 (7.40-12.00) fL Neut % (Auto) 96.6 H (48.0-80.0) % Lymph % (Auto) 1.8 L (16.0-40.0) % [place] % (Auto) 1.6 (0.0-15.0) % Eos % (Auto) 0.0 (0.0-7.0) % Baso % (Auto) 0.0 (0.0-1.5) % Neut # (Auto) 10.0 H (1.4-5.7) K/uL Lymph # (Auto) 0.2 L (0.6-2.4) K/uL [place] # (Auto) 0.2 (0.0-0.8) K/uL Eos # (Auto) 0.0 (0.0-0.7) K/uL Baso # (Auto) 0.0 (0.0-0.1) K/uL Nucleated RBC % 0.0 /100WBC Nucleated RBCs # 0 K/uL Sodium 143 (136-146) mmol/L Potassium 4.1 (3.5-5.1) mmol/L Chloride 112 H (98-110) mmol/L Carbon Dioxide 20 L (21-31) mmol/L BUN 14 (6.0-23.0) mg/dL Creatinine 0.8 (0.6-1.5) mg/dL Est Cr Clr Drug Dosing 64.53 mL/min Estimated GFR (MDRD) > 60.0 ml/min Glucose 155 H (60-110) mg/dL Calcium 8.2 L (8.8-10.8) mg/dL Magnesium 1.8 (1.5-2.3) mEq/L Vancomycin Trough 18.3 H (5-15) ug/mL Blood Type Antibody Screen Crossmatch 09/04/16 Range/Units 09:24 WBC (4.0-11.0) K/uL RBC (4.50-5.90) M/uL Hgb (13.0-17.0) g/dL Hct (38.0-50.0) % MCV (80.0-98.0) fL MCH (27.0-32.0) pg MCHC (31.0-37.0) g/dL RDW Std Deviation (28.0-62.0) fl RDW Coeff of Mavis (11.0-15.0) % Plt Count (150-400) K/uL MPV (7.40-12.00) fL Neut % (Auto) (48.0-80.0) % Lymph % (Auto) (16.0-40.0) % [place] % (Auto) (0.0-15.0) % Eos % (Auto) (0.0-7.0) % Baso % (Auto) (0.0-1.5) % Neut # (Auto) (1.4-5.7) K/uL Lymph # (Auto) (0.6-2.4) K/uL [place] # (Auto) (0.0-0.8) K/uL Eos # (Auto) (0.0-0.7) K/uL Baso # (Auto) (0.0-0.1) K/uL Nucleated RBC % /100WBC Nucleated RBCs # K/uL Sodium (136-146) mmol/L Potassium (3.5-5.1) mmol/L Chloride (98-110) mmol/L Carbon Dioxide (21-31) mmol/L BUN (6.0-23.0) mg/dL Creatinine (0.6-1.5) mg/dL Est Cr Clr Drug Dosing mL/min Estimated GFR (MDRD) ml/min Glucose (60-110) mg/dL Calcium (8.8-10.8) mg/dL Magnesium (1.5-2.3) mEq/L Vancomycin Trough (5-15) ug/mL Blood Type O POSITIVE Antibody Screen NEGATIVE Crossmatch See Detail Kofi Results last 24 hrs: Microbiology 09/03/16 08:20 Gram Stain - Final Sputum - Expectorated Med Orders - Current: Current Medications Acetaminophen (Tylenol) 650 mg PO Q4H PRN PRN Reason: Pain (Mild 1-3)/fever Albuterol (Proventil Neb Soln) 2.5 mg NEB Q2HR PRN PRN Reason: Shortness Of Breath/wheezing Albuterol (Ventolin Hfa) 8 gm INH QID PRN PRN Reason: Shortness of Breath Albuterol/Ipratropium (Duoneb 3.0-0.5 Mg/3 Ml) 3 ml NEB Q4HRRT [facility] Last Admin: 09/04/16 09:51 Dose: 3 ml Artificial Tears (Refresh Plus 0.5%) 1 each EYEBOTH DAILY [facility] Last Admin: 09/04/16 09:45 Dose: 1 drop Bacitracin (Bacitracin Oint) 1 gm TOP TID [facility] Last Admin: 09/04/16 05:04 Dose: 1 applic Bisacodyl (Dulcolax) 10 mg RECTAL DAILY PRN PRN Reason: Constipation Diltiazem HCl (Cardizem Cd) 240 mg PO DAILY [facility] Last Admin: 09/04/16 09:44 Dose: 240 mg Levofloxacin/Dextrose 750 mg/ (Premix) 150 mls @ 100 mls/hr IV Q24H [facility] Last Admin: 09/03/16 11:02 Dose: 100 mls/hr Piperacillin Sod/Tazobactam (Sod 4.5 gm/ Sodium Chloride) 100 mls @ 100 mls/hr IV Q6H [facility] Last Admin: 09/04/16 12:17 Dose: 100 mls/hr Vancomycin HCl 1 gm/ Sodium (Chloride) 250 mls @ 166.667 mls/hr IV Q12H [facility] Last Admin: 09/04/16 02:34 Dose: 166.667 mls/hr Lorazepam (Ativan) 0.25 mg PO Q6H PRN PRN Reason: Anxiety Methylprednisolone Sodium Succinate (Solu-Medrol) 125 mg IVPUSH Q8H [facility] Last Admin: 09/04/16 12:17 Dose: 125 mg Multivitamins/Minerals (Thera M Plus) 1 tab PO DAILY [facility] Last Admin: 09/04/16 09:44 Dose: 1 tab Ondansetron HCl (Zofran) 4 mg IVPUSH Q4H PRN PRN Reason: Nausea Pantoprazole Sodium (Protonix) 40 mg PO BIDAC [facility] Last Admin: 09/04/16 06:38 Dose: 40 mg Budesonide/ (Formoterol 2 Puff) 2 each INH BID [facility] Last Admin: 09/04/16 09:12 Dose: 1 each Orphenadrine Citrate (100 Mg) 1 each PO Q12HR PRN PRN Reason: Pain Last Admin: 09/03/16 20:15 Dose: 1 each Polymyxin/Trimethoprim Sulfate (Polytrim Ophth Soln) 10 ml EYEBOTH ASDIRECTED [facility] Polysaccharide Iron Complex (Ferrex 150) 150 mg PO BID [facility] Last Admin: 09/04/16 09:44 Dose: 150 mg Potassium Chloride (Klor-Con M20) 20 meq PO BID [facility] Last Admin: 09/04/16 09:44 Dose: 20 meq Tamsulosin HCl (Flomax) 0.4 mg PO PCBREAKFAST [facility] Last Admin: 09/04/16 09:44 Dose: 0.4 mg Tiotropium Temple (Spiriva Handihaler) 18 mcg INH DAILY [facility] Last Admin: 09/04/16 09:11 Dose: 2 mcg Vancomycin HCl (Pharmacy To Dose - Vancomycin) 1 dose .XX ASDIRECTED [facility] Discontinued Medications Albuterol/Ipratropium (Duoneb 3.0-0.5 Mg/3 Ml) 3 ml NEB ONETIME ONE Stop: 09/02/16 11:05 Last Admin: 09/02/16 11:16 Dose: 3 ml Artificial Tears (Refresh Plus 0.5%) 15 each EYEBOTH DAILY [facility] Last Admin: 09/03/16 12:14 Dose: Not Given Calcium Carbonate/Glycine (Tums) 1,000 mg PO ONETIME ONE Stop: 09/03/16 08:09 Last Admin: 09/03/16 08:41 Dose: 1,000 mg Carboxymethylcellu Sod/Hypromellose (Genteal Moderate To Severe Ophth Gel) 15 ml EYEBOTH DAILY [facility] Last Admin: 09/03/16 09:45 Dose: Not Given Sodium Chloride (Normal Saline) 1,000 mls @ 125 mls/hr IV STAT [facility] Last Admin: 09/02/16 11:51 Dose: 125 mls/hr Piperacillin Sod/Tazobactam (Sod 3.375 gm/ Sodium Chloride) 50 mls @ 100 mls/ hr IV ONETIME ONE Stop: 09/02/16 12:30 Last Admin: 09/02/16 12:21 Dose: 100 mls/hr Magnesium Sulfate 2 gm/ Premix 50 mls @ 50 mls/hr IV ONETIME ONE Stop: 09/02/16 15:56 Last Admin: 09/02/16 15:47 Dose: 50 mls/hr Lorazepam (Ativan) 0.25 mg PO Q6H [facility] Last Admin: 09/03/16 07:00 Dose: 0.25 mg Methylprednisolone Sodium Succinate (Solu-Medrol) 125 mg IVPUSH ONETIME ONE Stop: 09/02/16 11:05 Last Admin: 09/02/16 11:15 Dose: 125 mg - Exam Quality Assessment: supplemental oxygen (at baseline 2.5 L) General: alert, oriented, cooperative Lungs: Clear to auscultation, Normal respiratory effort, Wheezing Cardiovascular: Regular Rate, Regular Rhythm Abdomen: bowel sounds present, soft, no tenderness, no distension Extremities: no edema, normal pulses Neurological: no new focal deficit Psy/Mental Status: anxious (wanting to go home because Raeann is alone. ) - Problem List & Annotations (1) COPD (chronic obstructive pulmonary disease) SNOMED Code(s): 80681041 Code(s): J44.9 - CHRONIC OBSTRUCTIVE PULMONARY DISEASE, UNSPECIFIED Status : Acute Current Visit: Yes Qualifiers: COPD type: COPD with acute exacerbation Qualified Code(s): J44.1 - Chronic obstructive pulmonary disease with (acute) exacerbation (2) HCAP (healthcare-associated pneumonia) SNOMED Code(s): 798440734 Code(s): J18.9 - PNEUMONIA, UNSPECIFIED ORGANISM Status: Acute Current Visit: No (3) Cellulitis SNOMED Code(s): 575539372 Code(s): L03.90 - CELLULITIS, UNSPECIFIED Status: Acute Current Visit: Yes Qualifiers: Site of cellulitis: head Qualified Code(s): L03.811 - Cellulitis of head [ any part, except face] (4) Anemia SNOMED Code(s): 582700738 Code(s): D64.9 - ANEMIA, UNSPECIFIED Status: Chronic Current Visit: No Qualifiers: Anemia type: other cause Other causes of anemia: other cause, not classified Qualified Code(s): D64.89 - Other specified anemias (5) Hx of carotid stenosis SNOMED Code(s): 868961363 Code(s): Z86.79 - PERSONAL HISTORY OF OTHER DISEASES OF THE CIRCULATORY SYSTEM Status: Chronic Current Visit: No Annotation/Comment:: R carotid stent (6) Afib SNOMED Code(s): 66112721 Code(s): I48.91 - UNSPECIFIED ATRIAL FIBRILLATION Status: Chronic Priority: Medium Current Visit: No Qualifiers: Atrial fibrillation type: chronic Qualified Code(s): I48.2 - Chronic atrial fibrillation (7) CHF (congestive heart failure) SNOMED Code(s): 22634458 Code(s): I50.9 - HEART FAILURE, UNSPECIFIED Status: Chronic Current Visit : No Qualifiers: Congestive heart failure type: diastolic Congestive heart failure chronicity: chronic Qualified Code(s): I50.32 - Chronic diastolic (congestive ) heart failure (8) Hx of lower gastrointestinal bleeding SNOMED Code(s): 079696636119420 Code(s): Z87.19 - PERSONAL HISTORY OF OTHER DISEASES OF THE DIGESTIVE SYSTEM Status: Chronic Current Visit: No (9) Hx-TIA (transient ischemic attack) SNOMED Code(s): 988126561 Code(s): Z86.73 - PRSNL HX OF TIA (TIA), AND CEREB INFRC W/O RESID DEFICITS Status: Chronic Current Visit: No (10) Iron deficiency anemia due to chronic blood loss SNOMED Code(s): 54407445, 056981780 Code(s): D50.0 - IRON DEFICIENCY ANEMIA SECONDARY TO BLOOD LOSS (CHRONIC) Status: Chronic Priority: High Current Visit: No - Problem List Review Problem List Initiated/Reviewed/Updated: Yes - My Orders Last 24 Hours: My Active Orders 09/03/16 11:29 LORazepam [Ativan] 0.25 mg PO Q6H PRN 09/03/16 12:00 Levofloxacin/Dextrose 5%-Water [Levaquin in D5W 750 MG/150 ML] 750 mg Premix Bag 1 bag IV Q24H 09/04/16 09:07 Transfuse Red Blood Cells [COMM] Routine 09/04/16 09:24 RED BLOOD CELLS LP [BBK] Routine TYPE AND SCREEN [BBK] Routine 09/05/16 05:11 BASIC METABOLIC PANEL,BMP [CHEM] AM CBC WITH AUTO DIFF [HEME] AM MAGNESIUM [CHEM] AM 09/06/16 05:11 BASIC METABOLIC PANEL,BMP [CHEM] AM CBC WITH AUTO DIFF [HEME] AM MAGNESIUM [CHEM] AM - Plan Plan:: This 76 year old male admitted with HCAP, COPD exacerbation, and cellulitis to head 1. HCAP: Continue Levaquin, Vancomycin and Zosyn. Will de-escalate as possible due to high risk CDiff. Sputum culture pending. Duonebs. Encourage IS 2. COPD exacerbation: Solumderol 125 mg Q12hr IV. Duonebs and continue home inhalers 3. Cellulitis: Little erythema noted. no fluctuance. Area noted to L occiput. Will apply bacitracin BID and Vancomycin as above. Monitor. 4. CAD: Continue Ticagrelor and ASA. 5. Afib: Continue Cardiazem. Monitor Magnesium and supplement PRN. 6. CHF: Monitor fluid status, strict I/O and daily weights. Appears euvolemic, will not give any further IVFs. 7. Anemia with Hx gi bleed: Monitor closely, No recent black or bloody stools. Hgb 8.0. Will transfuse today 2 units and likely discharge in am and resume Home Health. 8. Hx cdiff: Not currently having diarrhea. Finished Vancomycin taper. VTE: SCDs and ambulation Dispo: Likely discharge in am when cultures return
[2016-09-04] MEDS: Levofloxacin/Dextrose 5%-Water 750 MG in Premix Bag 1 BAG IV SCH (13:30)
[2016-09-04] MEDS ORDERED: Furosemide 40 MG/4 ML VIAL IVPUSH ONE (14:27)
[2016-09-05] MEDS: Piperacillin/Tazobactam 4.5 GM in Sodium Chloride 0.9% 100 ML IV SCH ×2 (00:50→06:05)
[2016-09-05] MEDS: Albuterol/Ipratropium 3.0-0.5 MG/3 ML Neb Soln NEB SCH ×3 (01:40→10:00)
[2016-09-05] MEDS: methylPREDNISolone Sodium Succinate 125 MG/2 ML SDV IVPUSH SCH (03:57)
[2016-09-05] MEDS: Bacitracin Oint 28.35 GM Tube TOP SCH (06:06)
[2016-09-05 06:35] LABS: CHLORIDE,CL 108 mmol/L (98-110); SODIUM,NA 142 mmol/L (136-146)
[2016-09-05] MEDS: Pantoprazole 40 MG Tab.CR PO SCH (06:49)
[2016-09-05] MEDS: Tamsulosin 0.4 MG Cap.ER PO SCH (08:31)
[2016-09-05] MEDS: Potassium Chloride 20 MEQ Tab.ER PO SCH (08:31)
[2016-09-05] MEDS: Carboxymethylcellulose Sodium 0.5% Ophth Soln 0.4 ML UD Box of 30 EYEBOTH SCH (08:32)
[2016-09-05] MEDS: Iron Polysaccharides Complex 150 MG Cap PO SCH (08:32)
[2016-09-05] MEDS: Multivitamins with Iron/Calcium/Folic Acid/Minerals Tab PO SCH (08:35)
[2016-09-05] MEDS: Diltiazem 120 MG Cap.CD PO SCH (08:41)
[2016-09-05] MEDS: Tiotropium Inhaler 18 MCG Inhalation Powder Cap Kit of 5 INH SCH (09:18)
[2016-09-05] MEDS: Budesonide/Formoterol 2 PUFF INH SCH (09:18)
--- NOTE | 2016-09-05 09:34 | PCM.DCSUM1 ---
Discharge Summary - Discharge Data Discharge Date: 09/05/16 Discharge Disposition: Home, Self-Care 01 Condition: Fair - Patient Summary/Data Consults: Consultations 09/03/16 08:00 PT Evaluation and Treatment [CONS] Routine - Patient Instructions Driving: Do Not Drive Showering/Bathing: May Shower - Discharge Plan Home Medications: Home Meds Albuterol Sulfate [Proair Hfa] 2 puff IH QID PRN 06/14/16 [History] Albuterol/Ipratropium [DuoNeb 3.0-0.5 MG/3 ML] 3 ml NEB Q4H PRN 06/14/16 [ History] Bisacodyl [Dulcolax] 5 - 10 mg PO DAILY PRN 06/14/16 [History] Bisacodyl [Dulcolax] 10 mg RC DAILY PRN 06/14/16 [History] Budesonide/Formoterol Fumarate [Symbicort 160-4.5 Mcg Inhaler] 2 puff IH BID 01/21 [History] Diltiazem [Cardizem CD] 240 mg PO DAILY 06/14/16 [History] Hypromellose [Genteal Mild] 2 drop EYEBOTH DAILY 06/14/16 [History] Metoclopramide HCl [Reglan] 10 mg PO QIDACANDBED PRN 06/14/16 [History] Multivitamin [Multivitamins] 1 each PO DAILY 06/14/16 [History] Orphenadrine Citrate 100 mg PO Q12HR PRN 06/14/16 [History] Tamsulosin [Flomax] 0.4 mg PO PCBREAKFAST 06/14/16 [History] Acetaminophen [Tylenol] 500 mg PO Q4H PRN 06/15/16 [History] Albuterol Sulfate 2.5 mg IH Q6H PRN 06/15/16 [History] Pantoprazole [ProTONIX] 40 mg PO BIDAC 06/15/16 [History] Tiotropium [Spiriva HandiHaler] 18 mcg IH DAILY 06/15/16 [History] Iron Polysaccharides Complex [Ferrex 150] 150 mg PO BID cap 06/17/16 [Rx] Prednisone [IMW: Prednisone] 10 mg PO DAILY 06/23/16 [History] Potassium Chloride 20 meq PO BID #30 tab.er.prt 06/26/16 [Rx] LORazepam [Ativan] 0.25 mg PO Q6H #5 tablet 08/11/16 [Rx] Vancomycin 125 mg PO DAILY #0 08/11/16 [Rx] Cephalexin 500 mg PO BID 09/02/16 [History] Polymyxin B Sulf/Trimethoprim [Polymyxin B-Tmp Eye Drops] 1 drop EYEBOTH ASDIRECTED 09/02/16 [History] Forms: ED Department Discharge Referrals: Adam Michel MD [Physician] - 09/11/16 12:00 pm - Discharge Summary/Plan Comment DC Time >30 min.: No - Patient Data Vitals - Most Recent: Last Vital Signs Temp 36.4 C 09/05/16 03:57 Pulse 78 09/05/16 08:41 Resp 18 09/05/16 03:57 BP 136/62 09/05/16 08:41 Pulse Ox 96 09/05/16 06:00 Weight - Most Recent: 61.5 kg I&O - Last 24 hours: Intake & Output 09/04/16 09/05/16 09/05/16 22:59 06:59 14:59 Intake Total 1529 600 100 Output Total 370 1660 Balance 1159 -1060 100 Lab Results - Last 24 hrs: Laboratory Results - last 24 hr 09/04/16 09/05/16 09/05/16 Range/Units 09:24 06:05 06:05 WBC 8.99 (4.0-11.0) K/uL RBC 3.78 L (4.50-5.90) M/uL Hgb 11.0 L (13.0-17.0) g/dL Hct 33.4 L (38.0-50.0) % MCV 88.4 (80.0-98.0) fL MCH 29.1 (27.0-32.0) pg MCHC 32.9 (31.0-37.0) g/dL RDW Std Deviation 50.1 (28.0-62.0) fl RDW Coeff of Mavis 16 H (11.0-15.0) % Plt Count 164 (150-400) K/uL MPV 9.00 (7.40-12.00) fL Neut % (Auto) 95.7 H (48.0-80.0) % Lymph % (Auto) 2.0 L (16.0-40.0) % [place] % (Auto) 2.2 (0.0-15.0) % Eos % (Auto) 0.0 (0.0-7.0) % Baso % (Auto) 0.1 (0.0-1.5) % Neut # (Auto) 8.6 H (1.4-5.7) K/uL Lymph # (Auto) 0.2 L (0.6-2.4) K/uL [place] # (Auto) 0.2 (0.0-0.8) K/uL Eos # (Auto) 0.0 (0.0-0.7) K/uL Baso # (Auto) 0.0 (0.0-0.1) K/uL Nucleated RBC % 0.0 /100WBC Nucleated RBCs # 0 K/uL Sodium 142 (136-146) mmol/L Potassium 3.4 L (3.5-5.1) mmol/L Chloride 108 (98-110) mmol/L Carbon Dioxide 24 (21-31) mmol/L BUN 14 (6.0-23.0) mg/dL Creatinine 0.9 (0.6-1.5) mg/dL Est Cr Clr Drug Dosing 59.79 mL/min Estimated GFR (MDRD) > 60.0 ml/min Glucose 126 H (60-110) mg/dL Calcium 8.5 L (8.8-10.8) mg/dL Magnesium 1.4 L (1.5-2.3) mEq/L Blood Type O POSITIVE Antibody Screen NEGATIVE Crossmatch See Detail Med Orders - Current: Current Medications Acetaminophen (Tylenol) 650 mg PO Q4H PRN PRN Reason: Pain (Mild 1-3)/fever Albuterol (Proventil Neb Soln) 2.5 mg NEB Q2HR PRN PRN Reason: Shortness Of Breath/wheezing Albuterol (Ventolin Hfa) 8 gm INH QID PRN PRN Reason: Shortness of Breath Albuterol/Ipratropium (Duoneb 3.0-0.5 Mg/3 Ml) 3 ml NEB Q4HRRT [facility] Last Admin: 09/05/16 05:57 Dose: 3 ml Artificial Tears (Refresh Plus 0.5%) 1 each EYEBOTH DAILY [facility] Last Admin: 09/05/16 08:32 Dose: 1 drop Bacitracin (Bacitracin Oint) 1 gm TOP TID [facility] Last Admin: 09/05/16 06:06 Dose: 1 applic Bisacodyl (Dulcolax) 10 mg RECTAL DAILY PRN PRN Reason: Constipation Diltiazem HCl (Cardizem Cd) 240 mg PO DAILY [facility] Last Admin: 09/05/16 08:41 Dose: 240 mg Levofloxacin/Dextrose 750 mg/ (Premix) 150 mls @ 100 mls/hr IV Q24H [facility] Last Admin: 09/04/16 13:30 Dose: 100 mls/hr Piperacillin Sod/Tazobactam (Sod 4.5 gm/ Sodium Chloride) 100 mls @ 100 mls/hr IV Q6H [facility] Last Admin: 09/05/16 06:05 Dose: 100 mls/hr Vancomycin HCl 1 gm/ Sodium (Chloride) 250 mls @ 166.667 mls/hr IV Q12H [facility] Last Admin: 09/05/16 02:05 Dose: 166.667 mls/hr Lorazepam (Ativan) 0.25 mg PO Q6H PRN PRN Reason: Anxiety Methylprednisolone Sodium Succinate (Solu-Medrol) 125 mg IVPUSH Q8H [facility] Last Admin: 09/05/16 03:57 Dose: 125 mg Multivitamins/Minerals (Thera M Plus) 1 tab PO DAILY [facility] Last Admin: 09/05/16 08:35 Dose: Not Given Ondansetron HCl (Zofran) 4 mg IVPUSH Q4H PRN PRN Reason: Nausea Pantoprazole Sodium (Protonix) 40 mg PO BIDAC [facility] Last Admin: 09/05/16 06:49 Dose: 40 mg Budesonide/ (Formoterol 2 Puff) 2 each INH BID [facility] Last Admin: 09/05/16 09:18 Dose: 1 each Orphenadrine Citrate (100 Mg) 1 each PO Q12HR PRN PRN Reason: Pain Last Admin: 09/03/16 20:15 Dose: 1 each Polymyxin/Trimethoprim Sulfate (Polytrim Ophth Soln) 10 ml EYEBOTH ASDIRECTED [facility] Polysaccharide Iron Complex (Ferrex 150) 150 mg PO BID [facility] Last Admin: 09/05/16 08:32 Dose: 150 mg Potassium Chloride (Klor-Con M20) 20 meq PO BID [facility] Last Admin: 09/05/16 08:31 Dose: 20 meq Tamsulosin HCl (Flomax) 0.4 mg PO PCBREAKFAST [facility] Last Admin: 09/05/16 08:31 Dose: 0.4 mg Tiotropium Merna (Spiriva Handihaler) 18 mcg INH DAILY [facility] Last Admin: 09/05/16 09:18 Dose: 1 mcg Vancomycin HCl (Pharmacy To Dose - Vancomycin) 1 dose .XX ASDIRECTED [facility] Discontinued Medications Albuterol/Ipratropium (Duoneb 3.0-0.5 Mg/3 Ml) 3 ml NEB ONETIME ONE Stop: 09/02/16 11:05 Last Admin: 09/02/16 11:16 Dose: 3 ml Artificial Tears (Refresh Plus 0.5%) 15 each EYEBOTH DAILY [facility] Last Admin: 09/03/16 12:14 Dose: Not Given Calcium Carbonate/Glycine (Tums) 1,000 mg PO ONETIME ONE Stop: 09/03/16 08:09 Last Admin: 09/03/16 08:41 Dose: 1,000 mg Carboxymethylcellu Sod/Hypromellose (Genteal Moderate To Severe Ophth Gel) 15 ml EYEBOTH DAILY [facility] Last Admin: 09/03/16 09:45 Dose: Not Given Furosemide (Lasix) 20 mg IVPUSH ONCALL ONE Stop: 09/04/16 14:28 Last Admin: 09/04/16 14:55 Dose: 20 mg Sodium Chloride (Normal Saline) 1,000 mls @ 125 mls/hr IV STAT [facility] Last Admin: 09/02/16 11:51 Dose: 125 mls/hr Piperacillin Sod/Tazobactam (Sod 3.375 gm/ Sodium Chloride) 50 mls @ 100 mls/ hr IV ONETIME ONE Stop: 09/02/16 12:30 Last Admin: 09/02/16 12:21 Dose: 100 mls/hr Magnesium Sulfate 2 gm/ Premix 50 mls @ 50 mls/hr IV ONETIME ONE Stop: 09/02/16 15:56 Last Admin: 09/02/16 15:47 Dose: 50 mls/hr Lorazepam (Ativan) 0.25 mg PO Q6H [facility] Last Admin: 09/03/16 07:00 Dose: 0.25 mg Methylprednisolone Sodium Succinate (Solu-Medrol) 125 mg IVPUSH ONETIME ONE Stop: 09/02/16 11:05 Last Admin: 09/02/16 11:15 Dose: 125 mg *Q Meaningful Use (DIS) - VTE *Q VTE Criteria *Q: VTE Pharmacological Contraindications *Q: Risk of Bleeding - Stroke *Q Stroke Criteria *Q: - AMI *Q AMI Criteria *Q:
--- NOTE | 2016-09-05 09:42 | PCM.PN ---
- General Info Date of Service: 09/05/16 Admission Dx/Problem (Free Text): Admission Diagnosis/Problem Admission Diagnosis/Problem Pneumonia Functional Status: Reports: pain controlled - Review of Systems General: Reports: No Symptoms HEENT: Reports: no symptoms Pulmonary: Reports: no symptoms Cardiovascular: Reports: No Symptoms Gastrointestinal: Reports: No symptoms Genitourinary: Reports: no symptoms Musculoskeletal: Reports: no symptoms Skin: Reports: no symptoms, bruising Neurological: Reports: No Symptoms Psychiatric: Reports: no symptoms - Patient Data Vitals - most recent: Last Vital Signs Temp 36.4 C 09/05/16 03:57 Pulse 78 09/05/16 08:41 Resp 18 09/05/16 03:57 BP 136/62 09/05/16 08:41 Pulse Ox 96 09/05/16 06:00 Weight - most recent: 61.5 kg I&O - last 24 hours: Intake & Output 09/04/16 09/05/16 09/05/16 22:59 06:59 14:59 Intake Total 1529 600 100 Output Total 370 1660 Balance 1159 -1060 100 Lab Results last 24 hrs: Laboratory Results - last 24 hr 09/04/16 09/05/16 09/05/16 Range/Units 09:24 06:05 06:05 WBC 8.99 (4.0-11.0) K/uL RBC 3.78 L (4.50-5.90) M/uL Hgb 11.0 L (13.0-17.0) g/dL Hct 33.4 L (38.0-50.0) % MCV 88.4 (80.0-98.0) fL MCH 29.1 (27.0-32.0) pg MCHC 32.9 (31.0-37.0) g/dL RDW Std Deviation 50.1 (28.0-62.0) fl RDW Coeff of Mavis 16 H (11.0-15.0) % Plt Count 164 (150-400) K/uL MPV 9.00 (7.40-12.00) fL Neut % (Auto) 95.7 H (48.0-80.0) % Lymph % (Auto) 2.0 L (16.0-40.0) % [facility] % (Auto) 2.2 (0.0-15.0) % Eos % (Auto) 0.0 (0.0-7.0) % Baso % (Auto) 0.1 (0.0-1.5) % Neut # (Auto) 8.6 H (1.4-5.7) K/uL Lymph # (Auto) 0.2 L (0.6-2.4) K/uL [facility] # (Auto) 0.2 (0.0-0.8) K/uL Eos # (Auto) 0.0 (0.0-0.7) K/uL Baso # (Auto) 0.0 (0.0-0.1) K/uL Nucleated RBC % 0.0 /100WBC Nucleated RBCs # 0 K/uL Sodium 142 (136-146) mmol/L Potassium 3.4 L (3.5-5.1) mmol/L Chloride 108 (98-110) mmol/L Carbon Dioxide 24 (21-31) mmol/L BUN 14 (6.0-23.0) mg/dL Creatinine 0.9 (0.6-1.5) mg/dL Est Cr Clr Drug Dosing 59.79 mL/min Estimated GFR (MDRD) > 60.0 ml/min Glucose 126 H (60-110) mg/dL Calcium 8.5 L (8.8-10.8) mg/dL Magnesium 1.4 L (1.5-2.3) mEq/L Blood Type O POSITIVE Antibody Screen NEGATIVE Crossmatch See Detail Med Orders - Current: Current Medications Acetaminophen (Tylenol) 650 mg PO Q4H PRN PRN Reason: Pain (Mild 1-3)/fever Albuterol (Proventil Neb Soln) 2.5 mg NEB Q2HR PRN PRN Reason: Shortness Of Breath/wheezing Albuterol (Ventolin Hfa) 8 gm INH QID PRN PRN Reason: Shortness of Breath Albuterol/Ipratropium (Duoneb 3.0-0.5 Mg/3 Ml) 3 ml NEB Q4HRRT [facility] Last Admin: 09/05/16 05:57 Dose: 3 ml Artificial Tears (Refresh Plus 0.5%) 1 each EYEBOTH DAILY [facility] Last Admin: 09/05/16 08:32 Dose: 1 drop Bacitracin (Bacitracin Oint) 1 gm TOP TID [facility] Last Admin: 09/05/16 06:06 Dose: 1 applic Bisacodyl (Dulcolax) 10 mg RECTAL DAILY PRN PRN Reason: Constipation Diltiazem HCl (Cardizem Cd) 240 mg PO DAILY [facility] Last Admin: 09/05/16 08:41 Dose: 240 mg Levofloxacin/Dextrose 750 mg/ (Premix) 150 mls @ 100 mls/hr IV Q24H [facility] Last Admin: 09/04/16 13:30 Dose: 100 mls/hr Piperacillin Sod/Tazobactam (Sod 4.5 gm/ Sodium Chloride) 100 mls @ 100 mls/hr IV Q6H [facility] Last Admin: 09/05/16 06:05 Dose: 100 mls/hr Vancomycin HCl 1 gm/ Sodium (Chloride) 250 mls @ 166.667 mls/hr IV Q12H [facility] Last Admin: 09/05/16 02:05 Dose: 166.667 mls/hr Lorazepam (Ativan) 0.25 mg PO Q6H PRN PRN Reason: Anxiety Methylprednisolone Sodium Succinate (Solu-Medrol) 125 mg IVPUSH Q8H [facility] Last Admin: 09/05/16 03:57 Dose: 125 mg Multivitamins/Minerals (Thera M Plus) 1 tab PO DAILY [facility] Last Admin: 09/05/16 08:35 Dose: Not Given Ondansetron HCl (Zofran) 4 mg IVPUSH Q4H PRN PRN Reason: Nausea Pantoprazole Sodium (Protonix) 40 mg PO BIDAC [facility] Last Admin: 09/05/16 06:49 Dose: 40 mg Budesonide/ (Formoterol 2 Puff) 2 each INH BID [facility] Last Admin: 09/05/16 09:18 Dose: 1 each Orphenadrine Citrate (100 Mg) 1 each PO Q12HR PRN PRN Reason: Pain Last Admin: 09/03/16 20:15 Dose: 1 each Polymyxin/Trimethoprim Sulfate (Polytrim Ophth Soln) 10 ml EYEBOTH ASDIRECTED [facility] Polysaccharide Iron Complex (Ferrex 150) 150 mg PO BID [facility] Last Admin: 09/05/16 08:32 Dose: 150 mg Potassium Chloride (Klor-Con M20) 20 meq PO BID [facility] Last Admin: 09/05/16 08:31 Dose: 20 meq Tamsulosin HCl (Flomax) 0.4 mg PO PCBREAKFAST [facility] Last Admin: 09/05/16 08:31 Dose: 0.4 mg Tiotropium Lutts (Spiriva Handihaler) 18 mcg INH DAILY [facility] Last Admin: 09/05/16 09:18 Dose: 1 mcg Vancomycin HCl (Pharmacy To Dose - Vancomycin) 1 dose .XX ASDIRECTED [facility] Discontinued Medications Albuterol/Ipratropium (Duoneb 3.0-0.5 Mg/3 Ml) 3 ml NEB ONETIME ONE Stop: 09/02/16 11:05 Last Admin: 09/02/16 11:16 Dose: 3 ml Artificial Tears (Refresh Plus 0.5%) 15 each EYEBOTH DAILY [facility] Last Admin: 09/03/16 12:14 Dose: Not Given Calcium Carbonate/Glycine (Tums) 1,000 mg PO ONETIME ONE Stop: 09/03/16 08:09 Last Admin: 09/03/16 08:41 Dose: 1,000 mg Carboxymethylcellu Sod/Hypromellose (Genteal Moderate To Severe Ophth Gel) 15 ml EYEBOTH DAILY [facility] Last Admin: 09/03/16 09:45 Dose: Not Given Furosemide (Lasix) 20 mg IVPUSH ONCALL ONE Stop: 09/04/16 14:28 Last Admin: 09/04/16 14:55 Dose: 20 mg Sodium Chloride (Normal Saline) 1,000 mls @ 125 mls/hr IV STAT [facility] Last Admin: 09/02/16 11:51 Dose: 125 mls/hr Piperacillin Sod/Tazobactam (Sod 3.375 gm/ Sodium Chloride) 50 mls @ 100 mls/ hr IV ONETIME ONE Stop: 09/02/16 12:30 Last Admin: 09/02/16 12:21 Dose: 100 mls/hr Magnesium Sulfate 2 gm/ Premix 50 mls @ 50 mls/hr IV ONETIME ONE Stop: 09/02/16 15:56 Last Admin: 09/02/16 15:47 Dose: 50 mls/hr Lorazepam (Ativan) 0.25 mg PO Q6H [facility] Last Admin: 09/03/16 07:00 Dose: 0.25 mg Methylprednisolone Sodium Succinate (Solu-Medrol) 125 mg IVPUSH ONETIME ONE Stop: 09/02/16 11:05 Last Admin: 09/02/16 11:15 Dose: 125 mg - Exam Quality Assessment: supplemental oxygen General: alert, oriented HEENT: Pupils equal, Pupils reactive, EOMI, Mucous membr. moist/pink Neck: supple Lungs: Clear to auscultation, Normal respiratory effort Cardiovascular: No Murmurs Abdomen: bowel sounds present (Male) Exam: Deferred Back Exam: normal inspection Extremities: no edema Skin: ecchymosis (scattered ecchymoses of variable size , nearly confluent on forearms) Wound/Incisions: drainage (5mm shallow ulcer L parietal area, sl bloody drainage obscured by bacitracin) - Problem List Review Problem List Initiated/Reviewed/Updated: Yes - My Orders Last 24 Hours: My Active Orders 09/05/16 09:34 Ready for Discharge [RC] PER UNIT ROUTINE - Plan Plan:: This 76 year old male admitted with HCAP, COPD exacerbation, and cellulitis to head 1. HCAP: Continue Levaquin, Vancomycin and Zosyn. Will de-escalate as possible due to high risk CDiff. Sputum culture pending. Duonebs. Encourage IS 2. COPD exacerbation: Solumderol 125 mg Q12hr IV. Duonebs and continue home inhalers 3. Cellulitis: Little erythema noted. no fluctuance. Area noted to L occiput. Will apply bacitracin BID and Vancomycin as above. Monitor. 4. CAD: Continue Ticagrelor and ASA. 5. Afib: Continue Cardiazem. Monitor Magnesium and supplement PRN. 6. CHF: Monitor fluid status, strict I/O and daily weights. Appears euvolemic, will not give any further IVFs. 7. Anemia with Hx gi bleed: Monitor closely, No recent black or bloody stools. Hgb 8.0. Will transfuse today 2 units and likely discharge in am and resume Home Health. 8. Hx cdiff: Not currently having diarrhea. Finished Vancomycin taper. VTE: SCDs and ambulation Dispo: Likely discharge in am when cultures return
[2016-09-05 10:41] VITALS: BP 136/63
== END 2016-09-05 11:20 | disposition home health service (06) | DRG 190 ==
LOC: MW.ED 11:02 → MW.MS 12:26 → UNDOADMIN 12:26 → MW.MS 13:27 → UNDODISIN 09-05 11:20
PROVIDERS: ADMIT Family Medicine; ATTEND Family Medicine
DX: J44.0 Chronic obstructive pulmonary disease with (acute) lower respiratory infection (principal); J18.9 Pneumonia, unspecified organism; I50.32 Chronic diastolic (congestive) heart failure; L03.811 Cellulitis of head [any part, except face]; J44.1 Chronic obstructive pulmonary disease with (acute) exacerbation; I10 Essential (primary) hypertension; I48.91 Unspecified atrial fibrillation; I25.10 Atherosclerotic heart disease of native coronary artery without angina pectoris; E78.00 Pure hypercholesterolemia, unspecified; D50.0 Iron deficiency anemia secondary to blood loss (chronic); Z99.81 Dependence on supplemental oxygen; Z79.899 Other long term (current) drug therapy; Z86.79 Personal history of other diseases of the circulatory system; Z87.19 Personal history of other diseases of the digestive system; Z95.5 Presence of coronary angioplasty implant and graft; Z86.73 Personal history of transient ischemic attack (TIA), and cerebral infarction without residual deficits; Z87.891 Personal history of nicotine dependence
CPT/HCPCS: 36415; 71010; 80053; 82150; 83690; 83735; 84484; 85025; 93005 ×2; 94664; 96361; 96375; 99285; J2543; J2930; J7040; J7050; 36430; 80048; 80202; 81001; 86850; 86900; 86901; 86920; 86921; 86922; 87070; 87205; 94640; 96365; 97161-GP; 99284; A9270-GY; J1940; J1956; J3370; J3475; J7030; P9016

== ENCOUNTER → 2016-09-11 | Outpatient (CLI) | payer MEDICARE | LOC: MW.CHFP 08:00 | PROVIDERS: ATTEND Student in an Organized Health Care Education/Training Program | DX: E87.6 Hypokalemia (principal); J44.9 Chronic obstructive pulmonary disease, unspecified; Z09 Encounter for follow-up examination after completed treatment for conditions other than malignant neoplasm | CPT/HCPCS: G0463 ==

== ENCOUNTER 2016-09-23 21:04 | Emergency (ER) | payer MEDICARE ==
[2016-09-23] MEDS ORDERED: Albuterol/Ipratropium 3.0-0.5 MG/3 ML Neb Soln ONE (21:13)
[2016-09-23] MEDS ORDERED: Sodium Chloride 0.9% 10 ML Syringe FLUSH PRN (21:14)
[2016-09-23] MEDS ORDERED: Sodium Chloride 0.9% 2.5 ML Syringe FLUSH PRN (21:14)
[2016-09-23] MEDS ORDERED: Albuterol/Ipratropium 3.0-0.5 MG/3 ML Neb Soln NEB ONE (21:14)
--- NOTE | 2016-09-23 21:17 | EDM.PDOC ---
ED HISTORY OF PRESENT ILLNESS - General Chief Complaint: Respiratory Problem Stated Complaint: TROUBLE BREATHING /FEVER Time Seen by Provider: 09/23/16 21:09 - History of Present Illness INITIAL COMMENTS - FREE TEXT/NARRATIVE: HISTORY AND PHYSICAL: History of present illness: Patient is 76-year-old male with extensive past medical history including severe end-stage lung disease presents with concern of shortness of breath and wheezing unresponsive to his nebulizer home he is currently also on steroids. He denies chest pain nausea vomiting fever chills or other concerns Review of systems: As per history of present illness and below otherwise all systems reviewed and negative. Past medical history: As per history of present illness and as reviewed below otherwise noncontributory. Surgical history: As per history of present illness and as reviewed below otherwise noncontributory. Social history: No reported history of drug or alcohol abuse. Family history: As per history of present illness and as reviewed below otherwise noncontributory. Physical exam: HEENT: Atraumatic, normocephalic, pupils reactive, negative for conjunctival pallor or scleral icterus, mucous membranes moist, throat clear, neck supple, nontender, trachea midline. Lungs: Coarse bilaterally markedly diminished but equal breath sounds Heart: S1S2, regular, negative for clicks, rubs, or JVD. Abdomen: Soft, nondistended, nontender. Negative for masses or hepatosplenomegaly. Negative for costovertebral tenderness. Pelvis: Stable nontender. Genitourinary: Deferred. Rectal: Deferred. Extremities: negative for cords or calf pain. Neurovascular unremarkable. Neuro: Awake, alert, age appropriate at baseline moves all extremities follows commands limited grossly nonfocal exam Diagnostics: CBC CMP troponin BNP chest x-ray EKG Therapeutics: IV O2 monitor albuterol ipratropium nebulizer Impression: #1 COPD with acute exacerbation Definitive disposition and diagnosis as appropriate pending reevaluation and review of above. - Related Data Allergies/ADRs: Allergies Allergy/AdvReac Type Severity Reaction Status Date / Time No Known Allergies Allergy Verified 09/02/16 11:15 Home Meds: Home Meds Albuterol Sulfate [Proair Hfa] 2 puff IH QID PRN 06/14/16 [History] Albuterol/Ipratropium [DuoNeb 3.0-0.5 MG/3 ML] 3 ml NEB Q4H PRN 06/14/16 [ History] Bisacodyl [Dulcolax] 5 - 10 mg PO DAILY PRN 06/14/16 [History] Bisacodyl [Dulcolax] 10 mg RC DAILY PRN 06/14/16 [History] Budesonide/Formoterol Fumarate [Symbicort 160-4.5 Mcg Inhaler] 2 puff IH BID 01/21 [History] Diltiazem [Cardizem CD] 240 mg PO DAILY 06/14/16 [History] Hypromellose [Genteal Mild] 2 drop EYEBOTH DAILY 06/14/16 [History] Metoclopramide HCl [Reglan] 10 mg PO QIDACANDBED PRN 06/14/16 [History] Multivitamin [Multivitamins] 1 each PO DAILY 06/14/16 [History] Orphenadrine Citrate 100 mg PO Q12HR PRN 06/14/16 [History] Tamsulosin [Flomax] 0.4 mg PO PCBREAKFAST 06/14/16 [History] Acetaminophen [Tylenol] 500 mg PO Q4H PRN 06/15/16 [History] Albuterol Sulfate 2.5 mg IH Q6H PRN 06/15/16 [History] Pantoprazole [ProTONIX] 40 mg PO BIDAC 06/15/16 [History] Tiotropium [Spiriva HandiHaler] 18 mcg IH DAILY 06/15/16 [History] Iron Polysaccharides Complex [Ferrex 150] 150 mg PO BID cap 06/17/16 [Rx] Prednisone [IMW: Prednisone] 10 mg PO DAILY 06/23/16 [History] Potassium Chloride 20 meq PO BID #30 tab.er.prt 06/26/16 [Rx] LORazepam [Ativan] 0.25 mg PO Q6H #5 tablet 08/11/16 [Rx] Vancomycin 125 mg PO DAILY #0 08/11/16 [Rx] Cephalexin 500 mg PO BID 09/02/16 [History] Polymyxin B Sulf/Trimethoprim [Polymyxin B-Tmp Eye Drops] 1 drop EYEBOTH ASDIRECTED 09/02/16 [History] Past Medical History HEENT History: Reports: Cataract Other HEENT History: glasses Cardiovascular History: Reports: Afib, CAD, High cholesterol, Hypertension, Stents Respiratory History: Reports: COPD, Pneumonia, recurrent, Pneumothorax, SOB, Other (see below) Other Respiratory History: chronic respiratory failure with hypoxia Gastrointestinal History: Reports: GI bleed Other Gastrointestinal History: GI Bleed. Ileus Genitourinary History: Reports: None Musculoskeletal History: Reports: Other (see below) Other Musculoskeletal History: Back Problem Neurological History: Reports: TIA Psychiatric History: Reports: None Endocrine/Metabolic History: Reports: None. Denies: Diabetes, type II, Hypothyroidism Hematologic History: Reports: Anemia Immunologic History: Reports: None Oncologic (Cancer) History: Reports: Other (see below) Other Oncologic History: throat Dermatologic History: Reports: None - Infectious Disease History Infectious Disease History: Reports: None Other Infectious Disease History: clear for MRSA per patient. current C-diff - Past Surgical History Head Surgeries/Procedures: Reports: None HEENT Surgical History: Reports: None Cardiovascular Surgical History: Reports: Coronary artery stent, Carotid stents Respiratory Surgical History: Reports: None GI Surgical History: Reports: None Male Surgical History: Reports: None Endocrine Surgical History: Reports: None Neurological Surgical History: Reports: None Musculoskeletal Surgical History: Reports: None Oncologic Surgical History: Reports: None Dermatological Surgical History: Reports: None Social & Family History - Family History Family Medical History: Noncontributory Cardiac: Reports: Hypertension Other Cardiac Family History: Father, Mother GI: Reports: GI bleed OBGYN: Reports: Musculoskeletal: Reports: Arthritis Neurological: Reports: None Psychiatric: Reports: None Endocrine/Metabolic: Reports: Diabetes, type II Hematologic: Reports: None Immunologic: Reports: None Dermatologic: Reports: None Oncologic: Reports: Prostate - Tobacco Use Smoking Status *Q: Former Smoker Years of Tobacco use: 50 Packs/Tins Daily: 4 Used Tobacco, but Quit: Yes Month Tobacco Last Used: 2004 Second Hand Smoke Exposure: No - Caffeine Use Caffeine Use: Reports: Coffee - Alcohol Use Days Per Week of Alcohol Use: 2 Number of Drinks Per Day: 2 Total Drinks Per Week: 4 - Recreational Drug Use Recreational Drug Use: No Drug Use in Last 12 Months: No ED ROS GENERAL - Review of Systems Review Of Systems: ROS reveals no pertinent complaints other than HPI. ED EXAM, GENERAL - Physical Exam Exam: See Below (See dictation) Course - Vital Signs Text/Narrative:: Patient resting comfortably status post nebulizer treatment saturation remains in the 92% range patient has been observed in the ER and was given the option admission for observation patient and family declined initially discharged home followup with primary medical doctor in 2 days return as needed discussed and continue his current medication Last Recorded V/S: Last Vital Signs Temp 37.6 C 09/23/16 22:03 Pulse 119 H 09/23/16 22:03 Resp 22 H 09/23/16 22:03 BP 146/68 H 09/23/16 22:03 Pulse Ox 93 L 09/23/16 22:19 - Orders/Labs/Meds Orders: Active Orders 24 hr Category Date Time Status Cardiac Monitoring [RC] . DIRECTED Care 09/23/16 21:14 Active EKG Documentation Completion [RC] STAT Care 09/23/16 21:14 Active Oxygen Therapy, ED [RC] ASDIRECTED Care 09/23/16 21:14 Active RT Aerosol Therapy [RC] ASDIRECTED Care 09/23/16 21:14 Active Chest 1V Frontal [CR] Stat Exams 09/23/16 21:14 Taken Sodium Chloride 0.9% [Saline Flush] Med 09/23/16 21:14 Active 10 ml FLUSH ASDIRECTED PRN Sodium Chloride 0.9% [Saline Flush] Med 09/23/16 21:14 Active 2.5 ml FLUSH ASDIRECTED PRN Saline Lock Insert [OM.PC] Stat Oth 09/23/16 21:14 Ordered Medication Orders Sodium Chloride (Saline Flush) 10 ml FLUSH ASDIRECTED PRN PRN Reason: Keep Vein Open Sodium Chloride (Saline Flush) 2.5 ml FLUSH ASDIRECTED PRN PRN Reason: Keep Vein Open Labs: Laboratory Tests 09/23/16 09/23/16 09/23/16 Range/Units 21:15 21:15 21:15 WBC 9.49 (4.0-11.0) K/uL RBC 4.16 L (4.50-5.90) M/uL Hgb 12.2 L (13.0-17.0) g/dL Hct 38.8 (38.0-50.0) % MCV 93.3 (80.0-98.0) fL MCH 29.3 (27.0-32.0) pg MCHC 31.4 (31.0-37.0) g/dL RDW Std Deviation 54.9 (28.0-62.0) fl RDW Coeff of Mavis 16 H (11.0-15.0) % Plt Count 193 (150-400) K/uL MPV 8.60 (7.40-12.00) fL Neut % (Auto) 91.6 H (48.0-80.0) % Lymph % (Auto) 4.8 L (16.0-40.0) % [place] % (Auto) 3.3 (0.0-15.0) % Eos % (Auto) 0.2 (0.0-7.0) % Baso % (Auto) 0.1 (0.0-1.5) % Neut # (Auto) 8.7 H (1.4-5.7) K/uL Lymph # (Auto) 0.5 L (0.6-2.4) K/uL [place] # (Auto) 0.3 (0.0-0.8) K/uL Eos # (Auto) 0.0 (0.0-0.7) K/uL Baso # (Auto) 0.0 (0.0-0.1) K/uL Nucleated RBC % 0.0 /100WBC Nucleated RBCs # 0 K/uL Sodium 141 (136-146) mmol/L Potassium 3.8 (3.5-5.1) mmol/L Chloride 108 (98-110) mmol/L Carbon Dioxide 21 (21-31) mmol/L BUN 15 (6.0-23.0) mg/dL Creatinine 1.0 (0.6-1.5) mg/dL Est Cr Clr Drug Dosing TNP Estimated GFR (MDRD) > 60.0 ml/min Glucose 147 H (60-110) mg/dL Calcium 9.4 (8.8-10.8) mg/dL Total Bilirubin 0.3 (0.1-1.5) mg/dL AST 14 (5-40) IU/L ALT 17 (8-54) IU/L Alkaline Phosphatase 75 (40-150) Troponin I < 0.10 (0.0-0.29) NG/ML B-Natriuretic Peptide (<100) PG/ML Total Protein 6.9 (6.0-8.0) g/dL Albumin 3.7 (3.4-4.8) g/dL Globulin 3.2 (2.0-3.5) g/dL Albumin/Globulin Ratio 1.2 L (1.3-2.8) 09/23/16 Range/Units 21:15 WBC (4.0-11.0) K/uL RBC (4.50-5.90) M/uL Hgb (13.0-17.0) g/dL Hct (38.0-50.0) % MCV (80.0-98.0) fL MCH (27.0-32.0) pg MCHC (31.0-37.0) g/dL RDW Std Deviation (28.0-62.0) fl RDW Coeff of Mavis (11.0-15.0) % Plt Count (150-400) K/uL MPV (7.40-12.00) fL Neut % (Auto) (48.0-80.0) % Lymph % (Auto) (16.0-40.0) % [place] % (Auto) (0.0-15.0) % Eos % (Auto) (0.0-7.0) % Baso % (Auto) (0.0-1.5) % Neut # (Auto) (1.4-5.7) K/uL Lymph # (Auto) (0.6-2.4) K/uL [place] # (Auto) (0.0-0.8) K/uL Eos # (Auto) (0.0-0.7) K/uL Baso # (Auto) (0.0-0.1) K/uL Nucleated RBC % /100WBC Nucleated RBCs # K/uL Sodium (136-146) mmol/L Potassium (3.5-5.1) mmol/L Chloride (98-110) mmol/L Carbon Dioxide (21-31) mmol/L BUN (6.0-23.0) mg/dL Creatinine (0.6-1.5) mg/dL Est Cr Clr Drug Dosing Estimated GFR (MDRD) ml/min Glucose (60-110) mg/dL Calcium (8.8-10.8) mg/dL Total Bilirubin (0.1-1.5) mg/dL AST (5-40) IU/L ALT (8-54) IU/L Alkaline Phosphatase (40-150) Troponin I (0.0-0.29) NG/ML B-Natriuretic Peptide 117 H (<100) PG/ML Total Protein (6.0-8.0) g/dL Albumin (3.4-4.8) g/dL Globulin (2.0-3.5) g/dL Albumin/Globulin Ratio (1.3-2.8) Meds: Medications Generic Name Dose Route Start Last Admin Trade Name Freq PRN Reason Stop Dose Admin Sodium Chloride 10 ml 09/23/16 21:14 Saline Flush FLUSH ASDIRECTED PRN Keep Vein Open Sodium Chloride 2.5 ml 09/23/16 21:14 Saline Flush FLUSH ASDIRECTED PRN Keep Vein Open Discontinued Medications Generic Name Dose Route Start Last Admin Trade Name Freq PRN Reason Stop Dose Admin Albuterol/Ipratropium 3 ml 09/23/16 21:14 09/23/16 21:19 Duoneb 3.0-0.5 Mg/3 Ml NEB 09/23/16 21:15 3 ml ONETIME ONE Administration Albuterol/Ipratropium Confirm 09/23/16 21:13 09/23/16 21:19 Duoneb 3.0-0.5 Mg/3 Ml Administered 09/23/16 21:14 Not Given Dose 3 ml .ROUTE .STK-MED ONE Departure - Departure Time of Disposition: 22:50 Disposition: Home, Self-Care 01 Condition: good Clinical Impression: COLD, Chronic obstructive lung disease Forms: ED Department Discharge Additional Instructions: The following information is given to patients seen in the emergency department who are being discharged to home. This information is to outline your options for follow-up care. We provide all patients seen in our emergency department with a follow-up referral. The need for follow-up, as well as the timing and circumstances, are variable depending upon the specifics of your emergency department visit. If you don't have a primary care physician on staff, we will provide you with a referral. We always advise you to contact your personal physician following an emergency department visit to inform them of the circumstance of the visit and for follow-up with them and/or the need for any referrals to a consulting specialist. The emergency department will also refer you to a specialist when appropriate. This referral assures that you have the opportunity for followup care with a specialist. All of these measure are taken in an effort to provide you with optimal care, which includes your followup. Under all circumstances we always encourage you to contact your private physician who remains a resource for coordinating your care. When calling for followup care, please make the office aware that this follow-up is from your recent emergency room visit. If for any reason you are refused follow-up, please contact the [facility] emergency department at and asked to speak to the emergency department charge nurse. Continue current meds follow up primary medical doctor one to 2 days return as needed as discussed - My Orders Last 24 Hours: My Active Orders 09/23/16 21:14 Cardiac Monitoring [RC] . DIRECTED EKG Documentation Completion [RC] STAT Oxygen Therapy, ED [RC] ASDIRECTED RT Aerosol Therapy [RC] ASDIRECTED Chest 1V Frontal [CR] Stat Sodium Chloride 0.9% [Saline Flush] 10 ml FLUSH ASDIRECTED PRN Sodium Chloride 0.9% [Saline Flush] 2.5 ml FLUSH ASDIRECTED PRN Saline Lock Insert [OM.PC] Stat - Assessment/Plan Last 24 Hours: My Active Orders 09/23/16 21:14 Cardiac Monitoring [RC] . DIRECTED EKG Documentation Completion [RC] STAT Oxygen Therapy, ED [RC] ASDIRECTED RT Aerosol Therapy [RC] ASDIRECTED Chest 1V Frontal [CR] Stat Sodium Chloride 0.9% [Saline Flush] 10 ml FLUSH ASDIRECTED PRN Sodium Chloride 0.9% [Saline Flush] 2.5 ml FLUSH ASDIRECTED PRN Saline Lock Insert [OM.PC] Stat
[2016-09-23 21:52] LABS: CHLORIDE,CL 108 mmol/L (98-110); SODIUM,NA 141 mmol/L (136-146)
[2016-09-23 23:05] VITALS: BP 152/63
--- NOTE | 2016-09-24 10:06 | CR ---
EXAM DATE: 09/23/16 PATIENT'S AGE: 76 Patient: GILBERTO SIMONS Facility: [place], [place] Site . Site : 1940 Study: XRay Chest [id number] 10:20:30 PM Ordering Physician: Luisa Urrutia Final Report: Indication: Shortness of breath. Hypoxia. Technique: Chest 1 view Comparison: 09/02/2016 Findings/Impression: Cardiovascular and mediastinum: Stable cardiomediastinal silhouette. Lungs and pleural space: An ill-defined left basilar opacity with obscuration of the hemidiaphragm, compatible with atelectasis/infiltrate with possible small effusion. A right infrahilar opacity could represent crowded vessels or a focal infiltrate. Correlate clinically and followup. Bones and soft tissues: No significant change. Dictated by Marques Sequeira MD @ 09/23/2016 10:28:57 PM Dictated by: Marques Sequeira MD @ 09/23/2016 22:29:06 (Electronic Signature) Report Signed by Proxy and Original Signed Document filed in the Medical Record. [facility]
== END 2016-09-23 23:20 | disposition home or self-care (01) ==
LOC: MW.ED 21:04
DX: J44.1 Chronic obstructive pulmonary disease with (acute) exacerbation (principal); I10 Essential (primary) hypertension; I25.10 Atherosclerotic heart disease of native coronary artery without angina pectoris; E78.00 Pure hypercholesterolemia, unspecified; D64.9 Anemia, unspecified; Z86.73 Personal history of transient ischemic attack (TIA), and cerebral infarction without residual deficits; Z95.5 Presence of coronary angioplasty implant and graft; Z87.891 Personal history of nicotine dependence; Z79.2 Long term (current) use of antibiotics; Z79.899 Other long term (current) drug therapy
CPT/HCPCS: 36415; 71010; 71010-26; 80053; 83880; 84484; 85025; 93005; 94664; 99284; 99285-25

== ENCOUNTER 2016-10-20 17:41 | Inpatient (IN) | payer MEDICARE ==
[2016-10-20] MEDS ORDERED: Sodium Chloride 0.9% 10 ML Syringe FLUSH PRN (18:06)
[2016-10-20] MEDS ORDERED: Sodium Chloride 0.9% 1,000 ML IV ONE ×2 (18:06→21:19)
[2016-10-20] MEDS ORDERED: Sodium Chloride 0.9% 2.5 ML Syringe FLUSH PRN (18:06)
--- NOTE | 2016-10-20 18:46 | EDM.PDOC ---
ED HPI GENERAL MEDICAL PROBLEM - General Chief Complaint: Respiratory Problem Stated Complaint: SHORT OF BREATH Time Seen by Provider: 10/20/16 17:52 Source of Information: Reports: Patient History Limitations: Reports: No Limitations - History of Present Illness INITIAL COMMENTS - FREE TEXT/NARRATIVE: Presents reporting shortness of breath that worsened over the weekend. He also has a cough producing large amounts of thick yellow-green sputum. 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 He also his has a history of an anemia of unknown etiology. He has been followed closely and has a hemoglobin drawn about every 3-4 weeks. His son states that since April of 2016 he is had over 30 units of blood. Despite an exhaustive workup no etiology has been found for his chronic anemia. - Related Data Allergies Allergy/AdvReac Type Severity Reaction Status Date / Time No Known Allergies Allergy Verified 10/20/16 17:49 Home Meds: Home Meds Albuterol Sulfate [Proair Hfa] 2 puff IH QID PRN 06/14/16 [History] Albuterol/Ipratropium [DuoNeb 3.0-0.5 MG/3 ML] 3 ml NEB Q4H PRN 06/14/16 [ History] Bisacodyl [Dulcolax] 5 - 10 mg PO DAILY PRN 06/14/16 [History] Bisacodyl [Dulcolax] 10 mg RC DAILY PRN 06/14/16 [History] Budesonide/Formoterol Fumarate [Symbicort 160-4.5 Mcg Inhaler] 2 puff IH BID 01/21 [History] Diltiazem [Cardizem CD] 240 mg PO DAILY 06/14/16 [History] Hypromellose [Genteal Mild] 2 drop EYEBOTH DAILY 06/14/16 [History] Metoclopramide HCl [Reglan] 10 mg PO QIDACANDBED PRN 06/14/16 [History] Multivitamin [Multivitamins] 1 each PO DAILY 06/14/16 [History] Orphenadrine Citrate 100 mg PO Q12HR PRN 06/14/16 [History] Tamsulosin [Flomax] 0.4 mg PO PCBREAKFAST 06/14/16 [History] Acetaminophen [Tylenol] 500 mg PO Q4H PRN 06/15/16 [History] Albuterol Sulfate 2.5 mg IH Q6H PRN 06/15/16 [History] Pantoprazole [ProTONIX] 40 mg PO BIDAC 06/15/16 [History] Tiotropium [Spiriva HandiHaler] 18 mcg IH DAILY 06/15/16 [History] Iron Polysaccharides Complex [Ferrex 150] 150 mg PO BID cap 06/17/16 [Rx] Prednisone [IMW: Prednisone] 10 mg PO DAILY 06/23/16 [History] Potassium Chloride 20 meq PO BID #30 tab.er.prt 06/26/16 [Rx] LORazepam [Ativan] 0.25 mg PO Q6H #5 tablet 08/11/16 [Rx] Cephalexin [Keflex] 500 mg PO BID 09/23/16 [History] Past Medical History HEENT History: Reports: Cataract Other HEENT History: glasses Cardiovascular History: Reports: Afib, CAD, High Cholesterol, Hypertension, Stents Respiratory History: Reports: COPD, Pneumonia, Recurrent, Pneumothorax, SOB, Other (See Below) Other Respiratory History: chronic respiratory failure with hypoxia Gastrointestinal History: Reports: GI Bleed Other Gastrointestinal History: GI Bleed. Ileus Genitourinary History: Reports: None Musculoskeletal History: Reports: Other (See Below) Other Musculoskeletal History: Back Problem Neurological History: Reports: TIA Psychiatric History: Reports: None Endocrine/Metabolic History: Reports: None Hematologic History: Reports: Anemia Immunologic History: Reports: None Oncologic (Cancer) History: Reports: Other (See Below) Other Oncologic History: throat Dermatologic History: Reports: None - Infectious Disease History Infectious Disease History: Reports: Chicken Pox, Measles, Mumps Other Infectious Disease History: clear for MRSA per patient - Past Surgical History Head Surgeries/Procedures: Reports: None HEENT Surgical History: Reports: None Cardiovascular Surgical History: Reports: Coronary Artery Stent, Carotid Stents Male Surgical History: Reports: None Endocrine Surgical History: Reports: None Neurological Surgical History: Reports: None Dermatological Surgical History: Reports: None Social & Family History - Family History Family Medical History: Noncontributory Cardiac: Reports: Hypertension Other Cardiac Family History: Father, Mother GI: Reports: GI bleed OBGYN: Reports: Musculoskeletal: Reports: Arthritis Neurological: Reports: None Psychiatric: Reports: None Endocrine/Metabolic: Reports: Diabetes, type II Hematologic: Reports: None Immunologic: Reports: None Dermatologic: Reports: None Oncologic: Reports: Prostate - Tobacco Use Smoking Status *Q: Former Smoker Years of Tobacco use: 50 Packs/Tins Daily: 4 Used Tobacco, but Quit: Yes Month Tobacco Last Used: 0 Second Hand Smoke Exposure: No - Caffeine Use Caffeine Use: Reports: None - Alcohol Use Days Per Week of Alcohol Use: 2 Number of Drinks Per Day: 2 Total Drinks Per Week: 4 - Recreational Drug Use Recreational Drug Use: No Drug Use in Last 12 Months: No ED ROS GENERAL - Review of Systems Review Of Systems: ROS reveals no pertinent complaints other than HPI. Constitutional: Denies: Fever ED EXAM, GENERAL - Physical Exam Exam: See Below Exam Limited By: No Limitations General Appearance: Alert, No Apparent Distress Ears: Normal External Exam Nose: Normal Inspection Throat/Mouth: Normal Inspection Head: Atraumatic, Normocephalic Neck: Normal Inspection Respiratory/Chest: Crackles, Rhonchi, Wheezing, Prolonged Expiration, Other ( Congested cough producing large amounts of thick yellow-green sputum) Cardiovascular: Normal Peripheral Pulses, Irregularly Irregular GI/Abdominal: Non-Tender, Distended (had a greenish BM today) Back Exam: Normal Inspection Extremities: Normal Inspection Neurological: Alert, Oriented Psychiatric: Normal Affect, Normal Mood Skin Exam: Warm, Dry, Intact, Normal Color, No Rash Lymphatic: No Adenopathy Course - Vital Signs Last Recorded V/S: Last Vital Signs Temp 36.7 C 10/20/16 17:47 Pulse 92 10/20/16 17:47 Resp 22 H 10/20/16 17:47 BP 126/61 10/20/16 17:47 Pulse Ox 92 L 10/20/16 17:47 - Orders/Labs/Meds Orders: Active Orders 24 hr Category Date Time Status EKG Documentation Completion [RC] STAT Care 10/20/16 18:09 Ordered Chest 2V [CR] Stat Exams 10/20/16 18:06 Ordered B-TYPE NATRIURETIC PEPTIDE,BNP [CHEM] Stat Lab 10/20/16 18:14 Ordered CBC WITH AUTO DIFF [HEME] Stat Lab 10/20/16 18:06 Ordered COMPREHENSIVE METABOLIC PN,CMP [CHEM] Stat Lab 10/20/16 18:06 Ordered TROPONIN I [CHEM] Stat Lab 10/20/16 18:06 Ordered UA W/MICROSCOPIC [URIN] Stat Lab 10/20/16 18:06 Uncollected Sodium Chloride 0.9% [Normal Saline] 1,000 ml Med 10/20/16 18:06 Ordered IV .Bolus Sodium Chloride 0.9% [Saline Flush] Med 10/20/16 18:06 Ordered 10 ml FLUSH ASDIRECTED PRN Sodium Chloride 0.9% [Saline Flush] Med 10/20/16 18:06 Ordered 2.5 ml FLUSH ASDIRECTED PRN Saline Lock Insert [OM.PC] Stat Oth 10/20/16 18:06 Ordered Medication Orders Sodium Chloride (Normal Saline) 1,000 mls @ 200 mls/hr IV .Bolus ONE Stop: 10/20/16 23:05 Sodium Chloride (Saline Flush) 10 ml FLUSH ASDIRECTED PRN PRN Reason: Keep Vein Open Sodium Chloride (Saline Flush) 2.5 ml FLUSH ASDIRECTED PRN PRN Reason: Keep Vein Open Meds: Medications Generic Name Dose Route Start Last Admin Trade Name Freq PRN Reason Stop Dose Admin Sodium Chloride 1,000 mls @ 200 mls/hr 10/20/16 18:06 Normal Saline IV 10/20/16 23:05 .Bolus ONE Sodium Chloride 10 ml 10/20/16 18:06 Saline Flush FLUSH ASDIRECTED PRN Keep Vein Open Sodium Chloride 2.5 ml 10/20/16 18:06 Saline Flush FLUSH ASDIRECTED PRN Keep Vein Open - Re-Assessments/Exams Free Text/Narrative Re-Assessment/Exam: 10/20/16 21:04 Dr. Durand here to visit with patient and review chart. Same will accept the patient for admission. Departure - Departure Time of Disposition: 21:05 Disposition: Admitted As Inpatient 65 Condition: good Clinical Impression: Pneumonia Qualifiers: Pneumonia type: due to unspecified organism Laterality: bilateral Lung location : upper lobe of lung Qualified Code(s): J18.9 - Pneumonia, unspecified organism - Discharge Information Forms: ED Department Discharge - My Orders Last 24 Hours: My Active Orders 10/20/16 18:06 Chest 2V [CR] Stat CBC WITH AUTO DIFF [HEME] Stat COMPREHENSIVE METABOLIC PN,CMP [CHEM] Stat TROPONIN I [CHEM] Stat UA W/MICROSCOPIC [URIN] Stat Sodium Chloride 0.9% [Normal Saline] 1,000 ml IV .Bolus Sodium Chloride 0.9% [Saline Flush] 10 ml FLUSH ASDIRECTED PRN Sodium Chloride 0.9% [Saline Flush] 2.5 ml FLUSH ASDIRECTED PRN Saline Lock Insert [OM.PC] Stat 10/20/16 18:09 EKG Documentation Completion [RC] STAT 10/20/16 18:14 B-TYPE NATRIURETIC PEPTIDE,BNP [CHEM] Stat - Assessment/Plan Last 24 Hours: My Active Orders 10/20/16 18:06 Chest 2V [CR] Stat CBC WITH AUTO DIFF [HEME] Stat COMPREHENSIVE METABOLIC PN,CMP [CHEM] Stat TROPONIN I [CHEM] Stat UA W/MICROSCOPIC [URIN] Stat Sodium Chloride 0.9% [Normal Saline] 1,000 ml IV .Bolus Sodium Chloride 0.9% [Saline Flush] 10 ml FLUSH ASDIRECTED PRN Sodium Chloride 0.9% [Saline Flush] 2.5 ml FLUSH ASDIRECTED PRN Saline Lock Insert [OM.PC] Stat 10/20/16 18:09 EKG Documentation Completion [RC] STAT 10/20/16 18:14 B-TYPE NATRIURETIC PEPTIDE,BNP [CHEM] Stat
[2016-10-20 19:22] LABS: CHLORIDE,CL 107 mmol/L (98-110); SODIUM,NA 141 mmol/L (136-146)
[2016-10-20] MEDS ORDERED: Albuterol/Ipratropium 3.0-0.5 MG/3 ML Neb Soln NEB ONE (19:32)
[2016-10-20] MEDS ORDERED: methylPREDNISolone Sodium Succinate 125 MG/2 ML SDV IVPUSH ONE (19:33)
--- NOTE | 2016-10-20 21:02 | PCM.HP ---
H&P History of Present Illness - General Date of Service: 10/20/16 Source of Information: Patient, Family, Provider, RN - History of Present Illness Initial Comments - Free Text/Narative: he presented to the ED today with cough and dyspnea. - Related Data Allergies/Adverse Reactions: Allergies Allergy/AdvReac Type Severity Reaction Status Date / Time No Known Allergies Allergy Verified 10/20/16 17:49 Home Medications: Home Meds Albuterol Sulfate [Proair Hfa] 2 puff IH QID PRN 06/14/16 [History] Albuterol/Ipratropium [DuoNeb 3.0-0.5 MG/3 ML] 3 ml NEB Q4H PRN 06/14/16 [ History] Bisacodyl [Dulcolax] 5 - 10 mg PO DAILY PRN 06/14/16 [History] Bisacodyl [Dulcolax] 10 mg RC DAILY PRN 06/14/16 [History] Budesonide/Formoterol Fumarate [Symbicort 160-4.5 Mcg Inhaler] 2 puff IH BID 01/21 [History] Diltiazem [Cardizem CD] 240 mg PO DAILY 06/14/16 [History] Hypromellose [Genteal Mild] 2 drop EYEBOTH DAILY 06/14/16 [History] Metoclopramide HCl [Reglan] 10 mg PO QIDACANDBED PRN 06/14/16 [History] Multivitamin [Multivitamins] 1 each PO DAILY 06/14/16 [History] Orphenadrine Citrate 100 mg PO Q12HR PRN 06/14/16 [History] Tamsulosin [Flomax] 0.4 mg PO PCBREAKFAST 06/14/16 [History] Acetaminophen [Tylenol] 500 mg PO Q4H PRN 06/15/16 [History] Albuterol Sulfate 2.5 mg IH Q6H PRN 06/15/16 [History] Pantoprazole [ProTONIX] 40 mg PO BIDAC 06/15/16 [History] Tiotropium [Spiriva HandiHaler] 18 mcg IH DAILY 06/15/16 [History] Iron Polysaccharides Complex [Ferrex 150] 150 mg PO BID cap 06/17/16 [Rx] Prednisone [IMW: Prednisone] 10 mg PO DAILY 06/23/16 [History] Potassium Chloride 20 meq PO BID #30 tab.er.prt 06/26/16 [Rx] LORazepam [Ativan] 0.25 mg PO Q6H #5 tablet 08/11/16 [Rx] Cephalexin [Keflex] 500 mg PO BID 09/23/16 [History] Past Medical History HEENT History: Reports: Cataract Other HEENT History: glasses Cardiovascular History: Reports: Afib, CAD, Heart Failure, High Cholesterol, Hypertension, Stents Respiratory History: Reports: COPD, Pneumonia, Recurrent, Pneumothorax, SOB, Other (See Below) Other Respiratory History: chronic respiratory failure with hypoxia Gastrointestinal History: Reports: GI Bleed (he isthought to have chronic intermittent GI bleeding.) Other Gastrointestinal History: GI Bleed. Ileus Genitourinary History: Reports: None Musculoskeletal History: Reports: Other (See Below) Other Musculoskeletal History: Back Problem Neurological History: Reports: TIA Psychiatric History: Reports: None Endocrine/Metabolic History: Reports: None. Denies: Diabetes, Type I, Diabetes , Type II Hematologic History: Reports: Anemia Immunologic History: Reports: None Oncologic (Cancer) History: Reports: Other (See Below) (treated over ten years ago without recurrence) Other Oncologic History: throat Dermatologic History: Reports: None - Infectious Disease History Infectious Disease History: Reports: Chicken Pox, Measles, Mumps Other Infectious Disease History: clear for MRSA per patient - Past Surgical History Head Surgeries/Procedures: Reports: None HEENT Surgical History: Reports: None Cardiovascular Surgical History: Reports: Coronary Artery Stent, Carotid Stents GI Surgical History: Reports: Other (See Below) (HE has a midline vertical scar over upper abdomen. Familyreport that he had a surgery but they do not know exactly what was done.) Male Surgical History: Reports: None Endocrine Surgical History: Reports: None Neurological Surgical History: Reports: None Dermatological Surgical History: Reports: None Social & Family History - Family History Family Medical History: Noncontributory Cardiac: Reports: Hypertension Other Cardiac Family History: Father, Mother GI: Reports: GI bleed OBGYN: Reports: Musculoskeletal: Reports: Arthritis Neurological: Reports: None Psychiatric: Reports: None Endocrine/Metabolic: Reports: Diabetes, type II Hematologic: Reports: None Immunologic: Reports: None Dermatologic: Reports: None Oncologic: Reports: Prostate - Tobacco Use Smoking Status *Q: Former Smoker Years of Tobacco use: 50 Packs/Tins Daily: 4 Used Tobacco, but Quit: Yes Month Tobacco Last Used: 0 Second Hand Smoke Exposure: No - Caffeine Use Caffeine Use: Reports: None - Alcohol Use Days Per Week of Alcohol Use: 2 Number of Drinks Per Day: 2 Total Drinks Per Week: 4 - Recreational Drug Use Recreational Drug Use: No Drug Use in Last 12 Months: No H&P Review of Systems - Review of Systems: Review Of Systems: See Below General: Denies: Fever Pulmonary: Reports: Shortness of Breath, Cough Cardiovascular: Denies: Chest Pain Gastrointestinal: Denies: Abdominal Pain, Black Stool, Bloody Stool, Hematemesis , Hematochezia, Vomiting Genitourinary: Denies: Dysuria, Hematuria Skin: Reports: Other (he has a chronic draining wound over lower abdomen ) Exam - Exam Exam: See Below - Vital Signs Vital Signs: Last Vital Signs Temp 98.5 F 10/20/16 19:59 Pulse 86 10/20/16 19:59 Resp 20 10/20/16 19:59 BP 125/50 L 10/20/16 19:59 Pulse Ox 95 10/20/16 19:59 Weight: 61.5 kg - Exam General: Alert, Oriented, Other (frail appearance) HEENT: EOMI, Mucosa Moist & [place] Neck: Supple, Trachea Midline Lungs: Other (scattered faint rhonchi; greater over left anterior chest) Abdomen: Soft. No: Distention (Male) Exam: Deferred Extremities: Other (multiple superficial bruising). No: Edema Neurological: Cranial Nerves Intact, Normal Speech Neuro Extensive - Mental Status: Normal Mood/Affect Neuro Extensive - Motor, Sensory, Reflexes: No: Facial palsy (L), Facial Palsy ( R) Psychiatric: No: Agitated - Patient Data Lab Results last 24 hrs: Laboratory Results - last 24 hr 10/20/16 10/20/16 10/20/16 Range/Units 18:40 18:40 18:40 WBC 13.29 H (4.0-11.0) K/uL RBC 2.60 L (4.50-5.90) M/uL Hgb 8.0 L (13.0-17.0) g/dL Hct 25.2 L (38.0-50.0) % MCV 96.9 (80.0-98.0) fL MCH 30.8 (27.0-32.0) pg MCHC 31.7 (31.0-37.0) g/dL RDW Std Deviation 61.1 (28.0-62.0) fl RDW Coeff of Mavis 17 H (11.0-15.0) % Plt Count 193 (150-400) K/uL MPV 8.20 (7.40-12.00) fL Neut % (Auto) 86.6 H (48.0-80.0) % Lymph % (Auto) 4.8 L (16.0-40.0) % [place] % (Auto) 7.9 (0.0-15.0) % Eos % (Auto) 0.5 (0.0-7.0) % Baso % (Auto) 0.2 (0.0-1.5) % Neut # (Auto) 11.5 H (1.4-5.7) K/uL Lymph # (Auto) 0.6 (0.6-2.4) K/uL [place] # (Auto) 1.1 H (0.0-0.8) K/uL Eos # (Auto) 0.1 (0.0-0.7) K/uL Baso # (Auto) 0.0 (0.0-0.1) K/uL Nucleated RBC % 0.0 /100WBC Nucleated RBCs # 0 K/uL Sodium 141 (136-146) mmol/L Potassium 4.3 (3.5-5.1) mmol/L Chloride 107 (98-110) mmol/L Carbon Dioxide 24 (21-31) mmol/L BUN 14 (6.0-23.0) mg/dL Creatinine 0.9 (0.6-1.5) mg/dL Est Cr Clr Drug Dosing 59.79 mL/min Estimated GFR (MDRD) > 60.0 ml/min Glucose 90 (60-110) mg/dL Calcium 9.3 (8.8-10.8) mg/dL Total Bilirubin 0.4 (0.1-1.5) mg/dL AST 15 (5-40) IU/L ALT 15 (8-54) IU/L Alkaline Phosphatase 67 (40-150) Troponin I < 0.10 (0.0-0.29) NG/ML B-Natriuretic Peptide (<100) PG/ML Total Protein 6.4 (6.0-8.0) g/dL Albumin 3.5 (3.4-4.8) g/dL Globulin 2.9 (2.0-3.5) g/dL Albumin/Globulin Ratio 1.2 L (1.3-2.8) / Range/Units 18:40 WBC (4.0-11.0) K/uL RBC (4.50-5.90) M/uL Hgb (13.0-17.0) g/dL Hct (38.0-50.0) % MCV (80.0-98.0) fL MCH (27.0-32.0) pg MCHC (31.0-37.0) g/dL RDW Std Deviation (28.0-62.0) fl RDW Coeff of Mavis (11.0-15.0) % Plt Count (150-400) K/uL MPV (7.40-12.00) fL Neut % (Auto) (48.0-80.0) % Lymph % (Auto) (16.0-40.0) % [place] % (Auto) (0.0-15.0) % Eos % (Auto) (0.0-7.0) % Baso % (Auto) (0.0-1.5) % Neut # (Auto) (1.4-5.7) K/uL Lymph # (Auto) (0.6-2.4) K/uL [place] # (Auto) (0.0-0.8) K/uL Eos # (Auto) (0.0-0.7) K/uL Baso # (Auto) (0.0-0.1) K/uL Nucleated RBC % /100WBC Nucleated RBCs # K/uL Sodium (136-146) mmol/L Potassium (3.5-5.1) mmol/L Chloride (98-110) mmol/L Carbon Dioxide (21-31) mmol/L BUN (6.0-23.0) mg/dL Creatinine (0.6-1.5) mg/dL Est Cr Clr Drug Dosing mL/min Estimated GFR (MDRD) ml/min Glucose (60-110) mg/dL Calcium (8.8-10.8) mg/dL Total Bilirubin (0.1-1.5) mg/dL AST (5-40) IU/L ALT (8-54) IU/L Alkaline Phosphatase (40-150) Troponin I (0.0-0.29) NG/ML B-Natriuretic Peptide 104 H (<100) PG/ML Total Protein (6.0-8.0) g/dL Albumin (3.4-4.8) g/dL Globulin (2.0-3.5) g/dL Albumin/Globulin Ratio (1.3-2.8) Result Diagrams: 10/20/16 18:40 10/20/16 18:40 Kofi Results last 24 hrs: CXR: MIKAELA infiltrate *Q Meaningful Use (ADM) - VTE *Q VTE Criteria *Q: - Stroke *Q Stroke Criteria *Q: - AMI *Q AMI Criteria *Q: Problem List Initiated/Reviewed/Updated: Yes Orders Last 24hrs: Active Orders 24 hr Category Date Time Status EKG Documentation Completion [RC] STAT Care 10/20/16 18:09 Active RT Aerosol Therapy [RC] ASDIRECTED Care 10/20/16 19:32 Active Chest 2V [CR] Stat Exams 10/20/16 18:06 Taken UA W/MICROSCOPIC [URIN] Stat Lab 10/20/16 21:00 Ordered Sodium Chloride 0.9% [Normal Saline] 1,000 ml Med 10/20/16 18:06 Active IV .Bolus Sodium Chloride 0.9% [Saline Flush] Med 10/20/16 18:06 Active 10 ml FLUSH ASDIRECTED PRN Sodium Chloride 0.9% [Saline Flush] Med 10/20/16 18:06 Active 2.5 ml FLUSH ASDIRECTED PRN Saline Lock Insert [OM.PC] Stat Oth 10/20/16 18:06 Ordered Medication Orders Sodium Chloride (Normal Saline) 1,000 mls @ 200 mls/hr IV .Bolus ONE Stop: 10/20/16 23:05 Last Admin: 10/20/16 19:05 Dose: 200 mls/hr Sodium Chloride (Saline Flush) 10 ml FLUSH ASDIRECTED PRN PRN Reason: Keep Vein Open Sodium Chloride (Saline Flush) 2.5 ml FLUSH ASDIRECTED PRN PRN Reason: Keep Vein Open Assessment/Plan Comment:: hospital acquired pneumonia history COPD history GI bleeding history of anemia with prior thorough evaluation reported history of atrial fibrillation history of chf. admit see orders. code level 3 as per patient and family request Javier Durand MD
[2016-10-20] MEDS ORDERED: Temazepam 15 MG Cap PO PRN (21:09)
[2016-10-20] MEDS ORDERED: Acetaminophen 325 MG Tab PO PRN (21:09)
[2016-10-20] MEDS ORDERED: Bisacodyl 5 MG Tab PO PRN (21:09)
[2016-10-20] MEDS ORDERED: Ondansetron 4 MG Tab.DIS PO PRN (21:09)
[2016-10-20] MEDS ORDERED: Metoclopramide 10 MG Tab PO PRN (21:15)
[2016-10-20] MEDS ORDERED: LORazepam 0.5 MG Tab PO SCH (21:15)
[2016-10-20] MEDS ORDERED: Levofloxacin/Dextrose 5%-Water 750 MG in Premix Bag 1 BAG IV SCH ×2 (21:15→23:00)
[2016-10-20] MEDS ORDERED: ORPHENADRINE CITRATE 100 MG PO PRN (21:15)
[2016-10-20] MEDS ORDERED: Bisacodyl 10 MG Supp RECTAL PRN (21:15)
[2016-10-20] MEDS: Albuterol/Ipratropium 3.0-0.5 MG/3 ML Neb Soln NEB SCH (21:53)
[2016-10-20] MEDS: Piperacillin/Tazobactam 3.375 GM in Sodium Chloride 0.9% 50 ML IV SCH (22:11)
[2016-10-20] MEDS ORDERED: TICAGRELOR 90 MG PO SCH (23:45)
[2016-10-20] MEDS ORDERED: LORazepam 0.5 MG Tab PO PRN (23:58)
[2016-10-21] MEDS: Albuterol/Ipratropium 3.0-0.5 MG/3 ML Neb Soln NEB SCH ×6 (02:33→21:24)
[2016-10-21] MEDS: Piperacillin/Tazobactam 3.375 GM in Sodium Chloride 0.9% 50 ML IV SCH ×4 (02:36→20:39)
[2016-10-21 04:43] LABS: CHLORIDE,CL 107 mmol/L (98-110); SODIUM,NA 139 mmol/L (136-146)
[2016-10-21] MEDS: Pantoprazole 40 MG Tab.CR PO SCH ×2 (06:41→16:49)
--- NOTE | 2016-10-21 07:34 | PCM.PN ---
- General Info Date of Service: 10/21/16 Admission Dx/Problem (Free Text): Pneumonia Subjective Update: Patient feeling much better today. No complaints. Son is present. Functional Status: Reports: pain controlled - Review of Systems General: Reports: Fatigue HEENT: Reports: no symptoms Pulmonary: Reports: shortness of breath, cough Cardiovascular: Reports: No Symptoms Gastrointestinal: Reports: No symptoms Genitourinary: Reports: no symptoms Musculoskeletal: Reports: no symptoms Skin: Reports: no symptoms Neurological: Reports: No Symptoms Psychiatric: Reports: no symptoms - Patient Data Vitals - most recent: Last Vital Signs Temp 36.4 C 10/21/16 07:22 Pulse 89 10/21/16 07:22 Resp 22 H 10/21/16 07:22 BP 125/66 10/21/16 07:22 Pulse Ox 92 L 10/21/16 07:22 Weight - most recent: 63 kg I&O - last 24 hours: Intake & Output 10/20/16 10/21/16 10/21/16 22:59 06:59 14:59 Intake Total 50 1649 Balance 50 1649 Lab Results last 24 hrs: Laboratory Results - last 24 hr 10/21/16 10/21/16 Range/Units 04:10 04:10 WBC 9.68 (4.0-11.0) K/uL RBC 2.33 L (4.50-5.90) M/uL Hgb 7.2 L (13.0-17.0) g/dL Hct 22.3 L (38.0-50.0) % MCV 95.7 (80.0-98.0) fL MCH 30.9 (27.0-32.0) pg MCHC 32.3 (31.0-37.0) g/dL RDW Std Deviation 58.6 (28.0-62.0) fl RDW Coeff of Mavis 17 H (11.0-15.0) % Plt Count 156 (150-400) K/uL MPV 8.00 (7.40-12.00) fL Neut % (Auto) 98.1 H (48.0-80.0) % Lymph % (Auto) 1.3 L (16.0-40.0) % [place] % (Auto) 0.6 (0.0-15.0) % Eos % (Auto) 0.0 (0.0-7.0) % Baso % (Auto) 0.0 (0.0-1.5) % Neut # (Auto) 9.5 H (1.4-5.7) K/uL Lymph # (Auto) 0.1 L (0.6-2.4) K/uL Wake # (Auto) 0.1 (0.0-0.8) K/uL Eos # (Auto) 0.0 (0.0-0.7) K/uL Baso # (Auto) 0.0 (0.0-0.1) K/uL Nucleated RBC % 0.0 /100WBC Nucleated RBCs # 0 K/uL Sodium 139 (136-146) mmol/L Potassium 4.2 (3.5-5.1) mmol/L Chloride 107 (98-110) mmol/L Carbon Dioxide 23 (21-31) mmol/L BUN 14 (6.0-23.0) mg/dL Creatinine 0.8 (0.6-1.5) mg/dL Est Cr Clr Drug Dosing 68.91 mL/min Estimated GFR (MDRD) > 60.0 ml/min Glucose 160 H (60-110) mg/dL Calcium 8.2 L (8.8-10.8) mg/dL Magnesium 1.7 (1.5-2.3) mEq/L Med Orders - Current: Current Medications Acetaminophen (Tylenol) 650 mg PO Q4H PRN PRN Reason: Pain (Mild 1-3)/fever Albuterol/Ipratropium (Duoneb 3.0-0.5 Mg/3 Ml) 3 ml NEB Q4HRRT [facility] Last Admin: 10/21/16 05:42 Dose: 3 ml Bisacodyl (Dulcolax) 5 mg PO DAILY PRN PRN Reason: Constipation Bisacodyl (Dulcolax) 10 mg RECTAL DAILY PRN PRN Reason: Constipation Docusate Sodium (Colace) 100 mg PO BID [facility] Piperacillin Sod/Tazobactam (Sod 3.375 gm/ Sodium Chloride) 50 mls @ 100 mls/ hr IV Q6H [facility] Last Admin: 10/21/16 02:36 Dose: 100 mls/hr Levofloxacin/Dextrose 750 mg/ (Premix) 150 mls @ 100 mls/hr IV Q24H [facility] Last Admin: 10/20/16 22:46 Dose: 100 mls/hr Vancomycin HCl 1 gm/ Sodium (Chloride) 250 mls @ 166 mls/hr IV Q12H [facility] Last Admin: 10/21/16 00:21 Dose: 166 mls/hr Lorazepam (Ativan) 0.25 mg PO Q6H PRN PRN Reason: Anxiety Metoclopramide HCl (Reglan) 10 mg PO QIDACANDBED PRN PRN Reason: Vomiting (Budesonide/Formoterol 2 Puff 160/4.5 Pt Own 2 puff IH BID [facility] Last Admin: 10/20/16 22:40 Dose: 2 puff Non-Formulary Medication (Diltiazem) 240 mg PO DAILY [facility] Non-Formulary Medication (Multivitamin [Multivitamins]) 1 each PO DAILY [facility] Non-Formulary Medication (Orphenadrine Citrate) 100 mg PO Q12HR PRN PRN Reason: Pain Ticagrelor 90 MgPt (Own) 90 mg PO BID [facility] Last Admin: 10/21/16 00:22 Dose: 90 mg Ondansetron HCl (Zofran Odt) 4 mg PO Q4H PRN PRN Reason: nausea, able to take PO Pantoprazole Sodium (Protonix) 40 mg PO BIDAC [facility] Last Admin: 10/21/16 06:41 Dose: 40 mg Polysaccharide Iron Complex (Ferrex 150) 150 mg PO BID [facility] Prednisone (Prednisone) 10 mg PO DAILY [facility] Sodium Chloride (Saline Flush) 10 ml FLUSH ASDIRECTED PRN PRN Reason: Keep Vein Open Sodium Chloride (Saline Flush) 2.5 ml FLUSH ASDIRECTED PRN PRN Reason: Keep Vein Open Tamsulosin HCl (Flomax) 0.4 mg PO PCBREAKFAST [facility] Temazepam (Restoril) 15 mg PO BEDTIME PRN PRN Reason: Sleep Vancomycin HCl (Pharmacy To Dose - Vancomycin) 1 dose .XX ASDIRECTED [facility] Discontinued Medications Albuterol/Ipratropium (Duoneb 3.0-0.5 Mg/3 Ml) 3 ml NEB ONETIME ONE Stop: 10/20/16 19:33 Last Admin: 10/20/16 19:46 Dose: 3 ml Sodium Chloride (Normal Saline) 1,000 mls @ 200 mls/hr IV .Bolus ONE Stop: 10/20/16 23:05 Last Admin: 10/20/16 19:05 Dose: 200 mls/hr Levofloxacin/Dextrose 750 mg/ (Premix) 150 mls @ 100 mls/hr IV Q24H [facility] Last Admin: 10/20/16 23:00 Dose: Not Given Sodium Chloride (Normal Saline) 1,000 mls @ 200 mls/hr IV DAILY ONE Stop: 10/20/16 23:05 Last Admin: 10/20/16 21:56 Dose: 200 mls/hr Vancomycin HCl 1 gm/ Sodium (Chloride) 250 mls @ 166 mls/hr IV Q12H [facility] Last Admin: 10/21/16 00:28 Dose: Not Given Lorazepam (Ativan) 0.25 mg PO Q6H [facility] Last Admin: 10/20/16 22:05 Dose: 0.25 mg Methylprednisolone Sodium Succinate (Solu-Medrol) 125 mg IVPUSH ONETIME ONE Stop: 10/20/16 19:34 Last Admin: 10/20/16 19:57 Dose: 125 mg - Exam Quality Assessment: supplemental oxygen General: alert, oriented, cooperative, no acute distress HEENT: Pupils equal Neck: supple, no JVD Lungs: Decreased breath sounds, Crackles, Wheezing Cardiovascular: Regular Rate Extremities: no edema - Problem List Review Problem List Initiated/Reviewed/Updated: Yes - Plan Plan:: 76 yo male with history of recurrent hospital admission, Af, CHF, Chronic Lung Disease, Anemia and GI bleeding admitted for Pneumonia 1. Pneumonia, on Levaquin/Zosyn/Vancomycin, improving -WBC 9.6 today, was 13.2 yesterday -order blood and sputum cultures -patient with history of resistant staph therefore we will DC Levaquin but continue Zosyn and Vancomycin 2. Anemia, Hb 7.2 -type and cross, transfuse 2 units -consent obtained -cbc post transfusion
[2016-10-21] MEDS: Docusate Sodium 100 MG Cap PO SCH ×2 (08:23→20:05)
[2016-10-21] MEDS: Iron Polysaccharides Complex 150 MG Cap PO SCH ×2 (08:23→20:05)
[2016-10-21] MEDS: Tamsulosin 0.4 MG Cap.ER PO SCH (08:23)
[2016-10-21] MEDS ORDERED: ORPHENADRINE 100 MG PO PRN ×2 (08:25→09:26)
[2016-10-21] MEDS: Diltiazem 120 MG Cap.CD PO SCH (08:26)
[2016-10-21] MEDS: Multivitamins with Iron/Calcium/Folic Acid/Minerals Tab PO SCH (08:27)
[2016-10-21] MEDS ORDERED: BUDESONIDE INH SCH ×2 (09:00→21:00)
[2016-10-21] MEDS ORDERED: FORMOTEROL IH SCH (09:00)
[2016-10-21] MEDS ORDERED: BUDESONIDE IH SCH (09:00)
[2016-10-21] MEDS ORDERED: FORMOTEROL INH SCH ×2 (09:00→21:00)
[2016-10-21] MEDS ORDERED: predniSONE 10 MG Tab PO SCH (09:00)
--- NOTE | 2016-10-21 10:18 | CR ---
EXAM DATE: 10/20/16 PATIENT'S AGE: 76 Patient: GILBERTO SIMONS Facility: [place], [place] Site . Site : [id number] Study: XRay Chest [id number]/[id number] 7:36:06 PM Ordering Physician: Doctor Sadler Final Report: INDICATION: Shortness of breath, COPD, cough TECHNIQUE: Chest 2 views. COMPARISON: Chest radiograph September 23, 2016, CT abdomen pelvis August 08, 2016 FINDINGS: Stable cardiac size. Emphysema. Patchy opacity in the left lower lobe. No effusion or pneumothorax. Remote T11 and T12 compression fractures. IMPRESSION: Patchy opacity in the left lower lobe may represent atelectasis or infection. Emphysema. Dictated by Halina Arango MD @ Oct 20 2016 7:57PM (Electronic Signature) Report Signed by Proxy. BALDEV
[2016-10-21] MEDS ORDERED: methylPREDNISolone Sodium Succinate 125 MG/2 ML SDV IV SCH (12:30)
[2016-10-21] MEDS: methylPREDNISolone Sodium Succinate 125 MG/2 ML SDV IV SCH (15:20)
[2016-10-22] MEDS: Albuterol/Ipratropium 3.0-0.5 MG/3 ML Neb Soln NEB SCH ×3 (02:05→10:05)
[2016-10-22] MEDS: methylPREDNISolone Sodium Succinate 125 MG/2 ML SDV IV SCH (02:05)
[2016-10-22] MEDS: Piperacillin/Tazobactam 3.375 GM in Sodium Chloride 0.9% 50 ML IV SCH ×2 (03:01→08:25)
[2016-10-22 04:53] LABS: CHLORIDE,CL 110 mmol/L (98-110); SODIUM,NA 143 mmol/L (136-146)
[2016-10-22] MEDS: Pantoprazole 40 MG Tab.CR PO SCH (06:48)
[2016-10-22] MEDS: Multivitamins with Iron/Calcium/Folic Acid/Minerals Tab PO SCH (08:25)
[2016-10-22] MEDS: Iron Polysaccharides Complex 150 MG Cap PO SCH (08:25)
[2016-10-22] MEDS: Docusate Sodium 100 MG Cap PO SCH (08:25)
[2016-10-22] MEDS: Diltiazem 120 MG Cap.CD PO SCH (08:25)
[2016-10-22] MEDS: Tamsulosin 0.4 MG Cap.ER PO SCH (08:25)
[2016-10-22 11:18] VITALS: BP 137/56
--- NOTE | 2016-10-22 11:22 | PCM.DCSUM1 ---
Discharge Summary - Hospital Course Free Text/Narrative:: 76 yo male with admitted for [place] 76 yo male with history of recurrent hospital admission, Af, CHF, Chronic Lung Disease, Anemia and GI bleeding admitted for Pneumonia. He was treated with IV Levaquin/Zosyn/Vancomycin and IV Solumedrol. On day 2 his Leukocytosis resolved but he was found to have Hb of 7.2. He received 2 units of blood which improved his Hb. On day 3 he was feeling much better and his exam and labs had also improved. He was requesting to be discharged home. He was discharged home under the care of his daughter on 10/22/16. He was sent home on Augmentin and Prednisone 12 day taper. All his home medications were continued except his home Prednisone which was held until completion of his Prednisone taper. His home Prednisone is to be restarted on 11/04/16. He will be resuming home [place]. Follow-up with his PCP was arranged prior to discharge. Discharge Diagnosis: 1. Pneumonia, improved 2. Anemia, improved - Discharge Data Discharge Date: 10/22/16 Discharge Disposition: Home, W Home Health Agency 06 Condition: Good - Patient Instructions Diet, Other: [place] thick only Activity: As Tolerated Notify Provider of: Fever, Increased Pain, Swelling and Redness, Drainage, Nausea and/or Vomiting - Discharge Plan Prescriptions/Med Rec: Amoxicillin/Clavulanate K [Augmentin 875 MG/125 MG] 1 tab PO Q12HR #8 tablet predniSONE [Prednisone] 10 mg PO ASDIRECTED #36 tablet Home Medications: Home Meds Albuterol Sulfate [Proair Hfa] 2 puff IH QID PRN 06/14/16 [History] Albuterol/Ipratropium [DuoNeb 3.0-0.5 MG/3 ML] 3 ml NEB Q4H PRN 06/14/16 [ History] Bisacodyl [Dulcolax] 5 - 10 mg PO DAILY PRN 06/14/16 [History] Bisacodyl [Dulcolax] 10 mg RC DAILY PRN 06/14/16 [History] Budesonide/Formoterol Fumarate [Symbicort 160-4.5 Mcg Inhaler] 2 puff IH BID 01/21 [History] Diltiazem [Cardizem CD] 240 mg PO DAILY 06/14/16 [History] Hypromellose [Genteal Mild] 2 drop EYEBOTH BEDTIME 06/14/16 [History] Metoclopramide HCl [Reglan] 10 mg PO QIDACANDBED PRN 06/14/16 [History] Multivitamin [Multivitamins] 1 each PO DAILY 06/14/16 [History] Orphenadrine Citrate 100 mg PO Q12HR PRN 06/14/16 [History] Tamsulosin [Flomax] 0.4 mg PO PCBREAKFAST 06/14/16 [History] Acetaminophen [Tylenol] 500 mg PO Q4H PRN 06/15/16 [History] Albuterol Sulfate 2.5 mg IH Q6H PRN 06/15/16 [History] Pantoprazole [ProTONIX] 40 mg PO BIDAC 06/15/16 [History] Tiotropium [Spiriva HandiHaler] 18 mcg IH DAILY 06/15/16 [History] Iron Polysaccharides Complex [Ferrex 150] 150 mg PO BID cap 06/17/16 [Rx] Potassium Chloride 20 meq PO BID #30 tab.er.prt 06/26/16 [Rx] LORazepam 0.25 mg PO Q6H PRN 10/20/16 [History] Ticagrelor [Brilinta] 90 mg PO BID 10/20/16 [History] Amoxicillin/Clavulanate K [Augmentin 875 MG/125 MG] 1 tab PO Q12HR #8 tablet [Rx] predniSONE [Prednisone] 10 mg PO ASDIRECTED #36 tablet 10/23/16 [Rx] Prednisone [IMW: Prednisone] 10 mg PO Q2D@0900 #0 11/04/16 [Rx] predniSONE 5 mg PO Q2D@0900 #30 tab 11/04/16 [Rx] Patient Handouts: Amoxicillin; Clavulanic Acid tablets, Prednisone tablets, Community-Acquired Pneumonia, Adult, [id number] Referrals: Adam Michel MD [Primary Care Provider] - 10/30/16 10:00 am - Patient Data Vitals - Most Recent: Last Vital Signs Temp 36.6 C 10/22/16 11:00 Pulse 81 10/22/16 11:00 Resp 18 10/22/16 11:00 BP 137/56 L 10/22/16 11:00 Pulse Ox 94 L 10/22/16 11:00 Weight - Most Recent: 64.5 kg I&O - Last 24 hours: Intake & Output 10/21/16 10/22/16 10/22/16 22:59 06:59 14:59 Intake Total 700 1000 50 Output Total 874 950 Balance -174 50 50 Lab Results - Last 24 hrs: Laboratory Results - last 24 hr 10/21/16 10/22/16 10/22/16 Range/Units 15:08 04:03 04:03 WBC 9.22 (4.0-11.0) K/uL RBC 3.21 L (4.50-5.90) M/uL Hgb 9.9 L 9.6 L (13.0-17.0) g/dL Hct 29.6 L 29.1 L (38.0-50.0) % MCV 90.7 (80.0-98.0) fL MCH 29.9 (27.0-32.0) pg MCHC 33.0 (31.0-37.0) g/dL RDW Std Deviation 58.8 (28.0-62.0) fl RDW Coeff of Mavis 17 H (11.0-15.0) % Plt Count 164 (150-400) K/uL MPV 8.20 (7.40-12.00) fL Neut % (Auto) 95.9 H (48.0-80.0) % Lymph % (Auto) 1.8 L (16.0-40.0) % [place] % (Auto) 2.3 (0.0-15.0) % Eos % (Auto) 0.0 (0.0-7.0) % Baso % (Auto) 0.0 (0.0-1.5) % Neut # (Auto) 8.8 H (1.4-5.7) K/uL Lymph # (Auto) 0.2 L (0.6-2.4) K/uL [place] # (Auto) 0.2 (0.0-0.8) K/uL Eos # (Auto) 0.0 (0.0-0.7) K/uL Baso # (Auto) 0.0 (0.0-0.1) K/uL Nucleated RBC % 0.0 /100WBC Nucleated RBCs # 0 K/uL Sodium 143 (136-146) mmol/L Potassium 3.6 (3.5-5.1) mmol/L Chloride 110 (98-110) mmol/L Carbon Dioxide 23 (21-31) mmol/L BUN 15 (6.0-23.0) mg/dL Creatinine 0.8 (0.6-1.5) mg/dL Est Cr Clr Drug Dosing 68.91 mL/min Estimated GFR (MDRD) > 60.0 ml/min Glucose 141 H (60-110) mg/dL Calcium 8.5 L (8.8-10.8) mg/dL NAEL Results - Last 24 hrs: Microbiology 10/21/16 11:00 Aerobic Blood Culture - Preliminary Blood - Venous - Lab Draw NO GROWTH AFTER 1 DAY Anaerobic Blood Culture - Preliminary NO GROWTH AFTER 1 DAY 10/21/16 10:35 Aerobic Blood Culture - Preliminary Blood - Venous NO GROWTH AFTER 1 DAY Anaerobic Blood Culture - Preliminary NO GROWTH AFTER 1 DAY 10/21/16 12:28 Gram Stain - Preliminary Sputum - Expectorated Med Orders - Current: Current Medications Acetaminophen (Tylenol) 650 mg PO Q4H PRN PRN Reason: Pain (Mild 1-3)/fever Albuterol/Ipratropium (Duoneb 3.0-0.5 Mg/3 Ml) 3 ml NEB Q4HRRT [facility] Last Admin: 10/22/16 10:05 Dose: 3 ml Bisacodyl (Dulcolax) 5 mg PO DAILY PRN PRN Reason: Constipation Bisacodyl (Dulcolax) 10 mg RECTAL DAILY PRN PRN Reason: Constipation Diltiazem HCl (Cardizem Cd) 240 mg PO DAILY [facility] Last Admin: 10/22/16 08:25 Dose: 240 mg Docusate Sodium (Colace) 100 mg PO BID [facility] Last Admin: 10/22/16 08:25 Dose: 100 mg Piperacillin Sod/Tazobactam (Sod 3.375 gm/ Sodium Chloride) 50 mls @ 100 mls/ hr IV Q6H [facility] Last Admin: 10/22/16 08:25 Dose: 100 mls/hr Vancomycin HCl 1 gm/ Sodium (Chloride) 250 mls @ 166 mls/hr IV Q12H [facility] Last Admin: 10/22/16 00:20 Dose: 166 mls/hr Lorazepam (Ativan) 0.25 mg PO Q6H PRN PRN Reason: Anxiety Methylprednisolone Sodium Succinate (Solu-Medrol) 60 mg IV Q12H [facility] Last Admin: 10/22/16 02:05 Dose: 60 mg Metoclopramide HCl (Reglan) 10 mg PO QIDACANDBED PRN PRN Reason: Vomiting Multivitamins/Minerals (Thera M Plus) 1 tab PO DAILY [facility] Last Admin: 10/22/16 08:25 Dose: 1 tab Ondansetron HCl (Zofran Odt) 4 mg PO Q4H PRN PRN Reason: nausea, able to take PO Pantoprazole Sodium (Protonix) 40 mg PO BIDAC [facility] Last Admin: 10/22/16 06:48 Dose: 40 mg Brilinta 90 Mg 1 each PO BID [facility] Last Admin: 10/22/16 08:27 Dose: 1 each (Budesonide/Formoterol 2 Puff 160/4.5 Pt Own 1 each INH BIDRT [facility] Last Admin: 10/21/16 21:25 Dose: 1 each Orphenadrine 100 Mg (Er) 1 each PO Q12HR PRN PRN Reason: Pain Polysaccharide Iron Complex (Ferrex 150) 150 mg PO BID [facility] Last Admin: 10/22/16 08:25 Dose: 150 mg Sodium Chloride (Saline Flush) 10 ml FLUSH ASDIRECTED PRN PRN Reason: Keep Vein Open Sodium Chloride (Saline Flush) 2.5 ml FLUSH ASDIRECTED PRN PRN Reason: Keep Vein Open Tamsulosin HCl (Flomax) 0.4 mg PO PCBREAKFAST [facility] Last Admin: 10/22/16 08:25 Dose: 0.4 mg Temazepam (Restoril) 15 mg PO BEDTIME PRN PRN Reason: Sleep Vancomycin HCl (Pharmacy To Dose - Vancomycin) 1 dose .XX ASDIRECTED [facility] Discontinued Medications Albuterol/Ipratropium (Duoneb 3.0-0.5 Mg/3 Ml) 3 ml NEB ONETIME ONE Stop: 10/20/16 19:33 Last Admin: 10/20/16 19:46 Dose: 3 ml Sodium Chloride (Normal Saline) 1,000 mls @ 200 mls/hr IV .Bolus ONE Stop: 10/20/16 23:05 Last Admin: 10/20/16 19:05 Dose: 200 mls/hr Levofloxacin/Dextrose 750 mg/ (Premix) 150 mls @ 100 mls/hr IV Q24H [facility] Last Admin: 10/20/16 23:00 Dose: Not Given Sodium Chloride (Normal Saline) 1,000 mls @ 200 mls/hr IV DAILY ONE Stop: 10/20/16 23:05 Last Admin: 10/20/16 21:56 Dose: 200 mls/hr Vancomycin HCl 1 gm/ Sodium (Chloride) 250 mls @ 166 mls/hr IV Q12H [facility] Last Admin: 10/21/16 00:28 Dose: Not Given Levofloxacin/Dextrose 750 mg/ (Premix) 150 mls @ 100 mls/hr IV Q24H [facility] Last Admin: 10/20/16 22:46 Dose: 100 mls/hr Lorazepam (Ativan) 0.25 mg PO Q6H [facility] Last Admin: 10/20/16 22:05 Dose: 0.25 mg Methylprednisolone Sodium Succinate (Solu-Medrol) 125 mg IVPUSH ONETIME ONE Stop: 10/20/16 19:34 Last Admin: 10/20/16 19:57 Dose: 125 mg Methylprednisolone Sodium Succinate (Solu-Medrol) 60 mg IV Q12H [facility] Last Admin: 10/21/16 13:55 Dose: Not Given (Budesonide/Formoterol 2 Puff 160/4.5 Pt Own 2 puff IH BID [facility] Last Admin: 10/20/16 22:40 Dose: 2 puff Non-Formulary Medication (Orphenadrine Citrate) 100 mg PO Q12HR PRN PRN Reason: Pain Ticagrelor 90 MgPt (Own) 90 mg PO BID [facility] Last Admin: 10/21/16 00:22 Dose: 90 mg (Budesonide/Formoterol 2 Puff 160/4.5 Pt Own 2 each INH BIDRT [facility] Last Admin: 10/21/16 09:23 Dose: 2 each Orphenadrine 100 Mg (Er) 100 each PO Q12HR PRN PRN Reason: Pain Prednisone (Prednisone) 10 mg PO DAILY [facility] Last Admin: 10/21/16 08:24 Dose: 10 mg Prednisone (Prednisone) 10 mg PO Q2D [facility] Prednisone (Prednisone) 5 mg PO Q2D@0900 KYMBERLY *Q Meaningful Use (DIS) - VTE *Q VTE Criteria *Q: - Stroke *Q Stroke Criteria *Q: - AMI *Q AMI Criteria *Q:
[2016-10-23] MEDS ORDERED: predniSONE 10 MG Tab PO SCH (09:00)
[2016-10-23] MEDS ORDERED: predniSONE 5 MG Tab PO SCH (09:00)
== END 2016-10-22 13:00 | disposition home health service (06) | DRG 194 ==
LOC: MW.ED 17:41 → MW.MS 21:02
PROVIDERS: ADMIT Family Medicine; ATTEND Internal Medicine
PROC: 30233N1 Transfusion of Nonautologous Red Blood Cells into Peripheral Vein, Percutaneous Approach (ICD-10-PCS; principal; 2016-10-21)
DX: J18.9 Pneumonia, unspecified organism (principal); J96.11 Chronic respiratory failure with hypoxia; J44.9 Chronic obstructive pulmonary disease, unspecified; D64.9 Anemia, unspecified; I48.91 Unspecified atrial fibrillation; I10 Essential (primary) hypertension; I25.10 Atherosclerotic heart disease of native coronary artery without angina pectoris; I11.0 Hypertensive heart disease with heart failure; I50.9 Heart failure, unspecified; Z95.5 Presence of coronary angioplasty implant and graft; Z87.891 Personal history of nicotine dependence; E78.00 Pure hypercholesterolemia, unspecified; Z86.73 Personal history of transient ischemic attack (TIA), and cerebral infarction without residual deficits; Z79.899 Other long term (current) drug therapy; Z99.81 Dependence on supplemental oxygen
CPT/HCPCS: 71020; 80053; 81001; 83880; 84484; 85025; 86850; 86900; 86901; 86920; 86921; 86922; 93005; 94664; 96361; 96374; 99285; J2930; J7040; 36415; 36430; 80048; 83735; 85014; 85018; 87040; 87070; 87205; 94640; 99284; A9270-GY; J1956; J2543; J3370; J7050; P9016

== ENCOUNTER → 2016-10-30 | Outpatient (CLI) | payer MEDICARE | LOC: MW.CHFP 08:00 | PROVIDERS: ATTEND Student in an Organized Health Care Education/Training Program | DX: J18.9 Pneumonia, unspecified organism (principal); Z09 Encounter for follow-up examination after completed treatment for conditions other than malignant neoplasm; L98.9 Disorder of the skin and subcutaneous tissue, unspecified | CPT/HCPCS: 99214 ==

== ENCOUNTER 2016-11-04 21:05 | Inpatient (IN) | payer MEDICARE ==
[2016-11-04] MEDS ORDERED: methylPREDNISolone Sodium Succinate 125 MG/2 ML SDV IVPUSH ONE (21:08)
[2016-11-04] MEDS ORDERED: Albuterol/Ipratropium 3.0-0.5 MG/3 ML Neb Soln NEB ONE (21:08)
--- NOTE | 2016-11-04 21:09 | EDM.PDOC ---
ED HPI GENERAL MEDICAL PROBLEM - General Stated Complaint: SHORTNESS OF BREATH Time Seen by Provider: 11/04/16 21:08 Source of Information: Reports: Patient - History of Present Illness INITIAL COMMENTS - FREE TEXT/NARRATIVE: HISTORY AND PHYSICAL: History of present illness: Patient with extensive lung disease and history presents with shortness of breath and hypoxia fever nausea vomiting chills sweats no chest pain Review of systems: As per history of present illness and below otherwise all systems reviewed and negative. Past medical history: As per history of present illness and as reviewed below otherwise noncontributory. Surgical history: As per history of present illness and as reviewed below otherwise noncontributory. Social history: No reported history of drug or alcohol abuse. Family history: As per history of present illness and as reviewed below otherwise noncontributory. Physical exam: HEENT: Atraumatic, normocephalic, pupils reactive, negative for conjunctival pallor or scleral icterus, mucous membranes moist, throat clear, neck supple, nontender, trachea midline. Lungs: Bibasilar crackles, breath sounds equal bilaterally, chest nontender. Heart: S1S2, regular, negative for clicks, rubs, or JVD. Abdomen: Soft, nondistended, nontender. Negative for masses or hepatosplenomegaly. Negative for costovertebral tenderness. Pelvis: Stable nontender. Genitourinary: Deferred. Rectal: Deferred. Extremities: Atraumatic, negative for cords or calf pain. Neurovascular unremarkable. Neuro: Awake, alert, oriented. Cranial nerves II through XII unremarkable. Cerebellum unremarkable. Motor and sensory unremarkable throughout. Exam nonfocal. Diagnostics: [] As below EKG Chest one view Therapeutics: [] duoneb Solu-Medrol 125 mg IV levoquin 500mg IV Impression: Hypoxia COPD LLL pnuemonia Short of breath Chronic history of baseline Definitive disposition and diagnosis as appropriate pending reevaluation and review of above. back Pain Score (Numeric/FACES): 8 - Related Data Allergies Allergy/AdvReac Type Severity Reaction Status Date / Time No Known Allergies Allergy Verified 11/04/16 21:13 Home Meds: Home Meds Albuterol Sulfate [Proair Hfa] 2 puff IH QID PRN 06/14/16 [History] Albuterol/Ipratropium [DuoNeb 3.0-0.5 MG/3 ML] 3 ml NEB Q4H PRN 06/14/16 [ History] Bisacodyl [Dulcolax] 5 - 10 mg PO DAILY PRN 06/14/16 [History] Bisacodyl [Dulcolax] 10 mg RC DAILY PRN 06/14/16 [History] Budesonide/Formoterol Fumarate [Symbicort 160-4.5 Mcg Inhaler] 2 puff IH BID 01/21 [History] Diltiazem [Cardizem CD] 240 mg PO DAILY 06/14/16 [History] Hypromellose [Genteal Mild] 2 drop EYEBOTH BEDTIME 06/14/16 [History] Metoclopramide HCl [Reglan] 10 mg PO QIDACANDBED PRN 06/14/16 [History] Multivitamin [Multivitamins] 1 each PO DAILY 06/14/16 [History] Orphenadrine Citrate 100 mg PO Q12HR PRN 06/14/16 [History] Tamsulosin [Flomax] 0.4 mg PO PCBREAKFAST 06/14/16 [History] Acetaminophen [Tylenol] 500 mg PO Q4H PRN 06/15/16 [History] Albuterol Sulfate 2.5 mg IH Q6H PRN 06/15/16 [History] Pantoprazole [ProTONIX] 40 mg PO BIDAC 06/15/16 [History] Tiotropium [Spiriva HandiHaler] 18 mcg IH DAILY 06/15/16 [History] Iron Polysaccharides Complex [Ferrex 150] 150 mg PO BID cap 06/17/16 [Rx] Potassium Chloride 20 meq PO BID #30 tab.er.prt 06/26/16 [Rx] LORazepam 0.25 mg PO Q6H PRN 10/20/16 [History] Ticagrelor [Brilinta] 90 mg PO BID 10/20/16 [History] Amoxicillin/Clavulanate K [Augmentin 875 MG/125 MG] 1 tab PO Q12HR #8 tablet [Rx] predniSONE [Prednisone] 10 mg PO ASDIRECTED #36 tablet 10/23/16 [Rx] Amoxicillin/Clavulanate K [Augmentin 875 MG/125 MG] 1 tab PO BID 11/04/16 [ History] Prednisone [IMW: Prednisone] 10 mg PO Q2D@0900 #0 11/04/16 [Rx] predniSONE 5 mg PO ASDIRECTED 11/04/16 [History] Past Medical History HEENT History: Reports: Cataract Other HEENT History: glasses Cardiovascular History: Reports: Afib, CAD, Heart Failure, High Cholesterol, Hypertension, Stents Respiratory History: Reports: COPD, Pneumonia, Recurrent, Pneumothorax, SOB, Other (See Below) Other Respiratory History: chronic respiratory failure with hypoxia Gastrointestinal History: Reports: GI Bleed Other Gastrointestinal History: GI Bleed. Ileus Genitourinary History: Reports: None Musculoskeletal History: Reports: Other (See Below) Other Musculoskeletal History: Back Problem Neurological History: Reports: TIA Psychiatric History: Reports: None Endocrine/Metabolic History: Reports: None Hematologic History: Reports: Anemia Immunologic History: Reports: None Oncologic (Cancer) History: Reports: Other (See Below) Other Oncologic History: throat Dermatologic History: Reports: None - Infectious Disease History Infectious Disease History: Reports: Chicken Pox, Measles, Mumps Other Infectious Disease History: clear for MRSA per patient - Past Surgical History Head Surgeries/Procedures: Reports: None HEENT Surgical History: Reports: None Cardiovascular Surgical History: Reports: Coronary Artery Stent, Carotid Stents GI Surgical History: Reports: Other (See Below) Male Surgical History: Reports: None Endocrine Surgical History: Reports: None Neurological Surgical History: Reports: None Dermatological Surgical History: Reports: None Social & Family History - Family History Family Medical History: Noncontributory HEENT: Reports: None Cardiac: Reports: Hypertension Other Cardiac Family History: Father, Mother Respiratory: Reports: None GI: Reports: GI bleed : Reports: None OBGYN: Reports: Musculoskeletal: Reports: Arthritis Neurological: Reports: None Psychiatric: Reports: None Endocrine/Metabolic: Reports: Diabetes, type II Hematologic: Reports: None Immunologic: Reports: None Dermatologic: Reports: None Oncologic: Reports: Prostate - Tobacco Use Smoking Status *Q: Never Smoker Years of Tobacco use: 50 Packs/Tins Daily: 4 Used Tobacco, but Quit: Yes Month Tobacco Last Used: 0 Second Hand Smoke Exposure: No - Caffeine Use Caffeine Use: Reports: Coffee - Alcohol Use Days Per Week of Alcohol Use: 2 Number of Drinks Per Day: 2 Total Drinks Per Week: 4 - Recreational Drug Use Recreational Drug Use: No Drug Use in Last 12 Months: No ED ROS GENERAL - Review of Systems Review Of Systems: ROS reveals no pertinent complaints other than HPI. ED EXAM, GENERAL - Physical Exam Exam: See Below Course - Vital Signs Last Recorded V/S: Last Vital Signs Temp 36.8 C 11/04/16 21:05 Pulse 119 H 11/04/16 21:05 Resp 24 H 11/04/16 21:27 BP 178/82 H 11/04/16 21:05 Pulse Ox 95 11/04/16 21:27 - Orders/Labs/Meds Orders: Active Orders 24 hr Category Date Time Status EKG Documentation Completion [RC] STAT Care 11/04/16 21:07 Active RT Aerosol Therapy [RC] ASDIRECTED Care 11/04/16 21:09 Active Chest 1V Frontal [CR] Stat Exams 11/04/16 21:07 Taken Levofloxacin/Dextrose 5%-Water [Levaquin in D5W 500 MG/ Med 11/04/16 21:38 Active 100 ML] 500 mg Premix Bag 1 bag IV ONETIME Sodium Chloride 0.9% [Normal Saline] 1,000 ml Med 11/04/16 21:15 Active IV STAT Medication Orders Sodium Chloride (Normal Saline) 1,000 mls @ 125 mls/hr IV STAT KYMBERLY Last Admin: 11/04/16 21:15 Dose: 125 mls/hr Levofloxacin/Dextrose 500 mg/ (Premix) 100 mls @ 100 mls/hr IV ONETIME ONE Stop: 11/04/16 22:37 Last Admin: 11/04/16 21:42 Dose: 100 mls/hr Labs: Laboratory Tests 11/04/16 11/04/16 11/04/16 Range/Units 21:12 21:12 21:12 WBC 23.39 H (4.0-11.0) K/uL RBC 3.48 L (4.50-5.90) M/uL Hgb 10.5 L (13.0-17.0) g/dL Hct 33.6 L (38.0-50.0) % MCV 96.6 (80.0-98.0) fL MCH 30.2 (27.0-32.0) pg MCHC 31.3 (31.0-37.0) g/dL RDW Std Deviation 61.3 (28.0-62.0) fl RDW Coeff of Mavsi 17 H (11.0-15.0) % Plt Count 187 (150-400) K/uL MPV 8.80 (7.40-12.00) fL Add Manual Diff YES Neutrophils % (Manual) 92 H (48.0-80.0) % Band Neutrophils % 2 % Lymphocytes % (Manual) 5 L (16.0-40.0) % Monocytes % (Manual) 1 (0.0-15.0) % Nucleated RBC % 0.0 /100WBC Absolute Seg Neuts 21.5 Band Neutrophils # 0.5 Lymphocytes # (Manual) 1.2 Monocytes # (Manual) 0.2 Nucleated RBCs # 0 K/uL Sodium 141 (136-146) mmol/L Potassium 4.7 (3.5-5.1) mmol/L Chloride 105 (98-110) mmol/L Carbon Dioxide 23 (21-31) mmol/L BUN 29 H (6.0-23.0) mg/dL Creatinine 1.2 (0.6-1.5) mg/dL Est Cr Clr Drug Dosing 52.21 mL/min Estimated GFR (MDRD) 58.7 ml/min Glucose 112 H (60-110) mg/dL Calcium 9.3 (8.8-10.8) mg/dL Total Bilirubin 0.4 (0.1-1.5) mg/dL AST 17 (5-40) IU/L ALT 25 (8-54) IU/L Alkaline Phosphatase 64 (40-150) Creatine Kinase 29 (9-236) IU/L CK-MB (CK-2) 2.3 (0-6.6) ng/ml Troponin I < 0.10 (0.0-0.29) NG/ML B-Natriuretic Peptide (<100) PG/ML Total Protein 6.5 (6.0-8.0) g/dL Albumin 3.9 (3.4-4.8) g/dL Globulin 2.6 (2.0-3.5) g/dL Albumin/Globulin Ratio 1.5 (1.3-2.8) Urine Color Urine Appearance Urine pH (5.0-8.0) Ur Specific [place] (1.001-1.035) Urine Protein (NEGATIVE) mg/dL Urine Glucose (UA) (NEGATIVE) mg/dL Urine Ketones (NEGATIVE) mg/dL Urine Occult Blood (NEGATIVE) Urine Nitrite (NEGATIVE) Urine Bilirubin (NEGATIVE) Urine Urobilinogen (<2.0) EU/dL Ur Leukocyte Esterase (NEGATIVE) Urine RBC (0-2/HPF) Urine WBC (0-5/HPF) Ur Epithelial Cells (NONE-FEW) Urine Bacteria (NEGATIVE) Urine Mucus (NONE-MOD) 11/04/16 11/04/16 Range/Units 21:12 21:58 WBC (4.0-11.0) K/uL RBC (4.50-5.90) M/uL Hgb (13.0-17.0) g/dL Hct (38.0-50.0) % MCV (80.0-98.0) fL MCH (27.0-32.0) pg MCHC (31.0-37.0) g/dL RDW Std Deviation (28.0-62.0) fl RDW Coeff of Mavis (11.0-15.0) % Plt Count (150-400) K/uL MPV (7.40-12.00) fL Add Manual Diff Neutrophils % (Manual) (48.0-80.0) % Band Neutrophils % % Lymphocytes % (Manual) (16.0-40.0) % Monocytes % (Manual) (0.0-15.0) % Nucleated RBC % /100WBC Absolute Seg Neuts Band Neutrophils # Lymphocytes # (Manual) Monocytes # (Manual) Nucleated RBCs # K/uL Sodium (136-146) mmol/L Potassium (3.5-5.1) mmol/L Chloride (98-110) mmol/L Carbon Dioxide (21-31) mmol/L BUN (6.0-23.0) mg/dL Creatinine (0.6-1.5) mg/dL Est Cr Clr Drug Dosing mL/min Estimated GFR (MDRD) ml/min Glucose (60-110) mg/dL Calcium (8.8-10.8) mg/dL Total Bilirubin (0.1-1.5) mg/dL AST (5-40) IU/L ALT (8-54) IU/L Alkaline Phosphatase (40-150) Creatine Kinase (9-236) IU/L CK-MB (CK-2) (0-6.6) ng/ml Troponin I (0.0-0.29) NG/ML B-Natriuretic Peptide 76 (<100) PG/ML Total Protein (6.0-8.0) g/dL Albumin (3.4-4.8) g/dL Globulin (2.0-3.5) g/dL Albumin/Globulin Ratio (1.3-2.8) Urine Color YELLOW Urine Appearance CLEAR Urine pH 5.5 (5.0-8.0) Ur Specific [place] 1.025 (1.001-1.035) Urine Protein NEGATIVE (NEGATIVE) mg/dL Urine Glucose (UA) NEGATIVE (NEGATIVE) mg/dL Urine Ketones NEGATIVE (NEGATIVE) mg/dL Urine Occult Blood TRACE-LYSED (NEGATIVE) Urine Nitrite NEGATIVE (NEGATIVE) Urine Bilirubin NEGATIVE (NEGATIVE) Urine Urobilinogen 0.2 (<2.0) EU/dL Ur Leukocyte Esterase NEGATIVE (NEGATIVE) Urine RBC 0-2 (0-2/HPF) Urine WBC 0-1 (0-5/HPF) Ur Epithelial Cells RARE (NONE-FEW) Urine Bacteria RARE (NEGATIVE) Urine Mucus LIGHT (NONE-MOD) Meds: Medications Generic Name Dose Route Start Last Admin Trade Name Freq PRN Reason Stop Dose Admin Sodium Chloride 1,000 mls @ 125 mls/hr 11/04/16 21:15 11/04/16 21:15 Normal Saline IV 125 mls/hr STAT KYMBERLY Administration Levofloxacin/Dextrose 500 mg/ 100 mls @ 100 mls/hr 11/04/16 21:38 11/04/16 21 :42 Premix IV 11/04/16 22:37 100 mls/hr ONETIME ONE Administration Discontinued Medications Generic Name Dose Route Start Last Admin Trade Name Freq PRN Reason Stop Dose Admin Albuterol/Ipratropium 3 ml 11/04/16 21:08 11/04/16 21:16 Duoneb 3.0-0.5 Mg/3 Ml NEB 11/04/16 21:09 3 ml ONETIME ONE Administration Methylprednisolone Sodium Succinate 125 mg 11/04/16 21:08 11/04/16 21:15 Solu-Medrol IVPUSH 11/04/16 21:09 125 mg ONETIME ONE Administration Departure - Departure Time of Disposition: 22:15 Disposition: Admitted As Inpatient 65 Condition: poor Clinical Impression: Hypoxia COPD (chronic obstructive pulmonary disease) Qualifiers: COPD type: COPD with acute exacerbation Qualified Code(s): J44.1 - Chronic obstructive pulmonary disease with (acute) exacerbation - Discharge Information - My Orders Last 24 Hours: My Active Orders 11/04/16 21:07 EKG Documentation Completion [RC] STAT Chest 1V Frontal [CR] Stat 11/04/16 21:09 RT Aerosol Therapy [RC] ASDIRECTED 11/04/16 21:15 Sodium Chloride 0.9% [Normal Saline] 1,000 ml IV STAT 11/04/16 21:38 Levofloxacin/Dextrose 5%-Water [Levaquin in D5W 500 MG/100 ML] 500 mg Premix Bag 1 bag IV ONETIME - Assessment/Plan Last 24 Hours: My Active Orders 11/04/16 21:07 EKG Documentation Completion [RC] STAT Chest 1V Frontal [CR] Stat 11/04/16 21:09 RT Aerosol Therapy [RC] ASDIRECTED 11/04/16 21:15 Sodium Chloride 0.9% [Normal Saline] 1,000 ml IV STAT 11/04/16 21:38 Levofloxacin/Dextrose 5%-Water [Levaquin in D5W 500 MG/100 ML] 500 mg Premix Bag 1 bag IV ONETIME
[2016-11-04] MEDS ORDERED: Sodium Chloride 0.9% 1,000 ML IV SCH (21:15)
[2016-11-04] MEDS ORDERED: Levofloxacin/Dextrose 5%-Water 500 MG in Premix Bag 1 BAG IV ONE (21:38)
[2016-11-04] MEDS ORDERED: Acetaminophen 325 MG Tab PO PRN (23:43)
[2016-11-04] MEDS: oxyCODONE 5 MG Tab PO PRN (23:59)
[2016-11-05] MEDS: Albuterol/Ipratropium 3.0-0.5 MG/3 ML Neb Soln NEB PRN ×4 (01:38→20:38)
[2016-11-05 05:15] LABS: CHLORIDE,CL 108 mmol/L (98-110); SODIUM,NA 138 mmol/L (136-146)
[2016-11-05] MEDS: Sodium Chloride 0.9% 1,000 ML IV SCH ×2 (07:03→16:46)
[2016-11-05] MEDS ORDERED: LORazepam 0.5 MG Tab PO PRN (08:05)
--- NOTE | 2016-11-05 08:12 | PCM.HP ---
H&P History of Present Illness - General Date of Service: 11/05/16 Admit Problem/Dx: Admission Diagnosis/Problem Admission Diagnosis/Problem Hypoxia hypoxia, pneumonia, end-stage oxygen and steroid dependent COPD Source of Information: Patient History Limitations: Reports: No Limitations - History of Present Illness Initial Comments - Free Text/Narative: The patient is a 76-year-old gentleman with presented back to the emergency department yesterday evening secondary to cough, sputum production, shortness of breath and wheezing and rhonchi. The patient was previously evaluated and admitted on October 20, 2016 out of concern for pneumonia and was discharged on October 22, 2016. The patient says that he is gotten worse since his discharge and he has been readmitted. 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 The patient has been in somewhat declining health over the past several months. Patient has denied any fever or chills. He however, has had increase in sputum production. He's denied dizziness or lightheadedness. The patient also had been taking antibiotics as an outpatient and he has continued to worsen. The patient in the emergency department also had been hypoxic initially. The patient has had some dizziness and lightheadedness associated with this also, he's been feeling weak and fatigued. The patient's pulse oximetry had been as low as 79% on room air. Onset of Symptoms: Reports: Gradual Duration of Symptoms: Reports: Week(s):, Getting Worse Location: Reports: Chest Severity: Moderate Improves with: Reports: Rest Worsens with: Reports: Breathing Associated Symptoms: Reports: Cough, cough w sputum back Pain Score (Numeric/FACES): 5 - Related Data Allergies/Adverse Reactions: Allergies Allergy/AdvReac Type Severity Reaction Status Date / Time No Known Allergies Allergy Verified 11/04/16 21:13 Home Medications: Home Meds Albuterol Sulfate [Proair Hfa] 2 puff IH QID PRN 06/14/16 [History] Albuterol/Ipratropium [DuoNeb 3.0-0.5 MG/3 ML] 3 ml NEB Q4H PRN 06/14/16 [ History] Bisacodyl [Dulcolax] 5 - 10 mg PO DAILY PRN 06/14/16 [History] Bisacodyl [Dulcolax] 10 mg RC DAILY PRN 06/14/16 [History] Budesonide/Formoterol Fumarate [Symbicort 160-4.5 Mcg Inhaler] 2 puff IH BID 01/21 [History] Diltiazem [Cardizem CD] 240 mg PO DAILY 06/14/16 [History] Hypromellose [Genteal Mild] 2 drop EYEBOTH BEDTIME 06/14/16 [History] Metoclopramide HCl [Reglan] 10 mg PO QIDACANDBED PRN 06/14/16 [History] Multivitamin [Multivitamins] 1 each PO DAILY 06/14/16 [History] Orphenadrine Citrate 100 mg PO Q12HR PRN 06/14/16 [History] Tamsulosin [Flomax] 0.4 mg PO PCBREAKFAST 06/14/16 [History] Acetaminophen [Tylenol] 500 mg PO Q4H PRN 06/15/16 [History] Albuterol Sulfate 2.5 mg IH Q6H PRN 06/15/16 [History] Pantoprazole [ProTONIX] 40 mg PO BIDAC 06/15/16 [History] Tiotropium [Spiriva HandiHaler] 18 mcg IH DAILY 06/15/16 [History] Iron Polysaccharides Complex [Ferrex 150] 150 mg PO BID cap 06/17/16 [Rx] Potassium Chloride 20 meq PO BID #30 tab.er.prt 06/26/16 [Rx] LORazepam 0.25 mg PO Q6H PRN 10/20/16 [History] Ticagrelor [Brilinta] 90 mg PO BID 10/20/16 [History] Amoxicillin/Clavulanate K [Augmentin 875 MG/125 MG] 1 tab PO Q12HR #8 tablet [Rx] predniSONE [Prednisone] 10 mg PO ASDIRECTED #36 tablet 10/23/16 [Rx] Amoxicillin/Clavulanate K [Augmentin 875 MG/125 MG] 1 tab PO BID 11/04/16 [ History] Prednisone [IMW: Prednisone] 10 mg PO Q2D@0900 #0 11/04/16 [Rx] predniSONE 5 mg PO ASDIRECTED 11/04/16 [History] Past Medical History HEENT History: Reports: Cataract Other HEENT History: glasses Cardiovascular History: Reports: Afib, CAD, Heart Failure, High Cholesterol, Hypertension, Stents Respiratory History: Reports: COPD, Pneumonia, Recurrent, Pneumothorax, SOB, Other (See Below) Other Respiratory History: chronic respiratory failure with hypoxia Gastrointestinal History: Reports: GI Bleed Other Gastrointestinal History: GI Bleed. Ileus Genitourinary History: Reports: None Musculoskeletal History: Reports: Other (See Below) Other Musculoskeletal History: Back Problem Neurological History: Reports: TIA Psychiatric History: Reports: None Endocrine/Metabolic History: Reports: None Hematologic History: Reports: Anemia Immunologic History: Reports: None Oncologic (Cancer) History: Reports: Other (See Below) Other Oncologic History: throat Dermatologic History: Reports: None - Infectious Disease History Infectious Disease History: Reports: Chicken Pox, Measles, Mumps Other Infectious Disease History: clear for MRSA per patient - Past Surgical History Head Surgeries/Procedures: Reports: None HEENT Surgical History: Reports: None Cardiovascular Surgical History: Reports: Coronary Artery Stent, Carotid Stents GI Surgical History: Reports: Other (See Below) Male Surgical History: Reports: None Endocrine Surgical History: Reports: None Neurological Surgical History: Reports: None Dermatological Surgical History: Reports: None Social & Family History - Family History Family Medical History: Noncontributory HEENT: Reports: None Cardiac: Reports: Hypertension Other Cardiac Family History: Father, Mother Respiratory: Reports: None GI: Reports: GI bleed : Reports: None OBGYN: Reports: Musculoskeletal: Reports: Arthritis Neurological: Reports: None Psychiatric: Reports: None Endocrine/Metabolic: Reports: Diabetes, type II Hematologic: Reports: None Immunologic: Reports: None Dermatologic: Reports: None Oncologic: Reports: Prostate - Tobacco Use Smoking Status *Q: Former Smoker Years of Tobacco use: 50 Packs/Tins Daily: 4 Used Tobacco, but Quit: Yes Month Tobacco Last Used: 0 Second Hand Smoke Exposure: No - Caffeine Use Caffeine Use: Reports: Coffee Caffeine Use Comment: 3 cups daily - Alcohol Use Days Per Week of Alcohol Use: 2 Number of Drinks Per Day: 2 Total Drinks Per Week: 4 - Recreational Drug Use Recreational Drug Use: No Drug Use in Last 12 Months: No H&P Review of Systems - Review of Systems: Review Of Systems: See Below General: Reports: Malaise, Weakness, Decreased Appetite HEENT: Reports: No Symptoms Pulmonary: Reports: Shortness of Breath, Wheezing, Pleuritic Chest Pain, Cough, Sputum Cardiovascular: Reports: No Symptoms Gastrointestinal: Reports: No Symptoms Genitourinary: Reports: No Symptoms Musculoskeletal: Reports: No Symptoms Skin: Reports: No Symptoms Psychiatric: Reports: No Symptoms Neurological: Reports: No Symptoms Hematologic/Lymphatic: Reports: No Symptoms Immunologic: Reports: No Symptoms Exam - Exam Exam: See Below - Vital Signs Vital Signs: Last Vital Signs Temp 36.1 C 11/05/16 07:39 Pulse 91 11/05/16 07:39 Resp 20 11/05/16 07:39 BP 144/63 H 11/05/16 07:39 Pulse Ox 92 L 11/05/16 07:39 Weight: 65.5 kg - Exam Quality Assessment: Supplemental Oxygen General: Alert, Oriented, Cooperative, Mild Distress HEENT: Conjunctiva Clear, EACs Clear, EOMI. No: Mucosa Moist & [place] (oral mucosa dry) Neck: Supple, Trachea Midline. No: Lymphadenopathy Lungs: Rales, Rhonchi (diffuse bilaterally, upper airway sounds) Cardiovascular: Regular Rate, Regular Rhythm Abdomen: Normal Bowel Sounds, Soft. No: Peritoneal Signs, Distention Back Exam: Decreased Range of Motion Extremities: Normal Inspection Skin: Warm, Dry, Intact Neuro Extensive - Mental Status: Alert, Oriented x3 Neuro Extensive - Motor, Sensory, Reflexes: CN II-XII Intact Psychiatric: Alert, Normal Affect, Normal Mood - Patient Data Lab Results last 24 hrs: Laboratory Results - last 24 hr 11/05/16 11/05/16 Range/Units 04:35 04:35 WBC 20.35 H (4.0-11.0) K/uL RBC 2.73 L (4.50-5.90) M/uL Hgb 8.2 L (13.0-17.0) g/dL Hct 26.1 L (38.0-50.0) % MCV 95.6 (80.0-98.0) fL MCH 30.0 (27.0-32.0) pg MCHC 31.4 (31.0-37.0) g/dL RDW Std Deviation 59.8 (28.0-62.0) fl RDW Coeff of Mavis 17 H (11.0-15.0) % Plt Count 125 L (150-400) K/uL MPV 8.80 (7.40-12.00) fL Add Manual Diff YES Neutrophils % (Manual) 100 H (48.0-80.0) % Nucleated RBC % 0.0 /100WBC Absolute Seg Neuts 20.4 Nucleated RBCs # 0 K/uL Sodium 138 (136-146) mmol/L Potassium 4.4 (3.5-5.1) mmol/L Chloride 108 (98-110) mmol/L Carbon Dioxide 24 (21-31) mmol/L BUN 27 H (6.0-23.0) mg/dL Creatinine 0.9 (0.6-1.5) mg/dL Est Cr Clr Drug Dosing 63.68 mL/min Estimated GFR (MDRD) > 60.0 ml/min Glucose 180 H (60-110) mg/dL Calcium 8.0 L (8.8-10.8) mg/dL Total Bilirubin 0.4 (0.1-1.5) mg/dL AST 12 (5-40) IU/L ALT 21 (8-54) IU/L Alkaline Phosphatase 49 (40-150) Total Protein 5.0 L (6.0-8.0) g/dL Albumin 3.2 L (3.4-4.8) g/dL Globulin 1.8 L (2.0-3.5) g/dL Albumin/Globulin Ratio 1.8 (1.3-2.8) Result Diagrams: 11/05/16 04:35 11/05/16 04:35 *Q Meaningful Use (ADM) - VTE *Q VTE Criteria *Q: VTE Mechanical Contraindications *Q: At Risk for Falls - VTE Risk Assess *Q Each Risk Factor Represents 1 Point: Abnormal Pulmonary Function (COPD) Total Score 1 Point Risk Factors: 1 Each Risk Factor Represents 3 Points: Age 75 Years or Greater Total Score 3 Point Risk Factors: 3 - Stroke *Q Stroke Criteria *Q: - AMI *Q AMI Criteria *Q: - Problem List (1) Pneumonia SNOMED Code(s): 367569910 ICD Code: J18.9 - PNEUMONIA, UNSPECIFIED ORGANISM Status: Acute Priority : High Current Visit: Yes Onset Date: 10/01/14 Problem Details: the patient was started on Levaquin and vancomycin as per previous hospitalization (2) COPD (chronic obstructive pulmonary disease) SNOMED Code(s): 35648747 ICD Code: J44.9 - CHRONIC OBSTRUCTIVE PULMONARY DISEASE, UNSPECIFIED Status : Chronic Priority: High Current Visit: Yes Qualifiers: COPD type: COPD with acute lower respiratory infection Qualified Code(s): J44.0 - Chronic obstructive pulmonary disease with acute lower respiratory infection (3) Hypoxia SNOMED Code(s): 159883935, 094800923 ICD Code: R09.02 - HYPOXEMIA Status: Chronic Priority: High Current Visit: Yes Problem List Initiated/Reviewed/Updated: Yes Orders Last 24hrs: Active Orders 24 hr Category Date Time Status Admission Status [Patient Status] [ADT] Routine ADT 11/04/16 23:32 Active Communication Order [RC] DAILY Care 11/04/16 23:36 Active RT Aerosol Therapy [RC] ASDIRECTED Care 11/04/16 23:43 Active Regular Diet [DIET] Diet 11/04/16 Dinner Active CULTURE SPUTUM + SMEAR [RM] Routine Lab 11/05/16 07:22 Uncollected VANCOMYCIN TROUGH [CHEM] Timed Lab 11/06/16 11:30 Ordered Acetaminophen [Tylenol] Med 11/04/16 23:43 Active 650 mg PO Q6H PRN Albuterol/Ipratropium [DuoNeb 3.0-0.5 MG/3 ML] Med 11/04/16 23:42 Active 3 ml NEB Q4HRRT PRN Diltiazem Med 11/05/16 09:00 Ordered 240 mg PO DAILY Hypromellose [Genteal Mild] Med 11/05/16 21:00 Ordered 2 drop EYEBOTH BEDTIME Iron Polysaccharides Complex [Ferrex 150] Med 11/05/16 09:00 Active 150 mg PO BID LORazepam [Ativan] Med 11/05/16 08:05 Active 0.25 mg PO Q6H PRN Levofloxacin/Dextrose 5%-Water [Levaquin in D5W 500 MG/ Med 11/05/16 22:00 Active 100 ML] 500 mg Premix Bag 1 bag IV Q24H Orphenadrine Citrate Med 11/05/16 08:05 Ordered 100 mg PO Q12HR PRN Pantoprazole [ProTONIX] Med 11/05/16 17:00 Ordered 40 mg PO BIDAC Sodium Chloride 0.9% [Normal Saline] 1,000 ml Med 11/04/16 23:45 Active IV ASDIRECTED Tamsulosin [Flomax] Med 11/05/16 08:30 Ordered 0.4 mg PO PCBREAKFAST Ticagrelor Med 11/05/16 09:00 Ordered 90 mg PO BID Vancomycin Pharmacy to Dose [Pharmacy to Dose - Med 11/04/16 23:45 Active Vancomycin] 1 dose .XX ASDIRECTED Vancomycin [Vancocin] 1 gm Med 11/05/16 12:00 Active Sodium Chloride 0.9% [Normal Saline] 250 ml IV Q12H oxyCODONE Med 11/04/16 23:45 Active 5 mg PO Q4H PRN predniSONE Med 11/05/16 08:15 Ordered 10 mg PO ASDIRECTED Resuscitation Status Routine Resus Stat 11/05/16 08:04 Ordered Medication Orders Acetaminophen (Tylenol) 650 mg PO Q6H PRN PRN Reason: pain Albuterol/Ipratropium (Duoneb 3.0-0.5 Mg/3 Ml) 3 ml NEB Q4HRRT PRN PRN Reason: Wheezing Last Admin: 11/05/16 06:00 Dose: 3 ml Admin: 11/05/16 01:38 Dose: 3 ml Sodium Chloride (Normal Saline) 1,000 mls @ 125 mls/hr IV ASDIRECTED [facility] Last Admin: 11/05/16 07:03 Dose: 125 mls/hr Levofloxacin/Dextrose 500 mg/ (Premix) 100 mls @ 100 mls/hr IV Q24H [facility] Vancomycin HCl 1 gm/ Sodium (Chloride) 250 mls @ 166 mls/hr IV Q12H [facility] Lorazepam (Ativan) 0.25 mg PO Q6H PRN PRN Reason: Anxiety Non-Formulary Medication (Diltiazem) 240 mg PO DAILY [facility] Non-Formulary Medication (Hypromellose [Genteal Mild]) 2 drop EYEBOTH BEDTIME [facility] Non-Formulary Medication (Orphenadrine Citrate) 100 mg PO Q12HR PRN PRN Reason: Pain Non-Formulary Medication (Ticagrelor) 90 mg PO BID [facility] Oxycodone HCl (Oxycodone) 5 mg PO Q4H PRN PRN Reason: pain Last Admin: 11/04/16 23:59 Dose: 5 mg Pantoprazole Sodium (Protonix) 40 mg PO BIDAC [facility] Polysaccharide Iron Complex (Ferrex 150) 150 mg PO BID [facility] Prednisone (Prednisone) 10 mg PO ASDIRECTED [facility] Tamsulosin HCl ([facility]omax) [facility] Vancomycin HCl (Pharmacy To Dose - Vancomycin) 1 dose .XX ASDIRECTED [facility] Assessment/Plan Comment:: The patient has failed outpatient antibiotics as well as recently being discharged on October 22, 2016 from previous hospitalization. The patient will be admitted as an inpatient for dual antibiotic therapy, O2 support, nebulizers and monitoring. The patient was previously on vancomycin and Levaquin. This will be continued. I've also reviewed the patient's home meds. The patient is also steroid and oxygen dependent and he'll have oxygen to keep his O2 sats above 92%. The patient appears to have end-stage COPD secondary to his previous smoking history. The patient also has marked leukocytosis and this is either secondary to bibasilar pneumonia which has worsened or steroid use. Regardless the patient will be a treated for bibasilar pneumonia. He's not septic at this time. The patient has expressed a desire not to go to shelter for full recovery. The patient will be kept as an inpatient and treated accordingly and home health is available and he likely can be discharged in 2-3 days as his condition improves. The patient also have a CBC repeated, comprehensive metabolic panel and repeat chest x-ray if needed. I've also ordered sputum cultures.
[2016-11-05] MEDS ORDERED: predniSONE 10 MG Tab PO SCH (09:00)
[2016-11-05] MEDS: Pantoprazole 40 MG Tab.CR PO SCH ×2 (09:41→17:13)
[2016-11-05] MEDS: Iron Polysaccharides Complex 150 MG Cap PO SCH ×2 (09:42→21:25)
[2016-11-05] MEDS: Tamsulosin 0.4 MG Cap.ER PO SCH (09:42)
[2016-11-05] MEDS: Diltiazem 120 MG Cap.CD PO SCH (09:46)
[2016-11-05] MEDS: predniSONE 5 MG Tab PO SCH (10:14)
[2016-11-05] MEDS: BRILINTA 90 MG PO SCH ×2 (10:14→21:24)
--- NOTE | 2016-11-05 10:43 | CR ---
EXAM DATE: 11/04/16 PATIENT'S AGE: 76 Patient: GILBERTO SIMONS Facility: [place], [place] Site . Site : [id number] Study: XRay Chest [id number]/[id number] 10:01:27 PM Ordering Physician: Doctor Sadler Final Report: INDICATION: SOB TECHNIQUE: Chest 2 views COMPARISON: October 20, 2016. FINDINGS: Cardiovascular and mediastinum: Heart size and vasculature are normal in caliber and appearance. Mediastinum is within normal limits. Lungs and pleural spaces: Stable bibasilar consolidations, left greater than right. Stable left suprahilar scarring. Stable additional scarring throughout both lungs. No sign of pleural effusion. No pneumothorax. Bones and soft tissues: Degenerative changes. IMPRESSION: Stable bibasilar consolidations, left greater than right. Please correlate for signs of pneumonia. No new findings. Dictated by Bang Acosta MD @ 11/04/2016 10:19:26 PM Dictated by: Bang Acosta MD @ 11/04/2016 22:19:32 (Electronic Signature) Report Signed by Proxy. [facility]
[2016-11-05] MEDS: oxyCODONE 5 MG Tab PO PRN (14:50)
[2016-11-05] MEDS: Carboxymethylcellulose Sodium 0.5% Ophth Soln 0.4 ML UD Box of 30 EYEBOTH SCH (21:25)
[2016-11-05] MEDS: Levofloxacin/Dextrose 5%-Water 500 MG in Premix Bag 1 BAG IV SCH (21:30)
[2016-11-06] MEDS: Albuterol/Ipratropium 3.0-0.5 MG/3 ML Neb Soln NEB PRN ×5 (02:00→22:24)
[2016-11-06] MEDS: Sodium Chloride 0.9% 1,000 ML IV SCH (03:02)
[2016-11-06 05:25] LABS: CHLORIDE,CL 109 mmol/L (98-110); SODIUM,NA 140 mmol/L (136-146)
[2016-11-06] MEDS: Pantoprazole 40 MG Tab.CR PO SCH ×2 (06:48→16:38)
[2016-11-06] MEDS ORDERED: Furosemide 20 MG/2 ML VIAL IVPUSH ONE ×2 (08:33→13:15)
--- NOTE | 2016-11-06 08:36 | PCM.PN ---
- General Info Date of Service: 11/06/16 Admission Dx/Problem (Free Text): Admission Diagnosis/Problem Admission Diagnosis/Problem Hypoxia hypoxia, pneumonia, end-stage oxygen and steroid dependent COPD Subjective Update: Ishmael is in bed this morning, finishing up with a bed bath. Complains of white stuff on his penis. Denies chest pain, reports SOB has improved. Does sound congested and has moist bronchial noises. No other complaints this am. Functional Status: Reports: pain controlled, tolerating diet, ambulating, urinating - Review of Systems General: Reports: No Symptoms. Denies: Fever, Weakness HEENT: Reports: no symptoms. Denies: sinus congestion, sore throat Pulmonary: Reports: shortness of breath (improved, not quite baseline), cough, sputum Cardiovascular: Reports: Dyspnea on Exertion. Denies: Chest Pain, Palpitations , Edema Gastrointestinal: Reports: No symptoms. Denies: Abdominal pain, Nausea, Vomiting Genitourinary: Denies: no symptoms Skin: Reports: rash (penis) Neurological: Reports: No Symptoms Psychiatric: Reports: no symptoms - Patient Data Vitals - most recent: Last Vital Signs Temp 97.7 F 11/06/16 07:44 Pulse 100 11/06/16 07:44 Resp 22 H 11/06/16 07:44 BP 159/77 H 11/06/16 07:44 Pulse Ox 95 11/06/16 07:44 Weight - most recent: 67.5 kg I&O - last 24 hours: Intake & Output 11/05/16 11/06/16 11/06/16 22:59 06:59 14:59 Intake Total 690 1729 Output Total 1390 1125 Balance -700 604 Lab Results last 24 hrs: Laboratory Results - last 24 hr 11/06/16 11/06/16 Range/Units 04:25 04:25 WBC 14.09 H (4.0-11.0) K/uL RBC 2.64 L (4.50-5.90) M/uL Hgb 7.9 L (13.0-17.0) g/dL Hct 25.0 L (38.0-50.0) % MCV 94.7 (80.0-98.0) fL MCH 29.9 (27.0-32.0) pg MCHC 31.6 (31.0-37.0) g/dL RDW Std Deviation 58.5 (28.0-62.0) fl RDW Coeff of Mavis 17 H (11.0-15.0) % Plt Count 146 L (150-400) K/uL MPV 8.80 (7.40-12.00) fL Add Manual Diff YES Neutrophils % (Manual) 95 H (48.0-80.0) % Band Neutrophils % 2 % Lymphocytes % (Manual) 1 L (16.0-40.0) % Monocytes % (Manual) 2 (0.0-15.0) % Nucleated RBC % 0.0 /100WBC Absolute Seg Neuts 13.4 Band Neutrophils # 0.3 Lymphocytes # (Manual) 0.1 Monocytes # (Manual) 0.3 Nucleated RBCs # 0 K/uL Sodium 140 (136-146) mmol/L Potassium 3.9 (3.5-5.1) mmol/L Chloride 109 (98-110) mmol/L Carbon Dioxide 21 (21-31) mmol/L BUN 21 (6.0-23.0) mg/dL Creatinine 0.8 (0.6-1.5) mg/dL Est Cr Clr Drug Dosing 73.83 mL/min Estimated GFR (MDRD) > 60.0 ml/min Glucose 93 (60-110) mg/dL Calcium 8.2 L (8.8-10.8) mg/dL Total Bilirubin 0.3 (0.1-1.5) mg/dL AST 15 (5-40) IU/L ALT 24 (8-54) IU/L Alkaline Phosphatase 45 (40-150) Total Protein 5.0 L (6.0-8.0) g/dL Albumin 3.2 L (3.4-4.8) g/dL Globulin 1.8 L (2.0-3.5) g/dL Albumin/Globulin Ratio 1.8 (1.3-2.8) Kofi Results last 24 hrs: Microbiology 11/05/16 10:25 Gram Stain - Preliminary Sputum - Expectorated Med Orders - Current: Current Medications Acetaminophen (Tylenol) 650 mg PO Q6H PRN PRN Reason: pain Albuterol/Ipratropium (Duoneb 3.0-0.5 Mg/3 Ml) 3 ml NEB Q4HRRT PRN PRN Reason: Wheezing Last Admin: 11/06/16 08:31 Dose: 3 ml Artificial Tears (Refresh Plus 0.5%) 1 each EYEBOTH BEDTIME [facility] Last Admin: 11/05/16 21:25 Dose: 1 drop Diltiazem HCl (Cardizem Cd) 240 mg PO DAILY [facility] Last Admin: 11/05/16 09:46 Dose: 240 mg Levofloxacin/Dextrose 500 mg/ (Premix) 100 mls @ 100 mls/hr IV Q24H [facility] Last Admin: 11/05/16 21:30 Dose: 100 mls/hr Vancomycin HCl 1 gm/ Sodium (Chloride) 250 mls @ 166 mls/hr IV Q12H [facility] Last Admin: 11/06/16 00:23 Dose: 166 mls/hr Lorazepam (Ativan) 0.25 mg PO Q6H PRN PRN Reason: Anxiety Oxycodone HCl (Oxycodone) 5 mg PO Q4H PRN PRN Reason: pain Last Admin: 11/05/16 14:50 Dose: 5 mg Pantoprazole Sodium (Protonix) 40 mg PO BIDAC [facility] Last Admin: 11/06/16 06:48 Dose: 40 mg Orphenadrine 100 Mg 1 each PO Q12HR PRN PRN Reason: Pain Brilinta 90 Mg 1 each PO BID [facility] Last Admin: 11/05/16 21:24 Dose: 1 each Polysaccharide Iron Complex (Ferrex 150) 150 mg PO BID [facility] Last Admin: 11/05/16 21:25 Dose: 150 mg Prednisone (Prednisone) 10 mg PO Q2D@0900 [facility] Prednisone (Prednisone) 5 mg PO Q2D@0900 [facility] Last Admin: 11/05/16 10:14 Dose: 5 mg Tamsulosin HCl (Flomax) 0.4 mg PO PCBREAKFAST [facility] Last Admin: 11/05/16 09:42 Dose: 0.4 mg Vancomycin HCl (Pharmacy To Dose - Vancomycin) 1 dose .XX ASDIRECTED [facility] Discontinued Medications Albuterol/Ipratropium (Duoneb 3.0-0.5 Mg/3 Ml) 3 ml NEB ONETIME ONE Stop: 11/04/16 21:09 Last Admin: 11/04/16 21:16 Dose: 3 ml Furosemide (Lasix) 20 mg IVPUSH ONCALL ONE Stop: 11/06/16 08:34 Sodium Chloride (Normal Saline) 1,000 mls @ 125 mls/hr IV STAT [facility] Last Admin: 11/04/16 21:15 Dose: 125 mls/hr Levofloxacin/Dextrose 500 mg/ (Premix) 100 mls @ 100 mls/hr IV ONETIME ONE Stop: 11/04/16 22:37 Last Admin: 11/04/16 21:42 Dose: 100 mls/hr Sodium Chloride (Normal Saline) 1,000 mls @ 125 mls/hr IV ASDIRECTED [facility] Last Admin: 11/06/16 03:02 Dose: 125 mls/hr Vancomycin HCl 1 gm/ Sodium (Chloride) 250 mls @ 166 mls/hr IV Q24H [facility] Last Admin: 11/04/16 23:59 Dose: 166 mls/hr Methylprednisolone Sodium Succinate (Solu-Medrol) 125 mg IVPUSH ONETIME ONE Stop: 11/04/16 21:09 Last Admin: 11/04/16 21:15 Dose: 125 mg Prednisone (Prednisone) 10 mg PO Q2D@0900 [facility] Last Admin: 11/05/16 10:15 Dose: Not Given - Exam Quality Assessment: supplemental oxygen, DVT prophylaxis General: alert, oriented, cooperative, no acute distress HEENT: Pupils equal, Pupils reactive, EOMI, Mucous membr. moist/pink Neck: supple Lungs: Normal respiratory effort, Crackles (bilateral bases), Other (moist bronchial counds). No: Wheezing Cardiovascular: Regular Rate, Regular Rhythm, No Murmurs (Male) Exam: Rash (white crusting noted just below glans penis, ). No: Penile Lesions, Scrotal Swelling Extremities: no edema, normal pulses Neurological: no new focal deficit Psy/Mental Status: alert, normal affect, normal mood - Problem List & Annotations (1) Hypoxia SNOMED Code(s): 419199343, 960565618 Code(s): R09.02 - HYPOXEMIA Status: Acute Current Visit: Yes (2) Pneumonia SNOMED Code(s): 164082780 Code(s): J18.9 - PNEUMONIA, UNSPECIFIED ORGANISM Status: Acute Priority: High Current Visit: Yes Onset Date: 10/01/14 (3) COPD (chronic obstructive pulmonary disease) SNOMED Code(s): 18063300 Code(s): J44.9 - CHRONIC OBSTRUCTIVE PULMONARY DISEASE, UNSPECIFIED Status : Chronic Priority: High Current Visit: Yes Qualifiers: COPD type: COPD with acute lower respiratory infection Qualified Code(s): J44.0 - Chronic obstructive pulmonary disease with acute lower respiratory infection (4) Anemia SNOMED Code(s): 267025041 Code(s): D64.9 - ANEMIA, UNSPECIFIED Status: Chronic Current Visit: No Qualifiers: 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 Qualified Code(s): D50.0 - Iron deficiency anemia secondary to blood loss (chronic) (5) Afib SNOMED Code(s): 10494015 Code(s): I48.91 - UNSPECIFIED ATRIAL FIBRILLATION Status: Chronic Priority: Medium Current Visit: No Qualifiers: Atrial fibrillation type: chronic Qualified Code(s): I48.2 - Chronic atrial fibrillation (6) CHF (congestive heart failure) SNOMED Code(s): 57599430 Code(s): I50.9 - HEART FAILURE, UNSPECIFIED Status: Chronic Current Visit : No Qualifiers: Congestive heart failure type: diastolic Congestive heart failure chronicity: chronic Qualified Code(s): I50.32 - Chronic diastolic (congestive ) heart failure (7) Hx of carotid stenosis SNOMED Code(s): 266121595 Code(s): Z86.79 - PERSONAL HISTORY OF OTHER DISEASES OF THE CIRCULATORY SYSTEM Status: Chronic Current Visit: No Annotation/Comment:: R carotid stent (8) Hx of lower gastrointestinal bleeding SNOMED Code(s): 220121989135001 Code(s): Z87.19 - PERSONAL HISTORY OF OTHER DISEASES OF THE DIGESTIVE SYSTEM Status: Chronic Current Visit: No - Problem List Review Problem List Initiated/Reviewed/Updated: Yes - My Orders Last 24 Hours: My Active Orders 11/06/16 08:27 RED BLOOD CELLS LP [BBK] Routine TYPE AND SCREEN [BBK] Routine Transfuse Red Blood Cells [COMM] Routine - Plan Plan:: This 76 year old male admitted with hypoxia and bibasilar pneumonia 1. Pneumonia: Continue with Levaquin and Vancomycin. Sputum culture pending, gram stain shows gram positive cocci in clusters. Needing 3 L NC, which is baseline. Duonebs ordered. Leukocytosis improving 2. Anemia: Hgb dropped to 7.9 today, will transfuse 2 units with Lasix in between. Check Hgb in am. 3. Afib: Continue Diltiazem. Monitor electrolytes. replace as needed 4. COPD: Stable Continue home inhalers and Prednisone. 5. CHF: Stable. Monitor fluid status closely. Daily weights. VTE Prophylaxis: SCDs only. Dispo: 2-3 days pending improvement.
[2016-11-06] MEDS: Diltiazem 120 MG Cap.CD PO SCH (08:59)
[2016-11-06] MEDS: predniSONE 10 MG Tab PO SCH (09:00)
[2016-11-06] MEDS: BRILINTA 90 MG PO SCH ×2 (09:00→22:31)
[2016-11-06] MEDS: Iron Polysaccharides Complex 150 MG Cap PO SCH ×2 (09:00→22:26)
[2016-11-06] MEDS: Tamsulosin 0.4 MG Cap.ER PO SCH (09:00)
[2016-11-06] MEDS: oxyCODONE 5 MG Tab PO PRN ×2 (09:51→18:28)
[2016-11-06] MEDS: Clotrimazole 1% Crm 30 GM Tube TOP SCH ×2 (10:02→22:30)
[2016-11-06] MEDS ORDERED: Magnesium Sulfate/Water 2 GM in Premix Bag 1 BAG IV ONE (12:46)
[2016-11-06] MEDS: Levofloxacin/Dextrose 5%-Water 500 MG in Premix Bag 1 BAG IV SCH (22:25)
[2016-11-06] MEDS: Carboxymethylcellulose Sodium 0.5% Ophth Soln 0.4 ML UD Box of 30 EYEBOTH SCH (22:31)
[2016-11-07 06:35] LABS: CHLORIDE,CL 107 mmol/L (98-110); SODIUM,NA 141 mmol/L (136-146)
[2016-11-07] MEDS: Pantoprazole 40 MG Tab.CR PO SCH ×2 (06:45→16:59)
[2016-11-07] MEDS: Albuterol/Ipratropium 3.0-0.5 MG/3 ML Neb Soln NEB PRN ×3 (07:48→20:44)
[2016-11-07] MEDS: Diltiazem 120 MG Cap.CD PO SCH (08:12)
[2016-11-07] MEDS: BRILINTA 90 MG PO SCH ×2 (08:12→20:48)
[2016-11-07] MEDS: Iron Polysaccharides Complex 150 MG Cap PO SCH ×2 (08:12→20:49)
[2016-11-07] MEDS: Clotrimazole 1% Crm 30 GM Tube TOP SCH ×2 (08:12→20:48)
[2016-11-07] MEDS: predniSONE 5 MG Tab PO SCH (08:12)
[2016-11-07] MEDS: Tamsulosin 0.4 MG Cap.ER PO SCH (08:12)
--- NOTE | 2016-11-07 15:17 | PCM.PN ---
- General Info Date of Service: 11/07/16 Admission Dx/Problem (Free Text): Admission Diagnosis/Problem Admission Diagnosis/Problem Hypoxia hypoxia, pneumonia, end-stage oxygen and steroid dependent COPD Subjective Update: Ishmael is in bed this morning, finishing up with a bed bath. Complains of white stuff on his penis. Denies chest pain, reports SOB has improved. Does sound congested and has moist bronchial noises. No other complaints this am. Functional Status: Reports: pain controlled, tolerating diet. Denies: ambulating - Review of Systems General: Reports: Weakness, Fatigue HEENT: Reports: no symptoms Pulmonary: Reports: shortness of breath, cough, wheezing Cardiovascular: Reports: Chest Pain Gastrointestinal: Reports: No symptoms Genitourinary: Reports: no symptoms Musculoskeletal: Reports: no symptoms Skin: Reports: no symptoms Neurological: Reports: No Symptoms Psychiatric: Reports: no symptoms - Patient Data Vitals - most recent: Last Vital Signs Temp 36.2 C 11/07/16 12:00 Pulse 81 11/07/16 12:00 Resp 22 H 11/07/16 12:00 BP 141/59 H 11/07/16 12:00 Pulse Ox 91 L 11/07/16 12:00 Weight - most recent: 66 kg I&O - last 24 hours: Intake & Output 11/07/16 11/07/16 11/07/16 06:59 14:59 22:59 Intake Total 790 250 Output Total 1200 Balance -410 250 Lab Results last 24 hrs: Laboratory Results - last 24 hr 11/06/16 11/07/16 11/07/16 Range/Units 08:38 05:40 05:40 WBC 11.60 H (4.0-11.0) K/uL RBC 3.55 L (4.50-5.90) M/uL Hgb 10.7 L (13.0-17.0) g/dL Hct 32.2 L (38.0-50.0) % MCV 90.7 (80.0-98.0) fL MCH 30.1 (27.0-32.0) pg MCHC 33.2 (31.0-37.0) g/dL RDW Std Deviation 55.9 (28.0-62.0) fl RDW Coeff of Mavis 17 H (11.0-15.0) % Plt Count 133 L (150-400) K/uL MPV 8.60 (7.40-12.00) fL Neut % (Auto) 90.0 H (48.0-80.0) % Lymph % (Auto) 2.8 L (16.0-40.0) % [place] % (Auto) 7.1 (0.0-15.0) % Eos % (Auto) 0.1 (0.0-7.0) % Baso % (Auto) 0.0 (0.0-1.5) % Neut # (Auto) 10.4 H (1.4-5.7) K/uL Lymph # (Auto) 0.3 L (0.6-2.4) K/uL [place] # (Auto) 0.8 (0.0-0.8) K/uL Eos # (Auto) 0.0 (0.0-0.7) K/uL Baso # (Auto) 0.0 (0.0-0.1) K/uL Nucleated RBC % 0.0 /100WBC Nucleated RBCs # 0 K/uL Sodium 141 (136-146) mmol/L Potassium 3.6 (3.5-5.1) mmol/L Chloride 107 (98-110) mmol/L Carbon Dioxide 24 (21-31) mmol/L BUN 19 (6.0-23.0) mg/dL Creatinine 0.8 (0.6-1.5) mg/dL Est Cr Clr Drug Dosing 72.19 mL/min Estimated GFR (MDRD) > 60.0 ml/min Glucose 80 (60-110) mg/dL Calcium 8.2 L (8.8-10.8) mg/dL Magnesium 1.9 (1.5-2.3) mEq/L Blood Type O POSITIVE Antibody Screen NEGATIVE Crossmatch See Detail Kofi Results last 24 hrs: Microbiology 11/05/16 10:25 Gram Stain - Final Sputum - Expectorated Sputum Culture - Final Staphylococcus Aureus Med Orders - Current: Current Medications Acetaminophen (Tylenol) 650 mg PO Q6H PRN PRN Reason: pain Albuterol/Ipratropium (Duoneb 3.0-0.5 Mg/3 Ml) 3 ml NEB Q4HRRT PRN PRN Reason: Wheezing Last Admin: 11/07/16 14:27 Dose: 3 ml Artificial Tears (Refresh Plus 0.5%) 1 each EYEBOTH BEDTIME [facility] Last Admin: 11/06/16 22:31 Dose: 1 drop Clotrimazole (Lotrimin Af 1% Crm) 1 gm TOP BID [facility] Last Admin: 11/07/16 08:12 Dose: 1 applic Diltiazem HCl (Cardizem Cd) 240 mg PO DAILY [facility] Last Admin: 11/07/16 08:12 Dose: 240 mg Levofloxacin/Dextrose 500 mg/ (Premix) 100 mls @ 100 mls/hr IV Q24H [facility] Last Admin: 11/06/16 22:25 Dose: 100 mls/hr Vancomycin HCl 1 gm/ Sodium (Chloride) 250 mls @ 166 mls/hr IV Q12H [facility] Last Admin: 11/07/16 12:12 Dose: 166 mls/hr Lorazepam (Ativan) 0.25 mg PO Q6H PRN PRN Reason: Anxiety Oxycodone HCl (Oxycodone) 5 mg PO Q4H PRN PRN Reason: pain Last Admin: 11/06/16 18:28 Dose: 5 mg Pantoprazole Sodium (Protonix) 40 mg PO BIDAC [facility] Last Admin: 11/07/16 06:45 Dose: 40 mg Orphenadrine 100 Mg 1 each PO Q12HR PRN PRN Reason: Pain Brilinta 90 Mg 1 each PO BID [facility] Last Admin: 11/07/16 08:12 Dose: 1 each Polysaccharide Iron Complex (Ferrex 150) 150 mg PO BID [facility] Last Admin: 11/07/16 08:12 Dose: 150 mg Prednisone (Prednisone) 10 mg PO Q2D@0900 [facility] Last Admin: 11/06/16 09:00 Dose: 10 mg Prednisone (Prednisone) 5 mg PO Q2D@0900 [facility] Last Admin: 11/07/16 08:12 Dose: 5 mg Tamsulosin HCl (Flomax) 0.4 mg PO PCBREAKFAST [facility] Last Admin: 11/07/16 08:12 Dose: 0.4 mg Vancomycin HCl (Pharmacy To Dose - Vancomycin) 1 dose .XX ASDIRECTED [facility] Discontinued Medications Albuterol/Ipratropium (Duoneb 3.0-0.5 Mg/3 Ml) 3 ml NEB ONETIME ONE Stop: 11/04/16 21:09 Last Admin: 11/04/16 21:16 Dose: 3 ml Furosemide (Lasix) 20 mg IVPUSH ONCALL ONE Stop: 11/06/16 08:34 Last Admin: 11/06/16 13:11 Dose: 20 mg Furosemide (Lasix) 20 mg IVPUSH ONCALL ONE Stop: 11/06/16 13:16 Last Admin: 11/06/16 13:31 Dose: Not Given Sodium Chloride (Normal Saline) 1,000 mls @ 125 mls/hr IV STAT [facility] Last Admin: 11/04/16 21:15 Dose: 125 mls/hr Levofloxacin/Dextrose 500 mg/ (Premix) 100 mls @ 100 mls/hr IV ONETIME ONE Stop: 11/04/16 22:37 Last Admin: 11/04/16 21:42 Dose: 100 mls/hr Sodium Chloride (Normal Saline) 1,000 mls @ 125 mls/hr IV ASDIRECTED [facility] Last Admin: 11/06/16 03:02 Dose: 125 mls/hr Vancomycin HCl 1 gm/ Sodium (Chloride) 250 mls @ 166 mls/hr IV Q24H [facility] Last Admin: 11/04/16 23:59 Dose: 166 mls/hr Magnesium Sulfate 2 gm/ Premix 50 mls @ 50 mls/hr IV ONETIME ONE Stop: 11/06/16 13:45 Last Admin: 11/06/16 15:27 Dose: 50 mls/hr Methylprednisolone Sodium Succinate (Solu-Medrol) 125 mg IVPUSH ONETIME ONE Stop: 11/04/16 21:09 Last Admin: 11/04/16 21:15 Dose: 125 mg Prednisone (Prednisone) 10 mg PO Q2D@0900 [facility] Last Admin: 11/05/16 10:15 Dose: Not Given - Exam Quality Assessment: supplemental oxygen General: alert, oriented, cooperative, no acute distress HEENT: Pupils equal, Pupils reactive Neck: supple, trachea midline Lungs: Crackles, Rales, Other (upper respiratory noises) Cardiovascular: Regular Rate, Regular Rhythm Abdomen: bowel sounds present, soft, no tenderness Back Exam: Decreased Range of Motion Extremities: no edema Skin: warm, ecchymosis, other (parchment skin) Neurological: no new focal deficit Psy/Mental Status: alert, normal affect - Problem List & Annotations (1) Pneumonia SNOMED Code(s): 621894794 Code(s): J18.9 - PNEUMONIA, UNSPECIFIED ORGANISM Status: Acute Priority: High Current Visit: Yes Onset Date: 10/01/14 Annotation/Comment:: continue with current antibiotics. (2) COPD (chronic obstructive pulmonary disease) SNOMED Code(s): 09714266 Code(s): J44.9 - CHRONIC OBSTRUCTIVE PULMONARY DISEASE, UNSPECIFIED Status : Chronic Priority: High Current Visit: Yes Qualifiers: COPD type: COPD with acute lower respiratory infection Qualified Code(s): J44.0 - Chronic obstructive pulmonary disease with acute lower respiratory infection Annotation/Comment:: steroid and oxygen dependent, end-stage (3) Hypoxia SNOMED Code(s): 910964760, 666329975 Code(s): R09.02 - HYPOXEMIA Status: Chronic Priority: High Current Visit: Yes - Problem List Review Problem List Initiated/Reviewed/Updated: Yes - My Orders Last 24 Hours: My Active Orders 11/08/16 11:30 VANCOMYCIN TROUGH [CHEM] Routine - Plan Plan:: This 76 year old male admitted with hypoxia and bibasilar pneumonia 1. Pneumonia: Continue with Levaquin and Vancomycin. Sputum culture pending, gram stain shows gram positive cocci in clusters. Needing 3 L NC, which is baseline. Duonebs ordered. Leukocytosis improving 2. Anemia: Hgb dropped to 7.9 today, will transfuse 2 units with Lasix in between. Check Hgb in am. 3. Afib: Continue Diltiazem. Monitor electrolytes. replace as needed 4. COPD: Stable Continue home inhalers and Prednisone. 5. CHF: Stable. Monitor fluid status closely. Daily weights. VTE Prophylaxis: SCDs only. Dispo: 2-3 days pending improvement. Nov 07, 2016: The patient was admitted secondary to hypoxia, pneumonia and end- stage oxygen-dependent and steroid-dependent COPD. The patient was previously evaluated and admitted on October 20, 2016 at discharge 2 days later. The patient was in the emergency department and had rather profound hypoxia and was readmitted out of concern for pneumonia versus atelectasis. The patient has been in rapid decline. Today he says that he feels okay. He still short of breath and has some wheezy coughing. Patient has been able to tolerate his diet and he's been on supplemental oxygen. His shortness of breath is at its baseline. Patient also has been feeling weak and fatigued. The patient also has a significant history of anemia we'll going transfusion almost every time he is in the hospital. Patient has had some episodes of dark tarry stools and the patient has been transfused with 2 units of packed red blood cells. The patient had tolerated these well without incident. The patient also has been taking iron and is currently on a proton pump inhibitor and the patient has not been placed on Lovenox or heparin. The patient will likely be appropriate to discharge to either [place] or hospice. I had a long discussion with the family and the patient regarding hospice care previously area
[2016-11-07] MEDS: Carboxymethylcellulose Sodium 0.5% Ophth Soln 0.4 ML UD Box of 30 EYEBOTH SCH (20:48)
[2016-11-07] MEDS: Levofloxacin/Dextrose 5%-Water 500 MG in Premix Bag 1 BAG IV SCH (21:02)
[2016-11-08 06:19] LABS: CHLORIDE,CL 107 mmol/L (98-110); SODIUM,NA 142 mmol/L (136-146)
[2016-11-08] MEDS: Pantoprazole 40 MG Tab.CR PO SCH ×2 (06:33→16:55)
[2016-11-08] MEDS: Albuterol/Ipratropium 3.0-0.5 MG/3 ML Neb Soln NEB PRN ×2 (06:42→16:54)
[2016-11-08] MEDS: oxyCODONE 5 MG Tab PO PRN (08:00)
[2016-11-08] MEDS: Tamsulosin 0.4 MG Cap.ER PO SCH (08:00)
[2016-11-08] MEDS: BRILINTA 90 MG PO SCH ×2 (08:16→20:02)
[2016-11-08] MEDS: Clotrimazole 1% Crm 30 GM Tube TOP SCH ×2 (08:16→20:01)
[2016-11-08] MEDS: Diltiazem 120 MG Cap.CD PO SCH (08:40)
[2016-11-08] MEDS: predniSONE 10 MG Tab PO SCH (08:41)
[2016-11-08] MEDS: Iron Polysaccharides Complex 150 MG Cap PO SCH ×2 (08:41→20:02)
--- NOTE | 2016-11-08 11:19 | PCM.PN ---
- General Info Date of Service: 11/08/16 Admission Dx/Problem (Free Text): Admission Diagnosis/Problem Admission Diagnosis/Problem Hypoxia hypoxia, pneumonia, end-stage oxygen and steroid dependent COPD Subjective Update: Ishmael is in bed this morning, finishing up with a bed bath. Complains of white stuff on his penis. Denies chest pain, reports SOB has improved. Does sound congested and has moist bronchial noises. No other complaints this am. Functional Status: Reports: pain controlled, tolerating diet - Review of Systems General: Reports: Weakness HEENT: Reports: no symptoms Pulmonary: Reports: shortness of breath, cough, wheezing Cardiovascular: Reports: No Symptoms Gastrointestinal: Reports: No symptoms Genitourinary: Reports: no symptoms Musculoskeletal: Reports: no symptoms Skin: Reports: no symptoms Neurological: Reports: No Symptoms Psychiatric: Reports: no symptoms - Patient Data Vitals - most recent: Last Vital Signs Temp 37.0 C 11/08/16 09:00 Pulse 100 11/08/16 09:00 Resp 20 11/08/16 09:00 BP 133/78 11/08/16 09:00 Pulse Ox 90 L 11/08/16 09:00 Weight - most recent: 65.5 kg I&O - last 24 hours: Intake & Output 11/07/16 11/08/16 11/08/16 22:59 06:59 14:59 Intake Total 340 490 Output Total 810 875 Balance -470 -385 Lab Results last 24 hrs: Laboratory Results - last 24 hr 11/08/16 11/08/16 Range/Units 05:35 05:35 WBC 8.36 (4.0-11.0) K/uL RBC 3.77 L (4.50-5.90) M/uL Hgb 11.1 L (13.0-17.0) g/dL Hct 34.9 L (38.0-50.0) % MCV 92.6 (80.0-98.0) fL MCH 29.4 (27.0-32.0) pg MCHC 31.8 (31.0-37.0) g/dL RDW Std Deviation 56.1 (28.0-62.0) fl RDW Coeff of Mavis 17 H (11.0-15.0) % Plt Count 110 L (150-400) K/uL MPV 8.40 (7.40-12.00) fL Neut % (Auto) 88.8 H (48.0-80.0) % Lymph % (Auto) 6.1 L (16.0-40.0) % [place] % (Auto) 4.5 (0.0-15.0) % Eos % (Auto) 0.6 (0.0-7.0) % Baso % (Auto) 0.0 (0.0-1.5) % Neut # (Auto) 7.4 H (1.4-5.7) K/uL Lymph # (Auto) 0.5 L (0.6-2.4) K/uL [place] # (Auto) 0.4 (0.0-0.8) K/uL Eos # (Auto) 0.1 (0.0-0.7) K/uL Baso # (Auto) 0.0 (0.0-0.1) K/uL Nucleated RBC % 0.0 /100WBC Nucleated RBCs # 0 K/uL Sodium 142 (136-146) mmol/L Potassium 3.6 (3.5-5.1) mmol/L Chloride 107 (98-110) mmol/L Carbon Dioxide 27 (21-31) mmol/L BUN 14 (6.0-23.0) mg/dL Creatinine 0.9 (0.6-1.5) mg/dL Est Cr Clr Drug Dosing 63.68 mL/min Estimated GFR (MDRD) > 60.0 ml/min Glucose 75 (60-110) mg/dL Calcium 8.6 L (8.8-10.8) mg/dL Magnesium 1.6 (1.5-2.3) mEq/L Total Bilirubin 0.5 (0.1-1.5) mg/dL AST 13 (5-40) IU/L ALT 21 (8-54) IU/L Alkaline Phosphatase 47 (40-150) Total Protein 5.4 L (6.0-8.0) g/dL Albumin 3.2 L (3.4-4.8) g/dL Globulin 2.2 (2.0-3.5) g/dL Albumin/Globulin Ratio 1.5 (1.3-2.8) Kofi Results last 24 hrs: Microbiology 11/05/16 10:25 Gram Stain - Final Sputum - Expectorated Sputum Culture - Final Staphylococcus Aureus Med Orders - Current: Current Medications Acetaminophen (Tylenol) 650 mg PO Q6H PRN PRN Reason: pain Albuterol/Ipratropium (Duoneb 3.0-0.5 Mg/3 Ml) 3 ml NEB Q4HRRT PRN PRN Reason: Wheezing Last Admin: 11/08/16 06:42 Dose: 3 ml Artificial Tears (Refresh Plus 0.5%) 1 each EYEBOTH BEDTIME [facility] Last Admin: 11/07/16 20:48 Dose: 1 drop Clotrimazole (Lotrimin Af 1% Crm) 1 gm TOP BID [facility] Last Admin: 11/08/16 08:16 Dose: 1 gm Diltiazem HCl (Cardizem Cd) 240 mg PO DAILY [facility] Last Admin: 11/08/16 08:40 Dose: 240 mg Levofloxacin/Dextrose 500 mg/ (Premix) 100 mls @ 100 mls/hr IV Q24H [facility] Last Admin: 11/07/16 21:02 Dose: 100 mls/hr Vancomycin HCl 1 gm/ Sodium (Chloride) 250 mls @ 166 mls/hr IV Q12H [facility] Last Admin: 11/08/16 01:09 Dose: 166 mls/hr Lorazepam (Ativan) 0.25 mg PO Q6H PRN PRN Reason: Anxiety Oxycodone HCl (Oxycodone) 5 mg PO Q4H PRN PRN Reason: pain Last Admin: 11/08/16 08:00 Dose: 5 mg Pantoprazole Sodium (Protonix) 40 mg PO BIDAC [facility] Last Admin: 11/08/16 06:33 Dose: 40 mg Orphenadrine 100 Mg 1 each PO Q12HR PRN PRN Reason: Pain Brilinta 90 Mg 1 each PO BID [facility] Last Admin: 11/08/16 08:16 Dose: 1 each Polysaccharide Iron Complex (Ferrex 150) 150 mg PO BID [facility] Last Admin: 11/08/16 08:41 Dose: 150 mg Prednisone (Prednisone) 10 mg PO Q2D@0900 [facility] Last Admin: 11/08/16 08:41 Dose: 10 mg Prednisone (Prednisone) 5 mg PO Q2D@0900 [facility] Last Admin: 11/07/16 08:12 Dose: 5 mg Tamsulosin HCl (Flomax) 0.4 mg PO PCBREAKFAST [facility] Last Admin: 11/08/16 08:00 Dose: 0.4 mg Vancomycin HCl (Pharmacy To Dose - Vancomycin) 1 dose .XX ASDIRECTED [facility] Discontinued Medications Albuterol/Ipratropium (Duoneb 3.0-0.5 Mg/3 Ml) 3 ml NEB ONETIME ONE Stop: 11/04/16 21:09 Last Admin: 11/04/16 21:16 Dose: 3 ml Furosemide (Lasix) 20 mg IVPUSH ONCALL ONE Stop: 11/06/16 08:34 Last Admin: 11/06/16 13:11 Dose: 20 mg Furosemide (Lasix) 20 mg IVPUSH ONCALL ONE Stop: 11/06/16 13:16 Last Admin: 11/06/16 13:31 Dose: Not Given Sodium Chloride (Normal Saline) 1,000 mls @ 125 mls/hr IV STAT [facility] Last Admin: 11/04/16 21:15 Dose: 125 mls/hr Levofloxacin/Dextrose 500 mg/ (Premix) 100 mls @ 100 mls/hr IV ONETIME ONE Stop: 11/04/16 22:37 Last Admin: 11/04/16 21:42 Dose: 100 mls/hr Sodium Chloride (Normal Saline) 1,000 mls @ 125 mls/hr IV ASDIRECTED [facility] Last Admin: 11/06/16 03:02 Dose: 125 mls/hr Vancomycin HCl 1 gm/ Sodium (Chloride) 250 mls @ 166 mls/hr IV Q24H [facility] Last Admin: 11/04/16 23:59 Dose: 166 mls/hr Magnesium Sulfate 2 gm/ Premix 50 mls @ 50 mls/hr IV ONETIME ONE Stop: 11/06/16 13:45 Last Admin: 11/06/16 15:27 Dose: 50 mls/hr Methylprednisolone Sodium Succinate (Solu-Medrol) 125 mg IVPUSH ONETIME ONE Stop: 11/04/16 21:09 Last Admin: 11/04/16 21:15 Dose: 125 mg Prednisone (Prednisone) 10 mg PO Q2D@0900 [facility] Last Admin: 11/05/16 10:15 Dose: Not Given - Exam Quality Assessment: supplemental oxygen General: alert, oriented, cooperative, no acute distress HEENT: Pupils equal, Pupils reactive Neck: supple, trachea midline Lungs: Decreased breath sounds, Rhonchi, Wheezing Cardiovascular: Regular Rate, Regular Rhythm Abdomen: bowel sounds present, soft, no tenderness Back Exam: Decreased Range of Motion Extremities: no edema Skin: ecchymosis, other (parchment skin) Neurological: no new focal deficit Psy/Mental Status: alert, normal affect - Problem List & Annotations (1) Pneumonia SNOMED Code(s): 230922742 Code(s): J18.9 - PNEUMONIA, UNSPECIFIED ORGANISM Status: Acute Priority: High Current Visit: Yes Onset Date: 10/01/14 Annotation/Comment:: continue with current antibiotics. (2) COPD (chronic obstructive pulmonary disease) SNOMED Code(s): 35640011 Code(s): J44.9 - CHRONIC OBSTRUCTIVE PULMONARY DISEASE, UNSPECIFIED Status : Chronic Priority: High Current Visit: Yes Qualifiers: COPD type: COPD with acute lower respiratory infection Qualified Code(s): J44.0 - Chronic obstructive pulmonary disease with acute lower respiratory infection Annotation/Comment:: steroid and oxygen dependent, end-stage (3) Hypoxia SNOMED Code(s): 831226369, 145973890 Code(s): R09.02 - HYPOXEMIA Status: Chronic Priority: High Current Visit: Yes (4) Anemia SNOMED Code(s): 096361145 Code(s): D64.9 - ANEMIA, UNSPECIFIED Status: Chronic Priority: High Current Visit: No Qualifiers: Anemia type: other cause Other causes of anemia: other cause, not classified Qualified Code(s): D64.89 - Other specified anemias - Problem List Review Problem List Initiated/Reviewed/Updated: Yes - My Orders Last 24 Hours: My Active Orders 11/08/16 11:30 VANCOMYCIN TROUGH [CHEM] Routine 11/09/16 08:00 Chest 1V Frontal [CR] Routine - Plan Plan:: This 76 year old male admitted with hypoxia and bibasilar pneumonia 1. Pneumonia: Continue with Levaquin and Vancomycin. Sputum culture pending, gram stain shows gram positive cocci in clusters. Needing 3 L NC, which is baseline. Duonebs ordered. Leukocytosis improving 2. Anemia: Hgb dropped to 7.9 today, will transfuse 2 units with Lasix in between. Check Hgb in am. 3. Afib: Continue Diltiazem. Monitor electrolytes. replace as needed 4. COPD: Stable Continue home inhalers and Prednisone. 5. CHF: Stable. Monitor fluid status closely. Daily weights. VTE Prophylaxis: SCDs only. Dispo: 2-3 days pending improvement. Nov 07, 2016: The patient was admitted secondary to hypoxia, pneumonia and end- stage oxygen-dependent and steroid-dependent COPD. The patient was previously evaluated and admitted on October 20, 2016 at discharge 2 days later. The patient was in the emergency department and had rather profound hypoxia and was readmitted out of concern for pneumonia versus atelectasis. The patient has been in rapid decline. Today he says that he feels okay. He still short of breath and has some wheezy coughing. Patient has been able to tolerate his diet and he's been on supplemental oxygen. His shortness of breath is at its baseline. Patient also has been feeling weak and fatigued. The patient also has a significant history of anemia we'll going transfusion almost every time he is in the hospital. Patient has had some episodes of dark tarry stools and the patient has been transfused with 2 units of packed red blood cells. The patient had tolerated these well without incident. The patient also has been taking iron and is currently on a proton pump inhibitor and the patient has not been placed on Lovenox or heparin. The patient will likely be appropriate to discharge to either [place] or hospice. I had a long discussion with the family and the patient regarding hospice care previously area Nov 08, 2016: The patient is a 76-year-old gentleman with end-stage COPD who is oxygen and steroid dependent. He presented to the emergency department on date of admission secondary to increased sputum production as well as shortness of breath and rhonchi. This is the patient's second admission in a month. The patient's IV antibiotics consisting of vancomycin and Levaquin should be continued until improvement of his overall pulmonary picture. Initially, the patient's pulse oximetry in the emergency department had been as low as 79%. He was resuscitated in the emergency department with SVNs and steroids. The patient also has had a history of anemia which has required transfusions of 2 units of packed red blood cells on each admission. This has been worked up completely as an outpatient. Patient's H&H continued to be monitored and transfused again as necessary. The patient is also on oxygen at 3 L per minute and this is felt to maintaining his sats above 92%. I've encouraged the patient for ambulation but he has been very fatigued and weak. The patient should be evaluated for possible transfer to [facility] for strengthening.
[2016-11-08] MEDS ORDERED: Magnesium Sulfate/Water 2 GM in Premix Bag 1 BAG IV ONE (15:06)
[2016-11-08] MEDS: Carboxymethylcellulose Sodium 0.5% Ophth Soln 0.4 ML UD Box of 30 EYEBOTH SCH (20:02)
[2016-11-08] MEDS: Levofloxacin/Dextrose 5%-Water 500 MG in Premix Bag 1 BAG IV SCH (21:18)
[2016-11-09] MEDS: Albuterol/Ipratropium 3.0-0.5 MG/3 ML Neb Soln NEB PRN ×3 (01:56→19:19)
[2016-11-09] MEDS: oxyCODONE 5 MG Tab PO PRN ×2 (02:09→12:26)
[2016-11-09 06:20] LABS: CHLORIDE,CL 105 mmol/L (98-110); SODIUM,NA 138 mmol/L (136-146)
[2016-11-09] MEDS: Pantoprazole 40 MG Tab.CR PO SCH ×2 (06:31→16:04)
--- NOTE | 2016-11-09 08:12 | PCM.PN ---
- General Info Date of Service: 11/09/16 Admission Dx/Problem (Free Text): Admission Diagnosis/Problem Admission Diagnosis/Problem Hypoxia hypoxia, pneumonia, end-stage oxygen and steroid dependent COPD Subjective Update: Sitting up in bed, alert and oriented. Less moist sounding breath sounds. Reports Functional Status: Reports: pain controlled, tolerating diet, ambulating - Review of Systems General: Reports: No Symptoms. Denies: Fever, Weakness, Fatigue HEENT: Reports: no symptoms. Denies: sinus congestion, sore throat Pulmonary: Reports: cough, sputum (improving). Denies: shortness of breath Cardiovascular: Reports: No Symptoms. Denies: Chest Pain, Palpitations, Edema Gastrointestinal: Reports: No symptoms. Denies: Abdominal pain, Diarrhea, Nausea, Vomiting Genitourinary: Reports: no symptoms. Denies: dysuria, frequency, burning Musculoskeletal: Reports: no symptoms Skin: Reports: no symptoms Neurological: Reports: No Symptoms Psychiatric: Reports: no symptoms - Patient Data Vitals - most recent: Last Vital Signs Temp 96.7 F 11/09/16 04:00 Pulse 81 11/09/16 04:00 Resp 18 11/09/16 04:00 BP 125/58 L 11/09/16 04:00 Pulse Ox 94 L 11/09/16 04:00 Weight - most recent: 64.5 kg I&O - last 24 hours: Intake & Output 11/08/16 11/09/16 11/09/16 22:59 06:59 14:59 Intake Total 700 320 Output Total 625 680 Balance 75 -360 Lab Results last 24 hrs: Laboratory Results - last 24 hr 11/08/16 11/09/16 11/09/16 Range/Units 11:46 05:40 05:40 WBC 8.62 (4.0-11.0) K/uL RBC 3.77 L (4.50-5.90) M/uL Hgb 11.5 L (13.0-17.0) g/dL Hct 35.0 L (38.0-50.0) % MCV 92.8 (80.0-98.0) fL MCH 30.5 (27.0-32.0) pg MCHC 32.9 (31.0-37.0) g/dL RDW Std Deviation 55.3 (28.0-62.0) fl RDW Coeff of Mavis 16 H (11.0-15.0) % Plt Count 103 L (150-400) K/uL MPV 8.30 (7.40-12.00) fL Neut % (Auto) 86.6 H (48.0-80.0) % Lymph % (Auto) 5.2 L (16.0-40.0) % [place] % (Auto) 7.2 (0.0-15.0) % Eos % (Auto) 0.9 (0.0-7.0) % Baso % (Auto) 0.1 (0.0-1.5) % Neut # (Auto) 7.5 H (1.4-5.7) K/uL Lymph # (Auto) 0.5 L (0.6-2.4) K/uL [place] # (Auto) 0.6 (0.0-0.8) K/uL Eos # (Auto) 0.1 (0.0-0.7) K/uL Baso # (Auto) 0.0 (0.0-0.1) K/uL Nucleated RBC % 0.0 /100WBC Nucleated RBCs # 0 K/uL Sodium 138 (136-146) mmol/L Potassium 3.6 (3.5-5.1) mmol/L Chloride 105 (98-110) mmol/L Carbon Dioxide 25 (21-31) mmol/L BUN 13 (6.0-23.0) mg/dL Creatinine 0.8 (0.6-1.5) mg/dL Est Cr Clr Drug Dosing 70.55 mL/min Estimated GFR (MDRD) > 60.0 ml/min Glucose 81 (60-110) mg/dL Calcium 8.6 L (8.8-10.8) mg/dL Magnesium 1.8 (1.5-2.3) mEq/L Total Bilirubin 0.4 (0.1-1.5) mg/dL AST 13 (5-40) IU/L ALT 20 (8-54) IU/L Alkaline Phosphatase 53 (40-150) Total Protein 5.5 L (6.0-8.0) g/dL Albumin 3.2 L (3.4-4.8) g/dL Globulin 2.3 (2.0-3.5) g/dL Albumin/Globulin Ratio 1.4 (1.3-2.8) Vancomycin Trough 23.0 H (5-15) ug/mL Med Orders - Current: Current Medications Acetaminophen (Tylenol) 650 mg PO Q6H PRN PRN Reason: pain Albuterol/Ipratropium (Duoneb 3.0-0.5 Mg/3 Ml) 3 ml NEB Q4HRRT PRN PRN Reason: Wheezing Last Admin: 11/09/16 01:56 Dose: 3 ml Artificial Tears (Refresh Plus 0.5%) 1 each EYEBOTH BEDTIME [facility] Last Admin: 11/08/16 20:02 Dose: 1 drop Clotrimazole (Lotrimin Af 1% Crm) 1 gm TOP BID [facility] Last Admin: 11/08/16 20:01 Dose: 1 applic Diltiazem HCl (Cardizem Cd) 240 mg PO DAILY [facility] Last Admin: 11/08/16 08:40 Dose: 240 mg Levofloxacin/Dextrose 500 mg/ (Premix) 100 mls @ 100 mls/hr IV Q24H [facility] Last Admin: 11/08/16 21:18 Dose: 100 mls/hr Vancomycin HCl 1 gm/ Sodium (Chloride) 250 mls @ 166.667 mls/hr IV Q16H [facility] Last Admin: 11/09/16 06:20 Dose: 166.667 mls/hr Lorazepam (Ativan) 0.25 mg PO Q6H PRN PRN Reason: Anxiety Oxycodone HCl (Oxycodone) 5 mg PO Q4H PRN PRN Reason: pain Last Admin: 11/09/16 02:09 Dose: 5 mg Pantoprazole Sodium (Protonix) 40 mg PO BIDAC [facility] Last Admin: 11/09/16 06:31 Dose: 40 mg Orphenadrine 100 Mg 1 each PO Q12HR PRN PRN Reason: Pain Brilinta 90 Mg 1 each PO BID [facility] Last Admin: 11/08/16 20:02 Dose: 1 each Polysaccharide Iron Complex (Ferrex 150) 150 mg PO BID [facility] Last Admin: 11/08/16 20:02 Dose: 150 mg Prednisone (Prednisone) 10 mg PO Q2D@0900 [facility] Last Admin: 11/08/16 08:41 Dose: 10 mg Prednisone (Prednisone) 5 mg PO Q2D@0900 [facility] Last Admin: 11/07/16 08:12 Dose: 5 mg Tamsulosin HCl (Flomax) 0.4 mg PO PCBREAKFAST [facility] Last Admin: 11/08/16 08:00 Dose: 0.4 mg Vancomycin HCl (Pharmacy To Dose - Vancomycin) 1 dose .XX ASDIRECTED [facility] Discontinued Medications Albuterol/Ipratropium (Duoneb 3.0-0.5 Mg/3 Ml) 3 ml NEB ONETIME ONE Stop: 11/04/16 21:09 Last Admin: 11/04/16 21:16 Dose: 3 ml Furosemide (Lasix) 20 mg IVPUSH ONCALL ONE Stop: 11/06/16 08:34 Last Admin: 11/06/16 13:11 Dose: 20 mg Furosemide (Lasix) 20 mg IVPUSH ONCALL ONE Stop: 11/06/16 13:16 Last Admin: 11/06/16 13:31 Dose: Not Given Sodium Chloride (Normal Saline) 1,000 mls @ 125 mls/hr IV STAT [facility] Last Admin: 11/04/16 21:15 Dose: 125 mls/hr Levofloxacin/Dextrose 500 mg/ (Premix) 100 mls @ 100 mls/hr IV ONETIME ONE Stop: 11/04/16 22:37 Last Admin: 11/04/16 21:42 Dose: 100 mls/hr Sodium Chloride (Normal Saline) 1,000 mls @ 125 mls/hr IV ASDIRECTED [facility] Last Admin: 11/06/16 03:02 Dose: 125 mls/hr Vancomycin HCl 1 gm/ Sodium (Chloride) 250 mls @ 166 mls/hr IV Q24H [facility] Last Admin: 11/04/16 23:59 Dose: 166 mls/hr Vancomycin HCl 1 gm/ Sodium (Chloride) 250 mls @ 166 mls/hr IV Q12H [facility] Last Admin: 11/08/16 12:40 Dose: Not Given Magnesium Sulfate 2 gm/ Premix 50 mls @ 50 mls/hr IV ONETIME ONE Stop: 11/06/16 13:45 Last Admin: 11/06/16 15:27 Dose: 50 mls/hr Magnesium Sulfate 2 gm/ Premix 50 mls @ 50 mls/hr IV ONETIME ONE Stop: 11/08/16 16:05 Last Admin: 11/08/16 16:53 Dose: 50 mls/hr Methylprednisolone Sodium Succinate (Solu-Medrol) 125 mg IVPUSH ONETIME ONE Stop: 11/04/16 21:09 Last Admin: 11/04/16 21:15 Dose: 125 mg Prednisone (Prednisone) 10 mg PO Q2D@0900 [facility] Last Admin: 11/05/16 10:15 Dose: Not Given - Exam Quality Assessment: supplemental oxygen, DVT prophylaxis General: alert, oriented, cooperative, no acute distress Lungs: Crackles (fine crackles to L). No: Wheezing Cardiovascular: Regular Rate, Regular Rhythm, No Murmurs Extremities: no edema, normal pulses Psy/Mental Status: alert, normal affect, normal mood - Problem List & Annotations (1) Hypoxia SNOMED Code(s): 201397459, 403131664 Code(s): R09.02 - HYPOXEMIA Status: Acute Current Visit: Yes (2) Pneumonia SNOMED Code(s): 612313927 Code(s): J18.9 - PNEUMONIA, UNSPECIFIED ORGANISM Status: Acute Priority: High Current Visit: Yes Onset Date: 10/01/14 Annotation/Comment:: continue with current antibiotics. (3) COPD (chronic obstructive pulmonary disease) SNOMED Code(s): 23504509 Code(s): J44.9 - CHRONIC OBSTRUCTIVE PULMONARY DISEASE, UNSPECIFIED Status : Chronic Priority: High Current Visit: Yes Qualifiers: COPD type: COPD with acute lower respiratory infection Qualified Code(s): J44.0 - Chronic obstructive pulmonary disease with acute lower respiratory infection Annotation/Comment:: steroid and oxygen dependent, end-stage (4) Anemia SNOMED Code(s): 240654357 Code(s): D64.9 - ANEMIA, UNSPECIFIED Status: Chronic Current Visit: No Qualifiers: 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 Qualified Code(s): D50.0 - Iron deficiency anemia secondary to blood loss (chronic) (5) Afib SNOMED Code(s): 30917743 Code(s): I48.91 - UNSPECIFIED ATRIAL FIBRILLATION Status: Chronic Priority: Medium Current Visit: No Qualifiers: Atrial fibrillation type: chronic Qualified Code(s): I48.2 - Chronic atrial fibrillation (6) CHF (congestive heart failure) SNOMED Code(s): 82188569 Code(s): I50.9 - HEART FAILURE, UNSPECIFIED Status: Chronic Current Visit : No Qualifiers: Congestive heart failure type: diastolic Congestive heart failure chronicity: chronic Qualified Code(s): I50.32 - Chronic diastolic (congestive ) heart failure (7) Hx of carotid stenosis SNOMED Code(s): 823722424 Code(s): Z86.79 - PERSONAL HISTORY OF OTHER DISEASES OF THE CIRCULATORY SYSTEM Status: Chronic Current Visit: No Annotation/Comment:: R carotid stent (8) Hx of lower gastrointestinal bleeding SNOMED Code(s): 093355796798463 Code(s): Z87.19 - PERSONAL HISTORY OF OTHER DISEASES OF THE DIGESTIVE SYSTEM Status: Chronic Current Visit: No - Problem List Review Problem List Initiated/Reviewed/Updated: Yes - My Orders Last 24 Hours: My Active Orders 11/09/16 08:03 PT Evaluation and Treatment [CONS] Routine - Plan Plan:: This 76 year old male admitted with hypoxia and bibasilar pneumonia 1. Pneumonia: Discontinue Levaquin and Vancomycin. Sputum culture Staph aureus resistant to Levaquin. Will start Doxycycline 100 mg BID. Monitor today. 2.5-3 L NC L NC, which is baseline. Duonebs ordered. 2. Anemia: Hgb 11.5 today. stable. 3. Afib: Continue Diltiazem. 4. COPD: Stable Continue home inhalers and Prednisone. 5. CHF: Stable. Monitor fluid status closely. Daily weights. 6. Weakness: generalized, has been up ambulating to bathroom. Will have PT evaluate. Would recommend Home Health upon discharge. VTE Prophylaxis: SCDs only. Dispo: [facility] in am
[2016-11-09] MEDS: Diltiazem 120 MG Cap.CD PO SCH (08:47)
[2016-11-09] MEDS: Tamsulosin 0.4 MG Cap.ER PO SCH (08:47)
[2016-11-09] MEDS: Clotrimazole 1% Crm 30 GM Tube TOP SCH ×2 (08:48→20:54)
[2016-11-09] MEDS: Iron Polysaccharides Complex 150 MG Cap PO SCH ×2 (08:48→20:53)
[2016-11-09] MEDS: predniSONE 5 MG Tab PO SCH (08:49)
[2016-11-09] MEDS: BRILINTA 90 MG PO SCH ×2 (08:49→20:54)
[2016-11-09] MEDS: Doxycycline 100 MG Cap PO SCH ×2 (09:56→20:53)
--- NOTE | 2016-11-09 11:54 | CR ---
EXAMINATION: Portable chest radiograph. HISTORY: Increased effort of breathing. FINDINGS: The trachea is midline. The cardiomediastinal silhouette is within normal limits. Stable mild left b asilar atelectasis/infiltrate. No pleural effusion or pneumothorax. Chronic interstitial prominence is noted. Degenerative changes are noted within the shoulders bilaterally, right greater than left. IMPRESSION: Grossly stable left basilar atelectasis/infiltrate.
[2016-11-09] MEDS: Carboxymethylcellulose Sodium 0.5% Ophth Soln 0.4 ML UD Box of 30 EYEBOTH SCH (20:53)
[2016-11-10 05:27] LABS: CHLORIDE,CL 106 mmol/L (98-110); SODIUM,NA 141 mmol/L (136-146)
[2016-11-10] MEDS: Pantoprazole 40 MG Tab.CR PO SCH (06:46)
[2016-11-10] MEDS: Albuterol/Ipratropium 3.0-0.5 MG/3 ML Neb Soln NEB PRN (07:45)
[2016-11-10] MEDS: oxyCODONE 5 MG Tab PO PRN (08:01)
[2016-11-10] MEDS: Diltiazem 120 MG Cap.CD PO SCH (08:57)
[2016-11-10] MEDS: Iron Polysaccharides Complex 150 MG Cap PO SCH (08:59)
[2016-11-10] MEDS: Tamsulosin 0.4 MG Cap.ER PO SCH (08:59)
[2016-11-10] MEDS: BRILINTA 90 MG PO SCH (08:59)
[2016-11-10] MEDS: Doxycycline 100 MG Cap PO SCH (08:59)
[2016-11-10] MEDS: Clotrimazole 1% Crm 30 GM Tube TOP SCH (08:59)
[2016-11-10] MEDS: predniSONE 10 MG Tab PO SCH (08:59)
--- NOTE | 2016-11-10 09:42 | PCM.DCSUM1 ---
Discharge Summary - Hospital Course Brief History: This a 76 year old male with pmh of severe end stage COPD, oxygen dependent, steroid dependent, CHF, afib, hx of R carotid stent on Brillinta, recurrent GI bleeds and anmeai, recurrent aspiration penurmonia and Cdiff presented to the ED 11/04/2016 evening secondary to cough, sputum production, shortness of breath, wheezing and rhonchi. He was recently discharged on October 22, 2016 with pnuemonia and transfused during stay as well. The patient says that he is gotten worse since his discharge and he has been readmitted. 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 The patient has been in somewhat declining health over the past several months. Patient has denied any fever or chills. He however, has had increase in sputum production. He's denied dizziness or lightheadedness. The patient also had been taking antibiotics as an outpatient and he has continued to worsen. In the ED he was hypoxic initially. The patient has had some dizziness and lightheadedness associated with this also, he's been feeling weak and fatigued. CXR revealed grossly stable bibasilar infiltrates, Leukocytosis noted and anemia. - Discharge Data Discharge Date: 11/10/16 Discharge Disposition: Home, W Home Health Agency 06 Condition: Good - Discharge Diagnosis/Problem(s) (1) Hypoxia SNOMED Code(s): 325376796, 754174915 ICD Code: R09.02 - HYPOXEMIA Status: Acute Current Visit: Yes (2) Pneumonia SNOMED Code(s): 351068671 ICD Code: J18.9 - PNEUMONIA, UNSPECIFIED ORGANISM Status: Acute Priority : High Current Visit: Yes Onset Date: 10/01/14 Problem Details: continue with current antibiotics. (3) COPD (chronic obstructive pulmonary disease) SNOMED Code(s): 61010079 ICD Code: J44.9 - CHRONIC OBSTRUCTIVE PULMONARY DISEASE, UNSPECIFIED Status : Chronic Priority: High Current Visit: Yes Problem Details: steroid and oxygen dependent, end-stage Qualifiers: COPD type: COPD with acute lower respiratory infection Qualified Code(s): J44.0 - Chronic obstructive pulmonary disease with acute lower respiratory infection (4) Anemia SNOMED Code(s): 963849800 ICD Code: D64.9 - ANEMIA, UNSPECIFIED Status: Chronic Current Visit: No Qualifiers: 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 Qualified Code(s): D50.0 - Iron deficiency anemia secondary to blood loss (chronic) (5) Afib SNOMED Code(s): 26308914 ICD Code: I48.91 - UNSPECIFIED ATRIAL FIBRILLATION Status: Chronic Priority: Medium Current Visit: No Qualifiers: Atrial fibrillation type: chronic Qualified Code(s): I48.2 - Chronic atrial fibrillation (6) CHF (congestive heart failure) SNOMED Code(s): 66256365 ICD Code: I50.9 - HEART FAILURE, UNSPECIFIED Status: Chronic Current Visit: No Qualifiers: Congestive heart failure type: diastolic Congestive heart failure chronicity: chronic Qualified Code(s): I50.32 - Chronic diastolic (congestive ) heart failure (7) Hx of carotid stenosis SNOMED Code(s): 188675526 ICD Code: Z86.79 - PERSONAL HISTORY OF OTHER DISEASES OF THE CIRCULATORY SYSTEM Status: Chronic Current Visit: No Problem Details: R carotid stent (8) Hx of lower gastrointestinal bleeding SNOMED Code(s): 969914132661793 ICD Code: Z87.19 - PERSONAL HISTORY OF OTHER DISEASES OF THE DIGESTIVE SYSTEM Status: Chronic Current Visit: No - Patient Summary/Data Consults: Consultations 11/09/16 08:03 PT Evaluation and Treatment [CONS] Routine - Patient Instructions Diet: Regular Diet as Tolerated ([place] thickened liquids, no two consistency foods) Activity: As Tolerated Showering/Bathing: May Shower Notify Provider of: Fever, Increased Pain, Swelling and Redness, Drainage, Nausea and/or Vomiting - Discharge Plan Prescriptions/Med Rec: Doxycycline Calcium [IMW: Doxycycline] 100 mg PO Q12HR #7 capsule Home Medications: Home Meds Albuterol Sulfate [Proair Hfa] 2 puff IH QID PRN 06/14/16 [History] Albuterol/Ipratropium [DuoNeb 3.0-0.5 MG/3 ML] 3 ml NEB Q4H PRN 06/14/16 [ History] Bisacodyl [Dulcolax] 5 - 10 mg PO DAILY PRN 06/14/16 [History] Bisacodyl [Dulcolax] 10 mg RC DAILY PRN 06/14/16 [History] Budesonide/Formoterol Fumarate [Symbicort 160-4.5 Mcg Inhaler] 2 puff IH BID 01/21 [History] Diltiazem [Cardizem CD] 240 mg PO DAILY 06/14/16 [History] Hypromellose [Genteal Mild] 2 drop EYEBOTH BEDTIME 06/14/16 [History] Metoclopramide HCl [Reglan] 10 mg PO QIDACANDBED PRN 06/14/16 [History] Multivitamin [Multivitamins] 1 each PO DAILY 06/14/16 [History] Orphenadrine Citrate 100 mg PO Q12HR PRN 06/14/16 [History] Tamsulosin [Flomax] 0.4 mg PO PCBREAKFAST 06/14/16 [History] Acetaminophen [Tylenol] 500 mg PO Q4H PRN 06/15/16 [History] Albuterol Sulfate 2.5 mg IH Q6H PRN 06/15/16 [History] Pantoprazole [ProTONIX] 40 mg PO BIDAC 06/15/16 [History] Tiotropium [Spiriva HandiHaler] 18 mcg IH DAILY 06/15/16 [History] Iron Polysaccharides Complex [Ferrex 150] 150 mg PO BID cap 06/17/16 [Rx] Potassium Chloride 20 meq PO BID #30 tab.er.prt 06/26/16 [Rx] LORazepam 0.25 mg PO Q6H PRN 10/20/16 [History] Ticagrelor [Brilinta] 90 mg PO BID 10/20/16 [History] predniSONE [Prednisone] 10 mg PO ASDIRECTED #36 tablet 10/23/16 [Rx] Prednisone [IMW: Prednisone] 10 mg PO Q2D@0900 #0 11/04/16 [Rx] predniSONE 5 mg PO ASDIRECTED 11/04/16 [History] Clotrimazole [Lotrimin AF 1% Crm] 1 gm TOP BID tube 11/10/16 [Rx] Doxycycline Calcium [IMW: Doxycycline] 100 mg PO Q12HR #7 capsule 11/10/16 [Rx] Referrals: Adam Michel MD [Primary Care Provider] - 11/19/16 12:00 pm - Discharge Summary/Plan Comment DC Time >30 min.: No Discharge Summary/Plan Comment: Discharge Diagnoses; HCAP Symptomatic anemia secondary to recurrent GI bleed End stage COPd, oxygen and steroid dependent CAD Afib CHF Chronic back pain Ishmael was admitted and initially treated with Levaquin and Vancomycin IV while cultures were pending. Sputum culture returned with Staph aureus resistant to Levaquin. Vancomycin and Levaquin were discontinued and Doxycycline ordered. Leukocytosis improved and has remained WNL. During stay hgb dropped to 7.9 and he was ultimately transfused with a total of 3 units PRBCs, today Hgb 11.2, stable over last couple days. He has been weaned down to 2-2.5 L NC, baseline oxygen at home. He has remained on home dose of Prednisone. He is very eager for discharge today. 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 He and his daughter report trying very hard to keep with this diet and also staying away from two consistency foods. She reports even juicy strawberries cause him to cough. He will be discharged home with 3 more days of Doxycycline, which will be a total of 10 days treatment. He will resume Home Care as well upon discharge with Dr. Michel to follow up on plan of care. He is to follow up with Dr. Nika Michel in 1 week. - General Info Date of Service: 11/10/16 Admission Dx/Problem (Free Text: Admission Diagnosis/Problem Admission Diagnosis/Problem Hypoxia hypoxia, pneumonia, end-stage oxygen and steroid dependent COPD Subjective Update: Very eager for discharge today. Daughter Liat at bedside. He denies chest pain or worsening SOB. SOB is at baseline. Chronic back pain hurting, continues to cough up some phlegm but this is diminishing. Functional Status: Reports: pain controlled, tolerating diet, ambulating, urinating - Review of Systems General: Reports: No Symptoms. Denies: Fever HEENT: Reports: no symptoms. Denies: sinus congestion, sore throat Pulmonary: Reports: shortness of breath (at baseline), cough, sputum Cardiovascular: Reports: No Symptoms. Denies: Chest Pain, Palpitations, Edema Gastrointestinal: Reports: No symptoms, Flatus. Denies: Abdominal pain, Diarrhea, Nausea, Vomiting Genitourinary: Reports: no symptoms. Denies: dysuria, frequency, burning Musculoskeletal: Reports: back pain (chronic low back pain) Skin: Reports: no symptoms Neurological: Reports: No Symptoms Psychiatric: Reports: no symptoms - Patient Data Vitals - Most Recent: Last Vital Signs Temp 97.6 F 11/10/16 07:39 Pulse 92 11/10/16 08:57 Resp 20 11/10/16 07:39 BP 156/92 H 11/10/16 08:57 Pulse Ox 91 L 11/10/16 07:39 Weight - Most Recent: 63.5 kg I&O - Last 24 hours: Intake & Output 11/09/16 11/10/16 11/10/16 22:59 06:59 14:59 Intake Total 460 240 Output Total 600 805 Balance -140 -565 Lab Results - Last 24 hrs: Laboratory Results - last 24 hr 11/10/16 11/10/16 Range/Units 04:35 04:35 WBC 9.09 (4.0-11.0) K/uL RBC 3.73 L (4.50-5.90) M/uL Hgb 11.2 L (13.0-17.0) g/dL Hct 34.6 L (38.0-50.0) % MCV 92.8 (80.0-98.0) fL MCH 30.0 (27.0-32.0) pg MCHC 32.4 (31.0-37.0) g/dL RDW Std Deviation 54.8 (28.0-62.0) fl RDW Coeff of Mavis 16 H (11.0-15.0) % Plt Count 118 L (150-400) K/uL MPV 9.10 (7.40-12.00) fL Neut % (Auto) 84.6 H (48.0-80.0) % Lymph % (Auto) 6.9 L (16.0-40.0) % [place] % (Auto) 6.9 (0.0-15.0) % Eos % (Auto) 1.5 (0.0-7.0) % Baso % (Auto) 0.1 (0.0-1.5) % Neut # (Auto) 7.7 H (1.4-5.7) K/uL Lymph # (Auto) 0.6 (0.6-2.4) K/uL [place] # (Auto) 0.6 (0.0-0.8) K/uL Eos # (Auto) 0.1 (0.0-0.7) K/uL Baso # (Auto) 0.0 (0.0-0.1) K/uL Nucleated RBC % 0.0 /100WBC Nucleated RBCs # 0 K/uL Sodium 141 (136-146) mmol/L Potassium 3.5 (3.5-5.1) mmol/L Chloride 106 (98-110) mmol/L Carbon Dioxide 25 (21-31) mmol/L BUN 12 (6.0-23.0) mg/dL Creatinine 0.9 (0.6-1.5) mg/dL Est Cr Clr Drug Dosing 62.71 mL/min Estimated GFR (MDRD) > 60.0 ml/min Glucose 79 (60-110) mg/dL Calcium 8.5 L (8.8-10.8) mg/dL Med Orders - Current: Current Medications Acetaminophen (Tylenol) 650 mg PO Q6H PRN PRN Reason: pain Albuterol/Ipratropium (Duoneb 3.0-0.5 Mg/3 Ml) 3 ml NEB Q4HRRT PRN PRN Reason: Wheezing Last Admin: 11/10/16 07:45 Dose: 3 ml Artificial Tears (Refresh Plus 0.5%) 1 each EYEBOTH BEDTIME [facility] Last Admin: 11/09/16 20:53 Dose: 1 drop Clotrimazole (Lotrimin Af 1% Crm) 1 gm TOP BID [facility] Last Admin: 11/10/16 08:59 Dose: 1 applic Diltiazem HCl (Cardizem Cd) 240 mg PO DAILY [facility] Last Admin: 11/10/16 08:57 Dose: 240 mg Doxycycline Hyclate (Vibramycin) 100 mg PO Q12HR [facility] Last Admin: 11/10/16 08:59 Dose: 100 mg Lorazepam (Ativan) 0.25 mg PO Q6H PRN PRN Reason: Anxiety Oxycodone HCl (Oxycodone) 5 mg PO Q4H PRN PRN Reason: pain Last Admin: 11/10/16 08:01 Dose: 5 mg Pantoprazole Sodium (Protonix) 40 mg PO BIDAC [facility] Last Admin: 11/10/16 06:46 Dose: 40 mg Orphenadrine 100 Mg 1 each PO Q12HR PRN PRN Reason: Pain Brilinta 90 Mg 1 each PO BID [facility] Last Admin: 11/10/16 08:59 Dose: 1 each Polysaccharide Iron Complex (Ferrex 150) 150 mg PO BID [facility] Last Admin: 11/10/16 08:59 Dose: 150 mg Prednisone (Prednisone) 10 mg PO Q2D@0900 [facility] Last Admin: 11/10/16 08:59 Dose: 10 mg Prednisone (Prednisone) 5 mg PO Q2D@0900 [facility] Last Admin: 11/09/16 08:49 Dose: 5 mg Tamsulosin HCl (Flomax) 0.4 mg PO PCBREAKFAST [facility] Last Admin: 11/10/16 08:59 Dose: 0.4 mg Discontinued Medications Albuterol/Ipratropium (Duoneb 3.0-0.5 Mg/3 Ml) 3 ml NEB ONETIME ONE Stop: 11/04/16 21:09 Last Admin: 11/04/16 21:16 Dose: 3 ml Furosemide (Lasix) 20 mg IVPUSH ONCALL ONE Stop: 11/06/16 08:34 Last Admin: 11/06/16 13:11 Dose: 20 mg Furosemide (Lasix) 20 mg IVPUSH ONCALL ONE Stop: 11/06/16 13:16 Last Admin: 11/06/16 13:31 Dose: Not Given Sodium Chloride (Normal Saline) 1,000 mls @ 125 mls/hr IV STAT [facility] Last Admin: 11/04/16 21:15 Dose: 125 mls/hr Levofloxacin/Dextrose 500 mg/ (Premix) 100 mls @ 100 mls/hr IV ONETIME ONE Stop: 11/04/16 22:37 Last Admin: 11/04/16 21:42 Dose: 100 mls/hr Sodium Chloride (Normal Saline) 1,000 mls @ 125 mls/hr IV ASDIRECTED [facility] Last Admin: 11/06/16 03:02 Dose: 125 mls/hr Levofloxacin/Dextrose 500 mg/ (Premix) 100 mls @ 100 mls/hr IV Q24H [facility] Last Admin: 11/08/16 21:18 Dose: 100 mls/hr Vancomycin HCl 1 gm/ Sodium (Chloride) 250 mls @ 166 mls/hr IV Q24H [facility] Last Admin: 11/04/16 23:59 Dose: 166 mls/hr Vancomycin HCl 1 gm/ Sodium (Chloride) 250 mls @ 166 mls/hr IV Q12H [facility] Last Admin: 11/08/16 12:40 Dose: Not Given Magnesium Sulfate 2 gm/ Premix 50 mls @ 50 mls/hr IV ONETIME ONE Stop: 11/06/16 13:45 Last Admin: 11/06/16 15:27 Dose: 50 mls/hr Vancomycin HCl 1 gm/ Sodium (Chloride) 250 mls @ 166.667 mls/hr IV Q16H [facility] Last Admin: 11/09/16 06:20 Dose: 166.667 mls/hr Magnesium Sulfate 2 gm/ Premix 50 mls @ 50 mls/hr IV ONETIME ONE Stop: 11/08/16 16:05 Last Admin: 11/08/16 16:53 Dose: 50 mls/hr Methylprednisolone Sodium Succinate (Solu-Medrol) 125 mg IVPUSH ONETIME ONE Stop: 11/04/16 21:09 Last Admin: 11/04/16 21:15 Dose: 125 mg Prednisone (Prednisone) 10 mg PO Q2D@0900 [facility] Last Admin: 11/05/16 10:15 Dose: Not Given Vancomycin HCl (Pharmacy To Dose - Vancomycin) 1 dose .XX ASDIRECTED [facility] - Exam Quality Assessment: Reports: supplemental oxygen General: Reports: alert, oriented, cooperative, no acute distress Neck: Reports: supple Lungs: Reports: Clear to auscultation, Normal respiratory effort Cardiovascular: Reports: Regular Rate, Regular Rhythm Abdomen: Reports: bowel sounds present, soft, no tenderness, no distension Extremities: Reports: no edema, normal pulses Skin: Reports: ecchymosis (bruising at various stages of healing noted to bilateral arms) Psy/Mental Status: Reports: alert, normal affect, normal mood *Q Meaningful Use (DIS) - VTE *Q VTE Criteria *Q: VTE Mechanical Contraindications *Q: At Risk for Falls - Stroke *Q Stroke Criteria *Q: - AMI *Q AMI Criteria *Q:
[2016-11-10 11:37] VITALS: BP 113/53
== END 2016-11-10 11:50 | disposition home health service (06) | DRG 190 ==
LOC: MW.ED 21:05 → MW.MS 22:17
PROVIDERS: ADMIT Internal Medicine; ATTEND Internal Medicine
DX: J44.1 Chronic obstructive pulmonary disease with (acute) exacerbation (principal); J44.0 Chronic obstructive pulmonary disease with (acute) lower respiratory infection; I48.91 Unspecified atrial fibrillation; J18.9 Pneumonia, unspecified organism; I50.9 Heart failure, unspecified; E78.00 Pure hypercholesterolemia, unspecified; I10 Essential (primary) hypertension; J44.9 Chronic obstructive pulmonary disease, unspecified; Z86.73 Personal history of transient ischemic attack (TIA), and cerebral infarction without residual deficits; I50.32 Chronic diastolic (congestive) heart failure; R09.02 Hypoxemia; D50.0 Iron deficiency anemia secondary to blood loss (chronic); I48.2 Chronic atrial fibrillation; I11.0 Hypertensive heart disease with heart failure; M54.9 Dorsalgia, unspecified; I25.10 Atherosclerotic heart disease of native coronary artery without angina pectoris; G89.29 Other chronic pain; Z86.79 Personal history of other diseases of the circulatory system; Z87.19 Personal history of other diseases of the digestive system; Z79.899 Other long term (current) drug therapy; Z99.81 Dependence on supplemental oxygen; Z79.52 Long term (current) use of systemic steroids; Z95.5 Presence of coronary angioplasty implant and graft; Z87.891 Personal history of nicotine dependence
CPT/HCPCS: 71010; 80053; 81001; 82550; 82553; 83880; 84484; 85025; 93005; 96365; 96375; 99285; J1956; J2930; J7040; 36415; 36430; 80048; 80202; 83735; 86850; 86900; 86901; 86920; 86921; 86922; 87070; 87077; 87186; 87205; 94640; 97161-GP; A9270-GY; J3370; J3475; J7050; P9016

== ENCOUNTER 2016-11-15 11:49 | Inpatient (IN) | payer MEDICARE ==
--- NOTE | 2016-11-15 12:19 | EDM.PDOC ---
ED HPI GENERAL MEDICAL PROBLEM - General Chief Complaint: Respiratory Problem Stated Complaint: BACK PAIN/SHORT OF BREATH Time Seen by Provider: 11/15/16 11:57 Source of Information: Reports: Patient History Limitations: Reports: No Limitations - History of Present Illness INITIAL COMMENTS - FREE TEXT/NARRATIVE: History of present illness: []Patient presents with shortness of breath and abdominal pain with one-day history of vomiting. 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 Oxygen and steroid dependent. Patient has been constipated and only able to pass a few small hard stools. His belly is distended Review of systems: As per history of present illness and below otherwise all systems reviewed and negative. Past medical history: As per history of present illness and as reviewed below otherwise noncontributory. Surgical history: As per history of present illness and as reviewed below otherwise noncontributory. Social history: No reported history of drug or alcohol abuse. Family history: As per history of present illness and as reviewed below otherwise noncontributory. Physical exam: General: Well developed, well nourished in NAD HEENT: Atraumatic, normocephalic, pupils reactive, negative for conjunctival pallor or scleral icterus, mucous membranes moist, throat clear, neck supple, nontender, trachea midline. Lungs: Clear to auscultation, breath sounds equal bilaterally, chest nontender. Heart: S1S2, regular, negative for clicks, rubs, or JVD. Abdomen: Tinkling bowel sounds, tympanitic to percussion, Soft, distended, diffuse tenderness without rebound or guarding. Negative for masses or hepatosplenomegaly. Negative for costovertebral tenderness. Pelvis: Stable nontender. Genitourinary: Deferred. Rectal: Deferred. Extremities: Atraumatic, negative for cords or calf pain. Neurovascular unremarkable. Neuro: Awake, alert, oriented. Cranial nerves II through XII unremarkable. Cerebellum unremarkable. Motor and sensory unremarkable throughout. Exam nonfocal. Diagnostics: []Labs show an elevated white count 19,000, CT shows a colitis with a large bowel obstruction Therapeutics: []Patient was hydrated given pain medicines DuoNeb was also given for chronic shortness of breath he was placed his usual oxygen. Impression: []Large bowel obstruction, chronic end-stage COPD Plan: []Admitted hydration and comfort care as he is on hospice. Definitive disposition and diagnosis as appropriate pending reevaluation and review of above. back Pain Score (Numeric/FACES): 7 - Related Data Allergies Allergy/AdvReac Type Severity Reaction Status Date / Time No Known Allergies Allergy Verified 11/15/16 12:04 Home Meds: Home Meds Albuterol Sulfate [Proair Hfa] 2 puff IH QID PRN 06/14/16 [History] Albuterol/Ipratropium [DuoNeb 3.0-0.5 MG/3 ML] 3 ml NEB Q4H PRN 06/14/16 [ History] Bisacodyl [Dulcolax] 5 - 10 mg PO DAILY PRN 06/14/16 [History] Bisacodyl [Dulcolax] 10 mg RC DAILY PRN 06/14/16 [History] Budesonide/Formoterol Fumarate [Symbicort 160-4.5 Mcg Inhaler] 2 puff IH BID 01/21 [History] Diltiazem [Cardizem CD] 240 mg PO DAILY 06/14/16 [History] Hypromellose [Genteal Mild] 2 drop EYEBOTH BEDTIME 06/14/16 [History] Metoclopramide HCl [Reglan] 10 mg PO QIDACANDBED PRN 06/14/16 [History] Multivitamin [Multivitamins] 1 each PO DAILY 06/14/16 [History] Orphenadrine Citrate 100 mg PO Q12HR PRN 06/14/16 [History] Tamsulosin [Flomax] 0.4 mg PO PCBREAKFAST 06/14/16 [History] Acetaminophen [Tylenol] 500 mg PO Q4H PRN 06/15/16 [History] Albuterol Sulfate 2.5 mg IH Q6H PRN 06/15/16 [History] Pantoprazole [ProTONIX] 40 mg PO BIDAC 06/15/16 [History] Tiotropium [Spiriva HandiHaler] 18 mcg IH DAILY 06/15/16 [History] Iron Polysaccharides Complex [Ferrex 150] 150 mg PO BID cap 06/17/16 [Rx] Potassium Chloride 20 meq PO BID #30 tab.er.prt 06/26/16 [Rx] LORazepam 0.25 mg PO Q6H PRN 10/20/16 [History] Ticagrelor [Brilinta] 90 mg PO BID 10/20/16 [History] predniSONE [Prednisone] 10 mg PO ASDIRECTED #36 tablet 10/23/16 [Rx] Prednisone [IMW: Prednisone] 10 mg PO Q2D@0900 #0 11/04/16 [Rx] predniSONE 5 mg PO ASDIRECTED 11/04/16 [History] Clotrimazole [Lotrimin AF 1% Crm] 1 gm TOP BID tube 11/10/16 [Rx] Doxycycline Calcium [IMW: Doxycycline] 100 mg PO Q12HR #7 capsule 11/10/16 [Rx] Past Medical History HEENT History: Reports: Cataract Other HEENT History: glasses Cardiovascular History: Reports: Afib, CAD, Heart Failure, High Cholesterol, Hypertension, Stents Respiratory History: Reports: COPD, Pneumonia, Recurrent, Pneumothorax, SOB, Other (See Below) Other Respiratory History: chronic respiratory failure with hypoxia Gastrointestinal History: Reports: GI Bleed Other Gastrointestinal History: GI Bleed. Ileus Genitourinary History: Reports: None Musculoskeletal History: Reports: Other (See Below) Other Musculoskeletal History: Back Problem Neurological History: Reports: TIA Psychiatric History: Reports: None Endocrine/Metabolic History: Reports: None Hematologic History: Reports: Anemia Immunologic History: Reports: None Oncologic (Cancer) History: Reports: Other (See Below) Other Oncologic History: throat Dermatologic History: Reports: None - Infectious Disease History Infectious Disease History: Reports: Chicken Pox, Measles, Mumps Other Infectious Disease History: clear for MRSA per patient - Past Surgical History Head Surgeries/Procedures: Reports: None HEENT Surgical History: Reports: None Cardiovascular Surgical History: Reports: Coronary Artery Stent, Carotid Stents GI Surgical History: Reports: Other (See Below) Male Surgical History: Reports: None Endocrine Surgical History: Reports: None Neurological Surgical History: Reports: None Dermatological Surgical History: Reports: None Social & Family History - Family History Family Medical History: Noncontributory HEENT: Reports: None Cardiac: Reports: Hypertension Other Cardiac Family History: Father, Mother Respiratory: Reports: None GI: Reports: GI bleed : Reports: None OBGYN: Reports: Musculoskeletal: Reports: Arthritis Neurological: Reports: None Psychiatric: Reports: None Endocrine/Metabolic: Reports: Diabetes, type II Hematologic: Reports: None Immunologic: Reports: None Dermatologic: Reports: None Oncologic: Reports: Prostate - Tobacco Use Smoking Status *Q: Former Smoker Years of Tobacco use: 50 Packs/Tins Daily: 4 Used Tobacco, but Quit: Yes Month Tobacco Last Used: 5 years Second Hand Smoke Exposure: No - Caffeine Use Caffeine Use: Reports: Coffee Caffeine Use Comment: 3 cups daily - Alcohol Use Days Per Week of Alcohol Use: 2 Number of Drinks Per Day: 2 Total Drinks Per Week: 4 - Recreational Drug Use Recreational Drug Use: No Drug Use in Last 12 Months: No ED ROS GENERAL - Review of Systems Review Of Systems: See Below (See history of present illness) ED EXAM, GENERAL - Physical Exam Exam: See Below (See history of present illness) Course - Vital Signs Last Recorded V/S: Last Vital Signs Temp 36.4 C 11/15/16 12:05 Pulse 86 11/15/16 14:21 Resp 18 11/15/16 14:21 BP 140/68 11/15/16 14:21 Pulse Ox 93 L 11/15/16 14:21 - Orders/Labs/Meds Orders: Active Orders 24 hr Category Date Time Status Patient Status [ADT] Stat ADT 11/15/16 15:06 Active RT Aerosol Therapy [RC] ASDIRECTED Care 11/15/16 12:24 Active Abdomen Pelvis w Cont [CT] Stat Exams 11/15/16 12:24 Taken Chest 1V Frontal [CR] Stat Exams 11/15/16 12:22 Taken UA W/MICROSCOPIC [URIN] Stat Lab 11/15/16 14:50 Results Nasogastric Orogastric Tube Insertion [OM.PC] Stat Oth 11/15/16 13:55 Ordered Saline Lock Insert [OM.PC] Stat Oth 11/15/16 12:21 Ordered Labs: Laboratory Tests 11/15/16 11/15/16 11/15/16 Range/Units 12:42 12:42 12:42 WBC 19.61 H (4.0-11.0) K/uL RBC 4.41 L (4.50-5.90) M/uL Hgb 13.3 (13.0-17.0) g/dL Hct 41.3 (38.0-50.0) % MCV 93.7 (80.0-98.0) fL MCH 30.2 (27.0-32.0) pg MCHC 32.2 (31.0-37.0) g/dL RDW Std Deviation 54.7 (28.0-62.0) fl RDW Coeff of Mavis 16 H (11.0-15.0) % Plt Count 170 (150-400) K/uL MPV 9.00 (7.40-12.00) fL Add Manual Diff YES Neutrophils % (Manual) 87 H (48.0-80.0) % Band Neutrophils % 5 % Lymphocytes % (Manual) 7 L (16.0-40.0) % Monocytes % (Manual) 1 (0.0-15.0) % Nucleated RBC % 0.0 /100WBC Absolute Seg Neuts 17.1 Band Neutrophils # 1.0 Lymphocytes # (Manual) 1.4 Monocytes # (Manual) 0.2 Nucleated RBCs # 0 K/uL Lactate 1.6 (0.20-2.00) mmol/L Sodium 140 (136-146) mmol/L Potassium 4.9 (3.5-5.1) mmol/L Chloride 106 (98-110) mmol/L Carbon Dioxide 22 (21-31) mmol/L BUN 27 H (6.0-23.0) mg/dL Creatinine 1.4 (0.6-1.5) mg/dL Est Cr Clr Drug Dosing 39.75 mL/min Estimated GFR (MDRD) 49.1 ml/min Glucose 143 H (60-110) mg/dL Calcium 9.1 (8.8-10.8) mg/dL Total Bilirubin 0.8 (0.1-1.5) mg/dL AST 12 (5-40) IU/L ALT 19 (8-54) IU/L Alkaline Phosphatase 92 (40-150) Total Protein 6.2 (6.0-8.0) g/dL Albumin 3.6 (3.4-4.8) g/dL Globulin 2.6 (2.0-3.5) g/dL Albumin/Globulin Ratio 1.4 (1.3-2.8) Urine Color Urine Appearance Urine pH (5.0-8.0) Ur Specific [place] (1.001-1.035) Urine Protein (NEGATIVE) mg/dL Urine Glucose (UA) (NEGATIVE) mg/dL Urine Ketones (NEGATIVE) mg/dL Urine Occult Blood (NEGATIVE) Urine Nitrite (NEGATIVE) Urine Bilirubin (NEGATIVE) Urine Urobilinogen (<2.0) EU/dL Ur Leukocyte Esterase (NEGATIVE) 11/15/16 Range/Units 14:50 WBC (4.0-11.0) K/uL RBC (4.50-5.90) M/uL Hgb (13.0-17.0) g/dL Hct (38.0-50.0) % MCV (80.0-98.0) fL MCH (27.0-32.0) pg MCHC (31.0-37.0) g/dL RDW Std Deviation (28.0-62.0) fl RDW Coeff of Mavis (11.0-15.0) % Plt Count (150-400) K/uL MPV (7.40-12.00) fL Add Manual Diff Neutrophils % (Manual) (48.0-80.0) % Band Neutrophils % % Lymphocytes % (Manual) (16.0-40.0) % Monocytes % (Manual) (0.0-15.0) % Nucleated RBC % /100WBC Absolute Seg Neuts Band Neutrophils # Lymphocytes # (Manual) Monocytes # (Manual) Nucleated RBCs # K/uL Lactate (0.20-2.00) mmol/L Sodium (136-146) mmol/L Potassium (3.5-5.1) mmol/L Chloride (98-110) mmol/L Carbon Dioxide (21-31) mmol/L BUN (6.0-23.0) mg/dL Creatinine (0.6-1.5) mg/dL Est Cr Clr Drug Dosing mL/min Estimated GFR (MDRD) ml/min Glucose (60-110) mg/dL Calcium (8.8-10.8) mg/dL Total Bilirubin (0.1-1.5) mg/dL AST (5-40) IU/L ALT (8-54) IU/L Alkaline Phosphatase (40-150) Total Protein (6.0-8.0) g/dL Albumin (3.4-4.8) g/dL Globulin (2.0-3.5) g/dL Albumin/Globulin Ratio (1.3-2.8) Urine Color YELLOW Urine Appearance CLEAR Urine pH 5.5 (5.0-8.0) Ur Specific [place] 1.010 (1.001-1.035) Urine Protein NEGATIVE (NEGATIVE) mg/dL Urine Glucose (UA) NEGATIVE (NEGATIVE) mg/dL Urine Ketones TRACE H (NEGATIVE) mg/dL Urine Occult Blood TRACE-INTACT (NEGATIVE) Urine Nitrite NEGATIVE (NEGATIVE) Urine Bilirubin NEGATIVE (NEGATIVE) Urine Urobilinogen 0.2 (<2.0) EU/dL Ur Leukocyte Esterase NEGATIVE (NEGATIVE) Meds: Medications Discontinued Medications Generic Name Dose Route Start Last Admin Trade Name Freq PRN Reason Stop Dose Admin Albuterol/Ipratropium 3 ml 11/15/16 12:24 11/15/16 12:58 Duoneb 3.0-0.5 Mg/3 Ml NEB 11/15/16 12:25 3 ml ONETIME ONE Administration Sodium Chloride 1,000 mls @ 999 mls/hr 11/15/16 12:22 11/15/16 12:57 Normal Saline IV 11/15/16 13:22 999 mls/hr .Bolus ONE Administration Iopamidol 95 ml 11/15/16 13:53 11/15/16 13:55 Isovue-370 (76%) IVPUSH 11/15/16 13:54 95 ml ONETIME STA Administration Departure - Departure Time of Disposition: 15:35 Disposition: Admitted As Inpatient 65 Condition: fair Clinical Impression: End stage COPD, Large bowel obstruction - Discharge Information Forms: ED Department Discharge - My Orders Last 24 Hours: My Active Orders 11/15/16 12:21 Saline Lock Insert [OM.PC] Stat 11/15/16 12:22 Chest 1V Frontal [CR] Stat 11/15/16 12:24 RT Aerosol Therapy [RC] ASDIRECTED Abdomen Pelvis w Cont [CT] Stat 11/15/16 13:55 Nasogastric Orogastric Tube Insertion [OM.PC] Stat 11/15/16 14:50 UA W/MICROSCOPIC [URIN] Stat 11/15/16 15:06 Patient Status [ADT] Stat - Assessment/Plan Last 24 Hours: My Active Orders 11/15/16 12:21 Saline Lock Insert [OM.PC] Stat 11/15/16 12:22 Chest 1V Frontal [CR] Stat 11/15/16 12:24 RT Aerosol Therapy [RC] ASDIRECTED Abdomen Pelvis w Cont [CT] Stat 11/15/16 13:55 Nasogastric Orogastric Tube Insertion [OM.PC] Stat 11/15/16 14:50 UA W/MICROSCOPIC [URIN] Stat 11/15/16 15:06 Patient Status [ADT] Stat
[2016-11-15] MEDS ORDERED: Sodium Chloride 0.9% 1,000 ML IV ONE (12:22)
[2016-11-15] MEDS ORDERED: Albuterol/Ipratropium 3.0-0.5 MG/3 ML Neb Soln NEB ONE (12:24)
[2016-11-15] MEDS ORDERED: Iopamidol 755 Mg/ML 100 ML Bottle IVPUSH STA (13:53)
--- NOTE | 2016-11-15 16:03 | PCM.CONS ---
H&P History of Present Illness - General Date of Service: 11/15/16 Admit Problem/Dx: Admission Diagnosis/Problem Admission Diagnosis/Problem Obstruction of colon Source of Information: Patient, Family History Limitations: Reports: No Limitations - History of Present Illness Initial Comments - Free Text/Narative: Patient is a 76yo male with CHF, severe COPD, history of esophageal cancer, and a chronic GI bleed, who was recently discharged from the hospital last Wednesday for pneumonia. He presents today with abdominal distension, nausea and vomiting. Since discharge he has been having trouble having a bowel movements. They have been trying enemas, prune juice and OTC stool softners with only small grainy appearing BMs. Last evening he started having increased abominal distension and vomting. He denies fevers, chills, but complains of some increased shortness of breath. He denies chest pain. CT of the abdomen pelvis shows the following; 1. Colitis involving a focal segment of the distal transverse colon and splenic flexure with dilatation of the colon proximal to the area of inflammation. 2. Large amount of stool distending the rectum. 3. Bilateral renal cysts larger on the left. 4. Old lower thoracic and mid lumbar vertebral body compressions. back Pain Score (Numeric/FACES): 7 - Related Data Allergies/Adverse Reactions: Allergies Allergy/AdvReac Type Severity Reaction Status Date / Time No Known Allergies Allergy Verified 11/15/16 12:04 Home Medications: Home Meds Albuterol Sulfate [Proair Hfa] 2 puff IH QID PRN 06/14/16 [History] Albuterol/Ipratropium [DuoNeb 3.0-0.5 MG/3 ML] 3 ml NEB Q4H PRN 06/14/16 [ History] Bisacodyl [Dulcolax] 5 - 10 mg PO DAILY PRN 06/14/16 [History] Bisacodyl [Dulcolax] 10 mg RC DAILY PRN 06/14/16 [History] Budesonide/Formoterol Fumarate [Symbicort 160-4.5 Mcg Inhaler] 2 puff IH BID 01/21 [History] Diltiazem [Cardizem CD] 240 mg PO DAILY 06/14/16 [History] Hypromellose [Genteal Mild] 2 drop EYEBOTH BEDTIME 06/14/16 [History] Metoclopramide HCl [Reglan] 10 mg PO QIDACANDBED PRN 06/14/16 [History] Multivitamin [Multivitamins] 1 each PO DAILY 06/14/16 [History] Orphenadrine Citrate 100 mg PO Q12HR PRN 06/14/16 [History] Tamsulosin [Flomax] 0.4 mg PO PCBREAKFAST 06/14/16 [History] Acetaminophen [Tylenol] 500 mg PO Q4H PRN 06/15/16 [History] Albuterol Sulfate 2.5 mg IH Q6H PRN 06/15/16 [History] Pantoprazole [ProTONIX] 40 mg PO BIDAC 06/15/16 [History] Tiotropium [Spiriva HandiHaler] 18 mcg IH DAILY 06/15/16 [History] Iron Polysaccharides Complex [Ferrex 150] 150 mg PO BID cap 06/17/16 [Rx] Potassium Chloride 20 meq PO BID #30 tab.er.prt 06/26/16 [Rx] LORazepam 0.25 mg PO Q6H PRN 10/20/16 [History] Ticagrelor [Brilinta] 90 mg PO BID 10/20/16 [History] predniSONE [Prednisone] 10 mg PO ASDIRECTED #36 tablet 10/23/16 [Rx] Prednisone [IMW: Prednisone] 10 mg PO Q2D@0900 #0 11/04/16 [Rx] predniSONE 5 mg PO ASDIRECTED 11/04/16 [History] Clotrimazole [Lotrimin AF 1% Crm] 1 gm TOP BID tube 11/10/16 [Rx] Doxycycline Calcium [IMW: Doxycycline] 100 mg PO Q12HR #7 capsule 11/10/16 [Rx] Past Medical History HEENT History: Reports: Cataract Other HEENT History: glasses Cardiovascular History: Reports: Afib, CAD, Heart Failure, High Cholesterol, Hypertension, Stents Respiratory History: Reports: COPD, Pneumonia, Recurrent, Pneumothorax, SOB, Other (See Below) Other Respiratory History: chronic respiratory failure with hypoxia Gastrointestinal History: Reports: GI Bleed, Other (See Below) (Esophageal cancer) Other Gastrointestinal History: GI Bleed. Ileus Genitourinary History: Reports: None Musculoskeletal History: Reports: Other (See Below) Other Musculoskeletal History: Back Problem Neurological History: Reports: TIA Psychiatric History: Reports: None Endocrine/Metabolic History: Reports: None Hematologic History: Reports: Anemia Immunologic History: Reports: None Oncologic (Cancer) History: Reports: Other (See Below) Other Oncologic History: throat Dermatologic History: Reports: None - Infectious Disease History Infectious Disease History: Reports: Chicken Pox, Measles, Mumps Other Infectious Disease History: clear for MRSA per patient - Past Surgical History Head Surgeries/Procedures: Reports: None HEENT Surgical History: Reports: None Cardiovascular Surgical History: Reports: Coronary Artery Stent, Carotid Stents GI Surgical History: Reports: Other (See Below) Male Surgical History: Reports: None Endocrine Surgical History: Reports: None Neurological Surgical History: Reports: None Dermatological Surgical History: Reports: None Social & Family History - Family History Family Medical History: Noncontributory HEENT: Reports: None Cardiac: Reports: Hypertension Other Cardiac Family History: Father, Mother Respiratory: Reports: None GI: Reports: GI bleed : Reports: None OBGYN: Reports: Musculoskeletal: Reports: Arthritis Neurological: Reports: None Psychiatric: Reports: None Endocrine/Metabolic: Reports: Diabetes, type II Hematologic: Reports: None Immunologic: Reports: None Dermatologic: Reports: None Oncologic: Reports: Prostate - Tobacco Use Smoking Status *Q: Former Smoker Years of Tobacco use: 50 Packs/Tins Daily: 4 Used Tobacco, but Quit: Yes Month Tobacco Last Used: 5 years Second Hand Smoke Exposure: No - Caffeine Use Caffeine Use: Reports: Coffee Caffeine Use Comment: 3 cups daily - Alcohol Use Days Per Week of Alcohol Use: 2 Number of Drinks Per Day: 2 Total Drinks Per Week: 4 - Recreational Drug Use Recreational Drug Use: No Drug Use in Last 12 Months: No H&P Review of Systems - Review of Systems: Review Of Systems: See Below General: Reports: Malaise, Weakness. Denies: Fever, Chills, Night Sweats, Diaphoresis HEENT: Reports: No Symptoms Pulmonary: Reports: Shortness of Breath (mild) Cardiovascular: Reports: No Symptoms Gastrointestinal: Reports: Black Stool, Constipation, Distension, Melena, Nausea , Vomiting Musculoskeletal: Reports: No Symptoms Skin: Reports: No Symptoms Exam - Exam Exam: See Below - Vital Signs Vital Signs: Last Vital Signs Temp 36.4 C 11/15/16 12:05 Pulse 86 11/15/16 14:21 Resp 18 11/15/16 14:21 BP 140/68 11/15/16 14:21 Pulse Ox 93 L 11/15/16 14:21 Weight: 63.6 kg - Exam General: Alert, Oriented, Cooperative HEENT: Conjunctiva Clear, EACs Clear, Nares Patent, Other (mucous membranes dry) . No: Mucosa Moist & [place] Lungs: Normal Respiratory Effort, Decreased Breath Sounds (to bilateral bases) Cardiovascular: Regular Rate, Regular Rhythm Abdomen: Soft, Distention. No: Peritoneal Signs, Guarding, Rigidity, Rebound, Tenderness Rectal (Males) Exam: Black Stool, Other (There is stool in the rectal vault that is soft. He has a stage 2 pressure ulcer on the right buttock). No: Fecal Impaction Back Exam: Normal Inspection Extremities: Other (Multiple areas of bruising. Thin skin. No edema. 1+ pulses in bilateral arms (radial) and legs (DP)) - Patient Data Lab Results last 24 hrs: Laboratory Results - last 24 hr 11/15/16 Range/Units 14:50 Urine Color YELLOW Urine Appearance CLEAR Urine pH 5.5 (5.0-8.0) Ur Specific [place] 1.010 (1.001-1.035) Urine Protein NEGATIVE (NEGATIVE) mg/dL Urine Glucose (UA) NEGATIVE (NEGATIVE) mg/dL Urine Ketones TRACE H (NEGATIVE) mg/dL Urine Occult Blood TRACE-INTACT (NEGATIVE) Urine Nitrite NEGATIVE (NEGATIVE) Urine Bilirubin NEGATIVE (NEGATIVE) Urine Urobilinogen 0.2 (<2.0) EU/dL Ur Leukocyte Esterase NEGATIVE (NEGATIVE) Urine RBC 1-3 (0-2/HPF) Urine WBC 3-6 (0-5/HPF) Ur Epithelial Cells RARE (NONE-FEW) Calcium Oxalate Crystal MODERATE (NEGATIVE) Urine Bacteria FEW (NEGATIVE) Result Diagrams: 11/15/16 12:42 11/15/16 12:42 Consult PN Assessment/Plan Procedures: Procedures AEROSOL INHALATION TREATMENT (06/23/16) AIRWAY INHALATION TREATMENT (11/04/16) ASSAY OF AMYLASE (09/02/16) ASSAY OF CK (CPK) (11/04/16) ASSAY OF FERRITIN (07/04/16) ASSAY OF LACTIC ACID (08/08/16) ASSAY OF LIPASE (09/02/16) ASSAY OF MAGNESIUM (11/04/16) ASSAY OF NATRIURETIC PEPTIDE (11/04/16) ASSAY OF PHOSPHORUS (01/18/15) ASSAY OF TROPONIN QUANT (11/04/16) ASSAY OF VANCOMYCIN (11/04/16) AUTOMATED RETICULOCYTE COUNT (07/04/16) BLOOD CULTURE FOR BACTERIA (10/20/16) BLOOD GASES ANY COMBINATION (06/23/16) BLOOD TRANSFUSION SERVICE (11/04/16) BLOOD TYPING SEROLOGIC ABO (11/04/16) BLOOD TYPING SEROLOGIC RH(D) (11/04/16) C-REACTIVE PROTEIN (03/03/16) CHEST X-RAY 1 VIEW FRONTAL (11/04/16) CHEST X-RAY 2VW FRONTAL&LATL (10/20/16) CINE/VID X-RAY THROAT/ESOPH (06/23/16) CLOSTRIDIUM AG IA (07/04/16) CO/[place] DIFFUSE CAPACITY (06/21/14) COLONOSCOPY AND BIOPSY (02/01/14) COLONOSCOPY W/LESION REMOVAL (02/01/14) COMPATIBILITY TEST ANTIGLOB (11/04/16) COMPATIBILITY TEST INCUBATE (11/04/16) COMPATIBILITY TEST SPIN (11/04/16) COMPLETE CBC AUTOMATED (11/04/16) COMPLETE CBC W/AUTO DIFF WBC (11/04/16) COMPREHEN METABOLIC PANEL (11/04/16) CREATINE MB FRACTION (11/04/16) CT ABD & PELV 1/> REGNS (04/03/16) CT ABD & PELV W/CONTRAST (06/14/16) CT ABD & PELVIS W/O CONTRAST (08/08/16) CT ANGIOGRAPHY CHEST (05/05/16) CT HEAD/BRAIN W/O DYE (05/05/16) CT THORAX W/O DYE (04/03/16) CULTURE AEROBIC IDENTIFY (11/04/16) CULTURE OTHR SPECIMN AEROBIC (11/04/16) CULTURE SCREEN ONLY (03/11/16) EGD BIOPSY SINGLE/MULTIPLE (02/01/14) ELECTROCARDIOGRAM TRACING (11/04/16) EMERGENCY DEPT VISIT (11/04/16) EMERGENCY DEPT VISIT (05/30/16) EMERGENCY DEPT VISIT (05/19/16) EMERGENCY DEPT VISIT (06/02/14) EMERGENCY DEPT VISIT (06/02/14) EMERGENCY DEPT VISIT (05/09/14) EMERGENCY DEPT VISIT (05/09/14) EMERGENCY DEPT VISIT (04/04/14) EMERGENCY DEPT VISIT (03/06/14) EMERGENCY DEPT VISIT (01/10/14) EMERGENCY DEPT VISIT (09/18/13) EVALUATE PT USE OF INHALER (10/20/16) EVALUATION OF WHEEZING (06/21/14) EXTRACRANIAL BILAT STUDY (05/05/16) GLUCOSE BLOOD TEST (12/05/15) HEMATOCRIT (10/20/16) HEMOGLOBIN (10/20/16) HYDRATE IV INFUSION ADD-ON (10/20/16) HYDRATION IV INFUSION INIT (05/26/15) INFLUENZA A/B AG IA (06/02/14) INFLUENZA ASSAY W/OPTIC (08/08/16) INSERT BLADDER CATH COMPLEX (07/04/16) IRON BINDING TEST (07/04/16) MEDICAL NUTRITION INDIV IN (07/18/16) METABOLIC PANEL TOTAL CA (11/04/16) MICROBE SUSCEPTIBLE NAEL (11/04/16) MOTION FLUOROSCOPY/SWALLOW (06/23/16) OCCULT BLD FECES 1-3 TESTS (07/04/16) OCCULT BLOOD FECES (02/13/15) OFFICE/OUTPATIENT VISIT EST (08/23/15) OFFICE/OUTPATIENT VISIT EST (02/19/15) OFFICE/OUTPATIENT VISIT EST (11/28/14) ORAL FUNCTION THERAPY (05/19/16) PROTHROMBIN TIME (08/08/16) PT EVAL LOW COMPLEX 20 MIN (11/04/16) PT EVAL MOD COMPLEX 30 MIN (06/14/16) PT EVALUATION (05/19/16) PULM FUNCTION TEST BY GAS (06/21/14) RBC ANTIBODY SCREEN (11/04/16) ROUTINE VENIPUNCTURE (11/04/16) SMEAR GRAM STAIN (11/04/16) STREP A AG IA (03/11/16) THER/DIAG CONCURRENT INF (07/18/16) THER/PROPH/DIAG INJ IV PUSH (10/20/16) THER/PROPH/DIAG IV INF ADDON (07/18/16) THER/PROPH/DIAG IV INF INIT (11/04/16) THERAPEUTIC ACTIVITIES (08/08/16) THERAPEUTIC EXERCISES (05/19/16) THROMBOPLASTIN TIME PARTIAL (05/19/16) TTE W/DOPPLER COMPLETE (05/05/16) TX/PRO/DX INJ NEW DRUG ADDON (11/04/16) TX/PROPH/DG ADDL SEQ IV INF (12/05/15) URINALYSIS AUTO W/SCOPE (11/04/16) URINE BACTERIA CULTURE (08/24/14) URINE CULTURE/COLONY COUNT (05/19/16) VITAMIN B-12 (01/18/15) WITHDRAWAL OF ARTERIAL BLOOD (06/23/16) X-RAY EXAM OF ABDOMEN (05/19/16) X-RAY EXAM OF HUMERUS (05/26/15) X-RAY EXAM OF PELVIS (08/08/16) (1) Large bowel obstruction SNOMED Code(s): 821244182 Code(s): K56.60 - UNSPECIFIED INTESTINAL OBSTRUCTION Current Visit: Yes Problem List Initiated/Reviewed/Updated: Yes Plan: I had a long discussion with the patient and his son. At this point in time, he is not showing signs of peritonitis. His abdomen is distended but otherwise soft and nontender. The patient's son states that the dark stool I see on rectal exam is normal for the patient. He has not undergone further work up for his GI bleed due to his multiple medical problems. I believe the inflammation around the splenic flexure could be due to ischemic colitis. I explained that in cases of large bowel obstruction, many patients end up requiring surgical intervention. He would require transfer for any surgical management due to his multiple medical co-morbidities. If he required large bowel resection he would likely end up with a stoma and require ICU care afterwards. Any surgical intervention on him would carry a high risk of complications or even in the best of circumstances. I asked him if he would want surgery and he said "no ". He and his son are both in agreement that should he need surgery he would prefer to be kept comfortable and transition to comfort cares. The patient is also DNR. When I asked him about DNI status he was unable to come to a decision. At this point in time, I would proceed with conservative measures including NPO, NG decompression, IVF resuscitation, broad spectrum IV antibiotics and checking his stool for C. Diff. Should the patient become septic or develop an acute abdomen, I will not perform surgery but instead visit with the family and primary care team about transitioning to comfort cares. I will continue to follow the patient. Please call with any questions or concerns.
[2016-11-15] MEDS ORDERED: Albuterol/Ipratropium 3.0-0.5 MG/3 ML Neb Soln NEB PRN (17:35)
[2016-11-15] MEDS: Sodium Chloride 0.9% 1,000 ML IV SCH (18:01)
[2016-11-15] MEDS: metroNIDAZOLE/Normal Saline 500 MG in Premix Bag 1 BAG IV SCH (18:03)
[2016-11-15] MEDS ORDERED: Morphine 10 MG/ML Syringe IVPUSH PRN (22:00)
[2016-11-15] MEDS ORDERED: Ondansetron 4 MG/2 ML SDV IVPUSH PRN (22:00)
--- NOTE | 2016-11-15 22:00 | PCM.HP ---
H&P History of Present Illness - General Admit Problem/Dx: Admission Diagnosis/Problem Admission Diagnosis/Problem Obstruction of colon - History of Present Illness Initial Comments - Free Text/Narative: Patient is a 76 year old male with pmh of severe end stage COPD, oxygen dependent on 2 L NC, steroid dependent, CHF, afib, R carotid stent placement with anticoagulation on Brilinta, recurrent GI bleeds and anemia, recurrent aspiration pneumonia and Cdiff. He presents with complaint of constipation and abdominal pain. Reports unable to have solid bowel movement in four days, He does have some streaking which is dark and tarry. He was seen in the ED and noted to have a bowel obstruction with inflammation of transverse colon at area of obstruction. Dr. Arvizu was consulted in the ED. back Pain Score (Numeric/FACES): 7 - Related Data Allergies/Adverse Reactions: Allergies Allergy/AdvReac Type Severity Reaction Status Date / Time No Known Allergies Allergy Verified 11/15/16 12:04 Home Medications: Home Meds Albuterol Sulfate [Proair Hfa] 2 puff IH QID PRN 06/14/16 [History] Albuterol/Ipratropium [DuoNeb 3.0-0.5 MG/3 ML] 3 ml NEB Q4H PRN 06/14/16 [ History] Bisacodyl [Dulcolax] 5 - 10 mg PO DAILY PRN 06/14/16 [History] Bisacodyl [Dulcolax] 10 mg RC DAILY PRN 06/14/16 [History] Budesonide/Formoterol Fumarate [Symbicort 160-4.5 Mcg Inhaler] 2 puff IH BID 01/21 [History] Diltiazem [Cardizem CD] 240 mg PO DAILY 06/14/16 [History] Hypromellose [Genteal Mild] 2 drop EYEBOTH BEDTIME 06/14/16 [History] Metoclopramide HCl [Reglan] 10 mg PO QIDACANDBED PRN 06/14/16 [History] Multivitamin [Multivitamins] 1 each PO DAILY 06/14/16 [History] Orphenadrine Citrate 100 mg PO Q12HR PRN 06/14/16 [History] Tamsulosin [Flomax] 0.4 mg PO PCBREAKFAST 06/14/16 [History] Acetaminophen [Tylenol] 500 mg PO Q4H PRN 06/15/16 [History] Albuterol Sulfate 2.5 mg IH Q6H PRN 06/15/16 [History] Pantoprazole [ProTONIX] 40 mg PO BIDAC 06/15/16 [History] Tiotropium [Spiriva HandiHaler] 18 mcg IH DAILY 06/15/16 [History] Iron Polysaccharides Complex [Ferrex 150] 150 mg PO BID cap 06/17/16 [Rx] Potassium Chloride 20 meq PO BID #30 tab.er.prt 06/26/16 [Rx] LORazepam 0.25 mg PO Q6H PRN 10/20/16 [History] Ticagrelor [Brilinta] 90 mg PO BID 10/20/16 [History] predniSONE [Prednisone] 10 mg PO ASDIRECTED #36 tablet 10/23/16 [Rx] predniSONE 5 mg PO ASDIRECTED 11/04/16 [History] Clotrimazole [Lotrimin AF 1% Crm] 1 gm TOP BID tube 11/10/16 [Rx] Past Medical History HEENT History: Reports: Cataract Other HEENT History: glasses Cardiovascular History: Reports: Afib, CAD, Heart Failure, High Cholesterol, Hypertension, Stents Respiratory History: Reports: COPD, Pneumonia, Recurrent, Pneumothorax, SOB, Other (See Below) Other Respiratory History: chronic respiratory failure with hypoxia Gastrointestinal History: Reports: GI Bleed, Other (See Below) (Esophageal cancer) Other Gastrointestinal History: GI Bleed. Ileus Genitourinary History: Reports: None Musculoskeletal History: Reports: Other (See Below) Other Musculoskeletal History: Back Problem Neurological History: Reports: TIA Psychiatric History: Reports: None Endocrine/Metabolic History: Reports: None Hematologic History: Reports: Anemia Immunologic History: Reports: None Oncologic (Cancer) History: Reports: Other (See Below) Other Oncologic History: throat Dermatologic History: Reports: None - Infectious Disease History Infectious Disease History: Reports: Chicken Pox, Measles, Mumps Other Infectious Disease History: clear for MRSA per patient - Past Surgical History Head Surgeries/Procedures: Reports: None HEENT Surgical History: Reports: None Cardiovascular Surgical History: Reports: Coronary Artery Stent, Carotid Stents GI Surgical History: Reports: Other (See Below) Male Surgical History: Reports: None Endocrine Surgical History: Reports: None Neurological Surgical History: Reports: None Dermatological Surgical History: Reports: None Social & Family History - Family History Family Medical History: Noncontributory HEENT: Reports: None Cardiac: Reports: Hypertension Other Cardiac Family History: Father, Mother Respiratory: Reports: None GI: Reports: GI bleed : Reports: None OBGYN: Reports: Musculoskeletal: Reports: Arthritis Neurological: Reports: None Psychiatric: Reports: None Endocrine/Metabolic: Reports: Diabetes, type II Hematologic: Reports: None Immunologic: Reports: None Dermatologic: Reports: None Oncologic: Reports: Prostate - Tobacco Use Smoking Status *Q: Former Smoker Years of Tobacco use: 50 Packs/Tins Daily: 4 Used Tobacco, but Quit: Yes Month Tobacco Last Used: 5 years Second Hand Smoke Exposure: No - Caffeine Use Caffeine Use: Reports: Coffee Caffeine Use Comment: 3 cups daily - Alcohol Use Days Per Week of Alcohol Use: 2 Number of Drinks Per Day: 2 Total Drinks Per Week: 4 - Recreational Drug Use Recreational Drug Use: No Drug Use in Last 12 Months: No H&P Review of Systems - Review of Systems: Review Of Systems: See Below General: Reports: No Symptoms HEENT: Reports: No Symptoms Pulmonary: Reports: No Symptoms. Denies: Pleuritic Chest Pain Cardiovascular: Reports: No Symptoms Gastrointestinal: Reports: No Symptoms Genitourinary: Reports: No Symptoms Musculoskeletal: Reports: No Symptoms Skin: Reports: No Symptoms Psychiatric: Reports: No Symptoms Neurological: Reports: No Symptoms Hematologic/Lymphatic: Reports: No Symptoms Immunologic: Reports: No Symptoms Exam - Exam Exam: See Below - Vital Signs Vital Signs: Last Vital Signs Temp 36.2 C 11/15/16 20:00 Pulse 92 11/15/16 20:00 Resp 18 11/15/16 20:00 BP 135/71 11/15/16 20:00 Pulse Ox 90 L 11/15/16 20:00 Weight: 63.6 kg - Exam General: Alert, Oriented, 4 Neck: No: JVD Lungs: Clear to Auscultation, Normal Respiratory Effort Cardiovascular: Regular Rate, Regular Rhythm Extremities: Normal Inspection. No: Cyanosis Skin: Warm, Dry, Intact Neurological: No: Focal Deficit - Patient Data Lab Results last 24 hrs: Laboratory Results - last 24 hr 11/15/16 Range/Units 14:50 Urine Color YELLOW Urine Appearance CLEAR Urine pH 5.5 (5.0-8.0) Ur Specific [place] 1.010 (1.001-1.035) Urine Protein NEGATIVE (NEGATIVE) mg/dL Urine Glucose (UA) NEGATIVE (NEGATIVE) mg/dL Urine Ketones TRACE H (NEGATIVE) mg/dL Urine Occult Blood TRACE-INTACT (NEGATIVE) Urine Nitrite NEGATIVE (NEGATIVE) Urine Bilirubin NEGATIVE (NEGATIVE) Urine Urobilinogen 0.2 (<2.0) EU/dL Ur Leukocyte Esterase NEGATIVE (NEGATIVE) Urine RBC 1-3 (0-2/HPF) Urine WBC 3-6 (0-5/HPF) Ur Epithelial Cells RARE (NONE-FEW) Calcium Oxalate Crystal MODERATE (NEGATIVE) Urine Bacteria FEW (NEGATIVE) Result Diagrams: 11/16/16 05:55 11/16/16 05:55 *Q Meaningful Use (ADM) - VTE *Q VTE Criteria *Q: - Stroke *Q Stroke Criteria *Q: - AMI *Q AMI Criteria *Q: Problem List Initiated/Reviewed/Updated: Yes Orders Last 24hrs: Active Orders 24 hr Category Date Time Status Patient Status [ADT] Stat ADT 11/15/16 15:06 Active Nasogastric Tube Management [Gastrointestinal Tube Mgmt Care 11/15/16 17:34 Active ] [RC] ASDIRECTED Notify Provider Consults [RC] ASDIRECTED Care 11/15/16 15:45 Active Oxygen Therapy Adult [Oxygen Therapy] [RC] ASDIRECTED Care 11/15/16 17:38 Active RT Aerosol Therapy [RC] ASDIRECTED Care 11/15/16 17:36 Active Consult to Physician [CONS] Stat Cons 11/15/16 15:44 Active NPO [Nothing Per Oral Diet] [DIET] Diet 11/15/16 Dinner Active Abdomen 2V AP Flat Upright [CR] Routine Exams 11/15/16 19:06 Taken Albuterol/Ipratropium [DuoNeb 3.0-0.5 MG/3 ML] Med 11/15/16 17:35 Active 3 ml NEB Q6HRRT PRN Sodium Chloride 0.9% [Normal Saline] 1,000 ml Med 11/15/16 17:45 Active IV ASDIRECTED metroNIDAZOLE/Normal Saline [Flagyl 500 MG in NS 100 ML Med 11/15/16 18:00 Active ] 500 mg Premix Bag 1 bag IV Q8H Nasogastric Orogastric Tube Insertion [OM.PC] Stat Oth 11/15/16 13:55 Ordered Medication Orders Albuterol/Ipratropium (Duoneb 3.0-0.5 Mg/3 Ml) 3 ml NEB Q6HRRT PRN PRN Reason: Shortness of Breath Metronidazole 500 mg/ Premix 100 mls @ 100 mls/hr IV Q8H [facility] Last Admin: 11/15/16 18:03 Dose: 100 mls/hr Sodium Chloride (Normal Saline) 1,000 mls @ 75 mls/hr IV ASDIRECTED [facility] Last Admin: 11/15/16 18:01 Dose: 75 mls/hr Assessment/Plan Comment:: 76 yo male admitted with bowel obstruciton. We will treat with NG tube, bowel rest, and IV fluids. Will treat with Flagyl considering history of recurrent c.diff infection. If obstruction does not resolved with medical management patient is not surgical candidate and will transition to comfort care. Patient is well known to me and on other admissions I have suggested hospice due to his multiple co-morbidities.
[2016-11-16] MEDS: metroNIDAZOLE/Normal Saline 500 MG in Premix Bag 1 BAG IV SCH ×3 (01:09→18:03)
[2016-11-16 06:34] LABS: CHLORIDE,CL 112 mmol/L (98-110); SODIUM,NA 143 mmol/L (136-146)
[2016-11-16] MEDS: Morphine 2 MG/ML Syringe IVPUSH PRN ×4 (07:40→20:47)
[2016-11-16] MEDS: Sodium Chloride 0.9% 1,000 ML IV SCH (09:24)
[2016-11-16] MEDS ORDERED: Hydrocolloid Dressing 4x4 Bandage TOP PRN (10:54)
--- NOTE | 2016-11-16 11:25 | CT ---
EXAM DATE: 11/15/16 PATIENT'S AGE: 76 Patient: GILBERTO SIMONS Facility: [place], [place] Site . Site : [id number] Study: CT Abdomen/Pelvis [id number]/11/[id number] 1:52:33 PM Ordering Physician: Willian Montejo Final Report: HISTORY: Abdominal pain. Black tarry stools. Technique: CT abdomen pelvis with intravenous contrast. Coronal and sagittal reformations were made. Comparison: CT 08/08/2016. Findings: There is inflammation of the distal transverse colon and splenic flexure which is new since 08/08/2016. Bowel wall thickening, increased enhancement, and pericolonic fat stranding are present. The colon is distended proximal to this area of inflammation and narrowing. There is no free air. No abscess is seen. There is no ascites. Gas and a large amount of stool are seen distal to the area of inflammation extending to the rectum. Diffuse emphysematous changes and bibasilar fibrosis are present in the included lungs. The hepatic parenchyma is normal. The gallbladder is somewhat distended without evidence of inflammatory change. There is no biliary ductal dilatation. The pancreas is thin. The spleen is normal in size and contains a small cyst. The adrenal glands are normal. Multiple renal cysts are present larger and more numerous on the left. No solid renal masses are seen and there is no hydronephrosis.The aorta is atherosclerotic. There is a mild bulge of the distal abdominal aorta measuring only 2.5 cm.There is no adenopathy. The stomach and small bowel are normal. The bladder is normal in contour. There is good enhancement of the superior mesenteric and inferior mesenteric arteries. There are old compressions of T11, T12, and L3. These are stable since 2016. Impression : 1. Colitis involving a focal segment of the distal transverse colon and splenic flexure with dilatation of the colon proximal to the area of inflammation. 2. Large amount of stool distending the rectum. 3. Bilateral renal cysts larger on the left. 4. Old lower thoracic and mid lumbar vertebral body compressions. Please note that all CT scans at this facility use dose modulation, iterative reconstruction, and/or weight-based dosing when appropriate to reduce radiation dose to as low as reasonably achievable. Dictated by Pacheco Flood MD @ Nov 15 2016 2:26PM (Electronic Signature) Report Signed by Proxy. MTDD
--- NOTE | 2016-11-16 11:26 | CR ---
EXAM DATE: 11/15/16 PATIENT'S AGE: 76 Patient: GILBERTO SIMONS Facility: [place], [place] Site . Site : 1940 Study: XRay Chest [id number] 2:12:10 PM Ordering Physician: Willian Montejo Final Report: INDICATION: Chest pain and shortness of breath. TECHNIQUE: Chest 1 views. COMPARISON: November 09, 2016. FINDINGS: Cardiovascular and mediastinum: Stable cardiomegaly. Pulmonary vasculature is normal. Mediastinum is within normal limits. Lungs and pleural spaces: There are chronic interstitial markings. No focal infiltrates or effusions. No pneumothorax. Bones and soft tissues: No significant findings. IMPRESSION: No acute findings to explain chest pain or shortness of breath. Dictated by Dave Lyle MD @ 11/15/2016 2:43:47 PM Dictated by: Dave Lyle MD @ 11/15/2016 14:43:53 (Electronic Signature) Report Signed by Proxy. [facility]
--- NOTE | 2016-11-16 11:44 | CR ---
EXAM DATE: 11/15/16 PATIENT'S AGE: 76 Patient: GILBERTO SIMONS Facility: [place], [place] Site . Site : 1940 Study: XRay Abdomen [id number]/11/2017 7:55:15 PM Ordering Physician: Catalina Sanchez Final Report: INDICATION: check NG TUBE PLACEMENT TECHNIQUE: Abdomen 2 view COMPARISON: None FINDINGS: Bowel: Gaseous distended colon. Soft tissues: No sign of soft tissue mass. No suspicious calcifications. Bones: Degenerative changes. Other: Gastric tube crossing the left hemidiaphragm with the distal tip overlying the gastric fundus. IMPRESSION: Gastric tube crossing the left hemidiaphragm with the distal tip overlying the gastric fundus. . Dictated by Bang Acosta MD @ 11/15/2016 8:11:12 PM Dictated by: Bang Acosta MD @ 11/15/2016 20:11:20 (Electronic Signature) Report Signed by Proxy. [facility]
[2016-11-16] MEDS ORDERED: Pantoprazole 40 MG in Sodium Chloride 0.9% 10 ML IVPUSH ONE (14:35)
[2016-11-16] MEDS: Albuterol/Ipratropium 3.0-0.5 MG/3 ML Neb Soln NEB PRN ×2 (14:36→21:54)
--- NOTE | 2016-11-16 14:44 | PCM.PN ---
- Review of Systems Systems Review Comment:: has had several small bowel movements, red blood from NG tube - Patient Data Vitals - most recent: Last Vital Signs Temp 35.9 C 11/16/16 11:57 Pulse 56 L 11/16/16 11:57 Resp 20 11/16/16 11:57 BP 146/72 H 11/16/16 11:57 Pulse Ox 96 11/16/16 11:57 Weight - most recent: 63.6 kg I&O - last 24 hours: Intake & Output 11/15/16 11/16/16 11/16/16 22:59 06:59 14:59 Intake Total 871 440 2667 Output Total 900 795 Balance -800 -695 1100 Lab Results last 24 hrs: Laboratory Results - last 24 hr 11/15/16 11/16/16 11/16/16 Range/Units 14:50 05:55 05:55 WBC 15.53 H (4.0-11.0) K/uL RBC 3.76 L (4.50-5.90) M/uL Hgb 11.2 L (13.0-17.0) g/dL Hct 35.6 L (38.0-50.0) % MCV 94.7 (80.0-98.0) fL MCH 29.8 (27.0-32.0) pg MCHC 31.5 (31.0-37.0) g/dL RDW Std Deviation 56.3 (28.0-62.0) fl RDW Coeff of Mavis 16 H (11.0-15.0) % Plt Count 139 L (150-400) K/uL MPV 8.80 (7.40-12.00) fL Neut % (Auto) 90.0 H (48.0-80.0) % Lymph % (Auto) 3.4 L (16.0-40.0) % [place] % (Auto) 6.0 (0.0-15.0) % Eos % (Auto) 0.5 (0.0-7.0) % Baso % (Auto) 0.1 (0.0-1.5) % Neut # (Auto) 14.0 H (1.4-5.7) K/uL Lymph # (Auto) 0.5 L (0.6-2.4) K/uL Davie # (Auto) 0.9 H (0.0-0.8) K/uL Eos # (Auto) 0.1 (0.0-0.7) K/uL Baso # (Auto) 0.0 (0.0-0.1) K/uL Nucleated RBC % 0.0 /100WBC Nucleated RBCs # 0 K/uL Sodium 143 (136-146) mmol/L Potassium 4.3 (3.5-5.1) mmol/L Chloride 112 H (98-110) mmol/L Carbon Dioxide 23 (21-31) mmol/L BUN 24 H (6.0-23.0) mg/dL Creatinine 1.1 (0.6-1.5) mg/dL Est Cr Clr Drug Dosing 50.91 mL/min Estimated GFR (MDRD) > 60.0 ml/min Glucose 72 (60-110) mg/dL Calcium 8.0 L (8.8-10.8) mg/dL Urine Color YELLOW Urine Appearance CLEAR Urine pH 5.5 (5.0-8.0) Ur Specific [place] 1.010 (1.001-1.035) Urine Protein NEGATIVE (NEGATIVE) mg/dL Urine Glucose (UA) NEGATIVE (NEGATIVE) mg/dL Urine Ketones TRACE H (NEGATIVE) mg/dL Urine Occult Blood TRACE-INTACT (NEGATIVE) Urine Nitrite NEGATIVE (NEGATIVE) Urine Bilirubin NEGATIVE (NEGATIVE) Urine Urobilinogen 0.2 (<2.0) EU/dL Ur Leukocyte Esterase NEGATIVE (NEGATIVE) Urine RBC 1-3 (0-2/HPF) Urine WBC 3-6 (0-5/HPF) Ur Epithelial Cells RARE (NONE-FEW) Calcium Oxalate Crystal MODERATE (NEGATIVE) Urine Bacteria FEW (NEGATIVE) Med Orders - Current: Current Medications Albuterol/Ipratropium (Duoneb 3.0-0.5 Mg/3 Ml) 3 ml NEB Q4HRRT PRN PRN Reason: Shortness of Breath Last Admin: 11/16/16 14:36 Dose: 3 ml Metronidazole 500 mg/ Premix 100 mls @ 100 mls/hr IV Q8H [facility] Last Admin: 11/16/16 09:57 Dose: 100 mls/hr Sodium Chloride (Normal Saline) 1,000 mls @ 75 mls/hr IV ASDIRECTED [facility] Last Admin: 11/16/16 09:24 Dose: 75 mls/hr Pantoprazole Sodium 80 mg/ (Sodium Chloride) 100 mls @ 10 mls/hr IV Q10H [facility] Pantoprazole Sodium 40 mg/ (Sodium Chloride) 10 mls @ 300 mls/hr IVPUSH NOW ONE Stop: 11/16/16 14:36 Morphine Sulfate (Morphine) 2 mg IVPUSH Q2H PRN PRN Reason: Pain (severe 7-10) Last Admin: 11/16/16 14:29 Dose: 2 mg Ondansetron HCl (Zofran) 4 mg IVPUSH Q4H PRN PRN Reason: Nausea Wound Care/Dressing Products (Duoderm Cgf) 1 each TOP ASDIRECTED PRN PRN Reason: pressure sore Last Admin: 11/16/16 14:30 Dose: 1 each Discontinued Medications Albuterol/Ipratropium (Duoneb 3.0-0.5 Mg/3 Ml) 3 ml NEB ONETIME ONE Stop: 11/15/16 12:25 Last Admin: 11/15/16 12:58 Dose: 3 ml Albuterol/Ipratropium (Duoneb 3.0-0.5 Mg/3 Ml) 3 ml NEB Q6HRRT PRN PRN Reason: Shortness of Breath Last Admin: 11/16/16 06:15 Dose: 3 ml Sodium Chloride (Normal Saline) 1,000 mls @ 999 mls/hr IV .Bolus ONE Stop: 11/15/16 13:22 Last Admin: 11/15/16 12:57 Dose: 999 mls/hr Iopamidol (Isovue-370 (76%)) 95 ml IVPUSH ONETIME STA Stop: 11/15/16 13:54 Last Admin: 11/15/16 13:55 Dose: 95 ml Morphine Sulfate (Morphine) 2 mg IVPUSH Q2H PRN PRN Reason: Pain (severe 7-10) Stop: 11/16/16 22:01 - Exam General: alert, oriented Lungs: Normal respiratory effort, Rhonchi Cardiovascular: Regular Rate, Regular Rhythm Abdomen: tenderness (in lower quadrants), distension Extremities: no edema Skin: warm, dry, intact Neurological: no new focal deficit - Problem List Review Problem List Initiated/Reviewed/Updated: Yes - My Orders Last 24 Hours: My Active Orders 11/15/16 17:34 Nasogastric Tube Management [Gastrointestinal Tube Mgmt] [RC] Q12H 11/15/16 17:36 RT Aerosol Therapy [RC] ASDIRECTED 11/15/16 17:38 Oxygen Therapy Adult [Oxygen Therapy] [RC] ASDIRECTED 11/15/16 17:45 Sodium Chloride 0.9% [Normal Saline] 1,000 ml IV ASDIRECTED 11/15/16 18:00 metroNIDAZOLE/Normal Saline [Flagyl 500 MG in NS 100 ML] 500 mg Premix Bag 1 bag IV Q8H 11/15/16 22:00 Intake and Output [RC] Q12H Oxygen Therapy [RC] PRN Vital Signs [RC] Q4H Ondansetron [Zofran] 4 mg IVPUSH Q4H PRN Resuscitation Status Routine 11/15/16 22:01 Antiembolic Devices [RC] PER UNIT ROUTINE Sequential Compression Device [OM.PC] Per Unit Routine 11/15/16 Dinner NPO [Nothing Per Oral Diet] [DIET] 11/16/16 07:34 Morphine 2 mg IVPUSH Q2H PRN 11/16/16 10:54 Hydrocolloid Dressing [DuoDerm CGF] 1 each TOP ASDIRECTED PRN 11/16/16 10:55 Albuterol/Ipratropium [DuoNeb 3.0-0.5 MG/3 ML] 3 ml NEB Q4HRRT PRN 11/16/16 14:35 Pantoprazole [ProTONIX IV] 40 mg Sodium Chloride 0.9% [Normal Saline] 10 ml IVPUSH NOW 11/16/16 14:45 Pantoprazole [ProTONIX IV] 80 mg Sodium Chloride 0.9% [Normal Saline] 100 ml IV Q10H 11/17/16 05:11 BASIC METABOLIC PANEL,BMP [CHEM] AM CBC WITH AUTO DIFF [HEME] AM 11/18/16 05:11 BASIC METABOLIC PANEL,BMP [CHEM] AM CBC WITH AUTO DIFF [HEME] AM - Plan Plan:: 76 yo male admitted with bowel obstruction. We will continue bowel rest and IV fluids. Continue Flagyl considering history of recurrent c.diff infection. Will start PPI for upper GI bleed.
[2016-11-16] MEDS: Pantoprazole 80 MG in Sodium Chloride 0.9% 100 ML IV SCH (15:20)
[2016-11-17] MEDS: Pantoprazole 80 MG in Sodium Chloride 0.9% 100 ML IV SCH ×3 (00:31→20:33)
[2016-11-17] MEDS: Sodium Chloride 0.9% 1,000 ML IV SCH (00:32)
[2016-11-17] MEDS: Morphine 2 MG/ML Syringe IVPUSH PRN ×4 (00:38→18:23)
[2016-11-17] MEDS: metroNIDAZOLE/Normal Saline 500 MG in Premix Bag 1 BAG IV SCH ×3 (01:26→18:18)
[2016-11-17] MEDS: Albuterol/Ipratropium 3.0-0.5 MG/3 ML Neb Soln NEB PRN ×5 (03:40→21:48)
[2016-11-17 04:49] LABS: CHLORIDE,CL 108 mmol/L (98-110); SODIUM,NA 141 mmol/L (136-146)
--- NOTE | 2016-11-17 07:45 | PCM.SN ---
- Free Text/Narrative Note: I will sign off at this point in time. The patient is not a surgical candidate. Continue antibiotics and can advance diet when patient is clinically improving and having BMs.
[2016-11-17] MEDS ORDERED: 50% Dextrose in Water 50 ML Syringe IVPUSH ONE (07:53)
--- NOTE | 2016-11-17 11:38 | PCM.PN ---
- General Info Date of Service: 11/17/16 Admission Dx/Problem (Free Text): Admission Diagnosis/Problem Admission Diagnosis/Problem Obstruction of colon Subjective Update: having a lot of pain this morning, in abdomen and to low back. He is unable to cough strongly to clear secretions due to pain in back. Constantly feeling like he needs to have a BM. Denies chest pain or worsening SOB. Functional Status: Reports: ambulating (very weak, doesnt last long when in chair due to pain). Denies: pain controlled - Review of Systems General: Reports: Weakness. Denies: Fever HEENT: Denies: sore throat Pulmonary: Reports: shortness of breath (near baseline, increases intermittently ), cough, sputum Cardiovascular: Reports: No Symptoms. Denies: Chest Pain Gastrointestinal: Reports: Abdominal pain, Constipation. Denies: Nausea, Vomiting Genitourinary: Reports: no symptoms. Denies: dysuria, frequency, burning Musculoskeletal: Reports: back pain (low back pain) Skin: Reports: no symptoms Neurological: Reports: No Symptoms Psychiatric: Reports: no symptoms - Patient Data Vitals - most recent: Last Vital Signs Temp 97.8 F 11/17/16 07:58 Pulse 97 11/17/16 07:58 Resp 20 11/17/16 07:58 BP 139/73 11/17/16 07:58 Pulse Ox 94 L 11/17/16 07:58 Weight - most recent: 62.5 kg I&O - last 24 hours: Intake & Output 11/16/16 11/17/16 11/17/16 22:59 06:59 14:59 Intake Total 110 2343 Output Total 670 900 Balance -560 1443 Lab Results last 24 hrs: Laboratory Results - last 24 hr 11/17/16 11/17/16 11/17/16 Range/Units 04:20 04:20 07:52 WBC 10.54 (4.0-11.0) K/uL RBC 3.49 L (4.50-5.90) M/uL Hgb 10.4 L (13.0-17.0) g/dL Hct 32.8 L (38.0-50.0) % MCV 94.0 (80.0-98.0) fL MCH 29.8 (27.0-32.0) pg MCHC 31.7 (31.0-37.0) g/dL RDW Std Deviation 56.0 (28.0-62.0) fl RDW Coeff of Mavis 16 H (11.0-15.0) % Plt Count 111 L (150-400) K/uL MPV 8.60 (7.40-12.00) fL Neut % (Auto) 86.0 H (48.0-80.0) % Lymph % (Auto) 6.4 L (16.0-40.0) % [place] % (Auto) 6.6 (0.0-15.0) % Eos % (Auto) 0.9 (0.0-7.0) % Baso % (Auto) 0.1 (0.0-1.5) % Neut # (Auto) 9.1 H (1.4-5.7) K/uL Lymph # (Auto) 0.7 (0.6-2.4) K/uL [place] # (Auto) 0.7 (0.0-0.8) K/uL Eos # (Auto) 0.1 (0.0-0.7) K/uL Baso # (Auto) 0.0 (0.0-0.1) K/uL Nucleated RBC % 0.0 /100WBC Nucleated RBCs # 0 K/uL Sodium 141 (136-146) mmol/L Potassium 3.6 (3.5-5.1) mmol/L Chloride 108 (98-110) mmol/L Carbon Dioxide 21 (21-31) mmol/L BUN 17 (6.0-23.0) mg/dL Creatinine 0.9 (0.6-1.5) mg/dL Est Cr Clr Drug Dosing 61.83 mL/min Estimated GFR (MDRD) > 60.0 ml/min Glucose 47 L (60-110) mg/dL POC Glucose 36 L (60-110) mg/dL Calcium 7.6 L (8.8-10.8) mg/dL 11/17/16 Range/Units 08:29 WBC (4.0-11.0) K/uL RBC (4.50-5.90) M/uL Hgb (13.0-17.0) g/dL Hct (38.0-50.0) % MCV (80.0-98.0) fL MCH (27.0-32.0) pg MCHC (31.0-37.0) g/dL RDW Std Deviation (28.0-62.0) fl RDW Coeff of Mavis (11.0-15.0) % Plt Count (150-400) K/uL MPV (7.40-12.00) fL Neut % (Auto) (48.0-80.0) % Lymph % (Auto) (16.0-40.0) % [place] % (Auto) (0.0-15.0) % Eos % (Auto) (0.0-7.0) % Baso % (Auto) (0.0-1.5) % Neut # (Auto) (1.4-5.7) K/uL Lymph # (Auto) (0.6-2.4) K/uL [place] # (Auto) (0.0-0.8) K/uL Eos # (Auto) (0.0-0.7) K/uL Baso # (Auto) (0.0-0.1) K/uL Nucleated RBC % /100WBC Nucleated RBCs # K/uL Sodium (136-146) mmol/L Potassium (3.5-5.1) mmol/L Chloride (98-110) mmol/L Carbon Dioxide (21-31) mmol/L BUN (6.0-23.0) mg/dL Creatinine (0.6-1.5) mg/dL Est Cr Clr Drug Dosing mL/min Estimated GFR (MDRD) ml/min Glucose (60-110) mg/dL POC Glucose 192 H (60-110) mg/dL Calcium (8.8-10.8) mg/dL Med Orders - Current: Current Medications Albuterol/Ipratropium (Duoneb 3.0-0.5 Mg/3 Ml) 3 ml NEB Q4HRRT PRN PRN Reason: Shortness of Breath Last Admin: 11/17/16 03:40 Dose: 3 ml Metronidazole 500 mg/ Premix 100 mls @ 100 mls/hr IV Q8H [facility] Last Admin: 11/17/16 10:13 Dose: 100 mls/hr Pantoprazole Sodium 80 mg/ (Sodium Chloride) 100 mls @ 10 mls/hr IV Q10H [facility] Last Admin: 11/17/16 10:16 Dose: 10 mls/hr Dextrose/Sodium Chloride (Dextrose 5%-Normal Saline) 1,000 mls @ 75 mls/hr IV ASDIRECTED [facility] Methylprednisolone Sodium Succinate (Solu-Medrol) 40 mg IVPUSH DAILY [facility] Morphine Sulfate (Morphine) 2 mg IVPUSH Q2H PRN PRN Reason: Pain (severe 7-10) Last Admin: 11/17/16 08:17 Dose: 2 mg Ondansetron HCl (Zofran) 4 mg IVPUSH Q4H PRN PRN Reason: Nausea Wound Care/Dressing Products (Duoderm Cgf) 1 each TOP ASDIRECTED PRN PRN Reason: pressure sore Last Admin: 11/16/16 14:30 Dose: 1 each Discontinued Medications Albuterol/Ipratropium (Duoneb 3.0-0.5 Mg/3 Ml) 3 ml NEB ONETIME ONE Stop: 11/15/16 12:25 Last Admin: 11/15/16 12:58 Dose: 3 ml Albuterol/Ipratropium (Duoneb 3.0-0.5 Mg/3 Ml) 3 ml NEB Q6HRRT PRN PRN Reason: Shortness of Breath Last Admin: 11/16/16 06:15 Dose: 3 ml Dextrose/Water (Dextrose 50% In Water) 50 ml IVPUSH ONETIME ONE Stop: 11/17/16 07:54 Last Admin: 11/17/16 08:05 Dose: 50 ml Sodium Chloride (Normal Saline) 1,000 mls @ 999 mls/hr IV .Bolus ONE Stop: 11/15/16 13:22 Last Admin: 11/15/16 12:57 Dose: 999 mls/hr Sodium Chloride (Normal Saline) 1,000 mls @ 75 mls/hr IV ASDIRECTED [facility] Last Admin: 11/17/16 00:32 Dose: 75 mls/hr Pantoprazole Sodium 40 mg/ (Sodium Chloride) 10 mls @ 300 mls/hr IVPUSH NOW ONE Stop: 11/16/16 14:36 Last Admin: 11/16/16 15:20 Dose: 300 mls/hr Iopamidol (Isovue-370 (76%)) 95 ml IVPUSH ONETIME STA Stop: 11/15/16 13:54 Last Admin: 11/15/16 13:55 Dose: 95 ml Morphine Sulfate (Morphine) 2 mg IVPUSH Q2H PRN PRN Reason: Pain (severe 7-10) Stop: 11/16/16 22:01 - Exam Quality Assessment: supplemental oxygen, urine catheter, DVT prophylaxis (SCDs only) General: alert, oriented, cooperative, mild distress (appears uncomfortable due to pain in back and abdomen) HEENT: Pupils equal, Pupils reactive, EOMI, Mucous membr. moist/pink Neck: supple Lungs: Normal respiratory effort, Rhonchi Cardiovascular: Regular Rate, Regular Rhythm Abdomen: soft, tenderness (diffuse), distension, abnormal bowel sounds ( hypoactive) Extremities: no edema, normal pulses Wound/Incisions: dressing dry and intact (buttock pressure ulcer, duoderm intact. will monitor.) Neurological: no new focal deficit Psy/Mental Status: alert, normal affect, normal mood - Problem List & Annotations (1) Large bowel obstruction SNOMED Code(s): 101391980 Code(s): K56.60 - UNSPECIFIED INTESTINAL OBSTRUCTION Status: Acute Current Visit: Yes (2) GI bleed SNOMED Code(s): 67378422 Code(s): K92.2 - GASTROINTESTINAL HEMORRHAGE, UNSPECIFIED Status: Acute Current Visit: No Qualifiers: GI bleed type/associated pathology: unspecified gastrointestinal hemorrhage type Qualified Code(s): K92.2 - Gastrointestinal hemorrhage, unspecified (3) [place] SNOMED Code(s): 523871840 Code(s): L89.90 - PRESSURE ULCER OF UNSPECIFIED SITE, UNSPECIFIED STAGE Status: Acute Priority: High Current Visit: No Qualifiers: Pressure ulcer location: buttock Pressure ulcer stage: stage 1 (4) End stage COPD SNOMED Code(s): 470526837 Code(s): J44.9 - CHRONIC OBSTRUCTIVE PULMONARY DISEASE, UNSPECIFIED Status : Chronic Current Visit: Yes (5) Generalized weakness SNOMED Code(s): 03735848 Code(s): R53.1 - WEAKNESS Status: Acute Current Visit: No (6) Afib SNOMED Code(s): 58391176 Code(s): I48.91 - UNSPECIFIED ATRIAL FIBRILLATION Status: Chronic Priority: Medium Current Visit: No Qualifiers: Atrial fibrillation type: chronic Qualified Code(s): I48.2 - Chronic atrial fibrillation (7) CHF (congestive heart failure) SNOMED Code(s): 26965437 Code(s): I50.9 - HEART FAILURE, UNSPECIFIED Status: Chronic Current Visit : No Qualifiers: Congestive heart failure type: diastolic Congestive heart failure chronicity: chronic Qualified Code(s): I50.32 - Chronic diastolic (congestive ) heart failure (8) Hx of carotid stenosis SNOMED Code(s): 166132600 Code(s): Z86.79 - PERSONAL HISTORY OF OTHER DISEASES OF THE CIRCULATORY SYSTEM Status: Chronic Current Visit: No Annotation/Comment:: R carotid stent (9) Hx-TIA (transient ischemic attack) SNOMED Code(s): 258896061 Code(s): Z86.73 - PRSNL HX OF TIA (TIA), AND CEREB INFRC W/O RESID DEFICITS Status: Chronic Current Visit: No (10) Iron deficiency anemia due to chronic blood loss SNOMED Code(s): 61096428, 550415391 Code(s): D50.0 - IRON DEFICIENCY ANEMIA SECONDARY TO BLOOD LOSS (CHRONIC) Status: Chronic Priority: High Current Visit: No - Problem List Review Problem List Initiated/Reviewed/Updated: Yes - My Orders Last 24 Hours: My Active Orders 11/17/16 11:22 Enema [RC] ASDIRECTED 11/17/16 11:24 Daily Weight [Height and Weight] [RC] DAILY 11/17/16 11:30 Dextrose 5%-Normal Saline @ 75 MLS/HR(1000ml) Dextrose 5%-0.9% NaCl [Dextrose 5 %-Normal Saline] 1,000 ml IV ASDIRECTED methylPREDNISolone Sod Succ [Solu-MEDROL] 40 mg IVPUSH DAILY - Plan Plan:: This 76 year old male admitted with bowel obstruction. 1. Bowel obstruction: Continue bowel rest and IV fluids as well as continue Flagyl considering history of recurrent c.diff infection. Leukocytosis improving. Did have hypoglycemia this morning, will change IVFs to D5NS 75 ml/ hr and monitor BS q6h. Will trial mineral oil enema today. Monitor. May give dulcolax due to large amount of stool noted in rectum. Continue NG to LIWS, having small bloody drainage. Does not appear well, becoming more weak. 2. Upper GI bleed: Continue PPI, Hgb 10.4 today. Will monitor. 3. COPD: End stage, continue home inhalers. Due to NPO status, he is unable to have daily Prednisone. Will start Solumedrol 40 mg daily. Monitor. Oxygen at 3 L NC. 4. CAD: Stable. Holding medication due to NPO. 5. Afib: Stable. Monitor due to holding oral medications. 6. CHF: Stable. Monitor closely with IVFs. Daily weights. appears to now be euvolemic. VTE prophylaxis: SCDs Dispo: Pending improvement.
[2016-11-17] MEDS: methylPREDNISolone Sodium Succinate 40 MG/1 ML SDV IVPUSH SCH (11:50)
[2016-11-17] MEDS: Dextrose 5%-0.9% NaCl 1,000 ML IV SCH ×2 (11:52→23:32)
[2016-11-18] MEDS: metroNIDAZOLE/Normal Saline 500 MG in Premix Bag 1 BAG IV SCH ×3 (01:23→17:16)
[2016-11-18] MEDS: Albuterol/Ipratropium 3.0-0.5 MG/3 ML Neb Soln NEB PRN ×4 (04:10→21:39)
[2016-11-18] MEDS: Morphine 2 MG/ML Syringe IVPUSH PRN ×2 (04:11→14:34)
[2016-11-18 05:28] LABS: CHLORIDE,CL 108 mmol/L (98-110); SODIUM,NA 139 mmol/L (136-146)
[2016-11-18] MEDS: Pantoprazole 80 MG in Sodium Chloride 0.9% 100 ML IV SCH ×2 (06:34→16:41)
[2016-11-18] MEDS: methylPREDNISolone Sodium Succinate 40 MG/1 ML SDV IVPUSH SCH (08:44)
[2016-11-18] MEDS ORDERED: Bisacodyl 10 MG Supp RECTAL ONE (09:23)
--- NOTE | 2016-11-18 09:24 | PCM.PN ---
- General Info Date of Service: 11/18/16 Admission Dx/Problem (Free Text): Admission Diagnosis/Problem Admission Diagnosis/Problem Obstruction of colon Subjective Update: Looking better today. Denies chest pain or palpitations. Having some pleuritic chest pain intermittently with deep breaths. Will monitor. Feels a little better today. had small stool after enema yesterday. Functional Status: Reports: pain controlled, tolerating diet, ambulating, urinating - Review of Systems General: Reports: Weakness, Fatigue. Denies: Fever HEENT: Reports: no symptoms Pulmonary: Reports: shortness of breath (at baseline), pleuritic chest pain, cough, sputum Cardiovascular: Reports: No Symptoms. Denies: Chest Pain, Palpitations, Edema Gastrointestinal: Reports: Abdominal pain Genitourinary: Reports: no symptoms Neurological: Reports: No Symptoms Psychiatric: Reports: no symptoms - Patient Data Vitals - most recent: Last Vital Signs Temp 97.5 F 11/18/16 08:00 Pulse 89 11/18/16 08:00 Resp 20 11/18/16 08:00 BP 158/71 H 11/18/16 08:00 Pulse Ox 94 L 11/18/16 08:00 Weight - most recent: 65 kg I&O - last 24 hours: Intake & Output 11/17/16 11/18/16 11/18/16 22:59 06:59 14:59 Intake Total 783 1050 Output Total 750 825 Balance 33 225 Lab Results last 24 hrs: Laboratory Results - last 24 hr 11/17/16 11/17/16 11/18/16 Range/Units 11:24 17:03 00:15 WBC (4.0-11.0) K/uL RBC (4.50-5.90) M/uL Hgb (13.0-17.0) g/dL Hct (38.0-50.0) % MCV (80.0-98.0) fL MCH (27.0-32.0) pg MCHC (31.0-37.0) g/dL RDW Std Deviation (28.0-62.0) fl RDW Coeff of Mavis (11.0-15.0) % Plt Count (150-400) K/uL MPV (7.40-12.00) fL Neut % (Auto) (48.0-80.0) % Lymph % (Auto) (16.0-40.0) % [place] % (Auto) (0.0-15.0) % Eos % (Auto) (0.0-7.0) % Baso % (Auto) (0.0-1.5) % Neut # (Auto) (1.4-5.7) K/uL Lymph # (Auto) (0.6-2.4) K/uL [place] # (Auto) (0.0-0.8) K/uL Eos # (Auto) (0.0-0.7) K/uL Baso # (Auto) (0.0-0.1) K/uL Nucleated RBC % /100WBC Nucleated RBCs # K/uL Sodium (136-146) mmol/L Potassium (3.5-5.1) mmol/L Chloride (98-110) mmol/L Carbon Dioxide (21-31) mmol/L BUN (6.0-23.0) mg/dL Creatinine (0.6-1.5) mg/dL Est Cr Clr Drug Dosing mL/min Estimated GFR (MDRD) ml/min Glucose (60-110) mg/dL POC Glucose 75 118 H 126 H (60-110) mg/dL Calcium (8.8-10.8) mg/dL 11/18/16 11/18/16 11/18/16 Range/Units 04:41 04:41 06:31 WBC 9.09 (4.0-11.0) K/uL RBC 3.35 L (4.50-5.90) M/uL Hgb 10.0 L (13.0-17.0) g/dL Hct 30.9 L (38.0-50.0) % MCV 92.2 (80.0-98.0) fL MCH 29.9 (27.0-32.0) pg MCHC 32.4 (31.0-37.0) g/dL RDW Std Deviation 53.4 (28.0-62.0) fl RDW Coeff of Mavis 16 H (11.0-15.0) % Plt Count 129 L (150-400) K/uL MPV 8.70 (7.40-12.00) fL Neut % (Auto) 89.9 H (48.0-80.0) % Lymph % (Auto) 5.3 L (16.0-40.0) % [place] % (Auto) 4.8 (0.0-15.0) % Eos % (Auto) 0.0 (0.0-7.0) % Baso % (Auto) 0.0 (0.0-1.5) % Neut # (Auto) 8.2 H (1.4-5.7) K/uL Lymph # (Auto) 0.5 L (0.6-2.4) K/uL [place] # (Auto) 0.4 (0.0-0.8) K/uL Eos # (Auto) 0.0 (0.0-0.7) K/uL Baso # (Auto) 0.0 (0.0-0.1) K/uL Nucleated RBC % 0.0 /100WBC Nucleated RBCs # 0 K/uL Sodium 139 (136-146) mmol/L Potassium 3.7 (3.5-5.1) mmol/L Chloride 108 (98-110) mmol/L Carbon Dioxide 21 (21-31) mmol/L BUN 12 (6.0-23.0) mg/dL Creatinine 0.9 (0.6-1.5) mg/dL Est Cr Clr Drug Dosing 60.76 mL/min Estimated GFR (MDRD) > 60.0 ml/min Glucose 112 H (60-110) mg/dL POC Glucose 113 H (60-110) mg/dL Calcium 7.7 L (8.8-10.8) mg/dL Med Orders - Current: Current Medications Albuterol/Ipratropium (Duoneb 3.0-0.5 Mg/3 Ml) 3 ml NEB Q4HRRT PRN PRN Reason: Shortness of Breath Last Admin: 11/18/16 04:10 Dose: 3 ml Metronidazole 500 mg/ Premix 100 mls @ 100 mls/hr IV Q8H [facility] Last Admin: 11/18/16 01:23 Dose: 100 mls/hr Pantoprazole Sodium 80 mg/ (Sodium Chloride) 100 mls @ 10 mls/hr IV Q10H [facility] Last Admin: 11/18/16 06:34 Dose: 10 mls/hr Dextrose/Sodium Chloride (Dextrose 5%-Normal Saline) 1,000 mls @ 75 mls/hr IV ASDIRECTED [facility] Last Admin: 11/17/16 23:32 Dose: 75 mls/hr Methylprednisolone Sodium Succinate (Solu-Medrol) 40 mg IVPUSH DAILY [facility] Last Admin: 11/18/16 08:44 Dose: 40 mg Morphine Sulfate (Morphine) 2 mg IVPUSH Q2H PRN PRN Reason: Pain (severe 7-10) Last Admin: 11/18/16 04:11 Dose: 2 mg Ondansetron HCl (Zofran) 4 mg IVPUSH Q4H PRN PRN Reason: Nausea Wound Care/Dressing Products (Duoderm Cgf) 1 each TOP ASDIRECTED PRN PRN Reason: pressure sore Last Admin: 11/16/16 14:30 Dose: 1 each Discontinued Medications Albuterol/Ipratropium (Duoneb 3.0-0.5 Mg/3 Ml) 3 ml NEB ONETIME ONE Stop: 11/15/16 12:25 Last Admin: 11/15/16 12:58 Dose: 3 ml Albuterol/Ipratropium (Duoneb 3.0-0.5 Mg/3 Ml) 3 ml NEB Q6HRRT PRN PRN Reason: Shortness of Breath Last Admin: 11/16/16 06:15 Dose: 3 ml Dextrose/Water (Dextrose 50% In Water) 50 ml IVPUSH ONETIME ONE Stop: 11/17/16 07:54 Last Admin: 11/17/16 08:05 Dose: 50 ml Sodium Chloride (Normal Saline) 1,000 mls @ 999 mls/hr IV .Bolus ONE Stop: 11/15/16 13:22 Last Admin: 11/15/16 12:57 Dose: 999 mls/hr Sodium Chloride (Normal Saline) 1,000 mls @ 75 mls/hr IV ASDIRECTED [facility] Last Admin: 11/17/16 00:32 Dose: 75 mls/hr Pantoprazole Sodium 40 mg/ (Sodium Chloride) 10 mls @ 300 mls/hr IVPUSH NOW ONE Stop: 11/16/16 14:36 Last Admin: 11/16/16 15:20 Dose: 300 mls/hr Iopamidol (Isovue-370 (76%)) 95 ml IVPUSH ONETIME STA Stop: 11/15/16 13:54 Last Admin: 11/15/16 13:55 Dose: 95 ml Morphine Sulfate (Morphine) 2 mg IVPUSH Q2H PRN PRN Reason: Pain (severe 7-10) Stop: 11/16/16 22:01 - Exam Quality Assessment: supplemental oxygen, DVT prophylaxis (SCDs) General: alert, oriented, cooperative, no acute distress Lungs: Clear to auscultation, Normal respiratory effort Cardiovascular: Regular Rate, Regular Rhythm Abdomen: abnormal bowel sounds (hypoactive, but more present than yesterday.) Extremities: no edema, normal pulses Wound/Incisions: dressing dry and intact Neurological: no new focal deficit Psy/Mental Status: alert, normal affect, normal mood - Problem List & Annotations (1) Large bowel obstruction SNOMED Code(s): 000005253 Code(s): K56.60 - UNSPECIFIED INTESTINAL OBSTRUCTION Status: Acute Current Visit: Yes (2) GI bleed SNOMED Code(s): 06296845 Code(s): K92.2 - GASTROINTESTINAL HEMORRHAGE, UNSPECIFIED Status: Acute Current Visit: No Qualifiers: GI bleed type/associated pathology: unspecified gastrointestinal hemorrhage type Qualified Code(s): K92.2 - Gastrointestinal hemorrhage, unspecified (3) [place] SNOMED Code(s): 146214410 Code(s): L89.90 - PRESSURE ULCER OF UNSPECIFIED SITE, UNSPECIFIED STAGE Status: Acute Priority: High Current Visit: No Qualifiers: Pressure ulcer location: buttock Pressure ulcer stage: stage 1 (4) End stage COPD SNOMED Code(s): 392348665 Code(s): J44.9 - CHRONIC OBSTRUCTIVE PULMONARY DISEASE, UNSPECIFIED Status : Chronic Current Visit: Yes (5) Generalized weakness SNOMED Code(s): 52627769 Code(s): R53.1 - WEAKNESS Status: Acute Current Visit: No (6) Afib SNOMED Code(s): 68883316 Code(s): I48.91 - UNSPECIFIED ATRIAL FIBRILLATION Status: Chronic Priority: Medium Current Visit: No Qualifiers: Atrial fibrillation type: chronic Qualified Code(s): I48.2 - Chronic atrial fibrillation (7) CHF (congestive heart failure) SNOMED Code(s): 87516421 Code(s): I50.9 - HEART FAILURE, UNSPECIFIED Status: Chronic Current Visit : No Qualifiers: Congestive heart failure type: diastolic Congestive heart failure chronicity: chronic Qualified Code(s): I50.32 - Chronic diastolic (congestive ) heart failure (8) Hx of carotid stenosis SNOMED Code(s): 165630952 Code(s): Z86.79 - PERSONAL HISTORY OF OTHER DISEASES OF THE CIRCULATORY SYSTEM Status: Chronic Current Visit: No Annotation/Comment:: R carotid stent (9) Hx-TIA (transient ischemic attack) SNOMED Code(s): 455813839 Code(s): Z86.73 - PRSNL HX OF TIA (TIA), AND CEREB INFRC W/O RESID DEFICITS Status: Chronic Current Visit: No (10) Iron deficiency anemia due to chronic blood loss SNOMED Code(s): 40038395, 551771568 Code(s): D50.0 - IRON DEFICIENCY ANEMIA SECONDARY TO BLOOD LOSS (CHRONIC) Status: Chronic Priority: High Current Visit: No - Problem List Review Problem List Initiated/Reviewed/Updated: Yes - My Orders Last 24 Hours: My Active Orders 11/17/16 11:22 Enema [] ASDIRECTED 11/17/16 11:24 Daily Weight [Height and Weight] [] DAILY 11/17/16 11:30 Dextrose 5%-0.9% NaCl [Dextrose 5%-Normal Saline] 1,000 ml IV ASDIRECTED methylPREDNISolone Sod Succ [Solu-MEDROL] 40 mg IVPUSH DAILY 11/17/16 12:00 Blood Glucose Check, Bedside [] Q6H 11/18/16 09:23 Bisacodyl [Dulcolax] 10 mg RECTAL ONETIME ONE 11/18/16 09:24 Enema [] ASDIRECTED - Plan Plan:: This 76 year old male admitted with bowel obstruction. 1. Bowel obstruction: Continue bowel rest and IV fluids as well as continue Flagyl considering history of recurrent c.diff infection. Leukocytosis improving. BS have been more level with IVF D5 NS. Will continue to monitor. Trial mineral oil enema today with Dulcolax suppository. Monitor. Continue NG to LIWS, having small bloody drainage. 2. Upper GI bleed: Continue PPI, Hgb 10.0 today. Will monitor. 3. COPD: End stage, continue home inhalers. Continue Solumedrol 40 mg daily until able to take PO. Monitor. Oxygen at 3 L NC. 4. CAD: Stable. Holding medication due to NPO. 5. Afib: Stable. Monitor due to holding oral medications. 6. CHF: Stable. Monitor closely with IVFs. Daily weights. appears to now be euvolemic. VTE prophylaxis: SCDs Dispo: Pending improvement.
[2016-11-18] MEDS: Dextrose 5%-0.9% NaCl 1,000 ML IV SCH (15:00)
[2016-11-19] MEDS: Morphine 2 MG/ML Syringe IVPUSH PRN ×3 (00:27→14:08)
[2016-11-19] MEDS: metroNIDAZOLE/Normal Saline 500 MG in Premix Bag 1 BAG IV SCH ×3 (01:16→17:47)
[2016-11-19] MEDS: Pantoprazole 80 MG in Sodium Chloride 0.9% 100 ML IV SCH (02:46)
[2016-11-19 05:19] LABS: CHLORIDE,CL 107 mmol/L (98-110); SODIUM,NA 139 mmol/L (136-146)
[2016-11-19] MEDS: Albuterol/Ipratropium 3.0-0.5 MG/3 ML Neb Soln NEB PRN ×4 (05:45→21:09)
[2016-11-19] MEDS: Dextrose 5%-0.9% NaCl 1,000 ML IV SCH (06:34)
[2016-11-19] MEDS ORDERED: Magnesium Sulfate/Water 2 GM in Premix Bag 1 BAG IV ONE (07:34)
--- NOTE | 2016-11-19 07:36 | PCM.PN ---
- General Info Date of Service: 11/19/16 Admission Dx/Problem (Free Text): Admission Diagnosis/Problem Admission Diagnosis/Problem Obstruction of colon Subjective Update: Slowly improving. Abdominal better, had two small bms. Denies chest pain. SOB near baseline. Has been up to chair, backpain tolerable. Encouraged to be up more and try to ambulate to room door and back to chair. Functional Status: Reports: pain controlled, ambulating - Review of Systems General: Reports: No Symptoms. Denies: Fatigue Pulmonary: Reports: shortness of breath (baseline), cough, sputum Cardiovascular: Reports: No Symptoms. Denies: Chest Pain, Palpitations, Edema Gastrointestinal: Reports: Abdominal pain. Denies: Nausea, Vomiting Genitourinary: Reports: no symptoms Neurological: Reports: No Symptoms - Patient Data Vitals - most recent: Last Vital Signs Temp 97.3 F 11/19/16 04:00 Pulse 86 11/19/16 04:00 Resp 20 11/19/16 04:00 BP 141/76 H 11/19/16 04:00 Pulse Ox 94 L 11/19/16 04:00 Weight - most recent: 62.5 kg I&O - last 24 hours: Intake & Output 11/18/16 11/19/16 11/19/16 22:59 06:59 14:59 Intake Total 535 937 Output Total 950 1050 Balance -415 -113 Lab Results last 24 hrs: Laboratory Results - last 24 hr 11/18/16 11/18/16 11/19/16 Range/Units 11:57 17:58 01:23 WBC (4.0-11.0) K/uL RBC (4.50-5.90) M/uL Hgb (13.0-17.0) g/dL Hct (38.0-50.0) % MCV (80.0-98.0) fL MCH (27.0-32.0) pg MCHC (31.0-37.0) g/dL RDW Std Deviation (28.0-62.0) fl RDW Coeff of Mavis (11.0-15.0) % Plt Count (150-400) K/uL MPV (7.40-12.00) fL Neut % (Auto) (48.0-80.0) % Lymph % (Auto) (16.0-40.0) % [place] % (Auto) (0.0-15.0) % Eos % (Auto) (0.0-7.0) % Baso % (Auto) (0.0-1.5) % Neut # (Auto) (1.4-5.7) K/uL Lymph # (Auto) (0.6-2.4) K/uL [place] # (Auto) (0.0-0.8) K/uL Eos # (Auto) (0.0-0.7) K/uL Baso # (Auto) (0.0-0.1) K/uL Nucleated RBC % /100WBC Nucleated RBCs # K/uL Sodium (136-146) mmol/L Potassium (3.5-5.1) mmol/L Chloride (98-110) mmol/L Carbon Dioxide (21-31) mmol/L BUN (6.0-23.0) mg/dL Creatinine (0.6-1.5) mg/dL Est Cr Clr Drug Dosing mL/min Estimated GFR (MDRD) ml/min Glucose (60-110) mg/dL POC Glucose 122 H 143 H 115 H (60-110) mg/dL Calcium (8.8-10.8) mg/dL Magnesium (1.5-2.3) mEq/L 11/19/16 11/19/16 11/19/16 Range/Units 04:34 04:34 06:11 WBC 9.37 (4.0-11.0) K/uL RBC 3.54 L (4.50-5.90) M/uL Hgb 10.6 L (13.0-17.0) g/dL Hct 32.5 L (38.0-50.0) % MCV 91.8 (80.0-98.0) fL MCH 29.9 (27.0-32.0) pg MCHC 32.6 (31.0-37.0) g/dL RDW Std Deviation 52.1 (28.0-62.0) fl RDW Coeff of Mavis 15 (11.0-15.0) % Plt Count 149 L (150-400) K/uL MPV 8.70 (7.40-12.00) fL Neut % (Auto) 87.1 H (48.0-80.0) % Lymph % (Auto) 4.9 L (16.0-40.0) % [place] % (Auto) 7.5 (0.0-15.0) % Eos % (Auto) 0.4 (0.0-7.0) % Baso % (Auto) 0.1 (0.0-1.5) % Neut # (Auto) 8.2 H (1.4-5.7) K/uL Lymph # (Auto) 0.5 L (0.6-2.4) K/uL [place] # (Auto) 0.7 (0.0-0.8) K/uL Eos # (Auto) 0.0 (0.0-0.7) K/uL Baso # (Auto) 0.0 (0.0-0.1) K/uL Nucleated RBC % 0.7 /100WBC Nucleated RBCs # 0 K/uL Sodium 139 (136-146) mmol/L Potassium 3.2 L (3.5-5.1) mmol/L Chloride 107 (98-110) mmol/L Carbon Dioxide 23 (21-31) mmol/L BUN 8 (6.0-23.0) mg/dL Creatinine 0.8 (0.6-1.5) mg/dL Est Cr Clr Drug Dosing 71.09 mL/min Estimated GFR (MDRD) > 60.0 ml/min Glucose 102 (60-110) mg/dL POC Glucose 94 (60-110) mg/dL Calcium 7.8 L (8.8-10.8) mg/dL Magnesium 1.5 (1.5-2.3) mEq/L Med Orders - Current: Current Medications Albuterol/Ipratropium (Duoneb 3.0-0.5 Mg/3 Ml) 3 ml NEB Q4HRRT PRN PRN Reason: Shortness of Breath Last Admin: 11/19/16 05:45 Dose: 3 ml Metronidazole 500 mg/ Premix 100 mls @ 100 mls/hr IV Q8H [facility] Last Admin: 11/19/16 01:16 Dose: 100 mls/hr Pantoprazole Sodium 80 mg/ (Sodium Chloride) 100 mls @ 10 mls/hr IV Q10H [facility] Last Admin: 11/19/16 02:46 Dose: 10 mls/hr Dextrose/Sodium Chloride (Dextrose 5%-Normal Saline) 1,000 mls @ 75 mls/hr IV ASDIRECTED [facility] Last Admin: 11/19/16 06:34 Dose: 75 mls/hr Potassium Chloride/Dextrose/Sod Cl (D5 Ns With 20 Meq Kcl) 1,000 mls @ 75 mls/ hr IV ASDIRECTED [facility] Stop: 11/19/16 21:04 Magnesium Sulfate 2 gm/ Premix 50 mls @ 50 mls/hr IV ONETIME ONE Stop: 11/19/16 08:33 Methylprednisolone Sodium Succinate (Solu-Medrol) 40 mg IVPUSH DAILY [facility] Last Admin: 11/18/16 08:44 Dose: 40 mg Morphine Sulfate (Morphine) 2 mg IVPUSH Q2H PRN PRN Reason: Pain (severe 7-10) Last Admin: 11/19/16 07:29 Dose: 2 mg Ondansetron HCl (Zofran) 4 mg IVPUSH Q4H PRN PRN Reason: Nausea Wound Care/Dressing Products (Duoderm Cgf) 1 each TOP ASDIRECTED PRN PRN Reason: pressure sore Last Admin: 11/16/16 14:30 Dose: 1 each Discontinued Medications Albuterol/Ipratropium (Duoneb 3.0-0.5 Mg/3 Ml) 3 ml NEB ONETIME ONE Stop: 11/15/16 12:25 Last Admin: 11/15/16 12:58 Dose: 3 ml Albuterol/Ipratropium (Duoneb 3.0-0.5 Mg/3 Ml) 3 ml NEB Q6HRRT PRN PRN Reason: Shortness of Breath Last Admin: 11/16/16 06:15 Dose: 3 ml Bisacodyl (Dulcolax) 10 mg RECTAL ONETIME ONE Stop: 11/18/16 09:24 Last Admin: 11/18/16 09:55 Dose: 10 mg Dextrose/Water (Dextrose 50% In Water) 50 ml IVPUSH ONETIME ONE Stop: 11/17/16 07:54 Last Admin: 11/17/16 08:05 Dose: 50 ml Sodium Chloride (Normal Saline) 1,000 mls @ 999 mls/hr IV .Bolus ONE Stop: 11/15/16 13:22 Last Admin: 11/15/16 12:57 Dose: 999 mls/hr Sodium Chloride (Normal Saline) 1,000 mls @ 75 mls/hr IV ASDIRECTED [facility] Last Admin: 11/17/16 00:32 Dose: 75 mls/hr Pantoprazole Sodium 40 mg/ (Sodium Chloride) 10 mls @ 300 mls/hr IVPUSH NOW ONE Stop: 11/16/16 14:36 Last Admin: 11/16/16 15:20 Dose: 300 mls/hr Iopamidol (Isovue-370 (76%)) 95 ml IVPUSH ONETIME STA Stop: 11/15/16 13:54 Last Admin: 11/15/16 13:55 Dose: 95 ml Morphine Sulfate (Morphine) 2 mg IVPUSH Q2H PRN PRN Reason: Pain (severe 7-10) Stop: 11/16/16 22:01 - Exam Quality Assessment: supplemental oxygen, urine catheter, DVT prophylaxis General: alert, oriented, cooperative, no acute distress HEENT: Pupils equal, Pupils reactive, EOMI, Mucous membr. moist/pink Neck: supple Lungs: Clear to auscultation, Normal respiratory effort Cardiovascular: Regular Rate, Regular Rhythm Abdomen: bowel sounds present, soft, tenderness (improving, diffuse), distension Extremities: no edema, normal pulses Neurological: no new focal deficit Psy/Mental Status: alert, normal affect, normal mood - Problem List & Annotations (1) Large bowel obstruction SNOMED Code(s): 415984667 Code(s): K56.60 - UNSPECIFIED INTESTINAL OBSTRUCTION Status: Acute Current Visit: Yes (2) GI bleed SNOMED Code(s): 77442816 Code(s): K92.2 - GASTROINTESTINAL HEMORRHAGE, UNSPECIFIED Status: Acute Current Visit: No Qualifiers: GI bleed type/associated pathology: unspecified gastrointestinal hemorrhage type Qualified Code(s): K92.2 - Gastrointestinal hemorrhage, unspecified (3) [place] SNOMED Code(s): 906783964 Code(s): L89.90 - PRESSURE ULCER OF UNSPECIFIED SITE, UNSPECIFIED STAGE Status: Acute Priority: High Current Visit: No Qualifiers: Pressure ulcer location: buttock Pressure ulcer stage: stage 1 (4) End stage COPD SNOMED Code(s): 096249217 Code(s): J44.9 - CHRONIC OBSTRUCTIVE PULMONARY DISEASE, UNSPECIFIED Status : Chronic Current Visit: Yes (5) Generalized weakness SNOMED Code(s): 64195413 Code(s): R53.1 - WEAKNESS Status: Acute Current Visit: No (6) Afib SNOMED Code(s): 27230704 Code(s): I48.91 - UNSPECIFIED ATRIAL FIBRILLATION Status: Chronic Priority: Medium Current Visit: No Qualifiers: Atrial fibrillation type: chronic Qualified Code(s): I48.2 - Chronic atrial fibrillation (7) CHF (congestive heart failure) SNOMED Code(s): 91357380 Code(s): I50.9 - HEART FAILURE, UNSPECIFIED Status: Chronic Current Visit : No Qualifiers: Congestive heart failure type: diastolic Congestive heart failure chronicity: chronic Qualified Code(s): I50.32 - Chronic diastolic (congestive ) heart failure (8) Hx of carotid stenosis SNOMED Code(s): 695408929 Code(s): Z86.79 - PERSONAL HISTORY OF OTHER DISEASES OF THE CIRCULATORY SYSTEM Status: Chronic Current Visit: No Annotation/Comment:: R carotid stent (9) Hx-TIA (transient ischemic attack) SNOMED Code(s): 628196261 Code(s): Z86.73 - PRSNL HX OF TIA (TIA), AND CEREB INFRC W/O RESID DEFICITS Status: Chronic Current Visit: No (10) Iron deficiency anemia due to chronic blood loss SNOMED Code(s): 84946607, 993549616 Code(s): D50.0 - IRON DEFICIENCY ANEMIA SECONDARY TO BLOOD LOSS (CHRONIC) Status: Chronic Priority: High Current Visit: No - Problem List Review Problem List Initiated/Reviewed/Updated: Yes - My Orders Last 24 Hours: My Active Orders 11/18/16 09:24 Enema [RC] ASDIRECTED 11/19/16 07:34 Magnesium Sulfate/Water [Magnesium Sulfate 2 GM in Water 50 ML] 2 gm Premix Bag 1 bag IV ONETIME 11/19/16 07:45 Dextrose 5%-Normal Saline with KCl 20 mEq @ 75 mL/Hr (1000 mL) Dextrose 5%-0.9 % NaCl with KCl [D5 NS with 20 mEq KCl] 1,000 ml IV ASDIRECTED 11/20/16 05:00 BASIC METABOLIC PANEL,BMP [CHEM] DAILY CBC WITH AUTO DIFF [HEME] DAILY MAGNESIUM [CHEM] DAILY 11/21/16 05:00 BASIC METABOLIC PANEL,BMP [CHEM] DAILY CBC WITH AUTO DIFF [HEME] DAILY MAGNESIUM [CHEM] DAILY - Plan Plan:: This 76 year old male admitted with bowel obstruction. 1. Bowel obstruction: Continue bowel rest and IV fluids as well as Flagyl considering history of recurrent c.diff infection. Leukocytosis improving. Continue NG to LIWS, bloody drainage improving, now more pink in color. Having scant very hard BMs. Will continue with mineral oil and dulcolax. Will obtain Abdominal Xray today. 2. Upper GI bleed: Continue PPI, Hgb stable. Has been on Protonix gtt for 72 hours, will change to BID IV push. Will monitor. 3. COPD: End stage, continue home inhalers. Continue Solumedrol 40 mg daily until able to take PO. Monitor. Oxygen at 3 L NC. 4. CAD: Stable. Holding medication due to NPO. 5. Afib: Stable. Monitor due to holding oral medications. 6. CHF: Stable. Monitor closely with IVFs. Daily weights. appears to now be euvolemic. VTE prophylaxis: SCDs Dispo: Pending improvement.
[2016-11-19] MEDS ORDERED: Dextrose 5%-0.9% NaCl with KCl 1,000 ML IV SCH (07:45)
[2016-11-19] MEDS: methylPREDNISolone Sodium Succinate 40 MG/1 ML SDV IVPUSH SCH (08:54)
--- NOTE | 2016-11-19 10:44 | CR ---
EXAMINATION: Abdomen HISTORY: Small bowel obstruction COMPARISON: CT dated 11/15/2016 TECHNIQUE: Single view FINDINGS: There is an NG tube noted with tip in the stomach. There is a mild amount of stool and gas within the colon. No dilated loops of small bowel identified. Atelectasis and/or infiltrate is note d within the left lung base. No abnormal calcifications. No organomegaly. The visualized osseous str uctures appear osteopenic. IMPRESSION: 1. NG tube in place within the stomach. 2. Small amount of stool and gas within the colon without dilated loops of small bowel.
[2016-11-19] MEDS: Bisacodyl 10 MG Supp RECTAL SCH (17:48)
[2016-11-19] MEDS: Pantoprazole 40 MG in Sodium Chloride 0.9% 10 ML IVPUSH SCH (20:24)
[2016-11-20] MEDS: Morphine 2 MG/ML Syringe IVPUSH PRN ×4 (00:14→17:13)
[2016-11-20] MEDS: Dextrose 5%-0.9% NaCl 1,000 ML IV SCH (01:30)
[2016-11-20] MEDS: metroNIDAZOLE/Normal Saline 500 MG in Premix Bag 1 BAG IV SCH ×3 (01:32→17:15)
[2016-11-20] MEDS: Albuterol/Ipratropium 3.0-0.5 MG/3 ML Neb Soln NEB PRN ×4 (05:32→20:06)
[2016-11-20 05:38] LABS: CHLORIDE,CL 108 mmol/L (98-110); SODIUM,NA 141 mmol/L (136-146)
--- NOTE | 2016-11-20 08:43 | PCM.PN ---
- General Info Date of Service: 11/20/16 Admission Dx/Problem (Free Text): Admission Diagnosis/Problem Admission Diagnosis/Problem Obstruction of colon Subjective Update: Continues to feel better today. Passed 2 BMs without medications last evening, passing flatus today. Denies chest pain or SOB. Has been up to chair and ambulated to doorway. Eager to get NG tube out. Functional Status: Reports: pain controlled, ambulating, urinating - Review of Systems General: Reports: No Symptoms. Denies: Fever, Weakness, Fatigue HEENT: Reports: no symptoms Pulmonary: Reports: no symptoms. Denies: shortness of breath Cardiovascular: Reports: No Symptoms. Denies: Chest Pain, Palpitations Gastrointestinal: Reports: No symptoms, Flatus. Denies: Abdominal pain, Nausea , Vomiting Musculoskeletal: Reports: back pain (tolerable, chronic) Skin: Reports: no symptoms Neurological: Reports: No Symptoms Psychiatric: Reports: no symptoms - Patient Data Vitals - most recent: Last Vital Signs Temp 97.0 F 11/20/16 07:46 Pulse 89 11/20/16 07:46 Resp 20 11/20/16 07:46 BP 130/67 11/20/16 07:46 Pulse Ox 93 L 11/20/16 07:46 Weight - most recent: 61.5 kg I&O - last 24 hours: Intake & Output 11/19/16 11/20/16 11/20/16 22:59 06:59 14:59 Intake Total 115 1282 Output Total 1530 620 Balance -1415 662 Lab Results last 24 hrs: Laboratory Results - last 24 hr 11/19/16 11/19/16 11/20/16 Range/Units 12:01 19:34 00:11 WBC (4.0-11.0) K/uL RBC (4.50-5.90) M/uL Hgb (13.0-17.0) g/dL Hct (38.0-50.0) % MCV (80.0-98.0) fL MCH (27.0-32.0) pg MCHC (31.0-37.0) g/dL RDW Std Deviation (28.0-62.0) fl RDW Coeff of Mavis (11.0-15.0) % Plt Count (150-400) K/uL MPV (7.40-12.00) fL Neut % (Auto) (48.0-80.0) % Lymph % (Auto) (16.0-40.0) % [place] % (Auto) (0.0-15.0) % Eos % (Auto) (0.0-7.0) % Baso % (Auto) (0.0-1.5) % Neut # (Auto) (1.4-5.7) K/uL Lymph # (Auto) (0.6-2.4) K/uL [place] # (Auto) (0.0-0.8) K/uL Eos # (Auto) (0.0-0.7) K/uL Baso # (Auto) (0.0-0.1) K/uL Nucleated RBC % /100WBC Nucleated RBCs # K/uL Sodium (136-146) mmol/L Potassium (3.5-5.1) mmol/L Chloride (98-110) mmol/L Carbon Dioxide (21-31) mmol/L BUN (6.0-23.0) mg/dL Creatinine (0.6-1.5) mg/dL Est Cr Clr Drug Dosing mL/min Estimated GFR (MDRD) ml/min Glucose (60-110) mg/dL POC Glucose 106 121 H 101 (60-110) mg/dL Calcium (8.8-10.8) mg/dL Magnesium (1.5-2.3) mEq/L 11/20/16 11/20/16 11/20/16 Range/Units 04:45 04:45 05:31 WBC 8.57 (4.0-11.0) K/uL RBC 3.71 L (4.50-5.90) M/uL Hgb 11.3 L (13.0-17.0) g/dL Hct 34.2 L (38.0-50.0) % MCV 92.2 (80.0-98.0) fL MCH 30.5 (27.0-32.0) pg MCHC 33.0 (31.0-37.0) g/dL RDW Std Deviation 53.4 (28.0-62.0) fl RDW Coeff of Mavis 16 H (11.0-15.0) % Plt Count 166 (150-400) K/uL MPV 8.70 (7.40-12.00) fL Neut % (Auto) 83.1 H (48.0-80.0) % Lymph % (Auto) 6.8 L (16.0-40.0) % [place] % (Auto) 9.5 (0.0-15.0) % Eos % (Auto) 0.5 (0.0-7.0) % Baso % (Auto) 0.1 (0.0-1.5) % Neut # (Auto) 7.1 H (1.4-5.7) K/uL Lymph # (Auto) 0.6 (0.6-2.4) K/uL [place] # (Auto) 0.8 (0.0-0.8) K/uL Eos # (Auto) 0.0 (0.0-0.7) K/uL Baso # (Auto) 0.0 (0.0-0.1) K/uL Nucleated RBC % 0.0 /100WBC Nucleated RBCs # 0 K/uL Sodium 141 (136-146) mmol/L Potassium 3.1 L (3.5-5.1) mmol/L Chloride 108 (98-110) mmol/L Carbon Dioxide 24 (21-31) mmol/L BUN 7 (6.0-23.0) mg/dL Creatinine 0.8 (0.6-1.5) mg/dL Est Cr Clr Drug Dosing 67.27 mL/min Estimated GFR (MDRD) > 60.0 ml/min Glucose 95 (60-110) mg/dL POC Glucose 89 (60-110) mg/dL Calcium 8.0 L (8.8-10.8) mg/dL Magnesium 1.7 (1.5-2.3) mEq/L Med Orders - Current: Current Medications Albuterol/Ipratropium (Duoneb 3.0-0.5 Mg/3 Ml) 3 ml NEB Q4HRRT PRN PRN Reason: Shortness of Breath Last Admin: 11/20/16 05:32 Dose: 3 ml Bisacodyl (Dulcolax) 10 mg RECTAL DAILY [facility] Last Admin: 11/19/16 17:48 Dose: 10 mg Metronidazole 500 mg/ Premix 100 mls @ 100 mls/hr IV Q8H [facility] Last Admin: 11/20/16 01:32 Dose: 100 mls/hr Dextrose/Sodium Chloride (Dextrose 5%-Normal Saline) 1,000 mls @ 75 mls/hr IV ASDIRECTED [facility] Last Admin: 11/20/16 01:30 Dose: 75 mls/hr Pantoprazole Sodium 40 mg/ (Sodium Chloride) 10 mls @ 300 mls/hr IVPUSH Q12H [facility] Last Admin: 11/19/16 20:24 Dose: 300 mls/hr Methylprednisolone Sodium Succinate (Solu-Medrol) 40 mg IVPUSH DAILY [facility] Last Admin: 11/19/16 08:54 Dose: 40 mg Morphine Sulfate (Morphine) 2 mg IVPUSH Q2H PRN PRN Reason: Pain (severe 7-10) Last Admin: 11/20/16 05:22 Dose: 2 mg Ondansetron HCl (Zofran) 4 mg IVPUSH Q4H PRN PRN Reason: Nausea Wound Care/Dressing Products (Duoderm Cgf) 1 each TOP ASDIRECTED PRN PRN Reason: pressure sore Last Admin: 11/16/16 14:30 Dose: 1 each Discontinued Medications Albuterol/Ipratropium (Duoneb 3.0-0.5 Mg/3 Ml) 3 ml NEB ONETIME ONE Stop: 11/15/16 12:25 Last Admin: 11/15/16 12:58 Dose: 3 ml Albuterol/Ipratropium (Duoneb 3.0-0.5 Mg/3 Ml) 3 ml NEB Q6HRRT PRN PRN Reason: Shortness of Breath Last Admin: 11/16/16 06:15 Dose: 3 ml Bisacodyl (Dulcolax) 10 mg RECTAL ONETIME ONE Stop: 11/18/16 09:24 Last Admin: 11/18/16 09:55 Dose: 10 mg Dextrose/Water (Dextrose 50% In Water) 50 ml IVPUSH ONETIME ONE Stop: 11/17/16 07:54 Last Admin: 11/17/16 08:05 Dose: 50 ml Sodium Chloride (Normal Saline) 1,000 mls @ 999 mls/hr IV .Bolus ONE Stop: 11/15/16 13:22 Last Admin: 11/15/16 12:57 Dose: 999 mls/hr Sodium Chloride (Normal Saline) 1,000 mls @ 75 mls/hr IV ASDIRECTED [facility] Last Admin: 11/17/16 00:32 Dose: 75 mls/hr Pantoprazole Sodium 80 mg/ (Sodium Chloride) 100 mls @ 10 mls/hr IV Q10H [facility] Last Admin: 11/19/16 02:46 Dose: 10 mls/hr Pantoprazole Sodium 40 mg/ (Sodium Chloride) 10 mls @ 300 mls/hr IVPUSH NOW ONE Stop: 11/16/16 14:36 Last Admin: 11/16/16 15:20 Dose: 300 mls/hr Potassium Chloride/Dextrose/Sod Cl (D5 Ns With 20 Meq Kcl) 1,000 mls @ 75 mls/ hr IV ASDIRECTED [facility] Stop: 11/19/16 21:04 Last Admin: 11/19/16 08:54 Dose: 75 mls/hr Magnesium Sulfate 2 gm/ Premix 50 mls @ 50 mls/hr IV ONETIME ONE Stop: 11/19/16 08:33 Last Admin: 11/19/16 08:53 Dose: 50 mls/hr Iopamidol (Isovue-370 (76%)) 95 ml IVPUSH ONETIME [facility] Stop: 11/15/16 13:54 Last Admin: 11/15/16 13:55 Dose: 95 ml Morphine Sulfate (Morphine) 2 mg IVPUSH Q2H PRN PRN Reason: Pain (severe 7-10) Stop: 11/16/16 22:01 - Exam General: alert, oriented, cooperative, no acute distress Lungs: Clear to auscultation, Normal respiratory effort Cardiovascular: Regular Rate, Regular Rhythm Abdomen: bowel sounds present, soft, no tenderness, no distension Extremities: no edema, normal pulses Neurological: no new focal deficit Psy/Mental Status: alert, normal affect, normal mood - Problem List & Annotations (1) Large bowel obstruction SNOMED Code(s): 868380433 Code(s): K56.60 - UNSPECIFIED INTESTINAL OBSTRUCTION Status: Acute Current Visit: Yes (2) GI bleed SNOMED Code(s): 23125053 Code(s): K92.2 - GASTROINTESTINAL HEMORRHAGE, UNSPECIFIED Status: Acute Current Visit: No Qualifiers: GI bleed type/associated pathology: unspecified gastrointestinal hemorrhage type Qualified Code(s): K92.2 - Gastrointestinal hemorrhage, unspecified (3) [place] SNOMED Code(s): 626035527 Code(s): L89.90 - PRESSURE ULCER OF UNSPECIFIED SITE, UNSPECIFIED STAGE Status: Acute Priority: High Current Visit: No Qualifiers: Pressure ulcer location: buttock Pressure ulcer stage: stage 1 (4) End stage COPD SNOMED Code(s): 523587940 Code(s): J44.9 - CHRONIC OBSTRUCTIVE PULMONARY DISEASE, UNSPECIFIED Status : Chronic Current Visit: Yes (5) Generalized weakness SNOMED Code(s): 87130461 Code(s): R53.1 - WEAKNESS Status: Acute Current Visit: No (6) Afib SNOMED Code(s): 64496824 Code(s): I48.91 - UNSPECIFIED ATRIAL FIBRILLATION Status: Chronic Priority: Medium Current Visit: No Qualifiers: Atrial fibrillation type: chronic Qualified Code(s): I48.2 - Chronic atrial fibrillation (7) CHF (congestive heart failure) SNOMED Code(s): 17121286 Code(s): I50.9 - HEART FAILURE, UNSPECIFIED Status: Chronic Current Visit : No Qualifiers: Congestive heart failure type: diastolic Congestive heart failure chronicity: chronic Qualified Code(s): I50.32 - Chronic diastolic (congestive ) heart failure (8) Hx of carotid stenosis SNOMED Code(s): 649694419 Code(s): Z86.79 - PERSONAL HISTORY OF OTHER DISEASES OF THE CIRCULATORY SYSTEM Status: Chronic Current Visit: No Annotation/Comment:: R carotid stent (9) Hx-TIA (transient ischemic attack) SNOMED Code(s): 547457690 Code(s): Z86.73 - PRSNL HX OF TIA (TIA), AND CEREB INFRC W/O RESID DEFICITS Status: Chronic Current Visit: No (10) Iron deficiency anemia due to chronic blood loss SNOMED Code(s): 82537201, 082780575 Code(s): D50.0 - IRON DEFICIENCY ANEMIA SECONDARY TO BLOOD LOSS (CHRONIC) Status: Chronic Priority: High Current Visit: No - Problem List Review Problem List Initiated/Reviewed/Updated: Yes - My Orders Last 24 Hours: My Active Orders 11/19/16 10:13 Remove Holley Catheter [Urinary Catheter Removal] [RC] Per Unit Routine 11/19/16 11:33 NG [Gastrointestinal Tube Mgmt] [RC] ASDIRECTED 11/19/16 11:34 Enema [RC] ASDIRECTED 11/19/16 11:45 Bisacodyl [Dulcolax] 10 mg RECTAL DAILY 11/19/16 21:00 Pantoprazole [ProTONIX IV] 40 mg Sodium Chloride 0.9% [Normal Saline] 10 ml IVPUSH Q12H 11/21/16 05:00 BASIC METABOLIC PANEL,BMP [CHEM] DAILY CBC WITH AUTO DIFF [HEME] DAILY MAGNESIUM [CHEM] DAILY - Plan Plan:: This 76 year old male admitted with bowel obstruction. 1. Bowel obstruction: Passing flatus and having BMs. NG remained clamped overnight and he tolerated this well. Will Advance diet and monitor. If he tolerates CL this am, will remove NG this afternoon. Continue Flagyl considering history of recurrent c.diff infection. Abd Xray showed no further dilated loops of bowel. DC IVF if able to tolerate diet. 2. Upper GI bleed: Continue PPI, Hgb stable. 3. COPD: End stage, continue home inhalers. Change Solumedrol 40 mg daily to PO dosing of home Prednisone in am. Monitor. Oxygen at 3 L NC. 4. CAD: Stable. Continue home meds today if tolerating diet. 5. Afib: Stable. Restart home medications today. 6. CHF: Stable. Monitor closely with IVFs. Daily weights. 7. Hypokalemia: Supplementing with 40 meq BID, today. Recheck in am. VTE prophylaxis: SCDs Dispo: Pending improvement.
[2016-11-20] MEDS: methylPREDNISolone Sodium Succinate 40 MG/1 ML SDV IVPUSH SCH (09:11)
[2016-11-20] MEDS: Bisacodyl 10 MG Supp RECTAL SCH (09:25)
[2016-11-20] MEDS ORDERED: ORPHENADRINE CITRATE 100 MG PO PRN (10:08)
[2016-11-20] MEDS: Pantoprazole 40 MG in Sodium Chloride 0.9% 10 ML IVPUSH SCH ×2 (10:37→20:16)
[2016-11-20] MEDS: Diltiazem 120 MG Cap.CD PO SCH (10:39)
[2016-11-20] MEDS: Potassium Chloride 20 MEQ Tab.ER PO SCH ×2 (10:40→19:39)
[2016-11-20] MEDS ORDERED: Potassium Chloride 20 MEQ Tab.ER ONE (19:35)
[2016-11-20] MEDS: Budesonide/Formoterol 2 PUFF INH SCH (20:05)
[2016-11-20] MEDS: Iron Polysaccharides Complex 150 MG Cap PO SCH (20:15)
[2016-11-20] MEDS: HYPROMELLOSE EYEBOTH SCH (20:17)
[2016-11-21] MEDS: Albuterol/Ipratropium 3.0-0.5 MG/3 ML Neb Soln NEB PRN ×4 (01:32→13:22)
[2016-11-21] MEDS: metroNIDAZOLE/Normal Saline 500 MG in Premix Bag 1 BAG IV SCH ×3 (01:32→17:38)
[2016-11-21] MEDS: Morphine 2 MG/ML Syringe IVPUSH PRN ×4 (06:26→19:34)
[2016-11-21 07:08] LABS: CHLORIDE,CL 106 mmol/L (98-110); SODIUM,NA 141 mmol/L (136-146)
[2016-11-21] MEDS: Diltiazem 120 MG Cap.CD PO SCH (08:23)
[2016-11-21] MEDS: Pantoprazole 40 MG in Sodium Chloride 0.9% 10 ML IVPUSH SCH ×2 (08:24→21:21)
[2016-11-21] MEDS: Tamsulosin 0.4 MG Cap.ER PO SCH (08:24)
[2016-11-21] MEDS: Bisacodyl 10 MG Supp RECTAL SCH (08:24)
[2016-11-21] MEDS: Iron Polysaccharides Complex 150 MG Cap PO SCH ×2 (08:24→21:21)
[2016-11-21] MEDS: methylPREDNISolone Sodium Succinate 40 MG/1 ML SDV IVPUSH SCH (08:25)
[2016-11-21] MEDS: Budesonide/Formoterol 2 PUFF INH SCH ×2 (08:54→21:22)
[2016-11-21] MEDS: Tiotropium Inhaler 18 MCG Inhalation Powder Cap Kit of 5 INH SCH (08:55)
--- NOTE | 2016-11-21 13:17 | PCM.PN ---
- Review of Systems Systems Review Comment:: has had several bowel movement, denies abdominal pain. - Patient Data Vitals - most recent: Last Vital Signs Temp 36.6 C 11/21/16 13:00 Pulse 85 11/21/16 13:00 Resp 20 11/21/16 13:00 BP 99/57 L 11/21/16 13:00 Pulse Ox 95 11/21/16 13:00 Weight - most recent: 61.5 kg I&O - last 24 hours: Intake & Output 11/20/16 11/21/16 11/21/16 22:59 06:59 14:59 Intake Total 240 340 Output Total 600 0 Balance -360 340 Lab Results last 24 hrs: Laboratory Results - last 24 hr 11/21/16 11/21/16 Range/Units 06:30 06:30 WBC 9.49 (4.0-11.0) K/uL RBC 4.18 L (4.50-5.90) M/uL Hgb 12.2 L (13.0-17.0) g/dL Hct 38.9 (38.0-50.0) % MCV 93.1 (80.0-98.0) fL MCH 29.2 (27.0-32.0) pg MCHC 31.4 (31.0-37.0) g/dL RDW Std Deviation 54.2 (28.0-62.0) fl RDW Coeff of Mavis 16 H (11.0-15.0) % Plt Count 169 (150-400) K/uL MPV 8.70 (7.40-12.00) fL Neut % (Auto) 86.0 H (48.0-80.0) % Lymph % (Auto) 7.1 L (16.0-40.0) % [place] % (Auto) 6.8 (0.0-15.0) % Eos % (Auto) 0.1 (0.0-7.0) % Baso % (Auto) 0.0 (0.0-1.5) % Neut # (Auto) 8.2 H (1.4-5.7) K/uL Lymph # (Auto) 0.7 (0.6-2.4) K/uL [place] # (Auto) 0.7 (0.0-0.8) K/uL Eos # (Auto) 0.0 (0.0-0.7) K/uL Baso # (Auto) 0.0 (0.0-0.1) K/uL Nucleated RBC % 0.0 /100WBC Nucleated RBCs # 0 K/uL Sodium 141 (136-146) mmol/L Potassium 4.2 (3.5-5.1) mmol/L Chloride 106 (98-110) mmol/L Carbon Dioxide 24 (21-31) mmol/L BUN 8 (6.0-23.0) mg/dL Creatinine 0.9 (0.6-1.5) mg/dL Est Cr Clr Drug Dosing 59.79 mL/min Estimated GFR (MDRD) > 60.0 ml/min Glucose 83 (60-110) mg/dL Calcium 8.5 L (8.8-10.8) mg/dL Magnesium 1.5 (1.5-2.3) mEq/L Med Orders - Current: Current Medications Albuterol/Ipratropium (Duoneb 3.0-0.5 Mg/3 Ml) 3 ml NEB Q4HRRT PRN PRN Reason: Shortness of Breath Last Admin: 11/21/16 08:55 Dose: 3 ml Bisacodyl (Dulcolax) 10 mg RECTAL DAILY [facility] Last Admin: 11/21/16 08:24 Dose: Not Given Diltiazem HCl (Cardizem Cd) 240 mg PO DAILY [facility] Last Admin: 11/21/16 08:23 Dose: 240 mg Metronidazole 500 mg/ Premix 100 mls @ 100 mls/hr IV Q8H [facility] Last Admin: 11/21/16 09:10 Dose: 100 mls/hr Pantoprazole Sodium 40 mg/ (Sodium Chloride) 10 mls @ 300 mls/hr IVPUSH Q12H [facility] Last Admin: 11/21/16 08:24 Dose: 300 mls/hr Methylprednisolone Sodium Succinate (Solu-Medrol) 40 mg IVPUSH DAILY [facility] Last Admin: 11/21/16 08:25 Dose: 40 mg Morphine Sulfate (Morphine) 2 mg IVPUSH Q2H PRN PRN Reason: Pain (severe 7-10) Last Admin: 11/21/16 10:57 Dose: 2 mg Ondansetron HCl (Zofran) 4 mg IVPUSH Q4H PRN PRN Reason: Nausea Budesonide/ (Formoterol 2 Puff) 2 each INH BID [facility] Last Admin: 11/21/16 08:54 Dose: 2 each Orphenadrine Citrate (100 Mg) 100 each PO Q12HR PRN PRN Reason: Pain Ticagrelor 90 Mg 1 each PO BID [facility] Last Admin: 11/21/16 08:25 Dose: 1 each Hypromellose [ (Genteal Mild] 2 Drop) 2 each EYEBOTH BEDTIME [facility] Last Admin: 11/20/16 20:17 Dose: Not Given Polysaccharide Iron Complex (Ferrex 150) 150 mg PO BID [facility] Last Admin: 11/21/16 08:24 Dose: 150 mg Tamsulosin HCl (Flomax) 0.4 mg PO PCBREAKFAST [facility] Last Admin: 11/21/16 08:24 Dose: 0.4 mg Tiotropium Vansant (Spiriva Handihaler) 18 mcg INH DAILY [facility] Last Admin: 11/21/16 08:55 Dose: 1 ampule Wound Care/Dressing Products (Duoderm Cgf) 1 each TOP ASDIRECTED PRN PRN Reason: pressure sore Last Admin: 11/16/16 14:30 Dose: 1 each Discontinued Medications Albuterol/Ipratropium (Duoneb 3.0-0.5 Mg/3 Ml) 3 ml NEB ONETIME ONE Stop: 11/15/16 12:25 Last Admin: 11/15/16 12:58 Dose: 3 ml Albuterol/Ipratropium (Duoneb 3.0-0.5 Mg/3 Ml) 3 ml NEB Q6HRRT PRN PRN Reason: Shortness of Breath Last Admin: 11/16/16 06:15 Dose: 3 ml Bisacodyl (Dulcolax) 10 mg RECTAL ONETIME ONE Stop: 11/18/16 09:24 Last Admin: 11/18/16 09:55 Dose: 10 mg Dextrose/Water (Dextrose 50% In Water) 50 ml IVPUSH ONETIME ONE Stop: 11/17/16 07:54 Last Admin: 11/17/16 08:05 Dose: 50 ml Sodium Chloride (Normal Saline) 1,000 mls @ 999 mls/hr IV .Bolus ONE Stop: 11/15/16 13:22 Last Admin: 11/15/16 12:57 Dose: 999 mls/hr Sodium Chloride (Normal Saline) 1,000 mls @ 75 mls/hr IV ASDIRECTED [facility] Last Admin: 11/17/16 00:32 Dose: 75 mls/hr Pantoprazole Sodium 80 mg/ (Sodium Chloride) 100 mls @ 10 mls/hr IV Q10H [facility] Last Admin: 11/19/16 02:46 Dose: 10 mls/hr Pantoprazole Sodium 40 mg/ (Sodium Chloride) 10 mls @ 300 mls/hr IVPUSH NOW ONE Stop: 11/16/16 14:36 Last Admin: 11/16/16 15:20 Dose: 300 mls/hr Dextrose/Sodium Chloride (Dextrose 5%-Normal Saline) 1,000 mls @ 75 mls/hr IV ASDIRECTED [facility] Last Admin: 11/20/16 01:30 Dose: 75 mls/hr Potassium Chloride/Dextrose/Sod Cl (D5 Ns With 20 Meq Kcl) 1,000 mls @ 75 mls/ hr IV ASDIRECTED [facility] Stop: 11/19/16 21:04 Last Admin: 11/19/16 08:54 Dose: 75 mls/hr Magnesium Sulfate 2 gm/ Premix 50 mls @ 50 mls/hr IV ONETIME ONE Stop: 11/19/16 08:33 Last Admin: 11/19/16 08:53 Dose: 50 mls/hr Iopamidol (Isovue-370 (76%)) 95 ml IVPUSH ONETIME [facility] Stop: 11/15/16 13:54 Last Admin: 11/15/16 13:55 Dose: 95 ml Morphine Sulfate (Morphine) 2 mg IVPUSH Q2H PRN PRN Reason: Pain (severe 7-10) Stop: 11/16/16 22:01 Potassium Chloride (Klor-Con M20) 40 meq PO BID@1015,1700 [facility] Stop: 11/20/16 17:01 Last Admin: 11/20/16 19:39 Dose: 40 meq Potassium Chloride (Klor-Con M20) Confirm Administered Dose 40 meq .ROUTE .STK- MED ONE Stop: 11/20/16 19:36 Last Admin: 11/20/16 19:43 Dose: Not Given - Exam General: alert, cooperative Lungs: Rhonchi, Wheezing Cardiovascular: Regular Rate, Regular Rhythm Abdomen: bowel sounds present, soft, no tenderness, no distension Extremities: no edema Skin: warm, dry, intact Neurological: no new focal deficit - Problem List Review Problem List Initiated/Reviewed/Updated: Yes - Plan Plan:: This 76 year old male admitted with bowel obstruction. 1. Bowel obstruction: resolving Continue Flagyl considering history of recurrent c.diff infection. Advancing to regular diet. Anticipate discharge home tomorrow or Wednesday. 2. Upper GI bleed: Continue PPI, Hgb stable. 3. COPD: End stage, continue home inhalers and prednisone Oxygen at 3 L NC. 4. CAD/Afib/CHF: Stable. Continue home meds VTE prophylaxis: SCDs Dispo: Pending improvement.
[2016-11-21] MEDS: HYPROMELLOSE EYEBOTH SCH (21:32)
[2016-11-22] MEDS: metroNIDAZOLE/Normal Saline 500 MG in Premix Bag 1 BAG IV SCH ×2 (01:40→10:30)
[2016-11-22] MEDS: Tamsulosin 0.4 MG Cap.ER PO SCH (08:23)
[2016-11-22] MEDS: Iron Polysaccharides Complex 150 MG Cap PO SCH (08:23)
[2016-11-22] MEDS: Diltiazem 120 MG Cap.CD PO SCH (08:24)
[2016-11-22] MEDS: methylPREDNISolone Sodium Succinate 40 MG/1 ML SDV IVPUSH SCH (08:26)
[2016-11-22 08:27] VITALS: BP 121/64
[2016-11-22] MEDS: Budesonide/Formoterol 2 PUFF INH SCH (08:28)
[2016-11-22] MEDS: Tiotropium Inhaler 18 MCG Inhalation Powder Cap Kit of 5 INH SCH (08:29)
[2016-11-22] MEDS: Pantoprazole 40 MG in Sodium Chloride 0.9% 10 ML IVPUSH SCH (08:52)
--- NOTE | 2016-11-22 09:08 | PCM.DCSUM1 ---
Discharge Summary - Discharge Data Discharge Date: 11/22/16 Discharge Disposition: Home, Self-Care 01 Condition: Good - Patient Summary/Data Consults: Consultations 11/15/16 15:44 Consult to Physician [CONS] Stat Hospital Course: Admission diagnosis Bowel obstruction Colitis Severe end stage COPD Recurrent/chronic GI bleed Patient is a 76 year old male with pmh of severe end stage COPD, oxygen dependent on 2 L NC, steroid dependent, CHF, afib, R carotid stent placement with anticoagulation on Brilinta, recurrent GI bleeds and anemia, recurrent aspiration pneumonia and Cdiff. He presents with complaint of constipation and abdominal pain. Reports unable to have solid bowel movement in four days, He does have some streaking which is dark and tarry. He was seen in the ED and noted to have a bowel obstruction with inflammation of transverse colon at area of obstruction. WBC was 19,610. Dr. Arvizu was consulted in the ED. He was admitted and treated with NG tube, bowel rest and IV fluids. He was started on Flagyl IV. He did have blood tinged aspirate from NG tube and patient was place on Protonix drip. He was given solumedrol and duonebs for COPD. He did start to have bowell movements and have resolution of his leukocytosis. NG tube was removed and diet was advanced gradually to regular with thickend liquids. Today patient is being discharged home. - Discharge Plan Prescriptions/Med Rec: metroNIDAZOLE [Flagyl] 500 mg PO Q8H #15 tablet Home Medications: Home Meds Albuterol Sulfate [Proair Hfa] 2 puff IH QID PRN 06/14/16 [History] Albuterol/Ipratropium [DuoNeb 3.0-0.5 MG/3 ML] 3 ml NEB Q4H PRN 06/14/16 [ History] Bisacodyl [Dulcolax] 5 - 10 mg PO DAILY PRN 06/14/16 [History] Bisacodyl [Dulcolax] 10 mg RC DAILY PRN 06/14/16 [History] Budesonide/Formoterol Fumarate [Symbicort 160-4.5 Mcg Inhaler] 2 puff IH BID 01/21 [History] Diltiazem [Cardizem CD] 240 mg PO DAILY 06/14/16 [History] Hypromellose [Genteal Mild] 2 drop EYEBOTH BEDTIME 06/14/16 [History] Metoclopramide HCl [Reglan] 10 mg PO QIDACANDBED PRN 06/14/16 [History] Multivitamin [Multivitamins] 1 each PO DAILY 06/14/16 [History] Orphenadrine Citrate 100 mg PO Q12HR PRN 06/14/16 [History] Tamsulosin [Flomax] 0.4 mg PO PCBREAKFAST 06/14/16 [History] Acetaminophen [Tylenol] 500 mg PO Q4H PRN 06/15/16 [History] Albuterol Sulfate 2.5 mg IH Q6H PRN 06/15/16 [History] Pantoprazole [ProTONIX] 40 mg PO BIDAC 06/15/16 [History] Tiotropium [Spiriva HandiHaler] 18 mcg IH DAILY 06/15/16 [History] Iron Polysaccharides Complex [Ferrex 150] 150 mg PO BID cap 06/17/16 [Rx] Potassium Chloride 20 meq PO BID #30 tab.er.prt 06/26/16 [Rx] LORazepam 0.25 mg PO Q6H PRN 10/20/16 [History] Ticagrelor [Brilinta] 90 mg PO BID 10/20/16 [History] predniSONE [Prednisone] 10 mg PO ASDIRECTED #36 tablet 10/23/16 [Rx] predniSONE 5 mg PO ASDIRECTED 11/04/16 [History] Clotrimazole [Lotrimin AF 1% Crm] 1 gm TOP BID tube 11/10/16 [Rx] metroNIDAZOLE [Flagyl] 500 mg PO Q8H #15 tablet 11/22/16 [Rx] Forms: ED Department Discharge Referrals: Adam Michel MD [Primary Care Provider] - 12/01/16 12:00 pm - Patient Data Vitals - Most Recent: Last Vital Signs Temp 36.0 C 11/22/16 08:00 Pulse 74 11/22/16 08:24 Resp 20 11/22/16 08:00 BP 121/64 11/22/16 08:24 Pulse Ox 96 11/22/16 08:00 Weight - Most Recent: 62.5 kg I&O - Last 24 hours: Intake & Output 11/21/16 11/22/16 11/22/16 22:59 06:59 14:59 Intake Total 608 650 Output Total 200 200 Balance 408 450 Med Orders - Current: Current Medications Albuterol/Ipratropium (Duoneb 3.0-0.5 Mg/3 Ml) 3 ml NEB Q4HRRT PRN PRN Reason: Shortness of Breath Last Admin: 11/21/16 13:22 Dose: 3 ml Bisacodyl (Dulcolax) [address] [facility] Last Admin: 11/21/16 08:24 Dose: Not Given Diltiazem HCl (Cardizem Cd) [address] [facility] Last Admin: 11/22/16 08:24 Dose: 240 mg Metronidazole 500 mg/ Premix 100 mls @ 100 mls/hr IV Q8H [facility] Last Admin: 11/22/16 01:40 Dose: 100 mls/hr Pantoprazole Sodium 40 mg/ (Sodium Chloride) 10 mls @ 300 mls/hr IVPUSH Q12H [facility] Last Admin: 11/22/16 08:52 Dose: 300 mls/hr Methylprednisolone Sodium Succinate (Solu-Medrol) [address] [facility] Last Admin: 11/22/16 08:26 Dose: 40 mg Morphine Sulfate (Morphine) 2 mg IVPUSH Q2H PRN PRN Reason: Pain (severe 7-10) Last Admin: 11/21/16 19:34 Dose: 2 mg Ondansetron HCl (Zofran) 4 mg IVPUSH Q4H PRN PRN Reason: Nausea Budesonide/ (Formoterol 2 Puff) [address] [facility] Last Admin: 11/22/16 08:28 Dose: 2 each Orphenadrine Citrate (100 Mg) 100 each PO Q12HR PRN PRN Reason: Pain Ticagrelor 90 Mg [address] [facility] Last Admin: 11/22/16 08:29 Dose: 1 each Hypromellose [ (Genteal Mild] 2 Drop) [address] [facility] Last Admin: 11/21/16 21:32 Dose: Not Given Polysaccharide Iron Complex (Ferrex 150) [address] [facility] Last Admin: 11/22/16 08:23 Dose: 150 mg Tamsulosin HCl (Flomax) 0.[address] [facility] Last Admin: 11/22/16 08:23 Dose: 0.4 mg Tiotropium [place] (Spiriva Handihaler) [address] [facility] Last Admin: 11/22/16 08:29 Dose: 1 cap Wound Care/Dressing Products (Duoderm Cgf) 1 each TOP ASDIRECTED PRN PRN Reason: pressure sore Last Admin: 11/16/16 14:30 Dose: 1 each Discontinued Medications Albuterol/Ipratropium (Duoneb 3.0-0.5 Mg/3 Ml) 3 ml NEB ONETIME ONE Stop: 11/15/16 12:25 Last Admin: 11/15/16 12:58 Dose: 3 ml Albuterol/Ipratropium (Duoneb 3.0-0.5 Mg/3 Ml) 3 ml NEB Q6HRRT PRN PRN Reason: Shortness of Breath Last Admin: 11/16/16 06:15 Dose: 3 ml Bisacodyl (Dulcolax) 10 mg RECTAL ONETIME ONE Stop: 11/18/16 09:24 Last Admin: 11/18/16 09:55 Dose: 10 mg Dextrose/Water (Dextrose 50% In Water) 50 ml IVPUSH ONETIME ONE Stop: 11/17/16 07:54 Last Admin: 11/17/16 08:05 Dose: 50 ml Sodium Chloride (Normal Saline) 1,000 mls @ 999 mls/hr IV .Bolus ONE Stop: 11/15/16 13:22 Last Admin: 11/15/16 12:57 Dose: 999 mls/hr Sodium Chloride (Normal Saline) 1,000 mls @ 75 mls/hr IV ASDIRECTED [facility] Last Admin: 11/17/16 00:32 Dose: 75 mls/hr Pantoprazole Sodium 80 mg/ (Sodium Chloride) 100 mls @ 10 mls/hr IV Q10H [facility] Last Admin: 11/19/16 02:46 Dose: 10 mls/hr Pantoprazole Sodium 40 mg/ (Sodium Chloride) 10 mls @ 300 mls/hr IVPUSH NOW ONE Stop: 11/16/16 14:36 Last Admin: 11/16/16 15:20 Dose: 300 mls/hr Dextrose/Sodium Chloride (Dextrose 5%-Normal Saline) 1,000 mls @ 75 mls/hr IV ASDIRECTED [facility] Last Admin: 11/20/16 01:30 Dose: 75 mls/hr Potassium Chloride/Dextrose/Sod Cl (D5 Ns With 20 Meq Kcl) 1,000 mls @ 75 mls/ hr IV ASDIRECTED [facility] Stop: 11/19/16 21:04 Last Admin: 11/19/16 08:54 Dose: 75 mls/hr Magnesium Sulfate 2 gm/ Premix 50 mls @ 50 mls/hr IV ONETIME ONE Stop: 11/19/16 08:33 Last Admin: 11/19/16 08:53 Dose: 50 mls/hr Iopamidol (Isovue-370 (76%)) 95 ml IVPUSH ONETIME STA Stop: 11/15/16 13:54 Last Admin: 11/15/16 13:55 Dose: 95 ml Morphine Sulfate (Morphine) 2 mg IVPUSH Q2H PRN PRN Reason: Pain (severe 7-10) Stop: 11/16/16 22:01 Potassium Chloride (Klor-Con M20) 40 meq PO BID@1015,1700 [facility] Stop: 11/20/16 17:01 Last Admin: 11/20/16 19:39 Dose: 40 meq Potassium Chloride (Klor-Con M20) Confirm Administered Dose 40 meq .ROUTE .STK- MED ONE Stop: 11/20/16 19:36 Last Admin: 11/20/16 19:43 Dose: Not Given *Q Meaningful Use (DIS) - VTE *Q VTE Criteria *Q: - Stroke *Q Stroke Criteria *Q: - AMI *Q AMI Criteria *Q:
[2016-11-22] MEDS: Bisacodyl 10 MG Supp RECTAL SCH (10:30)
== END 2016-11-22 10:00 | disposition home or self-care (01) | DRG 390 ==
LOC: MW.ED 11:49 → UNDOADMIN 13:20 → MW.MS 13:20 → UNDODISIN 11-22 10:00
PROVIDERS: ADMIT Internal Medicine; ATTEND Internal Medicine
PROC: 0DH67UZ Insertion of Feeding Device into Stomach, Via Natural or Artificial Opening (ICD-10-PCS; principal; 2016-11-15)
DX: K56.69 Other intestinal obstruction (principal); K52.9 Noninfective gastroenteritis and colitis, unspecified; J44.9 Chronic obstructive pulmonary disease, unspecified; I25.10 Atherosclerotic heart disease of native coronary artery without angina pectoris; I48.91 Unspecified atrial fibrillation; I50.9 Heart failure, unspecified; E78.00 Pure hypercholesterolemia, unspecified; I10 Essential (primary) hypertension; Z79.899 Other long term (current) drug therapy; L89.301 Pressure ulcer of unspecified buttock, stage 1; Z87.891 Personal history of nicotine dependence; Z51.5 Encounter for palliative care; R53.1 Weakness; D50.0 Iron deficiency anemia secondary to blood loss (chronic); E87.6 Hypokalemia; Z95.5 Presence of coronary angioplasty implant and graft; Z86.73 Personal history of transient ischemic attack (TIA), and cerebral infarction without residual deficits; Z99.81 Dependence on supplemental oxygen; Z79.52 Long term (current) use of systemic steroids; Z79.01 Long term (current) use of anticoagulants
CPT/HCPCS: 36415; 43752; 74177; 80053; 83605; 85025; 96360; 99285; J7040; 71010; 71010-26; 74000; 74000-26; 74020; 74020-26; 80048; 81001; 82962; 83735; 94640; 96361; A9270-GY; C9113; J2270; J2920; J3475; J3480; J7030; J7042; J7060; Q9967

== ENCOUNTER 2016-11-25 21:39 | Inpatient (IN) | payer MEDICARE ==
[2016-11-25] MEDS ORDERED: Albuterol/Ipratropium 3.0-0.5 MG/3 ML Neb Soln NEB ONE (21:47)
[2016-11-25] MEDS ORDERED: Albuterol/Ipratropium 3.0-0.5 MG/3 ML Neb Soln ONE (21:47)
--- NOTE | 2016-11-25 21:54 | EDM.PDOC ---
[id number]: SHORT OF BREATH Time Seen by Provider: 11/25/16 21:50 - History of Present Illness INITIAL COMMENTS - FREE TEXT/NARRATIVE: HISTORY AND PHYSICAL: History of present illness: Patient is a 76-year-old white male with history of COPD and atrial fibrillation presents with shortness of breath patient is well-known to our hospital he has true end-stage lung disease and has been advanced directive of DO NOT RESUSCITATE he denies chest pain nausea vomiting or other concern Review of systems: As per history of present illness and below otherwise all systems reviewed and negative. Past medical history: As per history of present illness and as reviewed below otherwise noncontributory. Surgical history: As per history of present illness and as reviewed below otherwise noncontributory. Social history: No reported history of drug or alcohol abuse. Family history: As per history of present illness and as reviewed below otherwise noncontributory. Physical exam: HEENT: Atraumatic, normocephalic, pupils reactive, negative for conjunctival pallor or scleral icterus, mucous membranes moist, throat clear, neck supple, nontender, trachea midline. Lungs: Coarse with scattered rhonchi and wheezing bilaterally, breath sounds equal bilaterally, chest nontender. Heart: Irregularly irregular and tachycardic, negative for clicks, rubs, or JVD. Abdomen: Soft, nondistended, nontender. Negative for masses or hepatosplenomegaly. Negative for costovertebral tenderness. Pelvis: Stable nontender. Genitourinary: Deferred. Rectal: Deferred. Extremities: Atraumatic, negative for cords or calf pain. Neurovascular unremarkable. Neuro: Awake, alert, at baseline follow commands and moves all extremities limited but grossly nonfocal Therapeutics: CBC CMP troponin PT/INR BNP chest x-ray EKG Impression: #1 atrial fibrillation with rapid ventricular response #2 COPD with exacerbation 3 DNR Definitive disposition and diagnosis as appropriate pending reevaluation and review of above. Back Pain Score (Numeric/FACES): 7 Abdomen Pain Score (Numeric/FACES): 4 - Related Data Allergies Allergy/AdvReac Type Severity Reaction Status Date / Time No Known Allergies Allergy Verified 11/25/16 21:53 Home Meds: Home Meds Albuterol Sulfate [Proair Hfa] 2 puff IH QID PRN 06/14/16 [History] Albuterol/Ipratropium [DuoNeb 3.0-0.5 MG/3 ML] 3 ml NEB Q4H PRN 06/14/16 [ History] Bisacodyl [Dulcolax] 5 - 10 mg PO DAILY PRN 06/14/16 [History] Bisacodyl [Dulcolax] 10 mg RC DAILY PRN 06/14/16 [History] Budesonide/Formoterol Fumarate [Symbicort 160-4.5 Mcg Inhaler] 2 puff IH BID 01/21 [History] Diltiazem [Cardizem CD] 240 mg PO DAILY 06/14/16 [History] Hypromellose [Genteal Mild] 2 drop EYEBOTH BEDTIME 06/14/16 [History] Metoclopramide HCl [Reglan] 10 mg PO QIDACANDBED PRN 06/14/16 [History] Multivitamin [Multivitamins] 1 each PO DAILY 06/14/16 [History] Orphenadrine Citrate 100 mg PO Q12HR PRN 06/14/16 [History] Tamsulosin [Flomax] 0.4 mg PO PCBREAKFAST 06/14/16 [History] Acetaminophen [Tylenol] 500 mg PO Q4H PRN 06/15/16 [History] Albuterol Sulfate 2.5 mg IH Q6H PRN 06/15/16 [History] Pantoprazole [ProTONIX] 40 mg PO BIDAC 06/15/16 [History] Tiotropium [Spiriva HandiHaler] 18 mcg IH DAILY 06/15/16 [History] Iron Polysaccharides Complex [Ferrex 150] 150 mg PO BID cap 06/17/16 [Rx] Potassium Chloride 20 meq PO BID #30 tab.er.prt 06/26/16 [Rx] LORazepam 0.25 mg PO Q6H PRN 10/20/16 [History] Ticagrelor [Brilinta] 90 mg PO BID 10/20/16 [History] predniSONE 5 mg PO Q2D 11/04/16 [History] Clotrimazole [Lotrimin AF 1% Crm] 1 gm TOP BID tube 11/10/16 [Rx] metroNIDAZOLE [Flagyl] 500 mg PO Q8H #15 tablet 11/22/16 [Rx] predniSONE [Prednisone] 10 mg PO Q2D 11/26/16 [History] Past Medical History HEENT History: Reports: Cataract Other HEENT History: glasses Cardiovascular History: Reports: Afib, CAD, Heart Failure, High Cholesterol, Hypertension, Stents Respiratory History: Reports: COPD, Pneumonia, Recurrent, Pneumothorax, SOB, Other (See Below) Other Respiratory History: chronic respiratory failure with hypoxia Gastrointestinal History: Reports: GI Bleed, Other (See Below) (Esophageal cancer) Other Gastrointestinal History: GI Bleed. Ileus Genitourinary History: Reports: None Musculoskeletal History: Reports: Other (See Below) Other Musculoskeletal History: Back Problem Neurological History: Reports: TIA Psychiatric History: Reports: None Endocrine/Metabolic History: Reports: None Hematologic History: Reports: Anemia Immunologic History: Reports: None Oncologic (Cancer) History: Reports: Other (See Below) Other Oncologic History: throat Dermatologic History: Reports: None - Infectious Disease History Infectious Disease History: Reports: Chicken Pox, Measles, Mumps Other Infectious Disease History: clear for MRSA per patient - Past Surgical History Head Surgeries/Procedures: Reports: None HEENT Surgical History: Reports: None Cardiovascular Surgical History: Reports: Coronary Artery Stent, Carotid Stents GI Surgical History: Reports: Other (See Below) Male Surgical History: Reports: None Endocrine Surgical History: Reports: None Neurological Surgical History: Reports: None Dermatological Surgical History: Reports: None Social & Family History - Family History Family Medical History: Noncontributory HEENT: Reports: None Cardiac: Reports: Hypertension Other Cardiac Family History: Father, Mother Respiratory: Reports: None GI: Reports: GI bleed : Reports: None OBGYN: Reports: Musculoskeletal: Reports: Arthritis Neurological: Reports: None Psychiatric: Reports: None Endocrine/Metabolic: Reports: Diabetes, type II Hematologic: Reports: None Immunologic: Reports: None Dermatologic: Reports: None Oncologic: Reports: Prostate - Tobacco Use Smoking Status *Q: Former Smoker Years of Tobacco use: 50 Packs/Tins Daily: 4 Used Tobacco, but Quit: Yes Month Tobacco Last Used: 5 years Second Hand Smoke Exposure: No - Caffeine Use Caffeine Use: Reports: Coffee Caffeine Use Comment: 3 cups daily - Alcohol Use Days Per Week of Alcohol Use: 2 Number of Drinks Per Day: 2 Total Drinks Per Week: 4 - Recreational Drug Use Recreational Drug Use: No Drug Use in Last 12 Months: No ED ROS GENERAL - Review of Systems Review Of Systems: ROS reveals no pertinent complaints other than HPI. ED EXAM, GENERAL - Physical Exam Exam: See Below (See dictation) Course - Vital Signs Last Recorded V/S: Last Vital Signs Temp 36.1 C 11/29/16 07:54 Pulse 62 11/29/16 09:06 Resp 18 11/29/16 07:54 BP 150/65 H 11/29/16 09:06 Pulse Ox 96 11/29/16 07:54 - Orders/Labs/Meds Orders: Active Orders 24 hr Category Date Time Status BASIC METABOLIC PANEL,BMP [CHEM] AM Lab 11/30/16 05:11 Ordered CBC WITH AUTO DIFF [HEME] AM Lab 11/30/16 05:11 Ordered Medication Orders Acetaminophen (Tylenol) 650 mg PO Q4H PRN PRN Reason: Pain (Mild 1-3)/fever Last Admin: 11/28/16 09:43 Dose: 650 mg Albuterol (Proventil Neb Soln) 2.5 mg NEB Q2H PRN PRN Reason: Shortness Of Breath/wheezing Albuterol/Ipratropium (Duoneb 3.0-0.5 Mg/3 Ml) 3 ml NEB Q4HRRT [facility]ER[facility] Last Admin: 11/29/16 09:37 Dose: 3 ml Admin: 11/29/16 05:51 Dose: 3 ml Admin: 11/29/16 02:16 Dose: 3 ml Admin: 11/28/16 23:37 Dose: Admin: 11/28/16 20:53 Dose: 3 ml Admin: 11/28/16 17:47 Dose: 3 ml Admin: 11/28/16 13:37 Dose: 3 ml Admin: 11/28/16 10:07 Dose: 3 ml Admin: 11/28/16 06:04 Dose: 3 ml Admin: 11/28/16 02:29 Dose: 3 ml Admin: 11/27/16 21:19 Dose: 3 ml Admin: 11/27/16 18:37 Dose: 3 ml Admin: 11/27/16 15:30 Dose: 3 ml Admin: 11/27/16 09:53 Dose: 3 ml Admin: 11/27/16 05:54 Dose: 3 ml Admin: 11/27/16 02:39 Dose: 3 ml Admin: 11/26/16 21:05 Dose: 3 ml Admin: 11/26/16 17:45 Dose: 3 ml Admin: 11/26/16 13:22 Dose: 3 ml Bisacodyl (Dulcolax) 10 mg PO DAILY PRN PRN Reason: Constipation Last Admin: 11/28/16 15:32 Dose: 10 mg Admin: 11/27/16 14:27 Dose: 10 mg Carboxymethylcellu Sod/Hypromellose (Genteal Moderate To Severe Ophth Gel) 0 ml EYEBOTH BEDTIME [facility] Last Admin: 11/28/16 21:18 Dose: Admin: 11/27/16 22:00 Dose: Admin: 11/26/16 21:48 Dose: Clotrimazole (Lotrimin Af 1% Crm) 1 gm TOP BID [facility] Last Admin: 11/29/16 09:07 Dose: 1 applic Admin: 11/28/16 21:21 Dose: 1 applic Admin: 11/28/16 09:31 Dose: 1 applic Admin: 11/27/16 21:04 Dose: 1 applic Admin: 11/27/16 09:01 Dose: 1 applic Admin: 11/26/16 22:00 Dose: 1 applic Diltiazem HCl (Cardizem Cd) 240 mg PO DAILY [facility] Last Admin: 11/29/16 09:06 Dose: 240 mg Admin: 11/28/16 09:24 Dose: 240 mg Admin: 11/27/16 09:01 Dose: 240 mg Admin: 11/26/16 11:01 Dose: 240 mg Doxycycline Hyclate (Vibramycin) 100 mg PO Q12HR [facility] Last Admin: 11/29/16 09:04 Dose: 100 mg Admin: 11/28/16 21:19 Dose: 100 mg Admin: 11/28/16 09:24 Dose: 100 mg Admin: 11/27/16 20:19 Dose: 100 mg Admin: 11/27/16 09:00 Dose: 100 mg Admin: 11/26/16 20:10 Dose: 100 mg Piperacillin Sod/Tazobactam (Sod 3.375 gm/ Sodium Chloride) 50 mls @ 100 mls/ hr IV Q6H [facility] Last Admin: 11/29/16 09:06 Dose: 100 mls/hr Infusion: 11/29/16 02:50 Dose: 100 mls/hr Admin: 11/29/16 02:16 Dose: 100 mls/hr Infusion: 11/28/16 22:00 Dose: 100 mls/hr Admin: 11/28/16 21:26 Dose: 100 mls/hr Infusion: 11/28/16 16:02 Dose: 100 mls/hr Admin: 11/28/16 15:32 Dose: 100 mls/hr Infusion: 11/28/16 09:56 Dose: 100 mls/hr Admin: 11/28/16 09:26 Dose: 100 mls/hr Infusion: 11/28/16 02:59 Dose: 100 mls/hr Admin: 11/28/16 02:29 Dose: 100 mls/hr Infusion: 11/27/16 21:34 Dose: 100 mls/hr Admin: 11/27/16 21:04 Dose: 100 mls/hr Lorazepam (Ativan) 0.25 mg PO Q6H PRN PRN Reason: Anxiety Metoclopramide HCl (Reglan) 10 mg PO QIDACANDBED PRN PRN Reason: Vomiting Ondansetron HCl (Zofran Odt) 4 mg PO Q4H PRN PRN Reason: nausea, able to take PO Pantoprazole Sodium (Protonix) 40 mg PO BIDAC [facility] Last Admin: 11/29/16 06:33 Dose: 40 mg Admin: 11/28/16 16:26 Dose: 40 mg Admin: 11/28/16 09:24 Dose: 40 mg Admin: 11/27/16 16:57 Dose: 40 mg Admin: 11/27/16 06:49 Dose: 40 mg Admin: 11/26/16 17:00 Dose: 40 mg Budesonide/Formoterol 160-4. 5mcg 2 PuffPt Own* * 2 each INH BIDRT [facility] Last Admin: 11/29/16 06:09 Dose: 2 each Admin: 11/28/16 21:07 Dose: 2 each Admin: 11/28/16 06:21 Dose: 2 each Admin: 11/27/16 21:19 Dose: 2 each Admin: 11/27/16 08:37 Dose: 2 each Admin: 11/27/16 08:37 Dose: 2 each Admin: 11/26/16 21:06 Dose: 2 each Orphenadrine Citrate (Er 100 MgPt Own) 100 each PO Q12HR PRN PRN Reason: Pain Ticagrelor 90 MgPt (Own) 1 each PO BID [facility] Last Admin: 11/29/16 09:07 Dose: 1 each Admin: 11/28/16 21:20 Dose: 1 each Admin: 11/28/16 09:24 Dose: 1 each Admin: 11/27/16 20:19 Dose: 1 each Admin: 11/27/16 09:02 Dose: 1 each Admin: 11/26/16 21:30 Dose: 1 each Prednisone (Prednisone) 10 mg PO Q2D [facility] Last Admin: 11/28/16 16:26 Dose: 10 mg Admin: 11/26/16 17:00 Dose: 10 mg Prednisone (Prednisone) 5 mg PO Q2D [facility] Last Admin: 11/29/16 09:27 Dose: 5 mg Admin: 11/27/16 09:07 Dose: 5 mg Tamsulosin HCl (Flomax) 0.4 mg PO PCBREAKFAST [facility] Last Admin: 11/29/16 09:04 Dose: 0.4 mg Admin: 11/28/16 09:24 Dose: 0.4 mg Admin: 11/27/16 09:00 Dose: 0.4 mg Tiotropium [place] (Spiriva Handihaler) 18 mcg INH DAILY [facility] Last Admin: 11/29/16 08:37 Dose: 1 cap Admin: 11/28/16 10:26 Dose: 1 cap Admin: 11/27/16 08:35 Dose: 1 cap Tramadol HCl (Ultram) 50 mg PO Q6H PRN PRN Reason: Pain Last Admin: 11/29/16 07:18 Dose: 50 mg Admin: 11/28/16 17:26 Dose: 50 mg Admin: 11/28/16 04:40 Dose: 50 mg Admin: 11/27/16 17:29 Dose: 50 mg Admin: 11/27/16 10:13 Dose: 50 mg Admin: 11/26/16 20:09 Dose: 50 mg Admin: 11/26/16 13:51 Dose: 50 mg Admin: 11/26/16 01:40 Dose: 50 mg Labs: Laboratory Tests 11/25/16 11/25/16 11/25/16 Range/Units 22:05 22:05 22:05 WBC (4.0-11.0) K/uL RBC (4.50-5.90) M/uL Hgb (13.0-17.0) g/dL Hct (38.0-50.0) % MCV (80.0-98.0) fL MCH (27.0-32.0) pg MCHC (31.0-37.0) g/dL RDW Std Deviation (28.0-62.0) fl RDW Coeff of Mavis (11.0-15.0) % Plt Count (150-400) K/uL MPV (7.40-12.00) fL Add Manual Diff Neutrophils % (Manual) (48.0-80.0) % Band Neutrophils % % Lymphocytes % (Manual) (16.0-40.0) % Monocytes % (Manual) (0.0-15.0) % Nucleated RBC % /100WBC Absolute Seg Neuts Band Neutrophils # Lymphocytes # (Manual) Monocytes # (Manual) Nucleated RBCs # K/uL Sodium 137 (136-146) mmol/L Potassium 4.9 (3.5-5.1) mmol/L Chloride 99 (98-110) mmol/L Carbon Dioxide 26 (21-31) mmol/L BUN 11 (6.0-23.0) mg/dL Creatinine 1.1 (0.6-1.5) mg/dL Est Cr Clr Drug Dosing 49.14 mL/min Estimated GFR (MDRD) > 60.0 ml/min Glucose 119 H (60-110) mg/dL Calcium 9.1 (8.8-10.8) mg/dL Total Bilirubin 0.8 (0.1-1.5) mg/dL AST 16 (5-40) IU/L ALT 20 (8-54) IU/L Alkaline Phosphatase 106 (40-150) Creatine Kinase (9-236) IU/L Troponin I < 0.10 (0.0-0.29) NG/ML B-Natriuretic Peptide 106 H (<100) PG/ML Total Protein 6.5 (6.0-8.0) g/dL Albumin 3.5 (3.4-4.8) g/dL Globulin 3.0 (2.0-3.5) g/dL Albumin/Globulin Ratio 1.2 L (1.3-2.8) 11/25/16 11/25/16 11/26/16 Range/Units 22:05 22:05 03:56 WBC 17.28 H 14.94 H (4.0-11.0) K/uL RBC 4.47 L 3.64 L (4.50-5.90) M/uL Hgb 13.5 10.9 L (13.0-17.0) g/dL Hct 42.0 33.8 L (38.0-50.0) % MCV 94.0 92.9 (80.0-98.0) fL MCH 30.2 29.9 (27.0-32.0) pg MCHC 32.1 32.2 (31.0-37.0) g/dL RDW Std Deviation 56.7 56.2 (28.0-62.0) fl RDW Coeff of Mavis 17 H 16 H (11.0-15.0) % Plt Count 259 170 (150-400) K/uL MPV 8.80 9.10 (7.40-12.00) fL Add Manual Diff YES YES Neutrophils % (Manual) 76 87 H (48.0-80.0) % Band Neutrophils % 7 9 % Lymphocytes % (Manual) 14 L 4 L (16.0-40.0) % Monocytes % (Manual) 3 (0.0-15.0) % Nucleated RBC % 0.0 0.0 /100WBC Absolute Seg Neuts 13.1 13.0 Band Neutrophils # 1.2 1.3 Lymphocytes # (Manual) 2.4 0.6 Monocytes # (Manual) 0.5 Nucleated RBCs # 0 0 K/uL Sodium (136-146) mmol/L Potassium (3.5-5.1) mmol/L Chloride (98-110) mmol/L Carbon Dioxide (21-31) mmol/L BUN (6.0-23.0) mg/dL Creatinine (0.6-1.5) mg/dL Est Cr Clr Drug Dosing mL/min Estimated GFR (MDRD) ml/min Glucose (60-110) mg/dL Calcium (8.8-10.8) mg/dL Total Bilirubin (0.1-1.5) mg/dL AST (5-40) IU/L ALT (8-54) IU/L Alkaline Phosphatase (40-150) Creatine Kinase 32 (9-236) IU/L Troponin I (0.0-0.29) NG/ML B-Natriuretic Peptide (<100) PG/ML Total Protein (6.0-8.0) g/dL Albumin (3.4-4.8) g/dL Globulin (2.0-3.5) g/dL Albumin/Globulin Ratio (1.3-2.8) 11/26/16 Range/Units 03:56 WBC (4.0-11.0) K/uL RBC (4.50-5.90) M/uL Hgb (13.0-17.0) g/dL Hct (38.0-50.0) % MCV (80.0-98.0) fL MCH (27.0-32.0) pg MCHC (31.0-37.0) g/dL RDW Std Deviation (28.0-62.0) fl RDW Coeff of Mavis (11.0-15.0) % Plt Count (150-400) K/uL MPV (7.40-12.00) fL Add Manual Diff Neutrophils % (Manual) (48.0-80.0) % Band Neutrophils % % Lymphocytes % (Manual) (16.0-40.0) % Monocytes % (Manual) (0.0-15.0) % Nucleated RBC % /100WBC Absolute Seg Neuts Band Neutrophils # Lymphocytes # (Manual) Monocytes # (Manual) Nucleated RBCs # K/uL Sodium 136 (136-146) mmol/L Potassium 4.4 (3.5-5.1) mmol/L Chloride 103 (98-110) mmol/L Carbon Dioxide 25 (21-31) mmol/L BUN 13 (6.0-23.0) mg/dL Creatinine 1.0 (0.6-1.5) mg/dL Est Cr Clr Drug Dosing 56.44 mL/min Estimated GFR (MDRD) > 60.0 ml/min Glucose 73 (60-110) mg/dL Calcium 8.1 L (8.8-10.8) mg/dL Total Bilirubin (0.1-1.5) mg/dL AST (5-40) IU/L ALT (8-54) IU/L Alkaline Phosphatase (40-150) Creatine Kinase (9-236) IU/L Troponin I (0.0-0.29) NG/ML B-Natriuretic Peptide (<100) PG/ML Total Protein (6.0-8.0) g/dL Albumin (3.4-4.8) g/dL Globulin (2.0-3.5) g/dL Albumin/Globulin Ratio (1.3-2.8) Meds: Medications Generic Name Dose Route Start Last Admin Trade Name Freq PRN Reason Stop Dose Admin Acetaminophen 650 mg 11/26/16 09:54 11/28/16 09:43 Tylenol PO 650 mg Q4H PRN Administration Pain (Mild 1-3)/fever Albuterol 2.5 mg 11/26/16 10:40 Proventil Neb Soln NEB Q2H PRN Shortness Of Breath/wheezing Albuterol/Ipratropium 3 ml 11/26/16 14:00 11/29/16 09:37 Duoneb 3.0-0.5 Mg/3 Ml NEB 3 ml Q4HRRT [facility] Administration Bisacodyl 10 mg 11/26/16 10:05 11/28/16 15:32 Dulcolax PO 10 mg DAILY PRN Administration Constipation Carboxymethylcellu Sod/Hypromellose 0 ml 11/26/16 21:00 11/28/16 21:18 Genteal Moderate To Severe Ophth Gel EYEBOTH Not Given BEDTIME [facility] Clotrimazole 1 gm 11/26/16 21:00 11/29/16 09:07 Lotrimin Af 1% Crm TOP 1 applic BID [facility] Administration Diltiazem HCl 240 mg 11/26/16 10:15 11/29/16 09:06 Cardizem Cd PO 240 mg DAILY [facility] Administration Doxycycline Hyclate 100 mg 11/26/16 21:00 11/29/16 09:04 Vibramycin PO 100 mg Q12HR [facility] Administration Piperacillin Sod/Tazobactam 50 mls @ 100 mls/hr 11/27/16 21:00 11/29/16 09:06 Sod 3.375 gm/ Sodium Chloride IV 100 mls/hr Q6H [facility] Administration Lorazepam 0.25 mg 11/26/16 10:05 Ativan PO Q6H PRN Anxiety Metoclopramide HCl 10 mg 11/26/16 10:05 Reglan PO QIDACANDBED PRN Vomiting Ondansetron HCl 4 mg 11/26/16 09:54 Zofran Odt PO Q4H PRN nausea, able to take PO Pantoprazole Sodium 40 mg 11/26/16 17:00 11/29/16 06:33 Protonix PO 40 mg BIDAC [facility] Administration Budesonide/ 2 each 11/26/16 21:00 11/29/16 06:09 Formoterol 160-4. INH 2 each 5mcg 2 PuffPt Own* BIDRT [facility] Administration * Orphenadrine Citrate 100 each 11/26/16 09:38 Er 100 MgPt Own PO Q12HR PRN Pain Ticagrelor 90 MgPt 1 each 11/26/16 21:00 11/29/16 09:07 Own PO 1 each BID [facility] Administration Prednisone 10 mg 11/26/16 16:45 11/28/16 16:26 Prednisone PO 10 mg Q2D [facility] Administration Prednisone 5 mg 11/27/16 09:00 11/29/16 09:27 Prednisone PO 5 mg Q2D [facility] Administration Tamsulosin HCl 0.4 mg 11/27/16 08:30 11/29/16 09:04 Flomax PO 0.4 mg PCBREAKFAST [facility] Administration Tiotropium [place] 18 mcg 11/27/16 09:00 11/29/16 08:37 Spiriva Handihaler INH 1 cap DAILY [facility] Administration Tramadol HCl 50 mg 11/26/16 01:26 11/29/16 07:18 Ultram PO 50 mg Q6H PRN Administration Pain Discontinued Medications Generic Name Dose Route Start Last Admin Trade Name Freq PRN Reason Stop Dose Admin Albuterol/Ipratropium 3 ml 11/25/16 21:47 11/25/16 21:54 Duoneb 3.0-0.5 Mg/3 Ml NEB 11/25/16 21:48 3 ml STAT ONE Administration Albuterol/Ipratropium Confirm 11/25/16 21:47 11/26/16 00:46 Duoneb 3.0-0.5 Mg/3 Ml Administered 11/25/16 21:48 Not Given Dose 3 ml .ROUTE .STK-MED ONE Albuterol/Ipratropium 3 ml 11/26/16 00:07 11/26/16 10:39 Duoneb 3.0-0.5 Mg/3 Ml NEB 3 ml Q4HRRT PRN Administration Shortness of Breath Levofloxacin/Dextrose 750 mg/ 150 mls @ 100 mls/hr 11/25/16 23:17 11/25/16 23 :42 Premix IV 11/26/16 00:46 100 mls/hr ONETIME ONE Administration Magnesium Sulfate 4 gm/ Premix 100 mls @ 50 mls/hr 11/27/16 13:20 11/27/16 14 :00 IV 11/27/16 15:19 50 mls/hr ONETIME ONE Administration Budesonide/ 0 puff 11/26/16 09:00 11/26/16 08:33 Formoterol 160-4. IH 2 puff 5mcg 2 PuffPt Own* BID [facility] Administration * Orphenadrine Citrate 100 mg 11/26/16 01:18 Er 100 MgPt Own PO Q12HR PRN Pain Potassium Chloride 20 meq 11/26/16 21:00 11/29/16 11:16 Klor-Con M20 PO Not Given BID [facility] Departure - Departure Time of Disposition: 23:00 Disposition: Refer to Observation Condition: Serious Clinical Impression: A-fib COPD (chronic obstructive pulmonary disease) Qualifiers: COPD type: COPD with acute lower respiratory infection Qualified Code(s): J44.0 - Chronic obstructive pulmonary disease with acute lower respiratory infection - Discharge Information
[2016-11-25 22:44] LABS: CHLORIDE,CL 99 mmol/L (98-110); SODIUM,NA 137 mmol/L (136-146)
[2016-11-25] MEDS ORDERED: Levofloxacin/Dextrose 5%-Water 750 MG in Premix Bag 1 BAG IV ONE (23:17)
[2016-11-26] MEDS ORDERED: ORPHENADRINE CITRATE 100 MG PO PRN ×2 (01:18→09:38)
[2016-11-26] MEDS: traMADol 50 MG Tab PO PRN ×3 (01:40→20:09)
[2016-11-26] MEDS: Albuterol/Ipratropium 3.0-0.5 MG/3 ML Neb Soln NEB PRN ×3 (01:42→10:39)
[2016-11-26 04:40] LABS: CHLORIDE,CL 103 mmol/L (98-110); SODIUM,NA 136 mmol/L (136-146)
[2016-11-26] MEDS ORDERED: FORMOTEROL IH SCH (09:00)
[2016-11-26] MEDS ORDERED: BUDESONIDE IH SCH (09:00)
[2016-11-26] MEDS ORDERED: Ondansetron 4 MG Tab.DIS PO PRN (09:54)
[2016-11-26] MEDS ORDERED: LORazepam 0.5 MG Tab PO PRN (10:05)
[2016-11-26] MEDS ORDERED: Metoclopramide 10 MG Tab PO PRN (10:05)
[2016-11-26] MEDS ORDERED: Albuterol 0.083% 2.5 MG/3 ML Neb Soln NEB PRN (10:40)
[2016-11-26] MEDS: Diltiazem 120 MG Cap.CD PO SCH (11:01)
--- NOTE | 2016-11-26 11:56 | PCM.HP ---
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 Patient presented on 11/25/16 to ED with worsening dyspnea. Family states that since he was discharge from the hospital one week ago they saw a decline in his resp status. Last evening he was "gasping" for breath so family became conscerned and brought him to the ED. He does have a history of severe end stage COPD O2 dependent. In ED patient was found to have leukocytosis of 17.28 and CXR revealing left lower lobe infiltrate suspicious for developing pneumonia. He oxygen saturation was 72% on room air which improved to 91 with 5 L per NC. In ED patient was given duo-nebs and levaquin. Patient was admitted for dyspnea suspected pneumonia. Back Pain Score (Numeric/FACES): 6 Abdomen Pain Score (Numeric/FACES): 4 - Related Data Allergies/Adverse Reactions: Allergies Allergy/AdvReac Type Severity Reaction Status Date / Time No Known Allergies Allergy Verified 11/25/16 21:53 Home Medications: Home Meds Albuterol Sulfate [Proair Hfa] 2 puff IH QID PRN 06/14/16 [History] Albuterol/Ipratropium [DuoNeb 3.0-0.5 MG/3 ML] 3 ml NEB Q4H PRN 06/14/16 [ History] Bisacodyl [Dulcolax] 5 - 10 mg PO DAILY PRN 06/14/16 [History] Bisacodyl [Dulcolax] 10 mg RC DAILY PRN 06/14/16 [History] Budesonide/Formoterol Fumarate [Symbicort 160-4.5 Mcg Inhaler] 2 puff IH BID 01/21 [History] Diltiazem [Cardizem CD] 240 mg PO DAILY 06/14/16 [History] Hypromellose [Genteal Mild] 2 drop EYEBOTH BEDTIME 06/14/16 [History] Metoclopramide HCl [Reglan] 10 mg PO QIDACANDBED PRN 06/14/16 [History] Multivitamin [Multivitamins] 1 each PO DAILY 06/14/16 [History] Orphenadrine Citrate 100 mg PO Q12HR PRN 06/14/16 [History] Tamsulosin [Flomax] 0.4 mg PO PCBREAKFAST 06/14/16 [History] Acetaminophen [Tylenol] 500 mg PO Q4H PRN 06/15/16 [History] Albuterol Sulfate 2.5 mg IH Q6H PRN 06/15/16 [History] Pantoprazole [ProTONIX] 40 mg PO BIDAC 06/15/16 [History] Tiotropium [Spiriva HandiHaler] 18 mcg IH DAILY 06/15/16 [History] Iron Polysaccharides Complex [Ferrex 150] 150 mg PO BID cap 06/17/16 [Rx] Potassium Chloride 20 meq PO BID #30 tab.er.prt 06/26/16 [Rx] LORazepam 0.25 mg PO Q6H PRN 10/20/16 [History] Ticagrelor [Brilinta] 90 mg PO BID 10/20/16 [History] predniSONE 5 mg PO Q2D 11/04/16 [History] Clotrimazole [Lotrimin AF 1% Crm] 1 gm TOP BID tube 11/10/16 [Rx] metroNIDAZOLE [Flagyl] 500 mg PO Q8H #15 tablet 11/22/16 [Rx] predniSONE [Prednisone] 10 mg PO Q2D 11/26/16 [History] Past Medical History HEENT History: Reports: Cataract Other HEENT History: glasses Cardiovascular History: Reports: Afib, CAD, Heart Failure, High Cholesterol, Hypertension, Stents Respiratory History: Reports: COPD, Pneumonia, Recurrent, Pneumothorax, SOB, Other (See Below) Other Respiratory History: chronic respiratory failure with hypoxia Gastrointestinal History: Reports: GI Bleed, Other (See Below) Other Gastrointestinal History: GI Bleed. Ileus Genitourinary History: Reports: Acute Renal Failure Musculoskeletal History: Reports: Other (See Below) Other Musculoskeletal History: Back Problem Neurological History: Reports: TIA Psychiatric History: Reports: None Endocrine/Metabolic History: Reports: None Hematologic History: Reports: Anemia Immunologic History: Reports: None Oncologic (Cancer) History: Reports: Other (See Below) Other Oncologic History: throat Dermatologic History: Reports: None - Infectious Disease History Infectious Disease History: Reports: C-Difficile, Chicken Pox, Measles, Mumps Other Infectious Disease History: clear for MRSA per patient - Past Surgical History Head Surgeries/Procedures: Reports: None HEENT Surgical History: Reports: None Cardiovascular Surgical History: Reports: Coronary Artery Stent, Carotid Stents GI Surgical History: Reports: Other (See Below) Male Surgical History: Reports: None Endocrine Surgical History: Reports: None Neurological Surgical History: Reports: None Dermatological Surgical History: Reports: None Social & Family History - Family History Family Medical History: Noncontributory HEENT: Reports: None Cardiac: Reports: Hypertension Other Cardiac Family History: Father, Mother Respiratory: Reports: None GI: Reports: GI bleed : Reports: None OBGYN: Reports: Musculoskeletal: Reports: Arthritis Neurological: Reports: None Psychiatric: Reports: None Endocrine/Metabolic: Reports: Diabetes, type II Hematologic: Reports: None Immunologic: Reports: None Dermatologic: Reports: None Oncologic: Reports: Prostate - Tobacco Use Smoking Status *Q: Former Smoker Years of Tobacco use: 50 Packs/Tins Daily: 3 Used Tobacco, but Quit: Yes Month Tobacco Last Used: 06/11 Second Hand Smoke Exposure: No - Caffeine Use Caffeine Use: Reports: None Caffeine Use Comment: 3 cups daily - Alcohol Use Days Per Week of Alcohol Use: 2 Number of Drinks Per Day: 2 Total Drinks Per Week: 4 - Recreational Drug Use Recreational Drug Use: No Drug Use in Last 12 Months: No H&P Review of Systems - Review of Systems: Review Of Systems: See Below General: Reports: Weakness, Fatigue. Denies: Fever, Chills, Malaise, Diaphoresis HEENT: Denies: Headaches, Sore Throat Pulmonary: Reports: Shortness of Breath, Cough. Denies: Wheezing, Pleuritic Chest Pain, Sputum, Hemoptysis Cardiovascular: Denies: Chest Pain, Palpitations, Edema Gastrointestinal: Denies: Abdominal Pain, Constipation, Diarrhea Genitourinary: Denies: Dysuria, Hematuria Musculoskeletal: Denies: Neck Pain, Leg Pain Skin: Denies: Cyanosis Psychiatric: Denies: Confusion Neurological: Denies: Confusion, Dizziness, Headache Hematologic/Lymphatic: Reports: Anemia Exam - Exam Exam: See Below - Vital Signs Vital Signs: Last Vital Signs Temp 37.1 C 11/26/16 08:00 Pulse 109 H 11/26/16 11:01 Resp 20 11/26/16 08:00 BP 127/82 11/26/16 11:01 Pulse Ox 94 L 11/26/16 10:02 Weight: 64.5 kg - Exam Quality Assessment: Supplemental Oxygen, DVT Prophylaxis General: Alert, Oriented, Cooperative HEENT: Conjunctiva Clear, EACs Clear, EOMI, Hearing Intact, Mucosa Moist & [place] , Nares Patent, Normal Nasal Septum, Posterior Pharynx Clear, PERRLA Neck: Supple, Trachea Midline, 2 Lungs: Normal Respiratory Effort, Decreased Breath Sounds, Crackles, Rhonchi Cardiovascular: Regular Rate, Irregular Rhythm Abdomen: Normal Bowel Sounds, Soft Back Exam: Normal Inspection Extremities: Normal Inspection, Normal Pulses Peripheral Pulses: 2+: Radial (L), Radial (R), Posterior Tibial (L), Posterior Tibial (R), Dorsalis Pedis (L), Dorsalis Pedis (R) Skin: Warm, Dry, Intact Neurological: Cranial Nerves Intact Neuro Extensive - Mental Status: Alert, Oriented x3, Normal Mood/Affect, Normal Cognition Neuro Extensive - Motor, Sensory, Reflexes: CN II-XII Intact Psychiatric: Alert, Normal Affect, Normal Mood - Patient Data Lab Results Last 24 hrs: Laboratory Results - last 24 hr 11/26/16 11/26/16 Range/Units 03:56 03:56 WBC 14.94 H (4.0-11.0) K/uL RBC 3.64 L (4.50-5.90) M/uL Hgb 10.9 L (13.0-17.0) g/dL Hct 33.8 L (38.0-50.0) % MCV 92.9 (80.0-98.0) fL MCH 29.9 (27.0-32.0) pg MCHC 32.2 (31.0-37.0) g/dL RDW Std Deviation 56.2 (28.0-62.0) fl RDW Coeff of Mavis 16 H (11.0-15.0) % Plt Count 170 (150-400) K/uL MPV 9.10 (7.40-12.00) fL Add Manual Diff YES Neutrophils % (Manual) 87 H (48.0-80.0) % Band Neutrophils % 9 % Lymphocytes % (Manual) 4 L (16.0-40.0) % Nucleated RBC % 0.0 /100WBC Absolute Seg Neuts 13.0 Band Neutrophils # 1.3 Lymphocytes # (Manual) 0.6 Nucleated RBCs # 0 K/uL Sodium 136 (136-146) mmol/L Potassium 4.4 (3.5-5.1) mmol/L Chloride 103 (98-110) mmol/L Carbon Dioxide 25 (21-31) mmol/L BUN 13 (6.0-23.0) mg/dL Creatinine 1.0 (0.6-1.5) mg/dL Est Cr Clr Drug Dosing 56.44 mL/min Estimated GFR (MDRD) > 60.0 ml/min Glucose 73 (60-110) mg/dL Calcium 8.1 L (8.8-10.8) mg/dL Result Diagrams: 11/26/16 03:56 11/26/16 03:56 *Q Meaningful Use (ADM) - VTE *Q VTE Criteria *Q: - Stroke *Q Stroke Criteria *Q: - AMI *Q AMI Criteria *Q: - Problem List (1) A-fib SNOMED Code(s): 11087455 ICD Code: I48.91 - UNSPECIFIED ATRIAL FIBRILLATION Status: Chronic Priority: Medium Current Visit: Yes (2) Aspiration pneumonia SNOMED Code(s): 736778131 ICD Code: J69.0 - PNEUMONITIS DUE TO INHALATION OF FOOD AND VOMIT Status: Acute Priority: High Current Visit: Yes Qualifiers: Aspiration pneumonia type: unspecified Laterality: left Lung location: lower lobe of lung Qualified Code(s): J69.0 - Pneumonitis due to inhalation of food and vomit (3) COPD (chronic obstructive pulmonary disease) SNOMED Code(s): 76837578 ICD Code: J44.9 - CHRONIC OBSTRUCTIVE PULMONARY DISEASE, UNSPECIFIED Status : Chronic Priority: High Current Visit: Yes Qualifiers: COPD type: COPD with acute lower respiratory infection Qualified Code(s): J44.0 - Chronic obstructive pulmonary disease with acute lower respiratory infection (4) Hypoxemia SNOMED Code(s): 008388041 ICD Code: R09.02 - HYPOXEMIA Status: Acute Current Visit: No Problem List Initiated/Reviewed/Updated: Yes Orders Last 24hrs: Active Orders 24 hr Category Date Time Status Patient Status [ADT] Routine ADT 11/26/16 10:02 Active Antiembolic Devices [RC] PER UNIT ROUTINE Care 11/26/16 10:04 Active Oxygen Therapy [RC] ASDIRECTED Care 11/26/16 00:11 Active Oxygen Therapy [RC] PRN Care 11/26/16 10:02 Active RT Aerosol Therapy [RC] ASDIRECTED Care 11/26/16 00:08 Active Telemetry Monitoring [Cardiac Monitoring] [RC] Q8H Care 11/26/16 00:10 Active Up With Assistance [RC] ASDIRECTED Care 11/26/16 09:54 Active VTE/DVT Education [RC] PER UNIT ROUTINE Care 11/26/16 10:02 Active Vital Signs [RC] Q4H Care 11/26/16 10:02 Active Regular Diet [DIET] Diet 11/26/16 Lunch Active BASIC METABOLIC PANEL,BMP [CHEM] AM Lab 11/27/16 05:11 Ordered BASIC METABOLIC PANEL,BMP [CHEM] AM Lab 11/28/16 05:11 Ordered BASIC METABOLIC PANEL,BMP [CHEM] AM Lab 11/29/16 05:11 Ordered BASIC METABOLIC PANEL,BMP [CHEM] AM Lab 11/30/16 05:11 Ordered CBC WITH AUTO DIFF [HEME] AM Lab 11/27/16 05:11 Ordered CBC WITH AUTO DIFF [HEME] AM Lab 11/28/16 05:11 Ordered CBC WITH AUTO DIFF [HEME] AM Lab 11/29/16 05:11 Ordered CBC WITH AUTO DIFF [HEME] AM Lab 11/30/16 05:11 Ordered CULTURE URINE [RM] Routine Lab 11/26/16 10:16 Uncollected MAGNESIUM [CHEM] AM Lab 11/27/16 05:11 Ordered PHOSPHORUS [CHEM] AM Lab 11/27/16 05:11 Ordered UA W/MICROSCOPIC [URIN] Routine Lab 11/26/16 10:16 Uncollected Acetaminophen [Tylenol] Med 11/26/16 09:54 Active 650 mg PO Q4H PRN Albuterol [Proventil Neb Soln] Med 11/26/16 10:40 Active 2.5 mg NEB Q2H PRN Albuterol/Ipratropium [DuoNeb 3.0-0.5 MG/3 ML] Med 11/26/16 14:00 Active 3 ml NEB Q4HRRT Bisacodyl [Dulcolax] Med 11/26/16 10:05 Active 10 mg PO DAILY PRN Carboxymethylcell/Hypromellose [GenTeal Moderate to Med 11/26/16 21:00 Active Severe Ophth Gel] 0 ml EYEBOTH BEDTIME Clotrimazole [Lotrimin AF 1% Crm] Med 11/26/16 21:00 Active 1 gm TOP BID Diltiazem [Cardizem CD] Med 11/26/16 10:15 Active 240 mg PO DAILY Doxycycline [Vibramycin] Med 11/26/16 21:00 Active 100 mg PO Q12HR LORazepam [Ativan] Med 11/26/16 10:05 Active 0.25 mg PO Q6H PRN Metoclopramide [Reglan] Med 11/26/16 10:05 Active 10 mg PO QIDACANDBED PRN Ondansetron [Zofran ODT] Med 11/26/16 09:54 Active 4 mg PO Q4H PRN Pantoprazole [ProTONIX] Med 11/26/16 17:00 Active 40 mg PO BIDAC Patient's Own Medication [Ptom] Med 11/26/16 21:00 Active 1 each PO BID Patient's Own Medication [Ptom] Med 11/26/16 09:38 Active 100 each PO Q12HR PRN Patient's Own Medication [Ptom] Med 11/26/16 21:00 Active 2 each INH BIDRT Potassium Chloride [Klor-Con M20] Med 11/26/16 21:00 Active 20 meq PO BID Tamsulosin [Flomax] Med 11/27/16 08:30 Active 0.4 mg PO PCBREAKFAST Tiotropium [Spiriva HandiHaler] Med 11/27/16 09:00 Active 18 mcg INH DAILY predniSONE Med 11/26/16 10:15 Ordered 10 mg PO Q2D predniSONE Med 11/26/16 10:15 Ordered 5 mg PO Q2D traMADol [Ultram] Med 11/26/16 01:26 Active 50 mg PO Q6H PRN Sequential Compression Device [OM.PC] Per Unit Routine Oth 11/26/16 10:03 Ordered Resuscitation Status Routine Resus Stat 11/26/16 09:54 Ordered Medication Orders Acetaminophen (Tylenol) 650 mg PO Q4H PRN PRN Reason: Pain (Mild 1-3)/fever Albuterol (Proventil Neb Soln) 2.5 mg NEB Q2H PRN PRN Reason: Shortness Of Breath/wheezing Albuterol/Ipratropium (Duoneb 3.0-0.5 Mg/3 Ml) 3 ml NEB Q4HRRT [facility] Bisacodyl (Dulcolax) 10 mg PO DAILY PRN PRN Reason: Constipation Carboxymethylcellu Sod/Hypromellose (Genteal Moderate To Severe Ophth Gel) 0 ml EYEBOTH BEDTIME [facility] Clotrimazole (Lotrimin Af 1% Crm) 1 gm TOP BID [facility] Diltiazem HCl (Cardizem Cd) 240 mg PO DAILY [facility] Last Admin: 11/26/16 11:01 Dose: 240 mg Doxycycline Hyclate (Vibramycin) 100 mg PO Q12HR [facility] Lorazepam (Ativan) 0.25 mg PO Q6H PRN PRN Reason: Anxiety Metoclopramide HCl (Reglan) 10 mg PO QIDACANDBED PRN PRN Reason: Vomiting Ondansetron HCl (Zofran Odt) 4 mg PO Q4H PRN PRN Reason: nausea, able to take PO Pantoprazole Sodium (Protonix) 40 mg PO BIDAC [facility] Budesonide/Formoterol 160-4. 5mcg 2 PuffPt Own* * 2 each INH BIDRT [facility] Orphenadrine Citrate (Er 100 MgPt Own) 100 each PO Q12HR PRN PRN Reason: Pain Ticagrelor 90 Mg 1 each PO BID [facility] Potassium Chloride (Klor-Con M20) 20 meq PO BID [facility] Prednisone (Prednisone) 10 mg PO Q2D [facility] Prednisone (Prednisone) 5 mg PO Q2D [facility] Tamsulosin HCl (Flomax) 0.4 mg PO PCBREAKFAST [facility] Tiotropium [place] (Spiriva Handihaler) 18 mcg INH DAILY [facility] Tramadol HCl (Ultram) 50 mg PO Q6H PRN PRN Reason: Pain Last Admin: 11/26/16 01:40 Dose: 50 mg Assessment/Plan Comment:: 76 yo male admitted 11/25/16 for dyspnea with pmh of 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 Dypnea: Resolved and at baseline 2.5 L per NC with duo-nebs. CXR suspicious for aspiration pneumonia. Was given Levaquin in ED but recent history of Levaquin resistant staph so will start oral doxy 100 mg bid today. Duo-nebs ordered and start home COPD meds. Bedside spirometry and acapella. Restart home meds as patient otherwise stable. Has some upper airway rhonchi but lung sounds not bad as compared to previous admissions. VTE: on Brilinta for a-fib, SCD Dispo: Possibly tomorrow if still doing well. <Daniel Arnold - Last Filed: 11/26/16 19:15> Exam - Vital Signs Vital Signs: Last Vital Signs Temp 37.0 C 11/26/16 18:00 Pulse 92 11/26/16 18:00 Resp 22 H 11/26/16 18:00 BP 92/58 L 11/26/16 18:00 Pulse Ox 95 11/26/16 18:00 - Patient Data Lab Results Last 24 hrs: Laboratory Results - last 24 hr 11/26/16 Range/Units 13:22 Urine Color YELLOW Urine Appearance CLEAR Urine pH 6.5 (5.0-8.0) Ur Specific [place] 1.015 (1.001-1.035) Urine Protein 30 (NEGATIVE) mg/dL Urine Glucose (UA) NEGATIVE (NEGATIVE) mg/dL Urine Ketones NEGATIVE (NEGATIVE) mg/dL Urine Occult Blood TRACE-INTACT (NEGATIVE) Urine Nitrite NEGATIVE (NEGATIVE) Urine Bilirubin NEGATIVE (NEGATIVE) Urine Urobilinogen 0.2 (<2.0) EU/dL Ur Leukocyte Esterase NEGATIVE (NEGATIVE) Urine RBC 1-3 (0-2/HPF) Urine WBC 0-2 (0-5/HPF) Ur Epithelial Cells RARE (NONE-FEW) Urine Bacteria FEW (NEGATIVE) Urine Mucus LIGHT (NONE-MOD) Result Diagrams: 11/26/16 03:56 11/26/16 03:56 *Q Meaningful Use (ADM) - VTE *Q VTE Criteria *Q: - Stroke *Q Stroke Criteria *Q: - AMI *Q AMI Criteria *Q: Orders Last 24hrs: Active Orders 24 hr Category Date Time Status Acapella [RT Chest Physiotherapy] [RC] ASDIRECTED Care 11/26/16 13:26 Active Regular Diet [DIET] Diet 11/26/16 Lunch Active CULTURE URINE [RM] Routine Lab 11/26/16 13:22 Received Albuterol [Proventil Neb Soln] Med 11/26/16 10:40 Active 2.5 mg NEB Q2H PRN Albuterol/Ipratropium [DuoNeb 3.0-0.5 MG/3 ML] Med 11/26/16 14:00 Active 3 ml NEB Q4HRRT Bisacodyl [Dulcolax] Med 11/26/16 10:05 Active 10 mg PO DAILY PRN Carboxymethylcell/Hypromellose [GenTeal Moderate to Med 11/26/16 21:00 Active Severe Ophth Gel] 0 ml EYEBOTH BEDTIME Clotrimazole [Lotrimin AF 1% Crm] Med 11/26/16 21:00 Active 1 gm TOP BID Diltiazem [Cardizem CD] Med 11/26/16 10:15 Active 240 mg PO DAILY Doxycycline [Vibramycin] Med 11/26/16 21:00 Active 100 mg PO Q12HR LORazepam [Ativan] Med 11/26/16 10:05 Active 0.25 mg PO Q6H PRN Metoclopramide [Reglan] Med 11/26/16 10:05 Active 10 mg PO QIDACANDBED PRN Pantoprazole [ProTONIX] Med 11/26/16 17:00 Active 40 mg PO BIDAC Patient's Own Medication [Ptom] Med 11/26/16 21:00 Active 1 each PO BID Potassium Chloride [Klor-Con M20] Med 11/26/16 21:00 Active 20 meq PO BID Tamsulosin [Flomax] Med 11/27/16 08:30 Active 0.4 mg PO PCBREAKFAST Tiotropium [Spiriva HandiHaler] Med 11/27/16 09:00 Active 18 mcg INH DAILY predniSONE Med 11/26/16 16:45 Active 10 mg PO Q2D predniSONE Med 11/27/16 09:00 Active 5 mg PO Q2D Medication Orders Acetaminophen (Tylenol) 650 mg PO Q4H PRN PRN Reason: Pain (Mild 1-3)/fever Albuterol (Proventil Neb Soln) 2.5 mg NEB Q2H PRN PRN Reason: Shortness Of Breath/wheezing Albuterol/Ipratropium (Duoneb 3.0-0.5 Mg/3 Ml) 3 ml NEB Q4HRRT [facility] Last Admin: 11/26/16 17:45 Dose: 3 ml Admin: 11/26/16 13:22 Dose: 3 ml Bisacodyl (Dulcolax) 10 mg PO DAILY PRN PRN Reason: Constipation Carboxymethylcellu Sod/Hypromellose (Genteal Moderate To Severe Ophth Gel) 0 ml EYEBOTH BEDTIME [facility] Clotrimazole (Lotrimin Af 1% Crm) 1 gm TOP BID [facility] Diltiazem HCl (Cardizem Cd) 240 mg PO DAILY [facility] Last Admin: 11/26/16 11:01 Dose: 240 mg Doxycycline Hyclate (Vibramycin) 100 mg PO Q12HR [facility] Lorazepam (Ativan) 0.25 mg PO Q6H PRN PRN Reason: Anxiety Metoclopramide HCl (Reglan) 10 mg PO QIDACANDBED PRN PRN Reason: Vomiting Ondansetron HCl (Zofran Odt) 4 mg PO Q4H PRN PRN Reason: nausea, able to take PO Pantoprazole Sodium (Protonix) 40 mg PO BIDAC [facility] Last Admin: 11/26/16 17:00 Dose: 40 mg Budesonide/Formoterol 160-4. 5mcg 2 PuffPt Own* * 2 each INH BIDRT [facility] Orphenadrine Citrate (Er 100 MgPt Own) 100 each PO Q12HR PRN PRN Reason: Pain Ticagrelor 90 Mg 1 each PO BID [facility] Potassium Chloride (Klor-Con M20) 20 meq PO BID [facility] Prednisone (Prednisone) 10 mg PO Q2D [facility] Last Admin: 11/26/16 17:00 Dose: 10 mg Prednisone (Prednisone) 5 mg PO Q2D [facility] Tamsulosin HCl (Flomax) 0.4 mg PO PCBREAKFAST [facility] Tiotropium [place] (Spiriva Handihaler) 18 mcg INH DAILY [facility] Tramadol HCl (Ultram) 50 mg PO Q6H PRN PRN Reason: Pain Last Admin: 11/26/16 13:51 Dose: 50 mg Admin: 11/26/16 01:40 Dose: 50 mg - Free Text/Narrative Note: I have examined the patient. I have discussed findings and treatment plan with resident. I agree with the assessment and plan outlined in the following note.
--- NOTE | 2016-11-26 12:10 | CR ---
EXAM DATE: 11/25/16 PATIENT'S AGE: 76 Patient: GILBERTO SIMONS Facility: [place], [place] Site . Site : [id number] Study: XRay Chest [id number]/21/2017 11:00:28 PM Ordering Physician: Luisa Urrutia Final Report: INDICATION: Shortness of breath TECHNIQUE: Chest radiograph 2 views COMPARISON: 11/15/2016. FINDINGS: Lung volumes are diminished. Coarse lung markings in the lower lung zones. On lateral view, patchy opacities project over the lower thoracic spine, suspicious for likely left lower lobe infiltrate. Upper lung zones clear. Heart size enlarged. Stable perihilar contours. Lower thoracic compression fractures are noted. IMPRESSION: 1. Low lung volumes with likely chronic fibrotic changes. Findings suspicious for superimposed left lower lobe infiltrate. Dictated by Javier Petit MD @ 11/25/2016 11:33:16 PM Dictated by: Javier Petit MD @ 11/25/2016 23:33:25 (Electronic Signature) Report Signed by Proxy. [facility]
[2016-11-26] MEDS: Albuterol/Ipratropium 3.0-0.5 MG/3 ML Neb Soln NEB SCH ×3 (13:22→21:05)
[2016-11-26] MEDS: Pantoprazole 40 MG Tab.CR PO SCH (17:00)
[2016-11-26] MEDS: predniSONE 10 MG Tab PO SCH (17:00)
[2016-11-26] MEDS: Potassium Chloride 20 MEQ Tab.ER PO SCH (20:09)
[2016-11-26] MEDS: Doxycycline 100 MG Cap PO SCH (20:10)
[2016-11-26] MEDS: BUDESONIDE INH SCH (21:06)
[2016-11-26] MEDS: FORMOTEROL INH SCH (21:06)
[2016-11-26] MEDS: TICAGRELOR 90 MG PO SCH (21:30)
[2016-11-26] MEDS: Carboxymethylcellulose/Hypromellose Ophth Gel 15 ML Bottle EYEBOTH SCH (21:48)
[2016-11-26] MEDS: Clotrimazole 1% Crm 30 GM Tube TOP SCH (22:00)
[2016-11-27] MEDS: Albuterol/Ipratropium 3.0-0.5 MG/3 ML Neb Soln NEB SCH ×7 (02:28→21:19)
[2016-11-27 05:58] LABS: CHLORIDE,CL 102 mmol/L (98-110); SODIUM,NA 134 mmol/L (136-146)
[2016-11-27] MEDS: Pantoprazole 40 MG Tab.CR PO SCH ×2 (06:49→16:57)
[2016-11-27] MEDS: Tiotropium Inhaler 18 MCG Inhalation Powder Cap Kit of 5 INH SCH (08:35)
[2016-11-27] MEDS: FORMOTEROL INH SCH ×2 (08:37→21:19)
[2016-11-27] MEDS: BUDESONIDE INH SCH ×2 (08:37→21:19)
[2016-11-27] MEDS: Potassium Chloride 20 MEQ Tab.ER PO SCH ×2 (09:00→20:19)
[2016-11-27] MEDS: Tamsulosin 0.4 MG Cap.ER PO SCH (09:00)
[2016-11-27] MEDS: Doxycycline 100 MG Cap PO SCH ×2 (09:00→20:19)
[2016-11-27] MEDS: Diltiazem 120 MG Cap.CD PO SCH (09:01)
[2016-11-27] MEDS: Clotrimazole 1% Crm 30 GM Tube TOP SCH ×2 (09:01→21:04)
[2016-11-27] MEDS: TICAGRELOR 90 MG PO SCH ×2 (09:02→20:19)
[2016-11-27] MEDS: predniSONE 5 MG Tab PO SCH (09:07)
--- NOTE | 2016-11-27 09:50 | PCM.PN ---
- General Info Date of Service: 11/27/16 Subjective Update: He still seems quite short of breath. He thinks that he might be a little constipated. He complains of his chronic back pain. he does not feel constipated currently. - Patient Data Vitals - most recent: Last Vital Signs Temp 97.3 F 11/27/16 07:14 Pulse 75 11/27/16 09:01 Resp 20 11/27/16 07:14 BP 144/75 H 11/27/16 09:01 Pulse Ox 93 L 11/27/16 07:14 Weight - most recent: 64.3 kg I&O - last 24 hours: Intake & Output 11/26/16 11/27/16 11/27/16 22:59 06:59 14:59 Intake Total 250 150 Output Total 350 250 Balance -100 -100 Lab Results last 24 hrs: Laboratory Results - last 24 hr 11/26/16 11/27/16 11/27/16 Range/Units 13:22 05:30 05:30 WBC 8.18 (4.0-11.0) K/uL RBC 3.39 L (4.50-5.90) M/uL Hgb 10.1 L (13.0-17.0) g/dL Hct 31.2 L (38.0-50.0) % MCV 92.0 (80.0-98.0) fL MCH 29.8 (27.0-32.0) pg MCHC 32.4 (31.0-37.0) g/dL RDW Std Deviation 55.8 (28.0-62.0) fl RDW Coeff of Mavis 17 H (11.0-15.0) % Plt Count 137 L (150-400) K/uL MPV 8.30 (7.40-12.00) fL Neut % (Auto) 86.4 H (48.0-80.0) % Lymph % (Auto) 4.2 L (16.0-40.0) % [place] % (Auto) 9.3 (0.0-15.0) % Eos % (Auto) 0.1 (0.0-7.0) % Baso % (Auto) 0.0 (0.0-1.5) % Neut # (Auto) 7.1 H (1.4-5.7) K/uL Lymph # (Auto) 0.3 L (0.6-2.4) K/uL [place] # (Auto) 0.8 (0.0-0.8) K/uL Eos # (Auto) 0.0 (0.0-0.7) K/uL Baso # (Auto) 0.0 (0.0-0.1) K/uL Nucleated RBC % 0.0 /100WBC Nucleated RBCs # 0 K/uL Sodium 134 L (136-146) mmol/L Potassium 4.5 (3.5-5.1) mmol/L Chloride 102 (98-110) mmol/L Carbon Dioxide 22 (21-31) mmol/L BUN 14 (6.0-23.0) mg/dL Creatinine 0.9 (0.6-1.5) mg/dL Est Cr Clr Drug Dosing 62.71 mL/min Estimated GFR (MDRD) > 60.0 ml/min Glucose 98 (60-110) mg/dL Calcium 8.2 L (8.8-10.8) mg/dL Phosphorus 3.4 (2.4-4.7) mg/dL Magnesium 1.1 L (1.5-2.3) mEq/L Urine Color YELLOW Urine Appearance CLEAR Urine pH 6.5 (5.0-8.0) Ur Specific [place] 1.015 (1.001-1.035) Urine Protein 30 (NEGATIVE) mg/dL Urine Glucose (UA) NEGATIVE (NEGATIVE) mg/dL Urine Ketones NEGATIVE (NEGATIVE) mg/dL Urine Occult Blood TRACE-INTACT (NEGATIVE) Urine Nitrite NEGATIVE (NEGATIVE) Urine Bilirubin NEGATIVE (NEGATIVE) Urine Urobilinogen 0.2 (<2.0) EU/dL Ur Leukocyte Esterase NEGATIVE (NEGATIVE) Urine RBC 1-3 (0-2/HPF) Urine WBC 0-2 (0-5/HPF) Ur Epithelial Cells RARE (NONE-FEW) Urine Bacteria FEW (NEGATIVE) Urine Mucus LIGHT (NONE-MOD) Med Orders - Current: Current Medications Acetaminophen (Tylenol) 650 mg PO Q4H PRN PRN Reason: Pain (Mild 1-3)/fever Albuterol (Proventil Neb Soln) 2.5 mg NEB Q2H PRN PRN Reason: Shortness Of Breath/wheezing Albuterol/Ipratropium (Duoneb 3.0-0.5 Mg/3 Ml) 3 ml NEB Q4HRRT [facility] Last Admin: 11/27/16 05:54 Dose: 3 ml Bisacodyl (Dulcolax) 10 mg PO DAILY PRN PRN Reason: Constipation Carboxymethylcellu Sod/Hypromellose (Genteal Moderate To Severe Ophth Gel) 0 ml EYEBOTH BEDTIME [facility] Last Admin: 11/26/16 21:48 Dose: Not Given Clotrimazole (Lotrimin Af 1% Crm) 1 gm TOP BID [facility] Last Admin: 11/27/16 09:01 Dose: 1 applic Diltiazem HCl (Cardizem Cd) 240 mg PO DAILY [facility] Last Admin: 11/27/16 09:01 Dose: 240 mg Doxycycline Hyclate (Vibramycin) 100 mg PO Q12HR [facility] Last Admin: 11/27/16 09:00 Dose: 100 mg Lorazepam (Ativan) 0.25 mg PO Q6H PRN PRN Reason: Anxiety Metoclopramide HCl (Reglan) 10 mg PO QIDACANDBED PRN PRN Reason: Vomiting Ondansetron HCl (Zofran Odt) 4 mg PO Q4H PRN PRN Reason: nausea, able to take PO Pantoprazole Sodium (Protonix) 40 mg PO BIDAC [facility] Last Admin: 11/27/16 06:49 Dose: 40 mg Budesonide/Formoterol 160-4. 5mcg 2 PuffPt Own* * 2 each INH BIDRT [facility] Last Admin: 11/27/16 08:37 Dose: 2 each Orphenadrine Citrate (Er 100 MgPt Own) 100 each PO Q12HR PRN PRN Reason: Pain Ticagrelor 90 MgPt (Own) 1 each PO BID [facility] Last Admin: 11/27/16 09:02 Dose: 1 each Potassium Chloride (Klor-Con M20) 20 meq PO BID [facility] Last Admin: 11/27/16 09:00 Dose: 20 meq Prednisone (Prednisone) 10 mg PO Q2D [facility] Last Admin: 11/26/16 17:00 Dose: 10 mg Prednisone (Prednisone) 5 mg PO Q2D [facility] Last Admin: 11/27/16 09:07 Dose: 5 mg Tamsulosin HCl (Flomax) 0.4 mg PO PCBREAKFAST [facility] Last Admin: 11/27/16 09:00 Dose: 0.4 mg Tiotropium [place] (Spiriva Handihaler) 18 mcg INH DAILY [facility] Last Admin: 11/27/16 08:35 Dose: 1 cap Tramadol HCl (Ultram) 50 mg PO Q6H PRN PRN Reason: Pain Last Admin: 11/26/16 20:09 Dose: 50 mg Discontinued Medications Albuterol/Ipratropium (Duoneb 3.0-0.5 Mg/3 Ml) 3 ml NEB STAT ONE Stop: 11/25/16 21:48 Last Admin: 11/25/16 21:54 Dose: 3 ml Albuterol/Ipratropium (Duoneb 3.0-0.5 Mg/3 Ml) Confirm Administered Dose 3 ml .ROUTE .STK-MED ONE Stop: 11/25/16 21:48 Last Admin: 11/26/16 00:46 Dose: Not Given Albuterol/Ipratropium (Duoneb 3.0-0.5 Mg/3 Ml) 3 ml NEB Q4HRRT PRN PRN Reason: Shortness of Breath Last Admin: 11/26/16 10:39 Dose: 3 ml Levofloxacin/Dextrose 750 mg/ (Premix) 150 mls @ 100 mls/hr IV ONETIME ONE Stop: 11/26/16 00:46 Last Admin: 11/25/16 23:42 Dose: 100 mls/hr Budesonide/Formoterol 160-4. 5mcg 2 PuffPt Own* * 0 puff IH BID [facility] Last Admin: 11/26/16 08:33 Dose: 2 puff Orphenadrine Citrate (Er 100 MgPt Own) 100 mg PO Q12HR PRN PRN Reason: Pain - Exam General: alert, cooperative Lungs: Rales, Rhonchi, Other (increased work of breathing noted. ) Abdomen: soft, no tenderness Physical Findings Comments:: monitor shows sinus rhythm with periods of atrial fibrillation; rate currently in the 90's per minute. - Problem List & Annotations (1) Aspiration pneumonia SNOMED Code(s): 867275460 Code(s): J69.0 - PNEUMONITIS DUE TO INHALATION OF FOOD AND VOMIT Status: Acute Priority: High Current Visit: Yes Qualifiers: Aspiration pneumonia type: unspecified Laterality: left Lung location: lower lobe of lung Qualified Code(s): J69.0 - Pneumonitis due to inhalation of food and vomit (2) COPD (chronic obstructive pulmonary disease) SNOMED Code(s): 92855402 Code(s): J44.9 - CHRONIC OBSTRUCTIVE PULMONARY DISEASE, UNSPECIFIED Status : Chronic Priority: High Current Visit: Yes Qualifiers: COPD type: COPD with acute lower respiratory infection Qualified Code(s): J44.0 - Chronic obstructive pulmonary disease with acute lower respiratory infection - Problem List Review Problem List Initiated/Reviewed/Updated: Yes - Plan Plan:: 76 yo male admitted 11/25/16 for dyspnea with pmh of 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 Dypnea: Resolved and at baseline 2.5 L per NC with duo-nebs. CXR suspicious for aspiration pneumonia. Was given Levaquin in ED but recent history of Levaquin resistant staph so will start oral doxy 100 mg bid today. Duo-nebs ordered and start home COPD meds. Bedside spirometry and acapella. Restart home meds as patient otherwise stable. Has some upper airway rhonchi but lung sounds not bad as compared to previous admissions. VTE: on Brilinta for a-fib, SCD Dispo: Possibly tomorrow if still doing well. 11/27/2016: add zosyn as he has a health care associated pneumonia and his clinical improvement is slow. anticipated discharge Wednesday to home. History of intermitted GI bleeding. On Brilinta as above. confirmed DNR status with his son today. Javier Durand MD
[2016-11-27] MEDS: traMADol 50 MG Tab PO PRN ×2 (10:13→17:29)
--- NOTE | 2016-11-27 13:08 | PCM.SN ---
- Free Text/Narrative Note: magnesium level 1.1. Will replace and remeasure.
[2016-11-27] MEDS ORDERED: Magnesium Sulfate/Water 4 GM in Premix Bag 1 BAG IV ONE (13:20)
[2016-11-27] MEDS: Bisacodyl 5 MG Tab PO PRN (14:27)
[2016-11-27] MEDS: Piperacillin/Tazobactam 3.375 GM in Sodium Chloride 0.9% 50 ML IV SCH (21:04)
[2016-11-27] MEDS: Carboxymethylcellulose/Hypromellose Ophth Gel 15 ML Bottle EYEBOTH SCH (22:00)
[2016-11-28] MEDS: Albuterol/Ipratropium 3.0-0.5 MG/3 ML Neb Soln NEB SCH ×7 (02:29→23:37)
[2016-11-28] MEDS: Piperacillin/Tazobactam 3.375 GM in Sodium Chloride 0.9% 50 ML IV SCH ×4 (02:29→21:26)
[2016-11-28] MEDS: traMADol 50 MG Tab PO PRN ×2 (04:40→17:26)
[2016-11-28] MEDS: BUDESONIDE INH SCH ×2 (06:21→21:07)
[2016-11-28] MEDS: FORMOTEROL INH SCH ×2 (06:21→21:07)
[2016-11-28 06:50] LABS: CHLORIDE,CL 102 mmol/L (98-110); SODIUM,NA 135 mmol/L (136-146)
[2016-11-28] MEDS: Potassium Chloride 20 MEQ Tab.ER PO SCH ×2 (09:24→21:19)
[2016-11-28] MEDS: Doxycycline 100 MG Cap PO SCH ×2 (09:24→21:19)
[2016-11-28] MEDS: Diltiazem 120 MG Cap.CD PO SCH (09:24)
[2016-11-28] MEDS: Tamsulosin 0.4 MG Cap.ER PO SCH (09:24)
[2016-11-28] MEDS: TICAGRELOR 90 MG PO SCH ×2 (09:24→21:20)
[2016-11-28] MEDS: Pantoprazole 40 MG Tab.CR PO SCH ×2 (09:24→16:26)
[2016-11-28] MEDS: Clotrimazole 1% Crm 30 GM Tube TOP SCH ×2 (09:31→21:21)
[2016-11-28] MEDS: Acetaminophen 325 MG Tab PO PRN (09:43)
[2016-11-28] MEDS: Tiotropium Inhaler 18 MCG Inhalation Powder Cap Kit of 5 INH SCH (10:26)
--- NOTE | 2016-11-28 13:31 | PCM.PN ---
- General Info Date of Service: 11/28/16 Subjective Update: he thinks that he might be feeling better. - Patient Data Vitals - most recent: Last Vital Signs Temp 97.1 F 11/28/16 11:32 Pulse 71 11/28/16 11:32 Resp 20 11/28/16 11:32 BP 93/50 L 11/28/16 11:32 Pulse Ox 92 L 11/28/16 11:32 Weight - most recent: 61 kg I&O - last 24 hours: Intake & Output 11/27/16 11/28/16 11/28/16 22:59 06:59 14:59 Intake Total 400 300 50 Output Total 350 350 Balance 50 -50 50 Lab Results last 24 hrs: Laboratory Results - last 24 hr 11/28/16 11/28/16 Range/Units 05:55 05:55 WBC 6.84 (4.0-11.0) K/uL RBC 3.11 L (4.50-5.90) M/uL Hgb 9.4 L (13.0-17.0) g/dL Hct 28.9 L (38.0-50.0) % MCV 92.9 (80.0-98.0) fL MCH 30.2 (27.0-32.0) pg MCHC 32.5 (31.0-37.0) g/dL RDW Std Deviation 55.9 (28.0-62.0) fl RDW Coeff of Mavis 16 H (11.0-15.0) % Plt Count 145 L (150-400) K/uL MPV 8.70 (7.40-12.00) fL Neut % (Auto) 85.3 H (48.0-80.0) % Lymph % (Auto) 5.1 L (16.0-40.0) % [place] % (Auto) 8.8 (0.0-15.0) % Eos % (Auto) 0.7 (0.0-7.0) % Baso % (Auto) 0.1 (0.0-1.5) % Neut # (Auto) 5.8 H (1.4-5.7) K/uL Lymph # (Auto) 0.4 L (0.6-2.4) K/uL [place] # (Auto) 0.6 (0.0-0.8) K/uL Eos # (Auto) 0.1 (0.0-0.7) K/uL Baso # (Auto) 0.0 (0.0-0.1) K/uL Nucleated RBC % 0.0 /100WBC Nucleated RBCs # 0 K/uL Sodium 135 L (136-146) mmol/L Potassium 4.2 (3.5-5.1) mmol/L Chloride 102 (98-110) mmol/L Carbon Dioxide 25 (21-31) mmol/L BUN 12 (6.0-23.0) mg/dL Creatinine 0.8 (0.6-1.5) mg/dL Est Cr Clr Drug Dosing 70.33 mL/min Estimated GFR (MDRD) > 60.0 ml/min Glucose 83 (60-110) mg/dL Calcium 7.6 L (8.8-10.8) mg/dL Magnesium 2.0 (1.5-2.3) mEq/L Kofi Results last 24 hrs: Microbiology 11/26/16 13:22 Urine Culture - Final Urine, Clean Catch YEAST Med Orders - Current: Current Medications Acetaminophen (Tylenol) 650 mg PO Q4H PRN PRN Reason: Pain (Mild 1-3)/fever Last Admin: 11/28/16 09:43 Dose: 650 mg Albuterol (Proventil Neb Soln) 2.5 mg NEB Q2H PRN PRN Reason: Shortness Of Breath/wheezing Albuterol/Ipratropium (Duoneb 3.0-0.5 Mg/3 Ml) 3 ml NEB Q4HRRT [facility] Last Admin: 11/28/16 10:07 Dose: 3 ml Bisacodyl (Dulcolax) 10 mg PO DAILY PRN PRN Reason: Constipation Last Admin: 11/27/16 14:27 Dose: 10 mg Carboxymethylcellu Sod/Hypromellose (Genteal Moderate To Severe Ophth Gel) 0 ml EYEBOTH BEDTIME [facility] Last Admin: 11/27/16 22:00 Dose: Not Given Clotrimazole (Lotrimin Af 1% Crm) 1 gm TOP BID [facility] Last Admin: 11/28/16 09:31 Dose: 1 applic Diltiazem HCl (Cardizem Cd) 240 mg PO DAILY [facility] Last Admin: 11/28/16 09:24 Dose: 240 mg Doxycycline Hyclate (Vibramycin) 100 mg PO Q12HR [facility] Last Admin: 11/28/16 09:24 Dose: 100 mg Piperacillin Sod/Tazobactam (Sod 3.375 gm/ Sodium Chloride) 50 mls @ 100 mls/ hr IV Q6H [facility] Last Admin: 11/28/16 09:26 Dose: 100 mls/hr Lorazepam (Ativan) 0.25 mg PO Q6H PRN PRN Reason: Anxiety Metoclopramide HCl (Reglan) 10 mg PO QIDACANDBED PRN PRN Reason: Vomiting Ondansetron HCl (Zofran Odt) 4 mg PO Q4H PRN PRN Reason: nausea, able to take PO Pantoprazole Sodium (Protonix) 40 mg PO BIDAC [facility] Last Admin: 11/28/16 09:24 Dose: 40 mg Budesonide/Formoterol 160-4. 5mcg 2 PuffPt Own* * 2 each INH BIDRT [facility] Last Admin: 11/28/16 06:21 Dose: 2 each Orphenadrine Citrate (Er 100 MgPt Own) 100 each PO Q12HR PRN PRN Reason: Pain Ticagrelor 90 MgPt (Own) 1 each PO BID [facility] Last Admin: 11/28/16 09:24 Dose: 1 each Potassium Chloride (Klor-Con M20) 20 meq PO BID [facility] Last Admin: 11/28/16 09:24 Dose: 20 meq Prednisone (Prednisone) 10 mg PO Q2D [facility] Last Admin: 11/26/16 17:00 Dose: 10 mg Prednisone (Prednisone) 5 mg PO Q2D [facility] Last Admin: 11/27/16 09:07 Dose: 5 mg Tamsulosin HCl (Flomax) 0.4 mg PO PCBREAKFAST [facility] Last Admin: 11/28/16 09:24 Dose: 0.4 mg Tiotropium [place] (Spiriva Handihaler) 18 mcg INH DAILY [facility] Last Admin: 11/28/16 10:26 Dose: 1 cap Tramadol HCl (Ultram) 50 mg PO Q6H PRN PRN Reason: Pain Last Admin: 11/28/16 04:40 Dose: 50 mg Discontinued Medications Albuterol/Ipratropium (Duoneb 3.0-0.5 Mg/3 Ml) 3 ml NEB STAT ONE Stop: 11/25/16 21:48 Last Admin: 11/25/16 21:54 Dose: 3 ml Albuterol/Ipratropium (Duoneb 3.0-0.5 Mg/3 Ml) Confirm Administered Dose 3 ml .ROUTE .STK-MED ONE Stop: 11/25/16 21:48 Last Admin: 11/26/16 00:46 Dose: Not Given Albuterol/Ipratropium (Duoneb 3.0-0.5 Mg/3 Ml) 3 ml NEB Q4HRRT PRN PRN Reason: Shortness of Breath Last Admin: 11/26/16 10:39 Dose: 3 ml Levofloxacin/Dextrose 750 mg/ (Premix) 150 mls @ 100 mls/hr IV ONETIME ONE Stop: 11/26/16 00:46 Last Admin: 11/25/16 23:42 Dose: 100 mls/hr Magnesium Sulfate 4 gm/ Premix 100 mls @ 50 mls/hr IV ONETIME ONE Stop: 11/27/16 15:19 Last Admin: 11/27/16 14:00 Dose: 50 mls/hr Budesonide/Formoterol 160-4. 5mcg 2 PuffPt Own* * 0 puff IH BID [facility] Last Admin: 11/26/16 08:33 Dose: 2 puff Orphenadrine Citrate (Er 100 MgPt Own) 100 mg PO Q12HR PRN PRN Reason: Pain - Exam General: alert, oriented, cooperative Neck: supple, trachea midline Lungs: Rhonchi (faint), Other (much improved compared to yesterday. ) Cardiovascular: Other (distant heart sounds) Abdomen: no tenderness - Problem List & Annotations (1) Aspiration pneumonia SNOMED Code(s): 128024392 Code(s): J69.0 - PNEUMONITIS DUE TO INHALATION OF FOOD AND VOMIT Status: Acute Priority: High Current Visit: Yes Qualifiers: Aspiration pneumonia type: unspecified Laterality: left Lung location: lower lobe of lung Qualified Code(s): J69.0 - Pneumonitis due to inhalation of food and vomit (2) COPD (chronic obstructive pulmonary disease) SNOMED Code(s): 04459758 Code(s): J44.9 - CHRONIC OBSTRUCTIVE PULMONARY DISEASE, UNSPECIFIED Status : Chronic Priority: High Current Visit: Yes Qualifiers: COPD type: COPD with acute lower respiratory infection Qualified Code(s): J44.0 - Chronic obstructive pulmonary disease with acute lower respiratory infection - Problem List Review Problem List Initiated/Reviewed/Updated: Yes - My Orders Last 24 Hours: My Active Orders 11/27/16 21:00 Piperacillin/Tazobactam [Piperacil-Tazobact] 3.375 gm Sodium Chloride 0.9% [ Normal Saline] 50 ml IV Q6H 11/29/16 05:11 MAGNESIUM [CHEM] AM - Plan Plan:: 76 yo male admitted 11/25/16 for dyspnea with pmh of 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 Dypnea: Resolved and at baseline 2.5 L per NC with duo-nebs. CXR suspicious for aspiration pneumonia. Was given Levaquin in ED but recent history of Levaquin resistant staph so will start oral doxy 100 mg bid today. Duo-nebs ordered and start home COPD meds. Bedside spirometry and acapella. Restart home meds as patient otherwise stable. Has some upper airway rhonchi but lung sounds not bad as compared to previous admissions. VTE: on Brilinta for a-fib, SCD Dispo: Possibly tomorrow if still doing well. 11/27/2016: add zosyn as he has a health care associated pneumonia and his clinical improvement is slow. anticipated discharge Wednesday to home. History of intermitted GI bleeding. On Brilinta as above. confirmed DNR status with his son today. Javier Durand MD 11/28/2016 he seems improved with zosyn continue present care possible discharge to assisted 2-3 days. Javier Durand MD
[2016-11-28] MEDS: Bisacodyl 5 MG Tab PO PRN (15:32)
[2016-11-28] MEDS: predniSONE 10 MG Tab PO SCH (16:26)
[2016-11-28] MEDS: Carboxymethylcellulose/Hypromellose Ophth Gel 15 ML Bottle EYEBOTH SCH (21:18)
[2016-11-29] MEDS: Piperacillin/Tazobactam 3.375 GM in Sodium Chloride 0.9% 50 ML IV SCH ×4 (02:16→20:50)
[2016-11-29] MEDS: Albuterol/Ipratropium 3.0-0.5 MG/3 ML Neb Soln NEB SCH ×6 (02:16→21:18)
[2016-11-29] MEDS: FORMOTEROL INH SCH ×2 (06:09→20:55)
[2016-11-29] MEDS: BUDESONIDE INH SCH ×2 (06:09→20:55)
[2016-11-29] MEDS: Pantoprazole 40 MG Tab.CR PO SCH ×2 (06:33→17:24)
[2016-11-29 06:46] LABS: CHLORIDE,CL 103 mmol/L (98-110); SODIUM,NA 135 mmol/L (136-146)
[2016-11-29] MEDS: traMADol 50 MG Tab PO PRN ×2 (07:18→13:41)
[2016-11-29] MEDS: Tiotropium Inhaler 18 MCG Inhalation Powder Cap Kit of 5 INH SCH (08:37)
[2016-11-29] MEDS: Doxycycline 100 MG Cap PO SCH ×2 (09:04→20:51)
[2016-11-29] MEDS: Tamsulosin 0.4 MG Cap.ER PO SCH (09:04)
[2016-11-29] MEDS: Diltiazem 120 MG Cap.CD PO SCH (09:06)
[2016-11-29] MEDS: Clotrimazole 1% Crm 30 GM Tube TOP SCH ×2 (09:07→20:56)
[2016-11-29] MEDS: TICAGRELOR 90 MG PO SCH ×2 (09:07→20:52)
[2016-11-29] MEDS: predniSONE 5 MG Tab PO SCH (09:27)
[2016-11-29] MEDS: Potassium Chloride 20 MEQ Tab.ER PO SCH (11:16)
[2016-11-29] MEDS ORDERED: Magnesium Citrate Solution 296 ML Bottle PO ONE (11:56)
--- NOTE | 2016-11-29 12:38 | PCM.PN ---
- General Info Date of Service: 11/29/16 Subjective Update: He feels that his breathing is improving. - Patient Data Vitals - most recent: Last Vital Signs Temp 97.1 F 11/29/16 11:36 Pulse 80 11/29/16 11:36 Resp 22 H 11/29/16 11:36 BP 146/70 H 11/29/16 11:36 Pulse Ox 95 11/29/16 11:36 Weight - most recent: 60 kg I&O - last 24 hours: Intake & Output 11/28/16 11/29/16 11/29/16 22:59 06:59 14:59 Intake Total 400 150 50 Output Total 300 420 Balance 100 -270 50 Lab Results last 24 hrs: Laboratory Results - last 24 hr 11/29/16 11/29/16 Range/Units 06:02 06:02 WBC 8.09 (4.0-11.0) K/uL RBC 3.25 L (4.50-5.90) M/uL Hgb 9.6 L (13.0-17.0) g/dL Hct 30.0 L (38.0-50.0) % MCV 92.3 (80.0-98.0) fL MCH 29.5 (27.0-32.0) pg MCHC 32.0 (31.0-37.0) g/dL RDW Std Deviation 55.0 (28.0-62.0) fl RDW Coeff of Mavis 16 H (11.0-15.0) % Plt Count 149 L (150-400) K/uL MPV 8.50 (7.40-12.00) fL Neut % (Auto) 91.2 H (48.0-80.0) % Lymph % (Auto) 2.5 L (16.0-40.0) % [place] % (Auto) 6.2 (0.0-15.0) % Eos % (Auto) 0.0 (0.0-7.0) % Baso % (Auto) 0.1 (0.0-1.5) % Neut # (Auto) 7.4 H (1.4-5.7) K/uL Lymph # (Auto) 0.2 L (0.6-2.4) K/uL [place] # (Auto) 0.5 (0.0-0.8) K/uL Eos # (Auto) 0.0 (0.0-0.7) K/uL Baso # (Auto) 0.0 (0.0-0.1) K/uL Nucleated RBC % 0.0 /100WBC Nucleated RBCs # 0 K/uL Sodium 135 L (136-146) mmol/L Potassium 4.7 (3.5-5.1) mmol/L Chloride 103 (98-110) mmol/L Carbon Dioxide 22 (21-31) mmol/L BUN 11 (6.0-23.0) mg/dL Creatinine 0.9 (0.6-1.5) mg/dL Est Cr Clr Drug Dosing 59.31 mL/min Estimated GFR (MDRD) > 60.0 ml/min Glucose 104 (60-110) mg/dL Calcium 8.3 L (8.8-10.8) mg/dL Magnesium 1.4 L (1.5-2.3) mEq/L Kofi Results last 24 hrs: Microbiology 11/26/16 13:22 Urine Culture - Final Urine, Clean Catch [facility] Med Orders - Current: Current Medications Acetaminophen (Tylenol) 650 mg PO Q4H PRN PRN Reason: Pain (Mild 1-3)/fever Last Admin: 11/28/16 09:43 Dose: 650 mg Albuterol (Proventil Neb Soln) 2.5 mg NEB Q2H PRN PRN Reason: Shortness Of Breath/wheezing Albuterol/Ipratropium (Duoneb 3.0-0.5 Mg/3 Ml) 3 ml NEB Q4HRRT [facility] Last Admin: 11/29/16 09:37 Dose: 3 ml Bisacodyl (Dulcolax) 10 mg PO DAILY PRN PRN Reason: Constipation Last Admin: 11/28/16 15:32 Dose: 10 mg Carboxymethylcellu Sod/Hypromellose (Genteal Moderate To Severe Ophth Gel) 0 ml EYEBOTH BEDTIME [facility] Last Admin: 11/28/16 21:18 Dose: Not Given Clotrimazole (Lotrimin Af 1% Crm) 1 gm TOP BID [facility] Last Admin: 11/29/16 09:07 Dose: 1 applic Diltiazem HCl (Cardizem Cd) 240 mg PO DAILY [facility] Last Admin: 11/29/16 09:06 Dose: 240 mg Doxycycline Hyclate (Vibramycin) 100 mg PO Q12HR [facility] Last Admin: 11/29/16 09:04 Dose: 100 mg Piperacillin Sod/Tazobactam (Sod 3.375 gm/ Sodium Chloride) 50 mls @ 100 mls/ hr IV Q6H [facility] Last Admin: 11/29/16 09:06 Dose: 100 mls/hr Lorazepam (Ativan) 0.25 mg PO Q6H PRN PRN Reason: Anxiety Metoclopramide HCl (Reglan) 10 mg PO QIDACANDBED PRN PRN Reason: Vomiting Ondansetron HCl (Zofran Odt) 4 mg PO Q4H PRN PRN Reason: nausea, able to take PO Pantoprazole Sodium (Protonix) 40 mg PO BIDAC [facility] Last Admin: 11/29/16 06:33 Dose: 40 mg Budesonide/Formoterol 160-4. 5mcg 2 PuffPt Own* * 2 each INH BIDRT [facility] Last Admin: 11/29/16 06:09 Dose: 2 each Orphenadrine Citrate (Er 100 MgPt Own) 100 each PO Q12HR PRN PRN Reason: Pain Ticagrelor 90 MgPt (Own) 1 each PO BID [facility] Last Admin: 11/29/16 09:07 Dose: 1 each Prednisone (Prednisone) 10 mg PO Q2D [facility] Last Admin: 11/28/16 16:26 Dose: 10 mg Prednisone (Prednisone) 5 mg PO Q2D [facility] Last Admin: 11/29/16 09:27 Dose: 5 mg Tamsulosin HCl (Flomax) 0.4 mg PO PCBREAKFAST [facility] Last Admin: 11/29/16 09:04 Dose: 0.4 mg Tiotropium [place] (Spiriva Handihaler) 18 mcg INH DAILY [facility] Last Admin: 11/29/16 08:37 Dose: 1 cap Tramadol HCl (Ultram) 50 mg PO Q6H PRN PRN Reason: Pain Last Admin: 11/29/16 07:18 Dose: 50 mg Discontinued Medications Albuterol/Ipratropium (Duoneb 3.0-0.5 Mg/3 Ml) 3 ml NEB STAT ONE Stop: 11/25/16 21:48 Last Admin: 11/25/16 21:54 Dose: 3 ml Albuterol/Ipratropium (Duoneb 3.0-0.5 Mg/3 Ml) Confirm Administered Dose 3 ml .ROUTE .STK-MED ONE Stop: 11/25/16 21:48 Last Admin: 11/26/16 00:46 Dose: Not Given Albuterol/Ipratropium (Duoneb 3.0-0.5 Mg/3 Ml) 3 ml NEB Q4HRRT PRN PRN Reason: Shortness of Breath Last Admin: 11/26/16 10:39 Dose: 3 ml Levofloxacin/Dextrose 750 mg/ (Premix) 150 mls @ 100 mls/hr IV ONETIME ONE Stop: 11/26/16 00:46 Last Admin: 11/25/16 23:42 Dose: 100 mls/hr Magnesium Sulfate 4 gm/ Premix 100 mls @ 50 mls/hr IV ONETIME ONE Stop: 11/27/16 15:19 Last Admin: 11/27/16 14:00 Dose: 50 mls/hr Magnesium Citrate (Citrate Of Magnesia) 296 ml PO ONETIME ONE Stop: 11/29/16 11:57 Budesonide/Formoterol 160-4. 5mcg 2 PuffPt Own* * 0 puff IH BID [facility] Last Admin: 11/26/16 08:33 Dose: 2 puff Orphenadrine Citrate (Er 100 MgPt Own) 100 mg PO Q12HR PRN PRN Reason: Pain Potassium Chloride (Klor-Con M20) 20 meq PO BID [facility] Last Admin: 11/29/16 11:16 Dose: Not Given - Exam General: alert, cooperative Lungs: Clear to auscultation, Normal respiratory effort Abdomen: no tenderness - Problem List & Annotations (1) Aspiration pneumonia SNOMED Code(s): 703899080 Code(s): J69.0 - PNEUMONITIS DUE TO INHALATION OF FOOD AND VOMIT Status: Acute Priority: High Current Visit: Yes Qualifiers: Aspiration pneumonia type: unspecified Laterality: left Lung location: lower lobe of lung Qualified Code(s): J69.0 - Pneumonitis due to inhalation of food and vomit (2) COPD (chronic obstructive pulmonary disease) SNOMED Code(s): 54668885 Code(s): J44.9 - CHRONIC OBSTRUCTIVE PULMONARY DISEASE, UNSPECIFIED Status : Chronic Priority: High Current Visit: Yes Qualifiers: COPD type: COPD with acute lower respiratory infection Qualified Code(s): J44.0 - Chronic obstructive pulmonary disease with acute lower respiratory infection - Problem List Review Problem List Initiated/Reviewed/Updated: Yes - My Orders Last 24 Hours: My Active Orders 11/28/16 15:56 Urinary Catheter Assessment [RC] ASDIRECTED 11/28/16 16:00 Holley Catheter Insertion [Insert Urinary Catheter] [OM.PC] Q24H - Plan Plan:: 76 yo male admitted 11/25/16 for dyspnea with pmh of 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 Dypnea: Resolved and at baseline 2.5 L per NC with duo-nebs. CXR suspicious for aspiration pneumonia. Was given Levaquin in ED but recent history of Levaquin resistant staph so will start oral doxy 100 mg bid today. Duo-nebs ordered and start home COPD meds. Bedside spirometry and acapella. Restart home meds as patient otherwise stable. Has some upper airway rhonchi but lung sounds not bad as compared to previous admissions. VTE: on Brilinta for a-fib, SCD Dispo: Possibly tomorrow if still doing well. 11/27/2016: add zosyn as he has a health care associated pneumonia and his clinical improvement is slow. anticipated discharge Wednesday to home. History of intermitted GI bleeding. On Brilinta as above. confirmed DNR status with his son today. Javier Durand MD 11/28/2016 he seems improved with zosyn continue present care possible discharge to retirement 2-3 days. Javier Durand MD 11/29/2016 He has showed marked improvement with zosyn. I discussed hospice with he and his son who was at the bedside. They do not want hospice now but want to continue with home health. We discussed the l ikelihood of aspiration recurrence. Plan is discharge back to home with home health likely on Wednesday. May need augment po as outpatient to have better coverage for aspiration pneumonitis. Javier Durand MD
[2016-11-29] MEDS ORDERED: Magnesium Sulfate/Water 2 GM in Premix Bag 1 BAG IV ONE (13:49)
[2016-11-29] MEDS ORDERED: Bisacodyl 10 MG Supp RECTAL PRN (17:17)
[2016-11-29] MEDS: Sodium Chloride 0.9% 1,000 ML IV SCH (19:51)
[2016-11-29] MEDS: Carboxymethylcellulose/Hypromellose Ophth Gel 15 ML Bottle EYEBOTH SCH (23:40)
[2016-11-30] MEDS: Albuterol/Ipratropium 3.0-0.5 MG/3 ML Neb Soln NEB SCH ×6 (02:23→21:55)
[2016-11-30] MEDS: Piperacillin/Tazobactam 3.375 GM in Sodium Chloride 0.9% 50 ML IV SCH ×4 (02:23→20:06)
[2016-11-30] MEDS: Acetaminophen 325 MG Tab PO PRN ×3 (02:27→20:08)
[2016-11-30] MEDS: Sodium Chloride 0.9% 1,000 ML IV SCH (04:57)
[2016-11-30] MEDS: BUDESONIDE INH SCH ×2 (05:40→21:56)
[2016-11-30] MEDS: FORMOTEROL INH SCH ×2 (05:40→21:56)
[2016-11-30] MEDS: Pantoprazole 40 MG Tab.CR PO SCH ×2 (06:30→16:01)
[2016-11-30 07:02] LABS: CHLORIDE,CL 104 mmol/L (98-110); SODIUM,NA 137 mmol/L (136-146)
[2016-11-30] MEDS: Tamsulosin 0.4 MG Cap.ER PO SCH (08:13)
[2016-11-30] MEDS: traMADol 50 MG Tab PO PRN ×2 (08:13→15:55)
[2016-11-30] MEDS: Doxycycline 100 MG Cap PO SCH ×2 (08:13→20:08)
[2016-11-30] MEDS: Diltiazem 120 MG Cap.CD PO SCH (08:14)
[2016-11-30] MEDS: TICAGRELOR 90 MG PO SCH ×2 (08:16→20:10)
[2016-11-30] MEDS: Clotrimazole 1% Crm 30 GM Tube TOP SCH ×2 (08:16→20:10)
[2016-11-30] MEDS: Tiotropium Inhaler 18 MCG Inhalation Powder Cap Kit of 5 INH SCH (09:11)
--- NOTE | 2016-11-30 10:48 | PCM.PN ---
- General Info Date of Service: 11/30/16 Admission Dx/Problem (Free Text): dypnea Subjective Update: Still somewhat sob but improved. Had a "good" bowel movement last evening after suppository. Still has not been up moving much. Functional Status: Reports: pain controlled. Denies: tolerating diet, ambulating - Review of Systems General: Reports: Weakness, Fatigue. Denies: Fever, Appetite HEENT: Denies: headaches, visual changes Pulmonary: Reports: shortness of breath, cough. Denies: pleuritic chest pain, sputum, hemoptysis, wheezing Cardiovascular: Denies: Chest Pain, Palpitations, Edema Gastrointestinal: Denies: Abdominal pain, Constipation, Nausea, Vomiting Genitourinary: Denies: dysuria, hematuria Musculoskeletal: Denies: neck pain, leg pain Skin: Denies: cyanosis Neurological: Denies: Confusion, Dizziness Psychiatric: Denies: confusion - Patient Data Vitals - most recent: Last Vital Signs Temp 36.3 C 11/30/16 08:00 Pulse 88 11/30/16 08:14 Resp 20 11/30/16 08:00 BP 131/75 11/30/16 08:14 Pulse Ox 96 11/30/16 08:00 Weight - most recent: 60.5 kg I&O - last 24 hours: Intake & Output 11/29/16 11/30/16 11/30/16 22:59 06:59 14:59 Intake Total 100 1200 610 Output Total 540 Balance 100 660 610 Lab Results last 24 hrs: Laboratory Results - last 24 hr 11/30/16 11/30/16 Range/Units 06:20 06:20 WBC 9.67 (4.0-11.0) K/uL RBC 3.28 L (4.50-5.90) M/uL Hgb 9.9 L (13.0-17.0) g/dL Hct 30.2 L (38.0-50.0) % MCV 92.1 (80.0-98.0) fL MCH 30.2 (27.0-32.0) pg MCHC 32.8 (31.0-37.0) g/dL RDW Std Deviation 53.8 (28.0-62.0) fl RDW Coeff of Mavis 16 H (11.0-15.0) % Plt Count 124 L (150-400) K/uL MPV 8.40 (7.40-12.00) fL Add Manual Diff YES Neutrophils % (Manual) 86 H (48.0-80.0) % Band Neutrophils % 2 % Lymphocytes % (Manual) 10 L (16.0-40.0) % Monocytes % (Manual) 2 (0.0-15.0) % Nucleated RBC % 0.0 /100WBC Absolute Seg Neuts 8.3 Band Neutrophils # 0.2 Lymphocytes # (Manual) 1.0 Monocytes # (Manual) 0.2 Nucleated RBCs # 0 K/uL Sodium 137 (136-146) mmol/L Potassium 4.1 (3.5-5.1) mmol/L Chloride 104 (98-110) mmol/L Carbon Dioxide 24 (21-31) mmol/L BUN 8 (6.0-23.0) mg/dL Creatinine 0.9 (0.6-1.5) mg/dL Est Cr Clr Drug Dosing 58.33 mL/min Estimated GFR (MDRD) > 60.0 ml/min Glucose 68 (60-110) mg/dL Calcium 8.1 L (8.8-10.8) mg/dL Magnesium 1.7 (1.5-2.3) mEq/L Med Orders - Current: Current Medications Acetaminophen (Tylenol) 650 mg PO Q4H PRN PRN Reason: Pain (Mild 1-3)/fever Last Admin: 11/30/16 02:27 Dose: 650 mg Albuterol (Proventil Neb Soln) 2.5 mg NEB Q2H PRN PRN Reason: Shortness Of Breath/wheezing Albuterol/Ipratropium (Duoneb 3.0-0.5 Mg/3 Ml) 3 ml NEB Q4HRRT [facility] Last Admin: 11/30/16 09:11 Dose: 3 ml Bisacodyl (Dulcolax) 10 mg PO DAILY PRN PRN Reason: Constipation Last Admin: 11/28/16 15:32 Dose: 10 mg Bisacodyl (Dulcolax) 10 mg RECTAL DAILY PRN PRN Reason: Constipation Last Admin: 11/29/16 17:29 Dose: 10 mg Carboxymethylcellu Sod/Hypromellose (Genteal Moderate To Severe Ophth Gel) 0 ml EYEBOTH BEDTIME [facility] Last Admin: 11/29/16 23:40 Dose: Not Given Clotrimazole (Lotrimin Af 1% Crm) 1 gm TOP BID [facility] Last Admin: 11/30/16 08:16 Dose: 1 applic Diltiazem HCl (Cardizem Cd) 240 mg PO DAILY [facility] Last Admin: 11/30/16 08:14 Dose: 240 mg Doxycycline Hyclate (Vibramycin) 100 mg PO Q12HR [facility] Last Admin: 11/30/16 08:13 Dose: 100 mg Piperacillin Sod/Tazobactam (Sod 3.375 gm/ Sodium Chloride) 50 mls @ 100 mls/ hr IV Q6H [facility] Last Admin: 11/30/16 08:43 Dose: 100 mls/hr Lorazepam (Ativan) 0.25 mg PO Q6H PRN PRN Reason: Anxiety Metoclopramide HCl (Reglan) 10 mg PO QIDACANDBED PRN PRN Reason: Vomiting Ondansetron HCl (Zofran Odt) 4 mg PO Q4H PRN PRN Reason: nausea, able to take PO Pantoprazole Sodium (Protonix) 40 mg PO BIDAC [facility] Last Admin: 11/30/16 06:30 Dose: 40 mg Budesonide/Formoterol 160-4. 5mcg 2 PuffPt Own* * 2 each INH BIDRT [facility] Last Admin: 11/30/16 05:40 Dose: 2 each Orphenadrine Citrate (Er 100 MgPt Own) 100 each PO Q12HR PRN PRN Reason: Pain Ticagrelor 90 MgPt (Own) 1 each PO BID [facility] Last Admin: 11/30/16 08:16 Dose: 1 each Prednisone (Prednisone) 10 mg PO Q2D [facility] Last Admin: 11/28/16 16:26 Dose: 10 mg Prednisone (Prednisone) 5 mg PO Q2D [facility] Last Admin: 11/29/16 09:27 Dose: 5 mg Tamsulosin HCl (Flomax) 0.4 mg PO PCBREAKFAST [facility] Last Admin: 11/30/16 08:13 Dose: 0.4 mg Tiotropium [place] (Spiriva Handihaler) 18 mcg INH DAILY [facility] Last Admin: 11/30/16 09:11 Dose: 1 cap Tramadol HCl (Ultram) 50 mg PO Q6H PRN PRN Reason: Pain Last Admin: 11/30/16 08:13 Dose: 50 mg Discontinued Medications Albuterol/Ipratropium (Duoneb 3.0-0.5 Mg/3 Ml) 3 ml NEB STAT ONE Stop: 11/25/16 21:48 Last Admin: 11/25/16 21:54 Dose: 3 ml Albuterol/Ipratropium (Duoneb 3.0-0.5 Mg/3 Ml) Confirm Administered Dose 3 ml .ROUTE .STK-MED ONE Stop: 11/25/16 21:48 Last Admin: 11/26/16 00:46 Dose: Not Given Albuterol/Ipratropium (Duoneb 3.0-0.5 Mg/3 Ml) 3 ml NEB Q4HRRT PRN PRN Reason: Shortness of Breath Last Admin: 11/26/16 10:39 Dose: 3 ml Levofloxacin/Dextrose 750 mg/ (Premix) 150 mls @ 100 mls/hr IV ONETIME ONE Stop: 11/26/16 00:46 Last Admin: 11/25/16 23:42 Dose: 100 mls/hr Magnesium Sulfate 4 gm/ Premix 100 mls @ 50 mls/hr IV ONETIME ONE Stop: 11/27/16 15:19 Last Admin: 11/27/16 14:00 Dose: 50 mls/hr Magnesium Sulfate 2 gm/ Premix 50 mls @ 50 mls/hr IV ONETIME ONE Stop: 11/29/16 14:48 Last Admin: 11/29/16 14:33 Dose: 50 mls/hr Sodium Chloride (Normal Saline) 1,000 mls @ 125 mls/hr IV ASDIRECTED [facility] Last Admin: 11/30/16 04:57 Dose: 125 mls/hr Magnesium Citrate (Citrate Of Magnesia) 296 ml PO ONETIME ONE Stop: 11/29/16 11:57 Last Admin: 11/29/16 13:25 Dose: 296 ml Budesonide/Formoterol 160-4. 5mcg 2 PuffPt Own* * 0 puff IH BID [facility] Last Admin: 11/26/16 08:33 Dose: 2 puff Orphenadrine Citrate (Er 100 MgPt Own) 100 mg PO Q12HR PRN PRN Reason: Pain Potassium Chloride (Klor-Con M20) 20 meq PO BID [facility] Last Admin: 11/29/16 11:16 Dose: Not Given - Exam Quality Assessment: supplemental oxygen, DVT prophylaxis General: alert, oriented, cooperative, no acute distress HEENT: Pupils equal, Pupils reactive, EOMI, Mucous membr. moist/pink Neck: supple Lungs: Clear to auscultation, Normal respiratory effort, Crackles (left side), Rhonchi Cardiovascular: Regular Rate, Regular Rhythm Abdomen: bowel sounds present, soft, no tenderness, no distension Back Exam: Normal Inspection, Full Range of Motion Extremities: no edema, normal pulses, no tenderness/swelling Peripheral Pulses: 2+: Radial (L), Radial (R), Posterior Tibial (L), Posterior Tibial (R), Dorsalis Pedis (L), Dorsalis Pedis (R) Skin: warm, dry, intact Wound/Incisions: healing well Neurological: no new focal deficit Psy/Mental Status: alert, normal affect, normal mood - Problem List & Annotations (1) A-fib SNOMED Code(s): 44464166 Code(s): I48.91 - UNSPECIFIED ATRIAL FIBRILLATION Status: Chronic Priority: Medium Current Visit: Yes Qualifiers: Atrial fibrillation type: unspecified Qualified Code(s): I48.91 - Unspecified atrial fibrillation (2) Aspiration pneumonia SNOMED Code(s): 678513708 Code(s): J69.0 - PNEUMONITIS DUE TO INHALATION OF FOOD AND VOMIT Status: Acute Priority: High Current Visit: Yes Qualifiers: Aspiration pneumonia type: unspecified Laterality: left Lung location: lower lobe of lung Qualified Code(s): J69.0 - Pneumonitis due to inhalation of food and vomit (3) COPD (chronic obstructive pulmonary disease) SNOMED Code(s): 42548745 Code(s): J44.9 - CHRONIC OBSTRUCTIVE PULMONARY DISEASE, UNSPECIFIED Status : Chronic Priority: High Current Visit: Yes Qualifiers: COPD type: COPD with acute lower respiratory infection Qualified Code(s): J44.0 - Chronic obstructive pulmonary disease with acute lower respiratory infection (4) Hypoxemia SNOMED Code(s): 912777103 Code(s): R09.02 - HYPOXEMIA Status: Resolved Priority: High Current Visit: Yes - Problem List Review Problem List Initiated/Reviewed/Updated: Yes - My Orders Last 24 Hours: My Active Orders 11/30/16 09:40 Consult to Physical Therapy [PT Evaluation and Treatment] [CONS] Routine 11/30/16 09:49 Consult to Occupational Therapy [OT Evaluation and Treatment] [CONS] Routine PT Evaluation and Treatment [CONS] Routine - Plan Plan:: 76 yo male admitted 11/25/16 for dyspnea with pmh of 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 Dypnea: At baseline 2.5-3 ml/NC. Most likely continuing to have aspiration pneumonia. Has improved on Zosyn which we will cont. today day 4. Will most likely need to be discharged with aumentin. Deconditioned will have PT/OT see patient to get him up and ambulating. He does have home health but refusing hospice. Cont. Duo-nebs and home COPD meds. VTE: on Brilinta for a-fib, SCD Dispo: Plan for tomorrow.
[2016-11-30] MEDS: predniSONE 10 MG Tab PO SCH (15:56)
[2016-11-30] MEDS: Carboxymethylcellulose/Hypromellose Ophth Gel 15 ML Bottle EYEBOTH SCH (20:11)
[2016-12-01] MEDS: traMADol 50 MG Tab PO PRN ×4 (00:26→19:56)
[2016-12-01] MEDS: Albuterol/Ipratropium 3.0-0.5 MG/3 ML Neb Soln NEB SCH ×6 (02:14→21:36)
[2016-12-01] MEDS: Piperacillin/Tazobactam 3.375 GM in Sodium Chloride 0.9% 50 ML IV SCH ×4 (02:14→19:59)
[2016-12-01] MEDS: Acetaminophen 325 MG Tab PO PRN ×3 (02:19→22:40)
[2016-12-01 05:13] LABS: CHLORIDE,CL 103 mmol/L (98-110); SODIUM,NA 137 mmol/L (136-146)
[2016-12-01] MEDS: FORMOTEROL INH SCH ×2 (05:55→20:03)
[2016-12-01] MEDS: BUDESONIDE INH SCH ×2 (05:55→20:03)
[2016-12-01] MEDS: Pantoprazole 40 MG Tab.CR PO SCH ×2 (06:39→17:24)
[2016-12-01] MEDS ORDERED: Magnesium Sulfate/Water 4 GM in Premix Bag 1 BAG IV ONE (08:19)
[2016-12-01] MEDS: Doxycycline 100 MG Cap PO SCH ×2 (09:14→19:59)
[2016-12-01] MEDS: Tamsulosin 0.4 MG Cap.ER PO SCH (09:14)
[2016-12-01] MEDS: Clotrimazole 1% Crm 30 GM Tube TOP SCH ×2 (09:15→20:02)
[2016-12-01] MEDS: Diltiazem 120 MG Cap.CD PO SCH (09:15)
[2016-12-01] MEDS: TICAGRELOR 90 MG PO SCH ×2 (09:17→20:02)
[2016-12-01] MEDS: predniSONE 5 MG Tab PO SCH (09:24)
[2016-12-01] MEDS: Tiotropium Inhaler 18 MCG Inhalation Powder Cap Kit of 5 INH SCH (09:27)
--- NOTE | 2016-12-01 10:39 | PCM.PN ---
- General Info Date of Service: 12/01/16 Admission Dx/Problem (Free Text): dypnea Subjective Update: Doing well today, feeling better each day. Continues to have back pain and deconditioning. Has declined getting to chair or ambulating much due to back pain. Had long conversation about the need to keep strength up especially since he has been admitted and in the hospital more during the month of November. daughter Trinidad agrees and voices concern about her being able to care for him or help move him at home. I spoke with son, LOU Peters who will come in and speak with Ishmael today regarding [place] vs home with home health and PT/OT Functional Status: Reports: pain controlled, tolerating diet, ambulating, urinating - Review of Systems General: Reports: Fatigue. Denies: Fever HEENT: Denies: glasses, headaches, visual changes Pulmonary: Reports: shortness of breath (at baseline), cough, sputum Cardiovascular: Reports: No Symptoms. Denies: Chest Pain, Palpitations, Edema Gastrointestinal: Reports: No symptoms, Flatus. Denies: Abdominal pain, Constipation, Nausea, Vomiting Genitourinary: Reports: no symptoms. Denies: dysuria, frequency, burning Musculoskeletal: Reports: no symptoms Skin: Reports: no symptoms Neurological: Reports: No Symptoms Psychiatric: Reports: no symptoms - Patient Data Vitals - most recent: Last Vital Signs Temp 97.3 F 12/01/16 08:00 Pulse 92 12/01/16 09:15 Resp 20 12/01/16 08:00 BP 122/75 12/01/16 09:15 Pulse Ox 93 L 12/01/16 08:00 Weight - most recent: 59.5 kg I&O - last 24 hours: Intake & Output 11/30/16 12/01/16 12/01/16 22:59 06:59 14:59 Intake Total 450 150 Output Total 310 Balance 140 150 Lab Results last 24 hrs: Laboratory Results - last 24 hr 12/01/16 12/01/16 Range/Units 04:24 04:24 WBC 10.27 (4.0-11.0) K/uL RBC 3.53 L (4.50-5.90) M/uL Hgb 10.4 L (13.0-17.0) g/dL Hct 32.2 L (38.0-50.0) % MCV 91.2 (80.0-98.0) fL MCH 29.5 (27.0-32.0) pg MCHC 32.3 (31.0-37.0) g/dL RDW Std Deviation 53.0 (28.0-62.0) fl RDW Coeff of Mavis 16 H (11.0-15.0) % Plt Count 116 L (150-400) K/uL MPV 8.40 (7.40-12.00) fL Add Manual Diff YES Neutrophils % (Manual) 89 H (48.0-80.0) % Lymphocytes % (Manual) 3 L (16.0-40.0) % Monocytes % (Manual) 8 (0.0-15.0) % Nucleated RBC % 0.0 /100WBC Absolute Seg Neuts 9.1 Lymphocytes # (Manual) 0.3 Monocytes # (Manual) 0.8 Nucleated RBCs # 0 K/uL Sodium 137 (136-146) mmol/L Potassium 3.9 (3.5-5.1) mmol/L Chloride 103 (98-110) mmol/L Carbon Dioxide 20 L (21-31) mmol/L BUN 10 (6.0-23.0) mg/dL Creatinine 0.9 (0.6-1.5) mg/dL Est Cr Clr Drug Dosing 58.82 mL/min Estimated GFR (MDRD) > 60.0 ml/min Glucose 86 (60-110) mg/dL Calcium 8.1 L (8.8-10.8) mg/dL Magnesium 1.5 (1.5-2.3) mEq/L Total Bilirubin 0.3 (0.1-1.5) mg/dL AST 11 (5-40) IU/L ALT 14 (8-54) IU/L Alkaline Phosphatase 80 (40-150) Total Protein 4.8 L (6.0-8.0) g/dL Albumin 2.7 L (3.4-4.8) g/dL Globulin 2.1 (2.0-3.5) g/dL Albumin/Globulin Ratio 1.3 (1.3-2.8) Med Orders - Current: Current Medications Acetaminophen (Tylenol) 650 mg PO Q4H PRN PRN Reason: Pain (Mild 1-3)/fever Last Admin: 06/27/17 09:24 Dose: 650 mg Albuterol (Proventil Neb Soln) 2.5 mg NEB Q2H PRN PRN Reason: Shortness Of Breath/wheezing Albuterol/Ipratropium (Duoneb 3.0-0.5 Mg/3 Ml) 3 ml NEB Q4HRRT [facility] Last Admin: 12/01/16 09:27 Dose: 3 ml Bisacodyl (Dulcolax) 10 mg PO DAILY PRN PRN Reason: Constipation Last Admin: 11/28/16 15:32 Dose: 10 mg Bisacodyl (Dulcolax) 10 mg RECTAL DAILY PRN PRN Reason: Constipation Last Admin: 11/29/16 17:29 Dose: 10 mg Carboxymethylcellu Sod/Hypromellose (Genteal Moderate To Severe Ophth Gel) 0 ml EYEBOTH BEDTIME [facility] Last Admin: 11/30/16 20:11 Dose: Not Given Clotrimazole (Lotrimin Af 1% Crm) 1 gm TOP BID [facility] Last Admin: 12/01/16 09:15 Dose: 1 applic Diltiazem HCl (Cardizem Cd) 240 mg PO DAILY [facility] Last Admin: 12/01/16 09:15 Dose: 240 mg Doxycycline Hyclate (Vibramycin) 100 mg PO Q12HR [facility] Last Admin: 12/01/16 09:14 Dose: 100 mg Piperacillin Sod/Tazobactam (Sod 3.375 gm/ Sodium Chloride) 50 mls @ 100 mls/ hr IV Q6H [facility] Last Admin: 12/01/16 09:18 Dose: 100 mls/hr Lorazepam (Ativan) 0.25 mg PO Q6H PRN PRN Reason: Anxiety Metoclopramide HCl (Reglan) 10 mg PO QIDACANDBED PRN PRN Reason: Vomiting Ondansetron HCl (Zofran Odt) 4 mg PO Q4H PRN PRN Reason: nausea, able to take PO Pantoprazole Sodium (Protonix) 40 mg PO BIDAC [facility] Last Admin: 12/01/16 06:39 Dose: 40 mg Budesonide/Formoterol 160-4. 5mcg 2 PuffPt Own* * 2 each INH BIDRT [facility] Last Admin: 12/01/16 05:55 Dose: 2 each Orphenadrine Citrate (Er 100 MgPt Own) 100 each PO Q12HR PRN PRN Reason: Pain Ticagrelor 90 MgPt (Own) 1 each PO BID [facility] Last Admin: 12/01/16 09:17 Dose: 1 each Prednisone (Prednisone) 10 mg PO Q2D [facility] Last Admin: 11/30/16 15:56 Dose: 10 mg Prednisone (Prednisone) 5 mg PO Q2D [facility] Last Admin: 12/01/16 09:24 Dose: 5 mg Tamsulosin HCl (Flomax) 0.4 mg PO PCBREAKFAST [facility] Last Admin: 12/01/16 09:14 Dose: 0.4 mg Tiotropium [place] (Spiriva Handihaler) 18 mcg INH DAILY [facility] Last Admin: 12/01/16 09:27 Dose: 1 cap Tramadol HCl (Ultram) 50 mg PO Q6H PRN PRN Reason: Pain Last Admin: 12/01/16 06:39 Dose: 50 mg Discontinued Medications Albuterol/Ipratropium (Duoneb 3.0-0.5 Mg/3 Ml) 3 ml NEB STAT ONE Stop: 11/25/16 21:48 Last Admin: 11/25/16 21:54 Dose: 3 ml Albuterol/Ipratropium (Duoneb 3.0-0.5 Mg/3 Ml) Confirm Administered Dose 3 ml .ROUTE .STK-MED ONE Stop: 11/25/16 21:48 Last Admin: 11/26/16 00:46 Dose: Not Given Albuterol/Ipratropium (Duoneb 3.0-0.5 Mg/3 Ml) 3 ml NEB Q4HRRT PRN PRN Reason: Shortness of Breath Last Admin: 11/26/16 10:39 Dose: 3 ml Levofloxacin/Dextrose 750 mg/ (Premix) 150 mls @ 100 mls/hr IV ONETIME ONE Stop: 11/26/16 00:46 Last Admin: 11/25/16 23:42 Dose: 100 mls/hr Magnesium Sulfate 4 gm/ Premix 100 mls @ 50 mls/hr IV ONETIME ONE Stop: 11/27/16 15:19 Last Admin: 11/27/16 14:00 Dose: 50 mls/hr Magnesium Sulfate 2 gm/ Premix 50 mls @ 50 mls/hr IV ONETIME ONE Stop: 11/29/16 14:48 Last Admin: 11/29/16 14:33 Dose: 50 mls/hr Sodium Chloride (Normal Saline) 1,000 mls @ 125 mls/hr IV ASDIRECTED [facility] Last Admin: 11/30/16 04:57 Dose: 125 mls/hr Magnesium Sulfate 4 gm/ Premix 100 mls @ 50 mls/hr IV ONETIME ONE Stop: 12/01/16 10:18 Last Admin: 12/01/16 09:08 Dose: 50 mls/hr Magnesium Citrate (Citrate Of Magnesia) 296 ml PO ONETIME ONE Stop: 11/29/16 11:57 Last Admin: 11/29/16 13:25 Dose: 296 ml Budesonide/Formoterol 160-4. 5mcg 2 PuffPt Own* * 0 puff IH BID [facility] Last Admin: 11/26/16 08:33 Dose: 2 puff Orphenadrine Citrate (Er 100 MgPt Own) 100 mg PO Q12HR PRN PRN Reason: Pain Potassium Chloride (Klor-Con M20) 20 meq PO BID [facility] Last Admin: 11/29/16 11:16 Dose: Not Given - Exam General: alert, oriented, cooperative Neck: supple Lungs: Clear to auscultation, Normal respiratory effort Cardiovascular: Regular Rate, Regular Rhythm Abdomen: bowel sounds present, soft, no tenderness, no distension. No: tenderness, distension Extremities: no edema, normal pulses Skin: ecchymosis (bruising noted to arms, chest and legs.) Neurological: no new focal deficit, normal gait, normal speech Psy/Mental Status: alert, normal affect, normal mood - Problem List & Annotations (1) Aspiration pneumonia SNOMED Code(s): 477324246 Code(s): J69.0 - PNEUMONITIS DUE TO INHALATION OF FOOD AND VOMIT Status: Acute Priority: High Current Visit: Yes Qualifiers: Aspiration pneumonia type: unspecified Laterality: left Lung location: lower lobe of lung Qualified Code(s): J69.0 - Pneumonitis due to inhalation of food and vomit (2) A-fib SNOMED Code(s): 88779191 Code(s): I48.91 - UNSPECIFIED ATRIAL FIBRILLATION Status: Chronic Priority: Medium Current Visit: Yes Qualifiers: Atrial fibrillation type: unspecified Qualified Code(s): I48.91 - Unspecified atrial fibrillation (3) COPD (chronic obstructive pulmonary disease) SNOMED Code(s): 14599602 Code(s): J44.9 - CHRONIC OBSTRUCTIVE PULMONARY DISEASE, UNSPECIFIED Status : Chronic Priority: High Current Visit: Yes Qualifiers: COPD type: COPD with acute lower respiratory infection Qualified Code(s): J44.0 - Chronic obstructive pulmonary disease with acute lower respiratory infection (4) Afib SNOMED Code(s): 28168936 Code(s): I48.91 - UNSPECIFIED ATRIAL FIBRILLATION Status: Chronic Priority: Medium Current Visit: No Qualifiers: Atrial fibrillation type: chronic Qualified Code(s): I48.2 - Chronic atrial fibrillation (5) Anemia SNOMED Code(s): 459766751 Code(s): D64.9 - ANEMIA, UNSPECIFIED Status: Chronic Current Visit: No Qualifiers: 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 Qualified Code(s): D50.0 - Iron deficiency anemia secondary to blood loss (chronic) (6) CHF (congestive heart failure) SNOMED Code(s): 50859096 Code(s): I50.9 - HEART FAILURE, UNSPECIFIED Status: Chronic Current Visit : No Qualifiers: Congestive heart failure type: diastolic Congestive heart failure chronicity: chronic Qualified Code(s): I50.32 - Chronic diastolic (congestive ) heart failure (7) Hx of carotid stenosis SNOMED Code(s): 877395231 Code(s): Z86.79 - PERSONAL HISTORY OF OTHER DISEASES OF THE CIRCULATORY SYSTEM Status: Chronic Current Visit: No Annotation/Comment:: R carotid stent (8) Hx of lower gastrointestinal bleeding SNOMED Code(s): 732736249056840 Code(s): Z87.19 - PERSONAL HISTORY OF OTHER DISEASES OF THE DIGESTIVE SYSTEM Status: Chronic Current Visit: No (9) Hx-TIA (transient ischemic attack) SNOMED Code(s): 601525975 Code(s): Z86.73 - PRSNL HX OF TIA (TIA), AND CEREB INFRC W/O RESID DEFICITS Status: Chronic Current Visit: No - Problem List Review Problem List Initiated/Reviewed/Updated: Yes - My Orders Last 24 Hours: My Active Orders 12/01/16 09:05 [employer] Discontinue [Cardiac Monitoring Discontinue] [RC] Click To Edit - Plan Plan:: 76 year old male admitted dyspnea and aspiration pneumonia 1. Aspiration pneumonia: Recurrent. On baseline oxygen needs, 2.5-3 L NC. Dyspnea at baseline. Continue Zosyn for now. No Leukocytosis. Continue to encourage thickening of all liquids. 2. COPD: End stage, continue all inhalers as well as Prednisone. 3. CAD: Stable, Continue Brillinta. 4. Afib: Stable, continue Diltiazem. 5. CHF: Stable Monitor closely. 6. Deconditioning: DUe to recent hospitalizations, PT to eval and treat and encouraged him to be up to chair for all meals. VTE prophylaxis: SCDs only due recurrent GI bleeds. Dispo: possible DC in am.
[2016-12-01] MEDS: Carboxymethylcellulose/Hypromellose Ophth Gel 15 ML Bottle EYEBOTH SCH (20:06)
[2016-12-02] MEDS: Albuterol/Ipratropium 3.0-0.5 MG/3 ML Neb Soln NEB SCH ×3 (01:42→09:33)
[2016-12-02] MEDS: Piperacillin/Tazobactam 3.375 GM in Sodium Chloride 0.9% 50 ML IV SCH ×2 (02:04→09:29)
[2016-12-02] MEDS: traMADol 50 MG Tab PO PRN ×2 (02:08→09:38)
[2016-12-02] MEDS: BUDESONIDE INH SCH (05:46)
[2016-12-02] MEDS: FORMOTEROL INH SCH (05:46)
[2016-12-02 05:50] LABS: CHLORIDE,CL 104 mmol/L (98-110); SODIUM,NA 136 mmol/L (136-146)
[2016-12-02] MEDS: Pantoprazole 40 MG Tab.CR PO SCH (06:31)
[2016-12-02] MEDS: Tamsulosin 0.4 MG Cap.ER PO SCH (09:29)
[2016-12-02] MEDS: Doxycycline 100 MG Cap PO SCH (09:29)
[2016-12-02] MEDS: TICAGRELOR 90 MG PO SCH (09:30)
[2016-12-02] MEDS: Diltiazem 120 MG Cap.CD PO SCH (09:30)
[2016-12-02] MEDS: Clotrimazole 1% Crm 30 GM Tube TOP SCH (09:31)
[2016-12-02] MEDS: Tiotropium Inhaler 18 MCG Inhalation Powder Cap Kit of 5 INH SCH (09:33)
[2016-12-02] MEDS: Bisacodyl 5 MG Tab PO PRN (12:45)
[2016-12-02 14:07] VITALS: BP 113/54
--- NOTE | 2016-12-03 12:43 | PCM.DCSUM1 ---
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 Brief History: Patient presented on 11/25/16 to ED with worsening dyspnea. Family stated that since he was discharge from the hospital one week ago they saw a decline in his resp status. Last evening he was "gasping" for breath so family became conscerned and brought him to the ED. He does have a history of severe end stage COPD O2 dependent 2-3 L per NC. He has a history of multiple admissions for aspiration pneumonia. - Discharge Data Discharge Date: 12/02/16 Discharge Disposition: Home, Self-Care 01 Condition: Good - Discharge Diagnosis/Problem(s) (1) A-fib SNOMED Code(s): 71957212 ICD Code: I48.91 - UNSPECIFIED ATRIAL FIBRILLATION Status: Chronic Priority: Medium Qualifiers: Atrial fibrillation type: unspecified Qualified Code(s): I48.91 - Unspecified atrial fibrillation (2) Aspiration pneumonia SNOMED Code(s): 368036887 ICD Code: J69.0 - PNEUMONITIS DUE TO INHALATION OF FOOD AND VOMIT Status: Acute Priority: High Qualifiers: Aspiration pneumonia type: unspecified Laterality: left Lung location: lower lobe of lung Qualified Code(s): J69.0 - Pneumonitis due to inhalation of food and vomit (3) COPD (chronic obstructive pulmonary disease) SNOMED Code(s): 13815476 ICD Code: J44.9 - CHRONIC OBSTRUCTIVE PULMONARY DISEASE, UNSPECIFIED Status : Chronic Priority: High Qualifiers: COPD type: COPD with acute lower respiratory infection Qualified Code(s): J44.0 - Chronic obstructive pulmonary disease with acute lower respiratory infection (4) Hypoxemia SNOMED Code(s): 632728259 ICD Code: R09.02 - HYPOXEMIA Status: Resolved Priority: High - Patient Summary/Data Consults: Consultations 11/30/16 09:40 Consult to Physical Therapy [PT Evaluation and Treatment] [CONS] Routine 11/30/16 09:49 Consult to Occupational Therapy [OT Evaluation and Treatment] [CONS] Routine PT Evaluation and Treatment [CONS] Routine Hospital Course: In ED patient was found to have leukocytosis of 17.28 and CXR revealed left lower lobe infiltrate suspicious for developing pneumonia. He oxygen saturation was 72% on room air which improved to 91 with 5 L per NC. In ED patient was given duo-nebs and levaquin. Patient was admitted for dyspnea suspected aspiration pneumonia. 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 Patient did not respiratory status improved some back to his baseline but he still had rales and crackles in his bibasilar lung vieira so was switched to Zosyn on day 2 of his stay. Patient improved on Zosyn and was seen by physical, occupational, and respiratory therapy. It was discussed with son Fran the need for [place] placement secondary to his continued decline in overall functional status but son did refused. We also talked about comfort care with son and at this time he still does not want to go to this. - Patient Instructions Diet: Usual Diet as Tolerated Activity: As Tolerated Driving: Do Not Drive Showering/Bathing: May Shower Notify Provider of: Fever, Increased Pain, Swelling and Redness, Drainage Other/Special Instructions: Take antibiotics as prescribed. Follow-up with scheduled appointment with Dr. Fernandes. Return to ED if worsening of symptoms. - Discharge Plan Prescriptions/Med Rec: Amoxicillin/Clavulanate K [Augmentin 875 MG/125 MG] 1 tab PO Q12HR #8 tablet Home Medications: Home Meds Albuterol Sulfate [Proair Hfa] 2 puff IH QID PRN 06/14/16 [History] Albuterol/Ipratropium [DuoNeb 3.0-0.5 MG/3 ML] 3 ml NEB Q4H PRN 06/14/16 [ History] Bisacodyl [Dulcolax] 5 - 10 mg PO DAILY PRN 06/14/16 [History] Bisacodyl [Dulcolax] 10 mg RC DAILY PRN 06/14/16 [History] Budesonide/Formoterol Fumarate [Symbicort 160-4.5 Mcg Inhaler] 2 puff IH BID 01/21 [History] Diltiazem [Cardizem CD] 240 mg PO DAILY 06/14/16 [History] Hypromellose [Genteal Mild] 2 drop EYEBOTH BEDTIME 06/14/16 [History] Metoclopramide HCl [Reglan] 10 mg PO QIDACANDBED PRN 06/14/16 [History] Multivitamin [Multivitamins] 1 each PO DAILY 06/14/16 [History] Orphenadrine Citrate 100 mg PO Q12HR PRN 06/14/16 [History] Tamsulosin [Flomax] 0.4 mg PO PCBREAKFAST 06/14/16 [History] Acetaminophen [Tylenol] 500 mg PO Q4H PRN 06/15/16 [History] Albuterol Sulfate 2.5 mg IH Q6H PRN 06/15/16 [History] Pantoprazole [ProTONIX] 40 mg PO BIDAC 06/15/16 [History] Tiotropium [Spiriva HandiHaler] 18 mcg IH DAILY 06/15/16 [History] Iron Polysaccharides Complex [Ferrex 150] 150 mg PO BID cap 06/17/16 [Rx] Potassium Chloride 20 meq PO BID #30 tab.er.prt 06/26/16 [Rx] LORazepam 0.25 mg PO Q6H PRN 10/20/16 [History] Ticagrelor [Brilinta] 90 mg PO BID 10/20/16 [History] predniSONE 5 mg PO Q2D 11/04/16 [History] Clotrimazole [Lotrimin AF 1% Crm] 1 gm TOP BID tube 11/10/16 [Rx] metroNIDAZOLE [Flagyl] 500 mg PO Q8H #15 tablet 11/22/16 [Rx] predniSONE [Prednisone] 10 mg PO Q2D 11/26/16 [History] Amoxicillin/Clavulanate K [Augmentin 875 MG/125 MG] 1 tab PO Q12HR #8 tablet [Rx] Patient Handouts: Amoxicillin; Clavulanic Acid tablets, Hypoxemia, Aspiration Precautions, Chronic Obstructive Pulmonary Disease, [id number] Referrals: Adam Michel MD [Primary Care Provider] - 12/03/16 11:30 am - Discharge Summary/Plan Comment DC Time >30 min.: Yes Discharge Summary/Plan Comment: 76 yo male admitted 11/25/16 for dyspnea with pmh of 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 Patient presented on 11/25/16 to ED with worsening dyspnea. Family stated that since he was discharge from the hospital one week ago they saw a decline in his resp status. Last evening he was "gasping" for breath so family became conscerned and brought him to the ED. He does have a history of severe end stage COPD O2 dependent 2-3 L per NC. He has a history of multiple admissions for aspiration pneumonia. In ED patient was found to have leukocytosis of 17.28 and CXR revealed left lower lobe infiltrate suspicious for developing pneumonia. He oxygen saturation was 72% on room air which improved to 91 with 5 L per NC. In ED patient was given duo-nebs and levaquin. Patient was admitted for dyspnea suspected aspiration pneumonia. 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 Patient did not respiratory status improved some back to his baseline but he still had rales and crackles in his bibasilar lung vieira so was switched to Zosyn on day 2 of his stay. Patient improved on Zosyn and was seen by physical, occupational, and respiratory therapy. It was discussed with son Fran the need for [place] placement secondary to his continued decline in overall functional status but son did refused. We also talked about comfort care with son and at this time he still does not want to go to this. Patient was discharged on 12/02/16 at his baseline with a prescription for augmentin for 4 additional days and follow-up appointment with his pcp, Dr. Michel. - General Info Date of Service: 12/02/16 Admission Dx/Problem (Free Text: dypnea Subjective Update: Feeling better and breathing at baseline. Eating and eliminating without difficulty. no chest pain, sob, palpitations, abd pain, n/v, diarrhea. - Review of Systems General: Reports: Weakness, Malaise. Denies: Fever, Fatigue, Chills HEENT: Denies: headaches Pulmonary: Reports: cough. Denies: shortness of breath, pleuritic chest pain, sputum, hemoptysis Cardiovascular: Denies: Chest Pain, Palpitations, Edema Gastrointestinal: Denies: Abdominal pain, Constipation, Diarrhea, Nausea, Vomiting Genitourinary: Denies: dysuria Musculoskeletal: Denies: neck pain, leg pain Skin: Denies: cyanosis Neurological: Denies: Confusion Psychiatric: Denies: confusion - Patient Data Vitals - Most Recent: Last Vital Signs Temp 36.3 C 12/02/16 12:00 Pulse 80 12/02/16 12:00 Resp 20 12/02/16 12:00 BP 113/54 L 12/02/16 12:00 Pulse Ox 93 L 12/02/16 12:00 Weight - Most Recent: 59.5 kg Med Orders - Current: Current Medications Discontinued Medications Acetaminophen (Tylenol) 650 mg PO Q4H PRN PRN Reason: Pain (Mild 1-3)/fever Last Admin: 12/01/16 22:40 Dose: 650 mg Albuterol (Proventil Neb Soln) 2.5 mg NEB Q2H PRN PRN Reason: Shortness Of Breath/wheezing Last Admin: 12/02/16 12:45 Dose: 2.5 mg Albuterol/Ipratropium (Duoneb 3.0-0.5 Mg/3 Ml) 3 ml NEB STAT ONE Stop: 11/25/16 21:48 Last Admin: 11/25/16 21:54 Dose: 3 ml Albuterol/Ipratropium (Duoneb 3.0-0.5 Mg/3 Ml) Confirm Administered Dose 3 ml .ROUTE .STK-MED ONE Stop: 11/25/16 21:48 Last Admin: 11/26/16 00:46 Dose: Not Given Albuterol/Ipratropium (Duoneb 3.0-0.5 Mg/3 Ml) 3 ml NEB Q4HRRT PRN PRN Reason: Shortness of Breath Last Admin: 11/26/16 10:39 Dose: 3 ml Albuterol/Ipratropium (Duoneb 3.0-0.5 Mg/3 Ml) 3 ml NEB Q4HRRT KYMBERLY Last Admin: 12/02/16 09:33 Dose: 3 ml Bisacodyl (Dulcolax) 10 mg PO DAILY PRN PRN Reason: Constipation Last Admin: 12/02/16 12:45 Dose: 10 mg Bisacodyl (Dulcolax) 10 mg RECTAL DAILY PRN PRN Reason: Constipation Last Admin: 11/29/16 17:29 Dose: 10 mg Carboxymethylcellu Sod/Hypromellose (Genteal Moderate To Severe Ophth Gel) 0 ml EYEBOTH BEDTIME [facility] Last Admin: 12/01/16 20:06 Dose: 2 drop Clotrimazole (Lotrimin Af 1% Crm) 1 gm TOP BID [facility] Last Admin: 12/02/16 09:31 Dose: 1 applic Diltiazem HCl (Cardizem Cd) 240 mg PO DAILY [facility] Last Admin: 12/02/16 09:30 Dose: 240 mg Doxycycline Hyclate (Vibramycin) 100 mg PO Q12HR [facility] Last Admin: 12/02/16 09:29 Dose: 100 mg Levofloxacin/Dextrose 750 mg/ (Premix) 150 mls @ 100 mls/hr IV ONETIME ONE Stop: 11/26/16 00:46 Last Admin: 11/25/16 23:42 Dose: 100 mls/hr Magnesium Sulfate 4 gm/ Premix 100 mls @ 50 mls/hr IV ONETIME ONE Stop: 11/27/16 15:19 Last Admin: 11/27/16 14:00 Dose: 50 mls/hr Piperacillin Sod/Tazobactam (Sod 3.375 gm/ Sodium Chloride) 50 mls @ 100 mls/ hr IV Q6H [facility] Last Admin: 12/02/16 09:29 Dose: 100 mls/hr Magnesium Sulfate 2 gm/ Premix 50 mls @ 50 mls/hr IV ONETIME ONE Stop: 11/29/16 14:48 Last Admin: 11/29/16 14:33 Dose: 50 mls/hr Sodium Chloride (Normal Saline) 1,000 mls @ 125 mls/hr IV ASDIRECTED [facility] Last Admin: 11/30/16 04:57 Dose: 125 mls/hr Magnesium Sulfate 4 gm/ Premix 100 mls @ 50 mls/hr IV ONETIME ONE Stop: 12/01/16 10:18 Last Admin: 12/01/16 09:08 Dose: 50 mls/hr Lorazepam (Ativan) 0.25 mg PO Q6H PRN PRN Reason: Anxiety Last Admin: 12/01/16 19:55 Dose: 0.25 mg Magnesium Citrate (Citrate Of Magnesia) 296 ml PO ONETIME ONE Stop: 11/29/16 11:57 Last Admin: 11/29/16 13:25 Dose: 296 ml Metoclopramide HCl (Reglan) 10 mg PO QIDACANDBED PRN PRN Reason: Vomiting Budesonide/Formoterol 160-4. 5mcg 2 PuffPt Own* * 0 puff IH BID [facility] Last Admin: 11/26/16 08:33 Dose: 2 puff Orphenadrine Citrate (Er 100 MgPt Own) 100 mg PO Q12HR PRN PRN Reason: Pain Ondansetron HCl (Zofran Odt) 4 mg PO Q4H PRN PRN Reason: nausea, able to take PO Pantoprazole Sodium (Protonix) 40 mg PO BIDAC [facility] Last Admin: 12/02/16 06:31 Dose: 40 mg Budesonide/Formoterol 160-4. 5mcg 2 PuffPt Own* * 2 each INH BIDRT [facility] Last Admin: 12/02/16 05:46 Dose: 2 each Orphenadrine Citrate (Er 100 MgPt Own) 100 each PO Q12HR PRN PRN Reason: Pain Ticagrelor 90 MgPt (Own) 1 each PO BID [facility] Last Admin: 12/02/16 09:30 Dose: 1 each Potassium Chloride (Klor-Con M20) 20 meq PO BID [facility] Last Admin: 11/29/16 11:16 Dose: Not Given Prednisone (Prednisone) 10 mg PO Q2D [facility] Last Admin: 11/30/16 15:56 Dose: 10 mg Prednisone (Prednisone) 5 mg PO Q2D [facility] Last Admin: 12/01/16 09:24 Dose: 5 mg Tamsulosin HCl (Flomax) 0.4 mg PO PCBREAKFAST [facility] Last Admin: 12/02/16 09:29 Dose: 0.4 mg Tiotropium [place] (Spiriva Handihaler) 18 mcg INH DAILY [facility] Last Admin: 12/02/16 09:33 Dose: 1 cap Tramadol HCl (Ultram) 50 mg PO Q6H PRN PRN Reason: Pain Last Admin: 12/02/16 09:38 Dose: 50 mg - Exam Quality Assessment: Reports: supplemental oxygen, DVT prophylaxis General: Reports: alert, oriented, cooperative, no acute distress HEENT: Reports: Pupils equal, Pupils reactive, EOMI, Mucous membr. moist/pink Neck: Reports: supple Lungs: Reports: Clear to auscultation, Normal respiratory effort Cardiovascular: Reports: Regular Rate, Regular Rhythm Abdomen: Reports: bowel sounds present, soft, no tenderness, no distension Back Exam: Reports: Normal Inspection, Full Range of Motion Extremities: Reports: no edema, normal pulses Skin: Reports: warm, dry, intact Wound/Incisions: Reports: healing well Neurological: Reports: no new focal deficit Psy/Mental Status: Reports: alert, normal affect, normal mood *Q Meaningful Use (DIS) - VTE *Q VTE Criteria *Q: - Stroke *Q Stroke Criteria *Q: - AMI *Q AMI Criteria *Q:
== END 2016-12-02 14:30 | disposition home or self-care (01) | DRG 190 ==
LOC: MW.ED 21:39 → MW.MS 23:26 → OBSVTOIN 11-26 10:02
PROVIDERS: ADMIT Internal Medicine; ATTEND Internal Medicine
DX: J44.0 Chronic obstructive pulmonary disease with (acute) lower respiratory infection (principal); J69.0 Pneumonitis due to inhalation of food and vomit; I48.91 Unspecified atrial fibrillation; R09.02 Hypoxemia; I25.10 Atherosclerotic heart disease of native coronary artery without angina pectoris; I50.9 Heart failure, unspecified; E78.00 Pure hypercholesterolemia, unspecified; I10 Essential (primary) hypertension; M54.9 Dorsalgia, unspecified; Z86.73 Personal history of transient ischemic attack (TIA), and cerebral infarction without residual deficits; Z87.891 Personal history of nicotine dependence; Z87.19 Personal history of other diseases of the digestive system; Z95.5 Presence of coronary angioplasty implant and graft; Z86.79 Personal history of other diseases of the circulatory system; Z79.899 Other long term (current) drug therapy; Z66 Do not resuscitate
CPT/HCPCS: 36415 ×2; 71020; 80048; 80053; 82550; 83880; 84484; 85025 ×2; 93005; 94664; 96374; 99285; A9270 ×2; J1956; 81001; 83735; 84100; 87086; 94640; 96365; 96366; 97110-GO; 97161-GP; 97165-GO; 97530-GP; G0378; J2543; J3475; J7040; J7050

== ENCOUNTER 2017-01-31 21:40 | Inpatient (IN) | payer MEDICARE ==
--- NOTE | 2017-01-31 21:54 | EDM.PDOC ---
ED HPI GENERAL MEDICAL PROBLEM - General Chief Complaint: Respiratory Problem Stated Complaint: TROUBLE BREATHING Time Seen by Provider: 01/31/17 21:45 - History of Present Illness INITIAL COMMENTS - FREE TEXT/NARRATIVE: HISTORY AND PHYSICAL: History of present illness: Patient is a 76-year-old white male with history of end-stage COPD who is well- known to our institution and presents with a concern of hypoxemia and shortness of breath he has been here many times with these exacerbations and he is currently working closely with lawyer criminal regarding hospice care and other considerations to date he has not made a determination as of yet he is agreeable to admission on arrival his saturations 82% he is awake follows commands moves all extremities and request/agrees to admission Review of systems: As per history of present illness and below otherwise all systems reviewed and negative. Past medical history: As per history of present illness and as reviewed below otherwise noncontributory. Surgical history: As per history of present illness and as reviewed below otherwise noncontributory. Social history: No reported history of drug or alcohol abuse. Family history: As per history of present illness and as reviewed below otherwise noncontributory. Physical exam: HEENT: Atraumatic, normocephalic, pupils reactive, negative for conjunctival pallor or scleral icterus, mucous membranes moist, throat clear, neck supple, nontender, trachea midline. Lungs: Coarse bilaterally markedly diminished but equal breath sounds , chest nontender. Heart: S1S2, regular, negative for clicks, rubs, or JVD. Abdomen: Soft, nondistended, nontender. Negative for masses or hepatosplenomegaly. Negative for costovertebral tenderness. Pelvis: Stable nontender. Genitourinary: Deferred. Rectal: Deferred. Extremities: Atraumatic, negative for cords or calf pain. Neurovascular unremarkable. Neuro: Awake, alert, follows commands moves all extremities limited grossly nonfocal baseline neuro exam Diagnostics: CBC CMP PT/INR troponin ABG chest x-ray EKG Therapeutics: IV O2 monitor albuterol ipratropium nebulizer Cymetra 0.5 mg IV Impression: #1 hypoxemia #2 end-stage COPD with exacerbation Definitive disposition and diagnosis as appropriate pending reevaluation and review of above. - Related Data Allergies Allergy/AdvReac Type Severity Reaction Status Date / Time No Known Allergies Allergy Verified 01/31/17 21:43 Home Meds: Home Meds Albuterol Sulfate [Proair Hfa] 2 puff IH QID PRN 06/14/16 [History] Albuterol/Ipratropium [DuoNeb 3.0-0.5 MG/3 ML] 3 ml NEB Q4H PRN 06/14/16 [ History] Bisacodyl [Dulcolax] 5 - 10 mg PO DAILY PRN 06/14/16 [History] Bisacodyl [Dulcolax] 10 mg RC DAILY PRN 06/14/16 [History] Budesonide/Formoterol Fumarate [Symbicort 160-4.5 Mcg Inhaler] 2 puff IH BID 01/21 [History] Diltiazem [Cardizem CD] 240 mg PO DAILY 06/14/16 [History] Hypromellose [Genteal Mild] 2 drop EYEBOTH BEDTIME 06/14/16 [History] Metoclopramide HCl [Reglan] 10 mg PO QIDACANDBED PRN 06/14/16 [History] Multivitamin [Multivitamins] 1 each PO DAILY 06/14/16 [History] Orphenadrine Citrate 100 mg PO Q12HR PRN 06/14/16 [History] Tamsulosin [Flomax] 0.4 mg PO PCBREAKFAST 06/14/16 [History] Acetaminophen [Tylenol] 500 mg PO Q4H PRN 06/15/16 [History] Albuterol Sulfate 2.5 mg IH Q6H PRN 06/15/16 [History] Pantoprazole [ProTONIX] 40 mg PO BIDAC 06/15/16 [History] Tiotropium [Spiriva HandiHaler] 18 mcg IH DAILY 06/15/16 [History] Iron Polysaccharides Complex [Ferrex 150] 150 mg PO BID cap 06/17/16 [Rx] Potassium Chloride 20 meq PO BID #30 tab.er.prt 06/26/16 [Rx] LORazepam 0.25 mg PO Q6H PRN 10/20/16 [History] Ticagrelor [Brilinta] 90 mg PO BID 10/20/16 [History] predniSONE 5 mg PO Q2D 11/04/16 [History] Clotrimazole [Lotrimin AF 1% Crm] 1 gm TOP BID tube 11/10/16 [Rx] metroNIDAZOLE [Flagyl] 500 mg PO Q8H #15 tablet 11/22/16 [Rx] predniSONE [Prednisone] 10 mg PO Q2D 11/26/16 [History] Amoxicillin/Clavulanate K [Augmentin 875 MG/125 MG] 1 tab PO Q12HR #8 tablet [Rx] Past Medical History HEENT History: Reports: Cataract Other HEENT History: glasses Cardiovascular History: Reports: Afib, CAD, Heart Failure, High Cholesterol, Hypertension, Stents Respiratory History: Reports: COPD, Pneumonia, Recurrent, Pneumothorax, SOB, Other (See Below) Other Respiratory History: chronic respiratory failure with hypoxia Gastrointestinal History: Reports: GI Bleed, Other (See Below) (Esophageal cancer) Other Gastrointestinal History: GI Bleed. Ileus Genitourinary History: Reports: None Musculoskeletal History: Reports: Other (See Below) Other Musculoskeletal History: Back Problem Neurological History: Reports: TIA Psychiatric History: Reports: None Endocrine/Metabolic History: Reports: None Hematologic History: Reports: Anemia Immunologic History: Reports: None Oncologic (Cancer) History: Reports: Other (See Below) Other Oncologic History: throat Dermatologic History: Reports: None - Infectious Disease History Infectious Disease History: Reports: Chicken Pox, Measles, Mumps Other Infectious Disease History: clear for MRSA per patient - Past Surgical History Head Surgeries/Procedures: Reports: None HEENT Surgical History: Reports: None Cardiovascular Surgical History: Reports: Coronary Artery Stent, Carotid Stents GI Surgical History: Reports: Other (See Below) Male Surgical History: Reports: None Endocrine Surgical History: Reports: None Neurological Surgical History: Reports: None Dermatological Surgical History: Reports: None Social & Family History - Family History Family Medical History: Noncontributory HEENT: Reports: None Cardiac: Reports: Hypertension Other Cardiac Family History: Father, Mother Respiratory: Reports: None GI: Reports: GI bleed : Reports: None OBGYN: Reports: Musculoskeletal: Reports: Arthritis Neurological: Reports: None Psychiatric: Reports: None Endocrine/Metabolic: Reports: Diabetes, type II Hematologic: Reports: None Immunologic: Reports: None Dermatologic: Reports: None Oncologic: Reports: Prostate - Tobacco Use Smoking Status *Q: Former Smoker Years of Tobacco use: 50 Packs/Tins Daily: 4 Used Tobacco, but Quit: Yes Month Tobacco Last Used: 5 years Second Hand Smoke Exposure: No - Caffeine Use Caffeine Use: Reports: Coffee Caffeine Use Comment: 3 cups daily - Alcohol Use Days Per Week of Alcohol Use: 2 Number of Drinks Per Day: 2 Total Drinks Per Week: 4 - Recreational Drug Use Recreational Drug Use: No Drug Use in Last 12 Months: No ED ROS GENERAL - Review of Systems Review Of Systems: ROS reveals no pertinent complaints other than HPI. ED EXAM, GENERAL - Physical Exam Exam: See Below (See dictation) Course - Vital Signs Last Recorded V/S: Last Vital Signs Temp 37.1 C 01/31/17 22:54 Pulse 102 H 01/31/17 22:54 Resp 32 H 01/31/17 22:54 BP 133/63 01/31/17 22:54 Pulse Ox 92 L 01/31/17 22:54 - Orders/Labs/Meds Orders: Active Orders 24 hr Category Date Time Status EKG 12 Lead [EKG Documentation Completion] [RC] STAT Care 01/31/17 21:54 Active RT Aerosol Therapy [RC] ASDIRECTED Care 01/31/17 21:55 Active Chest 1V Frontal [CR] Stat Exams 01/31/17 21:54 Taken CULTURE BLOOD [BC] Stat Lab 01/31/17 23:26 Received CULTURE BLOOD [BC] Stat Lab 01/31/17 23:33 Received Sodium Chloride 0.9% [Saline Flush] Med 01/31/17 21:56 Active 10 ml FLUSH ASDIRECTED PRN Sodium Chloride 0.9% [Saline Flush] Med 01/31/17 21:56 Active 2.5 ml FLUSH ASDIRECTED PRN Blood Culture x2 Reflex Set [OM.PC] Stat Oth 01/31/17 23:15 Ordered Saline Lock Insert [OM.PC] Stat Oth 01/31/17 21:56 Ordered Medication Orders Albuterol/Ipratropium (Duoneb 3.0-0.5 Mg/3 Ml) 3 ml NEB Q6HRRT PRN PRN Reason: Shortness of Breath Levofloxacin/Dextrose 750 mg/ (Premix) 150 mls @ 100 mls/hr IV Q24H KYMBERLY Methylprednisolone Sodium Succinate (Solu-Medrol) 125 mg IVPUSH Q6H KYMBERLY Last Admin: 02/01/17 01:35 Dose: 125 mg Sodium Chloride (Saline Flush) 10 ml FLUSH ASDIRECTED PRN PRN Reason: Keep Vein Open Sodium Chloride (Saline Flush) 2.5 ml FLUSH ASDIRECTED PRN PRN Reason: Keep Vein Open Labs: Laboratory Tests 01/31/17 01/31/17 01/31/17 Range/Units 21:58 22:11 22:11 WBC 20.37 H (4.0-11.0) K/uL RBC 3.46 L (4.50-5.90) M/uL Hgb 10.5 L (13.0-17.0) g/dL Hct 32.6 L (38.0-50.0) % MCV 94.2 (80.0-98.0) fL MCH 30.3 (27.0-32.0) pg MCHC 32.2 (31.0-37.0) g/dL RDW Std Deviation 55.6 (28.0-62.0) fl RDW Coeff of Mavis 16 H (11.0-15.0) % Plt Count 198 (150-400) K/uL MPV 8.20 (7.40-12.00) fL Neut % (Auto) 91.1 H (48.0-80.0) % Lymph % (Auto) 4.7 L (16.0-40.0) % [place] % (Auto) 4.1 (0.0-15.0) % Eos % (Auto) 0.1 (0.0-7.0) % Baso % (Auto) 0.0 (0.0-1.5) % Neut # (Auto) 18.6 H (1.4-5.7) K/uL Lymph # (Auto) 1.0 (0.6-2.4) K/uL [place] # (Auto) 0.8 (0.0-0.8) K/uL Eos # (Auto) 0.0 (0.0-0.7) K/uL Baso # (Auto) 0.0 (0.0-0.1) K/uL Nucleated RBC % 0.0 /100WBC Nucleated RBCs # 0 K/uL INR 0.95 (0.86-1.11) ABG pH 7.469 H (7.35-7.45) ABG pCO2 36 (35-45) mmHG ABG pO2 70 L (75-100) mmHG ABG HCO3 26 (22-26) mEq/L ABG Total CO2 23.6 ABG Base Excess 2.0 (-2.0-2.0) Sodium (136-146) mmol/L Potassium (3.5-5.1) mmol/L Chloride (98-110) mmol/L Carbon Dioxide (21-31) mmol/L BUN (6.0-23.0) mg/dL Creatinine (0.6-1.5) mg/dL Est Cr Clr Drug Dosing mL/min Estimated GFR (MDRD) ml/min Glucose (60-110) mg/dL Calcium (8.8-10.8) mg/dL Total Bilirubin (0.1-1.5) mg/dL AST (5-40) IU/L ALT (8-54) IU/L Alkaline Phosphatase (40-150) CK-MB (CK-2) (0-6.6) ng/ml Troponin I (0.0-0.29) NG/ML B-Natriuretic Peptide (<100) PG/ML Total Protein (6.0-8.0) g/dL Albumin (3.4-4.8) g/dL Globulin (2.0-3.5) g/dL Albumin/Globulin Ratio (1.3-2.8) 01/31/17 01/31/17 01/31/17 Range/Units 22:11 22:11 22:11 WBC (4.0-11.0) K/uL RBC (4.50-5.90) M/uL Hgb (13.0-17.0) g/dL Hct (38.0-50.0) % MCV (80.0-98.0) fL MCH (27.0-32.0) pg MCHC (31.0-37.0) g/dL RDW Std Deviation (28.0-62.0) fl RDW Coeff of Mavis (11.0-15.0) % Plt Count (150-400) K/uL MPV (7.40-12.00) fL Neut % (Auto) (48.0-80.0) % Lymph % (Auto) (16.0-40.0) % [place] % (Auto) (0.0-15.0) % Eos % (Auto) (0.0-7.0) % Baso % (Auto) (0.0-1.5) % Neut # (Auto) (1.4-5.7) K/uL Lymph # (Auto) (0.6-2.4) K/uL [place] # (Auto) (0.0-0.8) K/uL Eos # (Auto) (0.0-0.7) K/uL Baso # (Auto) (0.0-0.1) K/uL Nucleated RBC % /100WBC Nucleated RBCs # K/uL INR (0.86-1.11) ABG pH (7.35-7.45) ABG pCO2 (35-45) mmHG ABG pO2 (75-100) mmHG ABG HCO3 (22-26) mEq/L ABG Total CO2 ABG Base Excess (-2.0-2.0) Sodium 139 (136-146) mmol/L Potassium 4.3 (3.5-5.1) mmol/L Chloride 103 (98-110) mmol/L Carbon Dioxide 24 (21-31) mmol/L BUN 12 (6.0-23.0) mg/dL Creatinine 1.0 (0.6-1.5) mg/dL Est Cr Clr Drug Dosing 49.14 mL/min Estimated GFR (MDRD) > 60.0 ml/min Glucose 128 H (60-110) mg/dL Calcium 9.3 (8.8-10.8) mg/dL Total Bilirubin 0.9 (0.1-1.5) mg/dL AST 14 (5-40) IU/L ALT 19 (8-54) IU/L Alkaline Phosphatase 70 (40-150) CK-MB (CK-2) 1.1 (0-6.6) ng/ml Troponin I < 0.10 (0.0-0.29) NG/ML B-Natriuretic Peptide 109 H (<100) PG/ML Total Protein 6.5 (6.0-8.0) g/dL Albumin 3.4 (3.4-4.8) g/dL Globulin 3.1 (2.0-3.5) g/dL Albumin/Globulin Ratio 1.1 L (1.3-2.8) Meds: Medications Generic Name Dose Route Start Last Admin Trade Name Freq PRN Reason Stop Dose Admin Albuterol/Ipratropium 3 ml 02/01/17 00:55 Duoneb 3.0-0.5 Mg/3 Ml NEB Q6HRRT PRN Shortness of Breath Levofloxacin/Dextrose 750 mg/ 150 mls @ 100 mls/hr 02/01/17 23:00 Premix IV Q24H KYMBERLY Methylprednisolone Sodium Succinate 125 mg 02/01/17 01:00 02/01/17 01:35 Solu-Medrol IVPUSH 125 mg Q6H KYMBERLY Administration Sodium Chloride 10 ml 01/31/17 21:56 Saline Flush FLUSH ASDIRECTED PRN Keep Vein Open Sodium Chloride 2.5 ml 01/31/17 21:56 Saline Flush FLUSH ASDIRECTED PRN Keep Vein Open Discontinued Medications Generic Name Dose Route Start Last Admin Trade Name Freq PRN Reason Stop Dose Admin Albuterol/Ipratropium 3 ml 01/31/17 21:55 01/31/17 22:04 Duoneb 3.0-0.5 Mg/3 Ml NEB 01/31/17 21:56 3 ml ONETIME ONE Administration Levofloxacin/Dextrose 750 mg/ 150 mls @ 100 mls/hr 01/31/17 23:15 01/31/17 23 :29 Premix IV 02/01/17 00:44 100 mls/hr ONETIME ONE Administration Departure - Departure Time of Disposition: 04:39 Disposition: Refer to Observation Condition: Undetermined Clinical Impression: COPD (chronic obstructive pulmonary disease) Qualifiers: COPD type: COPD with acute lower respiratory infection Qualified Code(s): J44.0 - Chronic obstructive pulmonary disease with acute lower respiratory infection - Discharge Information - My Orders Last 24 Hours: My Active Orders 01/31/17 21:54 EKG 12 Lead [EKG Documentation Completion] [RC] STAT Chest 1V Frontal [CR] Stat 01/31/17 21:55 RT Aerosol Therapy [RC] ASDIRECTED 01/31/17 21:56 Sodium Chloride 0.9% [Saline Flush] 10 ml FLUSH ASDIRECTED PRN Sodium Chloride 0.9% [Saline Flush] 2.5 ml FLUSH ASDIRECTED PRN Saline Lock Insert [OM.PC] Stat 01/31/17 23:15 Blood Culture x2 Reflex Set [OM.PC] Stat 01/31/17 23:26 CULTURE BLOOD [BC] Stat 01/31/17 23:33 CULTURE BLOOD [BC] Stat - Assessment/Plan Last 24 Hours: My Active Orders 01/31/17 21:54 EKG 12 Lead [EKG Documentation Completion] [RC] STAT Chest 1V Frontal [CR] Stat 01/31/17 21:55 RT Aerosol Therapy [RC] ASDIRECTED 01/31/17 21:56 Sodium Chloride 0.9% [Saline Flush] 10 ml FLUSH ASDIRECTED PRN Sodium Chloride 0.9% [Saline Flush] 2.5 ml FLUSH ASDIRECTED PRN Saline Lock Insert [OM.PC] Stat 01/31/17 23:15 Blood Culture x2 Reflex Set [OM.PC] Stat 01/31/17 23:26 CULTURE BLOOD [BC] Stat 01/31/17 23:33 CULTURE BLOOD [BC] Stat
[2017-01-31] MEDS ORDERED: Albuterol/Ipratropium 3.0-0.5 MG/3 ML Neb Soln NEB ONE (21:55)
[2017-01-31] MEDS ORDERED: Sodium Chloride 0.9% 10 ML Syringe FLUSH PRN (21:56)
[2017-01-31] MEDS ORDERED: Sodium Chloride 0.9% 2.5 ML Syringe FLUSH PRN (21:56)
[2017-01-31 22:41] LABS: CHLORIDE,CL 103 mmol/L (98-110); SODIUM,NA 139 mmol/L (136-146)
[2017-01-31] MEDS ORDERED: Levofloxacin/Dextrose 5%-Water 750 MG in Premix Bag 1 BAG IV ONE (23:15)
[2017-02-01] MEDS ORDERED: Albuterol/Ipratropium 3.0-0.5 MG/3 ML Neb Soln NEB PRN (00:55)
[2017-02-01] MEDS: methylPREDNISolone Sodium Succinate 125 MG/2 ML SDV IVPUSH SCH ×4 (01:35→18:12)
[2017-02-01 06:41] LABS: CHLORIDE,CL 103 mmol/L (98-110); SODIUM,NA 137 mmol/L (136-146)
--- NOTE | 2017-02-01 09:33 | PCM.HP ---
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 He reports he started feeling ill and SOB yesterday. He denies fevers, chill, palpitations or abdominal pain. He has some pleuritic chest pain with deep breathing and coughing. He reports a productive cough, phlegm is greenish in color. Home Health came to the house yesterday and [place] blood since he was not feeling well. He denies recent black or bloody BMs, no significant diarrhea, it is green in color. No abdominal or urinary symptoms. His last blood transfusion was 2 weeks ago. He reports getting these every couple to 3 weeks. He reports not following thickened liquids completely at home . In the ED leukocytosis noted, 20,000, Hgb 10.5 BMP WNL. BNP 109. CXR negative, revealed stable L basilar scarring or atelectasis, which is similar in appearance to past imaging. No new focal consolidation, enlargement of crdiac silhouette as before, no pulmonary edema noted. He was given Levaquin in the ED as well as Solumedrol for suspected COPD exacerbation. He will be admitted as inpatient for COPD exacerbation. PCP, Dr Michel DNR/DNI status. - Related Data Allergies/Adverse Reactions: Allergies Allergy/AdvReac Type Severity Reaction Status Date / Time No Known Allergies Allergy Verified 01/31/17 21:43 Home Medications: Home Meds Albuterol Sulfate [Proair Hfa] 2 puff IH QID PRN 06/14/16 [History] Albuterol/Ipratropium [DuoNeb 3.0-0.5 MG/3 ML] 3 ml NEB Q4H PRN 06/14/16 [ History] Bisacodyl [Dulcolax] 5 - 10 mg PO DAILY PRN 06/14/16 [History] Bisacodyl [Dulcolax] 10 mg RC DAILY PRN 06/14/16 [History] Budesonide/Formoterol Fumarate [Symbicort 160-4.5 Mcg Inhaler] 2 puff IH BID 01/21 [History] Diltiazem [Cardizem CD] 240 mg PO DAILY 06/14/16 [History] Hypromellose [Genteal Mild] 2 drop EYEBOTH BEDTIME 06/14/16 [History] Metoclopramide HCl [Reglan] 10 mg PO QIDACANDBED PRN 06/14/16 [History] Multivitamin [Multivitamins] 1 each PO DAILY 06/14/16 [History] Orphenadrine Citrate 100 mg PO Q12HR PRN 06/14/16 [History] Tamsulosin [Flomax] 0.4 mg PO PCBREAKFAST 06/14/16 [History] Acetaminophen [Tylenol] 500 mg PO Q4H PRN 06/15/16 [History] Albuterol Sulfate 2.5 mg IH Q6H PRN 06/15/16 [History] Pantoprazole [ProTONIX] 40 mg PO BIDAC 06/15/16 [History] Tiotropium [Spiriva HandiHaler] 18 mcg IH DAILY 06/15/16 [History] Iron Polysaccharides Complex [Ferrex 150] 150 mg PO BID cap 06/17/16 [Rx] Potassium Chloride 20 meq PO BID #30 tab.er.prt 06/26/16 [Rx] LORazepam 0.25 mg PO Q6H PRN 10/20/16 [History] Ticagrelor [Brilinta] 90 mg PO BID 10/20/16 [History] predniSONE 5 mg PO Q2D 11/04/16 [History] predniSONE [Prednisone] 10 mg PO Q2D 11/26/16 [History] Lidocaine 5% [Lidoderm 5%] 1 patch TD DAILY PRN 02/01/17 [History] Past Medical History HEENT History: Reports: Cataract Other HEENT History: glasses Cardiovascular History: Reports: Afib, CAD, Heart Failure, High Cholesterol, Hypertension, Stents (R carotid) Respiratory History: Reports: COPD, Pneumonia, Recurrent, Pneumothorax, SOB, Other (See Below) Other Respiratory History: chronic respiratory failure with hypoxia Gastrointestinal History: Reports: GI Bleed, Other (See Below) (Ileus) Genitourinary History: Reports: None Musculoskeletal History: Reports: Back Pain, Chronic (compression fractures) Neurological History: Reports: TIA Psychiatric History: Reports: None Endocrine/Metabolic History: Reports: None Hematologic History: Reports: Anemia, Anticoagulation Therapy Immunologic History: Reports: None Oncologic (Cancer) History: Reports: Other (See Below) Other Oncologic History: 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 Dermatologic History: Reports: None Other Dermatologic History: dry skin - Infectious Disease History Infectious Disease History: Reports: Chicken Pox, Measles, Mumps Other Infectious Disease History: clear for MRSA per patient - Past Surgical History Head Surgeries/Procedures: Reports: None HEENT Surgical History: Reports: None Cardiovascular Surgical History: Reports: Coronary Artery Stent, Carotid Stents GI Surgical History: Reports: Other (See Below) Male Surgical History: Reports: None Endocrine Surgical History: Reports: None Neurological Surgical History: Reports: None Dermatological Surgical History: Reports: None Social & Family History - Family History Family Medical History: Noncontributory HEENT: Reports: None Cardiac: Reports: Hypertension Other Cardiac Family History: Father, Mother Respiratory: Reports: None GI: Reports: GI bleed : Reports: None OBGYN: Reports: Musculoskeletal: Reports: Arthritis Neurological: Reports: None Psychiatric: Reports: None Endocrine/Metabolic: Reports: Diabetes, type II Hematologic: Reports: None Immunologic: Reports: None Dermatologic: Reports: None Oncologic: Reports: Prostate - Tobacco Use Smoking Status *Q: Former Smoker Years of Tobacco use: 50 Packs/Tins Daily: 4 Used Tobacco, but Quit: Yes Month Tobacco Last Used: 5 years Second Hand Smoke Exposure: No - Caffeine Use Caffeine Use: Reports: Coffee Caffeine Use Comment: 3 cups daily - Alcohol Use Days Per Week of Alcohol Use: 2 Number of Drinks Per Day: 2 Total Drinks Per Week: 4 - Recreational Drug Use Recreational Drug Use: No Drug Use in Last 12 Months: No - Living Situation & Occupation Living situation: Reports: with Family Occupation: Retired Social History Comment: Home health and family for assistance H&P Review of Systems - Review of Systems: Review Of Systems: See Below General: Reports: Malaise, Fatigue. Denies: Fever, Chills HEENT: Reports: No Symptoms. Denies: Headaches, Sore Throat, Visual Changes Pulmonary: Reports: Shortness of Breath, Wheezing, Pleuritic Chest Pain, Cough, Sputum Cardiovascular: Reports: No Symptoms. Denies: Chest Pain, Palpitations, Edema, Lightheadedness Gastrointestinal: Reports: No Symptoms. Denies: Abdominal Pain, Black Stool, Bloody Stool, Constipation, Diarrhea, Nausea, Vomiting Genitourinary: Reports: No Symptoms. Denies: Dysuria, Frequency, Burning Musculoskeletal: Reports: Back Pain (chronic) Skin: Reports: No Symptoms Psychiatric: Reports: No Symptoms Neurological: Reports: No Symptoms Hematologic/Lymphatic: Reports: Anemia, Easy Bleeding, Easy Bruising Immunologic: Reports: No Symptoms Exam - Exam Exam: See Below - Vital Signs Vital Signs: Last Vital Signs Temp 97.3 F 02/01/17 08:00 Pulse 90 02/01/17 08:00 Resp 22 H 02/01/17 08:00 BP 116/56 L 02/01/17 08:00 Pulse Ox 95 02/01/17 08:00 Weight: 56.15 kg - Exam Quality Assessment: Supplemental Oxygen, DVT Prophylaxis (SCDs only) General: Alert, Oriented, Cooperative HEENT: Conjunctiva Clear, Hearing Intact, Mucosa Moist & [place], Posterior Pharynx Clear, Pupils Equal, Pupils Reactive Neck: Supple, Trachea Midline, Full Range of Motion. No: JVD Lungs: Decreased Breath Sounds (throughout). No: Normal Respiratory Effort ( dyspnea with speech noted) Cardiovascular: Regular Rate, Regular Rhythm, Normal S1, Normal S2 GI/Abdominal Exam: Normal Bowel Sounds, Soft, Non-Tender, No Organomegaly, No Distention, No Mass Extremities: Normal Inspection, Normal Range of Motion, Non-Tender, No Pedal Edema, Normal Capillary Refill Skin: Ecchymosis (bruising noted to arms bilaterally) Neuro Extensive - Mental Status: Alert, Oriented x3, Normal Mood/Affect, Normal Cognition Neuro Extensive - Motor, Sensory, Reflexes: CN II-XII Intact Psychiatric: Alert, Normal Affect, Normal Mood - Patient Data Lab Results Last 24 hrs: Laboratory Results - last 24 hr 01/31/17 02/01/17 02/01/17 Range/Units 23:24 05:42 05:42 WBC 20.96 H (4.0-11.0) K/uL RBC 3.15 L (4.50-5.90) M/uL Hgb 9.5 L (13.0-17.0) g/dL Hct 29.6 L (38.0-50.0) % MCV 94.0 (80.0-98.0) fL MCH 30.2 (27.0-32.0) pg MCHC 32.1 (31.0-37.0) g/dL RDW Std Deviation 55.8 (28.0-62.0) fl RDW Coeff of Mavis 16 H (11.0-15.0) % Plt Count 180 (150-400) K/uL MPV 8.30 (7.40-12.00) fL Neut % (Auto) 96.7 H (48.0-80.0) % Lymph % (Auto) 1.7 L (16.0-40.0) % [place] % (Auto) 1.6 (0.0-15.0) % Eos % (Auto) 0.0 (0.0-7.0) % Baso % (Auto) 0.0 (0.0-1.5) % Neut # (Auto) 20.3 H (1.4-5.7) K/uL Lymph # (Auto) 0.4 L (0.6-2.4) K/uL [place] # (Auto) 0.3 (0.0-0.8) K/uL Eos # (Auto) 0.0 (0.0-0.7) K/uL Baso # (Auto) 0.0 (0.0-0.1) K/uL Nucleated RBC % 0.0 /100WBC Nucleated RBCs # 0 K/uL Lactate 0.9 (0.20-2.00) mmol/L Sodium 137 (136-146) mmol/L Potassium 4.5 (3.5-5.1) mmol/L Chloride 103 (98-110) mmol/L Carbon Dioxide 24 (21-31) mmol/L BUN 14 (6.0-23.0) mg/dL Creatinine 1.0 (0.6-1.5) mg/dL Est Cr Clr Drug Dosing 49.13 mL/min Estimated GFR (MDRD) > 60.0 ml/min Glucose 155 H (60-110) mg/dL Calcium 9.0 (8.8-10.8) mg/dL Result Diagrams: 02/01/17 05:42 08/28/17 05:42 *Q Meaningful Use (ADM) - VTE *Q VTE Criteria *Q: VTE Pharmacological Contraindications *Q: Risk of Bleeding - Stroke *Q Stroke Criteria *Q: - AMI *Q AMI Criteria *Q: - Problem List (1) COPD (chronic obstructive pulmonary disease) SNOMED Code(s): 00687743 ICD Code: J44.9 - CHRONIC OBSTRUCTIVE PULMONARY DISEASE, UNSPECIFIED Status : Chronic Priority: High Current Visit: Yes Problem Details: steroid and oxygen dependent, end-stage Qualifiers: COPD type: COPD with acute exacerbation Qualified Code(s): J44.1 - Chronic obstructive pulmonary disease with (acute) exacerbation (2) Generalized weakness SNOMED Code(s): 87354530 ICD Code: R53.1 - WEAKNESS Status: Acute Current Visit: No (3) Hypoxia SNOMED Code(s): 608055755, 968328277 ICD Code: R09.02 - HYPOXEMIA Status: Acute Current Visit: No (4) A-fib SNOMED Code(s): 17846360 ICD Code: I48.91 - UNSPECIFIED ATRIAL FIBRILLATION Status: Chronic Priority: Medium Current Visit: No Qualifiers: Atrial fibrillation type: paroxysmal Qualified Code(s): I48.0 - Paroxysmal atrial fibrillation (5) Anemia SNOMED Code(s): 219343240 ICD Code: D64.9 - ANEMIA, UNSPECIFIED Status: Chronic Current Visit: No Qualifiers: 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 Qualified Code(s): D50.0 - Iron deficiency anemia secondary to blood loss (chronic) (6) CHF (congestive heart failure) SNOMED Code(s): 95008565 ICD Code: I50.9 - HEART FAILURE, UNSPECIFIED Status: Chronic Current Visit: No Qualifiers: Congestive heart failure type: diastolic Congestive heart failure chronicity: chronic Qualified Code(s): I50.32 - Chronic diastolic (congestive ) heart failure (7) End stage COPD SNOMED Code(s): 660100964 ICD Code: J44.9 - CHRONIC OBSTRUCTIVE PULMONARY DISEASE, UNSPECIFIED Status : Chronic Current Visit: No (8) Hx of carotid stenosis SNOMED Code(s): 604966493 ICD Code: Z86.79 - PERSONAL HISTORY OF OTHER DISEASES OF THE CIRCULATORY SYSTEM Status: Chronic Current Visit: No Problem Details: R carotid stent (9) Hx of lower gastrointestinal bleeding SNOMED Code(s): 301279921573041 ICD Code: Z87.19 - PERSONAL HISTORY OF OTHER DISEASES OF THE DIGESTIVE SYSTEM Status: Chronic Current Visit: No Problem List Initiated/Reviewed/Updated: Yes Orders Last 24hrs: Active Orders 24 hr Category Date Time Status Mechanical Soft Diet [DIET] Diet 02/01/17 Breakfast Active Albuterol/Ipratropium [DuoNeb 3.0-0.5 MG/3 ML] Med 02/01/17 00:55 Active 3 ml NEB Q6HRRT PRN Levofloxacin/Dextrose 5%-Water [Levaquin in D5W 750 MG/ Med 02/01/17 23:00 Active 150 ML] 750 mg Premix Bag 1 bag IV Q24H methylPREDNISolone Sod Succ [Solu-MEDROL] Med 02/01/17 01:00 Active 125 mg IVPUSH Q6H Medication Orders Albuterol/Ipratropium (Duoneb 3.0-0.5 Mg/3 Ml) 3 ml NEB Q6HRRT PRN PRN Reason: Shortness of Breath Levofloxacin/Dextrose 750 mg/ (Premix) 150 mls @ 100 mls/hr IV Q24H KYMBERLY Methylprednisolone Sodium Succinate (Solu-Medrol) 125 mg IVPUSH Q6H KYMBERLY Last Admin: 02/01/17 06:35 Dose: 125 mg Admin: 02/01/17 01:35 Dose: 125 mg Sodium Chloride (Saline Flush) 10 ml FLUSH ASDIRECTED PRN PRN Reason: Keep Vein Open Sodium Chloride (Saline Flush) 2.5 ml FLUSH ASDIRECTED PRN PRN Reason: Keep Vein Open Assessment/Plan Comment:: This 76 year old male admitted with COPD exacerbation 1. COPD excerbation: Continue oxygen therapy along with Duonebs scheduled. Continue Solumedrol 125 mg IV every 6 hours. Continue home inhalers, Spriva and Symbicort.Will treat with Levaquin for possible pneumonia. Obtain sputum cultures. BC pending. 2. Leukocytosis: Will obtain stool culture for Cdiff due to history. 3. Anemia: Hgb 9.5 today, will monitor and transfuse as needed. Continue Iron and Protonix 4. Afib: Continue Diltiazem, will monitor electrolytes will admitted. 5. CAD: Continue Brillinta VTE prophylaxis: SCDs only due to significant hx of GI bleed. Dispo: 2-4 days pending improvement
[2017-02-01] MEDS ORDERED: Ondansetron 4 MG/2 ML SDV IVPUSH PRN (09:34)
[2017-02-01] MEDS ORDERED: Docusate Sodium 100 MG Cap PO PRN (09:34)
[2017-02-01] MEDS ORDERED: Bisacodyl 10 MG Supp RECTAL PRN (10:53)
[2017-02-01] MEDS ORDERED: LORazepam 0.5 MG Tab PO PRN (10:53)
[2017-02-01] MEDS ORDERED: ORPHENADRINE CITRATE 100 MG PO PRN (10:53)
[2017-02-01] MEDS ORDERED: Metoclopramide 10 MG Tab PO PRN (10:53)
[2017-02-01] MEDS ORDERED: Tiotropium Inhaler 18 MCG Inhalation Powder Cap Kit of 5 INH SCH (11:00)
[2017-02-01] MEDS ORDERED: Budesonide/Formoterol 2 PUFF INH SCH (11:00)
[2017-02-01] MEDS ORDERED: Albuterol 0.083% 2.5 MG/3 ML Neb Soln NEB PRN (11:03)
[2017-02-01] MEDS: Diltiazem 120 MG Cap.CD PO SCH (11:20)
[2017-02-01] MEDS: Iron Polysaccharides Complex 150 MG Cap PO SCH ×2 (11:20→20:31)
[2017-02-01] MEDS: Albuterol/Ipratropium 3.0-0.5 MG/3 ML Neb Soln NEB SCH ×3 (11:53→23:40)
--- NOTE | 2017-02-01 14:31 | CR ---
EXAM DATE: 01/31/17 PATIENT'S AGE: 76 Patient: GILBERTO SIMONS Facility: [place], [place] Site . Site : [id number] Study: XRay Chest [id number]/27/2017 10:35:14 PM Ordering Physician: Luisa Urrutia Final Report: INDICATIONS: Chest pain. Shortness of breath. TECHNIQUE: Chest 1 view portable. COMPARISON: Chest radiograph November 25, 2016. FINDINGS: No pneumothorax or definite pleural effusion. Emphysema with bilateral scarring and atelectasis as before. Suspected left basilar scarring or atelectasis is similar in appearance. No new focal airspace consolidation. Enlargement of the cardiac silhouette as before. No evidence of pulmonary edema. No additional significant change. IMPRESSION: No evidence of acute cardiopulmonary disease. Otherwise stable chest radiograph. Dictated by Jonathan Zheng MD @ 01/31/2017 11:05:44 PM Dictated by: Jonathan Zheng MD @ 01/31/2017 23:05:53 (Electronic Signature) Report Signed by Proxy. [facility]
[2017-02-01] MEDS: Pantoprazole 40 MG Tab.CR PO SCH (16:25)
[2017-02-01] MEDS ORDERED: Tamsulosin 0.4 MG Cap.ER PO ONE (16:48)
[2017-02-01] MEDS: Acetaminophen 325 MG Tab PO PRN (20:30)
[2017-02-01] MEDS: Potassium Chloride 20 MEQ Tab.ER PO SCH (20:31)
[2017-02-01] MEDS ORDERED: Carboxymethylcellulose/Hypromellose Ophth Gel 15 ML Bottle EYEBOTH SCH (21:00)
[2017-02-01] MEDS: Levofloxacin/Dextrose 5%-Water 750 MG in Premix Bag 1 BAG IV SCH (23:40)
[2017-02-02] MEDS: methylPREDNISolone Sodium Succinate 125 MG/2 ML SDV IVPUSH SCH ×3 (00:04→20:07)
[2017-02-02] MEDS: Albuterol/Ipratropium 3.0-0.5 MG/3 ML Neb Soln NEB SCH ×4 (05:35→23:37)
[2017-02-02 06:22] LABS: CHLORIDE,CL 102 mmol/L (98-110); SODIUM,NA 134 mmol/L (136-146)
[2017-02-02] MEDS: Pantoprazole 40 MG Tab.CR PO SCH ×2 (07:39→17:09)
[2017-02-02] MEDS: Tamsulosin 0.4 MG Cap.ER PO SCH (08:15)
[2017-02-02] MEDS: Multivitamins with Iron/Calcium/Folic Acid/Minerals Tab PO SCH (08:15)
[2017-02-02] MEDS: Potassium Chloride 20 MEQ Tab.ER PO SCH ×2 (08:15→20:09)
[2017-02-02] MEDS: Diltiazem 120 MG Cap.CD PO SCH (08:15)
[2017-02-02] MEDS: Iron Polysaccharides Complex 150 MG Cap PO SCH ×2 (08:15→20:09)
--- NOTE | 2017-02-02 10:55 | PCM.PN ---
- General Info Date of Service: 02/02/17 Admission Dx/Problem (Free Text): Admission Diagnosis/Problem Admission Diagnosis/Problem COPD, Moderate chronic obstructive pulmonary disease Subjective Update: Continues to feel improved today, SOB about the same. No chest pain, sputum production has decreased, still greenish. No other complaints. Functional Status: Reports: Pain Controlled, Tolerating Diet, Ambulating, Urinating - Review of Systems General: Reports: No Symptoms. Denies: Fever Pulmonary: Reports: Shortness of Breath, Cough, Sputum Cardiovascular: Reports: No Symptoms. Denies: Chest Pain, Palpitations, Edema Gastrointestinal: Reports: No Symptoms. Denies: Abdominal Pain, Nausea, Vomiting Genitourinary: Reports: No Symptoms. Denies: Dysuria, Frequency, Burning Neurological: Reports: No Symptoms Psychiatric: Reports: No Symptoms - Patient Data Vitals - Most Recent: Last Vital Signs Temp 97.1 F 02/02/17 07:57 Pulse 84 02/02/17 08:15 Resp 22 H 02/02/17 07:57 BP 136/78 02/02/17 08:15 Pulse Ox 91 L 02/02/17 07:57 Weight - Most Recent: 56.15 kg I&O - Last 24 Hours: Intake & Output 02/01/17 02/02/17 02/02/17 22:59 06:59 14:59 Intake Total 350 400 Output Total 300 Balance 350 100 Lab Results Last 24 Hours: Laboratory Results - last 24 hr 02/02/17 02/02/17 02/02/17 Range/Units 05:40 05:40 05:40 WBC 15.27 H (4.0-11.0) K/uL RBC 2.66 L (4.50-5.90) M/uL Hgb 8.1 L (13.0-17.0) g/dL Hct 24.3 L (38.0-50.0) % MCV 91.4 (80.0-98.0) fL MCH 30.5 (27.0-32.0) pg MCHC 33.3 (31.0-37.0) g/dL RDW Std Deviation 52.3 (28.0-62.0) fl RDW Coeff of Mavis 16 H (11.0-15.0) % Plt Count 176 (150-400) K/uL MPV 8.40 (7.40-12.00) fL Neut % (Auto) 96.1 H (48.0-80.0) % Lymph % (Auto) 2.0 L (16.0-40.0) % Starr % (Auto) 1.8 (0.0-15.0) % Eos % (Auto) 0.0 (0.0-7.0) % Baso % (Auto) 0.1 (0.0-1.5) % Neut # (Auto) 14.7 H (1.4-5.7) K/uL Lymph # (Auto) 0.3 L (0.6-2.4) K/uL Starr # (Auto) 0.3 (0.0-0.8) K/uL Eos # (Auto) 0.0 (0.0-0.7) K/uL Baso # (Auto) 0.0 (0.0-0.1) K/uL Nucleated RBC % 0.0 /100WBC Nucleated RBCs # 0 K/uL Sodium 134 L (136-146) mmol/L Potassium 4.2 (3.5-5.1) mmol/L Chloride 102 (98-110) mmol/L Carbon Dioxide 23 (21-31) mmol/L BUN 18 (6.0-23.0) mg/dL Creatinine 0.9 (0.6-1.5) mg/dL Est Cr Clr Drug Dosing 54.59 mL/min Estimated GFR (MDRD) > 60.0 ml/min Glucose 101 (60-110) mg/dL Calcium 9.1 (8.8-10.8) mg/dL Magnesium 1.6 (1.5-2.3) mEq/L Blood Type Antibody Screen Crossmatch 02/02/17 Range/Units 09:12 WBC (4.0-11.0) K/uL RBC (4.50-5.90) M/uL Hgb (13.0-17.0) g/dL Hct (38.0-50.0) % MCV (80.0-98.0) fL MCH (27.0-32.0) pg MCHC (31.0-37.0) g/dL RDW Std Deviation (28.0-62.0) fl RDW Coeff of Mavis (11.0-15.0) % Plt Count (150-400) K/uL MPV (7.40-12.00) fL Neut % (Auto) (48.0-80.0) % Lymph % (Auto) (16.0-40.0) % Starr % (Auto) (0.0-15.0) % Eos % (Auto) (0.0-7.0) % Baso % (Auto) (0.0-1.5) % Neut # (Auto) (1.4-5.7) K/uL Lymph # (Auto) (0.6-2.4) K/uL Starr # (Auto) (0.0-0.8) K/uL Eos # (Auto) (0.0-0.7) K/uL Baso # (Auto) (0.0-0.1) K/uL Nucleated RBC % /100WBC Nucleated RBCs # K/uL Sodium (136-146) mmol/L Potassium (3.5-5.1) mmol/L Chloride (98-110) mmol/L Carbon Dioxide (21-31) mmol/L BUN (6.0-23.0) mg/dL Creatinine (0.6-1.5) mg/dL Est Cr Clr Drug Dosing mL/min Estimated GFR (MDRD) ml/min Glucose (60-110) mg/dL Calcium (8.8-10.8) mg/dL Magnesium (1.5-2.3) mEq/L Blood Type O POSITIVE Antibody Screen NEGATIVE Crossmatch See Detail Kofi Results Last 24 Hours: Microbiology 01/31/17 23:33 Aerobic Blood Culture - Preliminary Blood - Venous - Lab Draw NO GROWTH AFTER 1 DAY Anaerobic Blood Culture - Preliminary NO GROWTH AFTER 1 DAY 01/31/17 23:26 Aerobic Blood Culture - Preliminary Blood - Venous NO GROWTH AFTER 1 DAY Anaerobic Blood Culture - Preliminary NO GROWTH AFTER 1 DAY Med Orders - Current: Current Medications Acetaminophen (Tylenol) 650 mg PO Q4H PRN PRN Reason: Pain Last Admin: 02/01/17 20:30 Dose: 650 mg Albuterol (Proventil Neb Soln) 2.5 mg NEB Q2H PRN PRN Reason: SOB/wheezing Albuterol/Ipratropium (Duoneb 3.0-0.5 Mg/3 Ml) 3 ml NEB Q6HRRT KYMBERLY Last Admin: 02/02/17 05:35 Dose: 3 ml Bisacodyl (Dulcolax) 10 mg RECTAL DAILY PRN PRN Reason: Constipation Carboxymethylcellu Sod/Hypromellose (Genteal Moderate To Severe Ophth Gel) 0 ml EYEBOTH BEDTIME [facility] Diltiazem HCl (Cardizem Cd) 240 mg PO DAILY [facility] Last Admin: 02/02/17 08:15 Dose: 240 mg Docusate Sodium (Colace) 100 mg PO BID PRN PRN Reason: Constipation Levofloxacin/Dextrose 750 mg/ (Premix) 150 mls @ 100 mls/hr IV Q24H [facility] Last Admin: 02/01/17 23:40 Dose: 100 mls/hr Lorazepam (Ativan) 0.25 mg PO Q6H PRN PRN Reason: Anxiety Methylprednisolone Sodium Succinate (Solu-Medrol) 125 mg IVPUSH Q6H [facility] Last Admin: 02/02/17 07:39 Dose: 125 mg Metoclopramide HCl (Reglan) 10 mg PO QIDACANDBED PRN PRN Reason: Vomiting Multivitamins/Minerals (Thera M Plus) 1 tab PO DAILY [facility] Last Admin: 02/02/17 08:15 Dose: 1 tab Ondansetron HCl (Zofran) 4 mg IVPUSH Q4H PRN PRN Reason: Nausea [facility]op[facility] Last Admin: 02/02/17 07:39 Dose: 40 mg Lidocaine 5% 1 Patch 1 each TRDERM DAILY PRN PRN Reason: Pain Orphenadrine Citrate (100 Mg) 1 each PO Q12HR PRN PRN Reason: Pain Ticagrelor 90 Mg 1 each PO BID [facility] Last Admin: 02/02/17 08:16 Dose: 1 each Polysaccharide Iron Complex (Ferrex 150) 150 mg PO BID [facility] Last Admin: 02/02/17 08:15 Dose: 150 mg Potassium Chloride (Klor-Con M20) 20 meq PO BID [facility] Last Admin: 02/02/17 08:15 Dose: 20 meq Sodium Chloride (Saline Flush) 10 ml FLUSH ASDIRECTED PRN PRN Reason: Keep Vein Open Sodium Chloride (Saline Flush) 2.5 ml FLUSH ASDIRECTED PRN PRN Reason: Keep Vein Open Tamsulosin HCl (Flomax) 0.4 mg PO PCBREAKFAST [facility] Last Admin: 02/02/17 08:15 Dose: 0.4 mg Discontinued Medications Albuterol/Ipratropium (Duoneb 3.0-0.5 Mg/3 Ml) 3 ml NEB ONETIME ONE Stop: 01/31/17 21:56 Last Admin: 01/31/17 22:04 Dose: 3 ml Albuterol/Ipratropium (Duoneb 3.0-0.5 Mg/3 Ml) 3 ml NEB Q6HRRT PRN PRN Reason: Shortness of Breath Carboxymethylcellu Sod/Hypromellose (Genteal Moderate To Severe Ophth Gel) 15 ml EYEBOTH BEDTIME [facility] Last Admin: 02/01/17 21:55 Dose: 2 each Levofloxacin/Dextrose 750 mg/ (Premix) 150 mls @ 100 mls/hr IV ONETIME ONE Stop: 02/01/17 00:44 Last Admin: 01/31/17 23:29 Dose: 100 mls/hr Budesonide/ (Formoterol 2 Puff) 1 each INH BID [facility] Last Admin: 02/01/17 13:28 Dose: Not Given Tamsulosin HCl (Flomax) 0.4 mg PO ONETIME ONE Stop: 02/01/17 16:49 Last Admin: 02/01/17 17:21 Dose: 0.4 mg - Exam Quality Assessment: Supplemental Oxygen General: Alert, Oriented, Cooperative, No Acute Distress Neck: Supple Lungs: Clear to Auscultation. No: Normal Respiratory Effort (dyspneic at times. ) Cardiovascular: Regular Rate, Regular Rhythm GI/Abdominal Exam: Normal Bowel Sounds, Soft, Non-Tender, No Organomegaly, No Distention, No Abnormal Bruit, No Mass, Pelvis Stable Extremities: Normal Inspection, Normal Range of Motion, Non-Tender, No Pedal Edema, Normal Capillary Refill Neurological: No New Focal Deficit Psy/Mental Status: Alert, Normal Affect, Normal Mood - Problem List & Annotations (1) COPD (chronic obstructive pulmonary disease) SNOMED Code(s): 69054498 Code(s): J44.9 - CHRONIC OBSTRUCTIVE PULMONARY DISEASE, UNSPECIFIED Status : Chronic Priority: High Current Visit: Yes Qualifiers: COPD type: COPD with acute exacerbation Qualified Code(s): J44.1 - Chronic obstructive pulmonary disease with (acute) exacerbation Annotation/Comment:: steroid and oxygen dependent, end-stage (2) Generalized weakness SNOMED Code(s): 83976344 Code(s): R53.1 - WEAKNESS Status: Acute Current Visit: No (3) Hypoxia SNOMED Code(s): 523939433, 791488169 Code(s): R09.02 - HYPOXEMIA Status: Acute Current Visit: No (4) A-fib SNOMED Code(s): 03835536 Code(s): I48.91 - UNSPECIFIED ATRIAL FIBRILLATION Status: Chronic Priority: Medium Current Visit: No Qualifiers: Atrial fibrillation type: paroxysmal Qualified Code(s): I48.0 - Paroxysmal atrial fibrillation (5) Anemia SNOMED Code(s): 741906541 Code(s): D64.9 - ANEMIA, UNSPECIFIED Status: Chronic Current Visit: No Qualifiers: 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 Qualified Code(s): D50.0 - Iron deficiency anemia secondary to blood loss (chronic) (6) CHF (congestive heart failure) SNOMED Code(s): 79324085 Code(s): I50.9 - HEART FAILURE, UNSPECIFIED Status: Chronic Current Visit : No Qualifiers: Congestive heart failure type: diastolic Congestive heart failure chronicity: chronic Qualified Code(s): I50.32 - Chronic diastolic (congestive ) heart failure (7) End stage COPD SNOMED Code(s): 842752868 Code(s): J44.9 - CHRONIC OBSTRUCTIVE PULMONARY DISEASE, UNSPECIFIED Status : Chronic Current Visit: No (8) Hx of carotid stenosis SNOMED Code(s): 726466093 Code(s): Z86.79 - PERSONAL HISTORY OF OTHER DISEASES OF THE CIRCULATORY SYSTEM Status: Chronic Current Visit: No Annotation/Comment:: R carotid stent (9) Hx of lower gastrointestinal bleeding SNOMED Code(s): 888492217153681 Code(s): Z87.19 - PERSONAL HISTORY OF OTHER DISEASES OF THE DIGESTIVE SYSTEM Status: Chronic Current Visit: No - Problem List Review Problem List Initiated/Reviewed/Updated: Yes - My Orders Last 24 Hours: My Active Orders 02/01/17 09:51 CDIFF TOX A+B [OP] Routine 02/01/17 10:53 Bisacodyl [Dulcolax] 10 mg RECTAL DAILY PRN LORazepam [Ativan] 0.25 mg PO Q6H PRN Metoclopramide [Reglan] 10 mg PO QIDACANDBED PRN Patient's Own Medication [Ptom] 1 each PO Q12HR PRN Patient's Own Medication [Ptom] 1 each TRDERM DAILY PRN 02/01/17 11:00 Diltiazem [Cardizem CD] 240 mg PO DAILY Iron Polysaccharides Complex [Ferrex 150] 150 mg PO BID 02/01/17 11:03 Albuterol [Proventil Neb Soln] 2.5 mg NEB Q2H PRN 02/01/17 11:04 RT Aerosol Therapy [RC] ASDIRECTED 02/01/17 12:00 Albuterol/Ipratropium [DuoNeb 3.0-0.5 MG/3 ML] 3 ml NEB Q6HRRT 02/01/17 17:00 Pantoprazole [ProTONIX] 40 mg PO BIDAC 02/01/17 21:00 Patient's Own Medication [Ptom] 1 each PO BID Potassium Chloride [Klor-Con M20] 20 meq PO BID 02/02/17 08:24 Transfuse Red Blood Cells [COMM] Routine 02/02/17 08:30 Tamsulosin [Flomax] 0.4 mg PO PCBREAKFAST 02/02/17 09:00 Multivitamins w-Iron/Ca/FA/Min [Thera M Plus] 1 tab PO DAILY 02/02/17 09:12 RED BLOOD CELLS LP [BBK] Routine TYPE AND SCREEN [BBK] Routine 02/02/17 21:00 Carboxymethylcell/Hypromellose [GenTeal Moderate to Severe Ophth Gel] 0 ml EYEBOTH BEDTIME 02/03/17 05:00 BMP [BASIC METABOLIC PANEL,BMP] [CHEM] DAILY CBC WITH AUTO DIFF [HEME] DAILY 02/03/17 05:11 MAGNESIUM [CHEM] AM 02/04/17 05:00 BMP [BASIC METABOLIC PANEL,BMP] [CHEM] DAILY CBC WITH AUTO DIFF [HEME] DAILY 02/04/17 05:11 MAGNESIUM [CHEM] AM 02/05/17 05:00 BMP [BASIC METABOLIC PANEL,BMP] [CHEM] DAILY CBC WITH AUTO DIFF [HEME] DAILY 02/05/17 05:11 MAGNESIUM [CHEM] AM - Plan Plan:: This 76 year old male admitted with COPD exacerbation 1. COPD excerbation: Continue oxygen therapy along with Duonebs scheduled. Will decrease Solumedrol 125 mg IV to BID and monitor. Continue with Levaquin for possible pneumonia. Obtain sputum cultures. BC negative. 2. Leukocytosis: Improving, stool culture for Cdiff pending. 3. Anemia: Hgb 8.1 today. Will transfuse today, has been 3 week since last transfusion and he typically goes 2-3 weeks in between transfusion. 4. Afib: Continue Diltiazem, will monitor electrolytes 5. CAD: Continue Brillinta VTE prophylaxis: SCDs only due to significant hx of GI bleed. Dispo: 2-4 days pending improvement
[2017-02-02] MEDS: Acetaminophen 325 MG Tab PO PRN ×2 (13:05→20:10)
[2017-02-02] MEDS ORDERED: CARBOXYMETHYLCELLULOSE EYEBOTH SCH (21:00)
[2017-02-02] MEDS ORDERED: HYPROMELLOSE EYEBOTH SCH (21:00)
[2017-02-02] MEDS: Levofloxacin/Dextrose 5%-Water 750 MG in Premix Bag 1 BAG IV SCH (23:40)
[2017-02-03] MEDS: Acetaminophen 325 MG Tab PO PRN ×2 (03:25→09:26)
[2017-02-03 05:27] LABS: CHLORIDE,CL 105 mmol/L (98-110); SODIUM,NA 137 mmol/L (136-146)
[2017-02-03] MEDS: Albuterol/Ipratropium 3.0-0.5 MG/3 ML Neb Soln NEB SCH ×2 (05:48→11:13)
[2017-02-03] MEDS: Pantoprazole 40 MG Tab.CR PO SCH (06:29)
[2017-02-03] MEDS: Tamsulosin 0.4 MG Cap.ER PO SCH (08:18)
[2017-02-03] MEDS: Potassium Chloride 20 MEQ Tab.ER PO SCH (08:19)
[2017-02-03] MEDS: Multivitamins with Iron/Calcium/Folic Acid/Minerals Tab PO SCH (08:19)
[2017-02-03] MEDS: Iron Polysaccharides Complex 150 MG Cap PO SCH (08:19)
[2017-02-03] MEDS: Diltiazem 120 MG Cap.CD PO SCH (08:19)
[2017-02-03] MEDS: methylPREDNISolone Sodium Succinate 125 MG/2 ML SDV IVPUSH SCH (08:21)
--- NOTE | 2017-02-03 09:56 | PCM.DCSUM1 ---
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 He reports he started feeling ill and SOB yesterday. He denies fevers, chill, palpitations or abdominal pain. He has some pleuritic chest pain with deep breathing and coughing. He reports a productive cough, phlegm is greenish in color. Home Health came to the house yesterday and [place] blood since he was not feeling well. He denies recent black or bloody BMs, no significant diarrhea, it is green in color. No abdominal or urinary symptoms. His last blood transfusion was 2 weeks ago. He reports getting these every couple to 3 weeks. He reports not following thickened liquids completely at home . In the ED leukocytosis noted, 20,000, Hgb 10.5 BMP WNL. BNP 109. CXR negative, revealed stable L basilar scarring or atelectasis, which is similar in appearance to past imaging. No new focal consolidation, enlargement of cardiac silhouette as before, no pulmonary edema noted. He was given Levaquin in the ED as well as Solumedrol for suspected COPD exacerbation. He will be admitted as inpatient for COPD exacerbation. PCP, Dr Michel - Discharge Data Discharge Date: 02/03/17 Discharge Disposition: Home, [facility] Condition: Good - Discharge Diagnosis/Problem(s) (1) COPD (chronic obstructive pulmonary disease) SNOMED Code(s): 04123969 ICD Code: J44.9 - CHRONIC OBSTRUCTIVE PULMONARY DISEASE, UNSPECIFIED Status : Chronic Priority: High Problem Details: steroid and oxygen dependent, end- stage Qualifiers: COPD type: COPD with acute exacerbation Qualified Code(s): J44.1 - Chronic obstructive pulmonary disease with (acute) exacerbation (2) Generalized weakness SNOMED Code(s): 36365214 ICD Code: R53.1 - WEAKNESS Status: Acute (3) Hypoxia SNOMED Code(s): 747022949, 940083984 ICD Code: R09.02 - HYPOXEMIA Status: Acute (4) A-fib SNOMED Code(s): 84598512 ICD Code: I48.91 - UNSPECIFIED ATRIAL FIBRILLATION Status: Chronic Priority: Medium Qualifiers: Atrial fibrillation type: paroxysmal Qualified Code(s): I48.0 - Paroxysmal atrial fibrillation (5) Anemia SNOMED Code(s): 983260508 ICD Code: D64.9 - ANEMIA, UNSPECIFIED Status: Chronic Qualifiers: 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 Qualified Code(s): D50.0 - Iron deficiency anemia secondary to blood loss (chronic) (6) CHF (congestive heart failure) SNOMED Code(s): 38790689 ICD Code: I50.9 - HEART FAILURE, UNSPECIFIED Status: Chronic Qualifiers: Congestive heart failure type: diastolic Congestive heart failure chronicity: chronic Qualified Code(s): I50.32 - Chronic diastolic (congestive ) heart failure (7) End stage COPD SNOMED Code(s): 275898859 ICD Code: J44.9 - CHRONIC OBSTRUCTIVE PULMONARY DISEASE, UNSPECIFIED Status : Chronic (8) Hx of carotid stenosis SNOMED Code(s): 215931887 ICD Code: Z86.79 - PERSONAL HISTORY OF OTHER DISEASES OF THE CIRCULATORY SYSTEM Status: Chronic Problem Details: R carotid stent (9) Hx of lower gastrointestinal bleeding SNOMED Code(s): 863369517944682 ICD Code: Z87.19 - PERSONAL HISTORY OF OTHER DISEASES OF THE DIGESTIVE SYSTEM Status: Chronic - Patient Instructions Diet: Heart Healthy Diet (thickened liquids) Activity: As Tolerated Showering/Bathing: May Shower Notify Provider of: Fever, Increased Pain, Swelling and Redness, Drainage, Nausea and/or Vomiting - Discharge Plan Prescriptions/Med Rec: Levofloxacin [Levaquin] 750 mg PO DAILY #2 tab predniSONE 10 - 40 mg PO .TAPER #27 tablet Home Medications: Home Meds Albuterol Sulfate [Proair Hfa] 2 puff IH QID PRN 06/14/16 [History] Albuterol/Ipratropium [DuoNeb 3.0-0.5 MG/3 ML] 3 ml NEB Q4H PRN 06/14/16 [ History] Bisacodyl [Dulcolax] 5 - 10 mg PO DAILY PRN 06/14/16 [History] Bisacodyl [Dulcolax] 10 mg RC DAILY PRN 06/14/16 [History] Diltiazem [Cardizem CD] 240 mg PO DAILY 06/14/16 [History] Hypromellose [Genteal Mild] 2 drop EYEBOTH BEDTIME 06/14/16 [History] Metoclopramide HCl [Reglan] 10 mg PO QIDACANDBED PRN 06/14/16 [History] Multivitamin [Multivitamins] 1 each PO DAILY 06/14/16 [History] Orphenadrine Citrate 100 mg PO Q12HR PRN 06/14/16 [History] Tamsulosin [Flomax] 0.4 mg PO PCBREAKFAST 06/14/16 [History] Acetaminophen [Tylenol] 500 mg PO Q4H PRN 06/15/16 [History] Albuterol Sulfate 2.5 mg IH Q6H PRN 06/15/16 [History] Pantoprazole [ProTONIX] 40 mg PO BIDAC 06/15/16 [History] Iron Polysaccharides Complex [Ferrex 150] 150 mg PO BID cap 06/17/16 [Rx] Potassium Chloride 20 meq PO BID #30 tab.er.prt 06/26/16 [Rx] LORazepam 0.25 mg PO Q6H PRN 10/20/16 [History] Ticagrelor [Brilinta] 90 mg PO BID 10/20/16 [History] predniSONE 5 mg PO Q2D 11/04/16 [History] predniSONE [Prednisone] 10 mg PO Q2D 11/26/16 [History] Lidocaine 5% [Lidoderm 5%] 1 patch TD DAILY PRN 02/01/17 [History] Levofloxacin [Levaquin] 750 mg PO DAILY #2 tab 02/03/17 [Rx] predniSONE 10 - 40 mg PO .TAPER #27 tablet 02/03/17 [Rx] Patient Handouts: Chronic Obstructive Pulmonary Disease Exacerbation, Easy-to- Read, Levofloxacin tablets, Prednisone tablets Referrals: [facility] [Outside] Adam Michel MD [Physician] - 02/11/17 1:30 pm - Discharge Summary/Plan Comment DC Time >30 min.: No Discharge Summary/Plan Comment: Discharge Diagnoses End stage COPD exacerbation Anemia-symptomatic CAD CHF Afib Anticoagulation Recurrent GI bleeds Hx aspiration pneumonia Ishmael was admitted and treated with Duonebs, and IV Solumedrol. He was also given Levaquin prophylactically due to recurrent pneumonia and leukocytosis on admission. No CXR evidence of pneumonia, but did have green sputum production. He showed improvement over the next couple days with improvement of dyspnea to baseline. He returned to 3 L NC. Hgb was noted to drop to 8.1 and he was transfused 2 units PRBCs. His last transfusion was 3 weeks prior, and he is needing them every 2-3 weeks. Today he conitnues to be feeling welling, hgb increased to 10.4 and Leukocytosis improved to 13,000. BC remained negative. Not able to obtain sputum or stool cultures. He is not having any diarrhea. He will be sent home on home medications along with Levaquinx2 more days due to high risk Cdiff and Prednisone taper to then return to regular Prednisone dosing. Fran, son and POA informed us, Pulmonology discontinue Spiriva and Symbicort. He is no doing Duonebs QID with Albuterol nebs PRN. They spoke with Ishmael at length regarding Hospice care but at this time Ishmael continues to decline this but is ok with DNR/DNI status. He is to follow up with PCP, Dr Michel in 1 week, Resume home Health as well. He is to return to ED or clinic if concerns should arise. - General Info Date of Service: 02/03/17 Admission Dx/Problem (Free Text: Admission Diagnosis/Problem Admission Diagnosis/Problem COPD, Moderate chronic obstructive pulmonary disease Subjective Update: Reports feeling better today and is wanting to go home if possible. Cough improved and SOB is at baseline. No chest pain or palpitaions Functional Status: Reports: Pain Controlled, Tolerating Diet, Ambulating, Urinating - Review of Systems General: Reports: No Symptoms. Denies: Fever HEENT: Reports: No Symptoms. Denies: Headaches, Sore Throat Pulmonary: Reports: Shortness of Breath (at baseline), Cough. Denies: Sputum, Hemoptysis Cardiovascular: Reports: No Symptoms. Denies: Chest Pain, Palpitations Gastrointestinal: Reports: No Symptoms. Denies: Abdominal Pain, Constipation, Diarrhea, Nausea, Vomiting Genitourinary: Reports: No Symptoms. Denies: Dysuria, Frequency, Burning Musculoskeletal: Reports: No Symptoms Neurological: Reports: No Symptoms Psychiatric: Reports: No Symptoms - Patient Data Vitals - Most Recent: Last Vital Signs Temp 97.6 F 02/03/17 08:00 Pulse 72 02/03/17 08:19 Resp 20 02/03/17 08:00 BP 147/69 H 02/03/17 08:19 Pulse Ox 95 02/03/17 08:00 Weight - Most Recent: 56.15 kg I&O - Last 24 hours: Intake & Output 02/02/17 02/03/17 02/03/17 22:59 06:59 14:59 Intake Total 690 270 Output Total 500 350 Balance 190 -80 Lab Results - Last 24 hrs: Laboratory Results - last 24 hr 02/02/17 02/03/17 02/03/17 Range/Units 09:12 04:45 04:45 WBC 13.45 H (4.0-11.0) K/uL RBC 3.50 L (4.50-5.90) M/uL Hgb 10.4 L (13.0-17.0) g/dL Hct 31.0 L (38.0-50.0) % MCV 88.6 (80.0-98.0) fL MCH 29.7 (27.0-32.0) pg MCHC 33.5 (31.0-37.0) g/dL RDW Std Deviation 52.1 (28.0-62.0) fl RDW Coeff of Mavis 16 H (11.0-15.0) % Plt Count 162 (150-400) K/uL MPV 8.50 (7.40-12.00) fL Neut % (Auto) 96.3 H (48.0-80.0) % Lymph % (Auto) 1.5 L (16.0-40.0) % [place] % (Auto) 2.2 (0.0-15.0) % Eos % (Auto) 0.0 (0.0-7.0) % Baso % (Auto) 0.0 (0.0-1.5) % Neut # (Auto) 13.0 H (1.4-5.7) K/uL Lymph # (Auto) 0.2 L (0.6-2.4) K/uL [place] # (Auto) 0.3 (0.0-0.8) K/uL Eos # (Auto) 0.0 (0.0-0.7) K/uL Baso # (Auto) 0.0 (0.0-0.1) K/uL Nucleated RBC % 0.0 /100WBC Nucleated RBCs # 0 K/uL Sodium (136-146) mmol/L Potassium (3.5-5.1) mmol/L Chloride (98-110) mmol/L Carbon Dioxide (21-31) mmol/L BUN (6.0-23.0) mg/dL Creatinine (0.6-1.5) mg/dL Est Cr Clr Drug Dosing mL/min Estimated GFR (MDRD) ml/min Glucose (60-110) mg/dL Calcium (8.8-10.8) mg/dL Magnesium 1.7 (1.5-2.3) mEq/L Blood Type O POSITIVE Antibody Screen NEGATIVE Crossmatch See Detail 02/03/17 Range/Units 04:45 WBC (4.0-11.0) K/uL RBC (4.50-5.90) M/uL Hgb (13.0-17.0) g/dL Hct (38.0-50.0) % MCV (80.0-98.0) fL MCH (27.0-32.0) pg MCHC (31.0-37.0) g/dL RDW Std Deviation (28.0-62.0) fl RDW Coeff of Mavis (11.0-15.0) % Plt Count (150-400) K/uL MPV (7.40-12.00) fL Neut % (Auto) (48.0-80.0) % Lymph % (Auto) (16.0-40.0) % [place] % (Auto) (0.0-15.0) % Eos % (Auto) (0.0-7.0) % Baso % (Auto) (0.0-1.5) % Neut # (Auto) (1.4-5.7) K/uL Lymph # (Auto) (0.6-2.4) K/uL [place] # (Auto) (0.0-0.8) K/uL Eos # (Auto) (0.0-0.7) K/uL Baso # (Auto) (0.0-0.1) K/uL Nucleated RBC % /100WBC Nucleated RBCs # K/uL Sodium 137 (136-146) mmol/L Potassium 4.1 (3.5-5.1) mmol/L Chloride 105 (98-110) mmol/L Carbon Dioxide 22 (21-31) mmol/L BUN 18 (6.0-23.0) mg/dL Creatinine 0.9 (0.6-1.5) mg/dL Est Cr Clr Drug Dosing 54.59 mL/min Estimated GFR (MDRD) > 60.0 ml/min Glucose 86 (60-110) mg/dL Calcium 8.8 (8.8-10.8) mg/dL Magnesium (1.5-2.3) mEq/L Blood Type Antibody Screen Crossmatch NAEL Results - Last 24 hrs: Microbiology 01/31/17 23:33 Aerobic Blood Culture - Preliminary Blood - Venous - Lab Draw NO GROWTH AFTER 2 DAYS Anaerobic Blood Culture - Preliminary NO GROWTH AFTER 2 DAYS 01/31/17 23:26 Aerobic Blood Culture - Preliminary Blood - Venous NO GROWTH AFTER 2 DAYS Anaerobic Blood Culture - Preliminary NO GROWTH AFTER 2 DAYS Med Orders - Current: Current Medications Acetaminophen (Tylenol) 650 mg PO Q4H PRN PRN Reason: Pain Last Admin: 02/03/17 09:26 Dose: 650 mg Albuterol (Proventil Neb Soln) 2.5 mg NEB Q2H PRN PRN Reason: SOB/wheezing Albuterol/Ipratropium (Duoneb 3.0-0.5 Mg/3 Ml) 3 ml NEB Q6HRRT [facility] Last Admin: 02/03/17 05:48 Dose: 3 ml Bisacodyl (Dulcolax) 10 mg RECTAL DAILY PRN PRN Reason: Constipation Carboxymethylcellu Sod/Hypromellose (Genteal Moderate To Severe Ophth Gel) 0 ml EYEBOTH BEDTIME [facility] Last Admin: 02/02/17 20:11 Dose: 2 drop Diltiazem HCl (Cardizem Cd) 240 mg PO DAILY [facility] Last Admin: 02/03/17 08:19 Dose: 240 mg Docusate Sodium (Colace) 100 mg PO BID PRN PRN Reason: Constipation Levofloxacin/Dextrose 750 mg/ (Premix) 150 mls @ 100 mls/hr IV Q24H [facility] Last Admin: 02/02/17 23:40 Dose: 100 mls/hr Lorazepam (Ativan) 0.25 mg PO Q6H PRN PRN Reason: Anxiety Last Admin: 02/02/17 20:08 Dose: 0.25 mg Methylprednisolone Sodium Succinate (Solu-Medrol) 125 mg IVPUSH BID [facility] Last Admin: 02/03/17 08:21 Dose: 125 mg Metoclopramide HCl (Reglan) 10 mg PO QIDACANDBED PRN PRN Reason: Vomiting Multivitamins/Minerals (Thera M Plus) 1 tab PO DAILY [facility] Last Admin: 02/03/17 08:19 Dose: 1 tab Ondansetron HCl (Zofran) 4 mg IVPUSH Q4H PRN PRN Reason: Nausea Pantoprazole Sodium (Protonix) 40 mg PO BIDAC [facility] Last Admin: 02/03/17 06:29 Dose: 40 mg Lidocaine 5% 1 Patch 1 each TRDERM DAILY PRN PRN Reason: Pain Orphenadrine Citrate (100 Mg) 1 each PO Q12HR PRN PRN Reason: Pain Ticagrelor 90 Mg 1 each PO BID [facility] Last Admin: 02/03/17 08:34 Dose: 1 each Polysaccharide Iron Complex (Ferrex 150) 150 mg PO BID [facility] Last Admin: 02/03/17 08:19 Dose: 150 mg Potassium Chloride (Klor-Con M20) 20 meq PO BID [facility] Last Admin: 02/03/17 08:19 Dose: 20 meq Sodium Chloride (Saline Flush) 10 ml FLUSH ASDIRECTED PRN PRN Reason: Keep Vein Open Sodium Chloride (Saline Flush) 2.5 ml FLUSH ASDIRECTED PRN PRN Reason: Keep Vein Open Tamsulosin HCl (Flomax) 0.4 mg PO PCBREAKFAST [facility] Last Admin: 02/03/17 08:18 Dose: 0.4 mg Discontinued Medications Albuterol/Ipratropium (Duoneb 3.0-0.5 Mg/3 Ml) 3 ml NEB ONETIME ONE Stop: 01/31/17 21:56 Last Admin: 01/31/17 22:04 Dose: 3 ml Albuterol/Ipratropium (Duoneb 3.0-0.5 Mg/3 Ml) 3 ml NEB Q6HRRT PRN PRN Reason: Shortness of Breath Carboxymethylcellu Sod/Hypromellose (Genteal Moderate To Severe Ophth Gel) 15 ml EYEBOTH BEDTIME [facility] Last Admin: 08/28/17 21:55 Dose: 2 each Levofloxacin/Dextrose 750 mg/ (Premix) 150 mls @ 100 mls/hr IV ONETIME ONE Stop: 02/01/17 00:44 Last Admin: 01/31/17 23:29 Dose: 100 mls/hr Methylprednisolone Sodium Succinate (Solu-Medrol) 125 mg IVPUSH Q6H [facility] Last Admin: 02/02/17 07:39 Dose: 125 mg Budesonide/ (Formoterol 2 Puff) 1 each INH BID [facility] Last Admin: 02/01/17 13:28 Dose: Not Given Tamsulosin HCl (Flomax) 0.4 mg PO ONETIME ONE Stop: 02/01/17 16:49 Last Admin: 02/01/17 17:21 Dose: 0.4 mg - Exam General: Reports: Alert, Oriented, Cooperative, No Acute Distress Neck: Reports: Supple Lungs: Reports: Clear to Auscultation, Normal Respiratory Effort (Dyspnea noted , but patient's baseline) Cardiovascular: Reports: Regular Rate, Regular Rhythm GI/Abdominal Exam: Normal Bowel Sounds, Soft, Non-Tender, No Organomegaly, No Distention, No Abnormal Bruit, No Mass, Pelvis Stable Extremities: Normal Inspection, Normal Range of Motion, Non-Tender, No Pedal Edema, Normal Capillary Refill Skin: Reports: Warm, Dry Neurological: Reports: No New Focal Deficit Psy/Mental Status: Reports: Alert, Normal Affect, Normal Mood *Q Meaningful Use (DIS) - VTE *Q VTE Criteria *Q: VTE Pharmacological Contraindications *Q: Risk of Bleeding - Stroke *Q Stroke Criteria *Q: - AMI *Q AMI Criteria *Q:
[2017-02-03 12:35] VITALS: BP 141/69
== END 2017-02-03 13:00 | disposition home health service (06) | DRG 191 ==
LOC: MW.ED 21:40 → MW.MS 23:17
PROVIDERS: ADMIT Internal Medicine; ATTEND Internal Medicine
DX: J44.1 Chronic obstructive pulmonary disease with (acute) exacerbation (principal); I50.32 Chronic diastolic (congestive) heart failure; I48.91 Unspecified atrial fibrillation; R53.1 Weakness; I50.9 Heart failure, unspecified; E78.00 Pure hypercholesterolemia, unspecified; I10 Essential (primary) hypertension; R09.02 Hypoxemia; I48.0 Paroxysmal atrial fibrillation; D50.0 Iron deficiency anemia secondary to blood loss (chronic); Z87.891 Personal history of nicotine dependence; I25.10 Atherosclerotic heart disease of native coronary artery without angina pectoris; Z95.5 Presence of coronary angioplasty implant and graft; Z99.81 Dependence on supplemental oxygen; Z79.899 Other long term (current) drug therapy; Z66 Do not resuscitate; Z87.19 Personal history of other diseases of the digestive system; Z79.01 Long term (current) use of anticoagulants; Z86.73 Personal history of transient ischemic attack (TIA), and cerebral infarction without residual deficits
CPT/HCPCS: 36415; 36430; 36600; 71010; 71010-26; 80048; 80053; 82553; 82803; 83605; 83735; 83880; 84484; 85025; 85027; 85610; 86850; 86900; 86901; 86920; 86921; 86922; 87040; 93005; 94640; 94664; 96374; 99283; 99285-25; A9270-GY; J1956; J2930; P9016

== ENCOUNTER 2017-02-06 07:49 | Inpatient (IN) | payer MEDICARE ==
[2017-02-06] MEDS ORDERED: Albuterol/Ipratropium 3.0-0.5 MG/3 ML Neb Soln NEB ONE (07:52)
[2017-02-06] MEDS ORDERED: methylPREDNISolone Sodium Succinate 125 MG/2 ML SDV IVPUSH ONE (07:55)
--- NOTE | 2017-02-06 07:55 | EDM.PDOC ---
ED HPI GENERAL MEDICAL PROBLEM - General Stated Complaint: TROUBLE BREATHING, CHEST PAIN Time Seen by Provider: 02/06/17 07:54 Source of Information: Reports: Patient - History of Present Illness INITIAL COMMENTS - FREE TEXT/NARRATIVE: HISTORY AND PHYSICAL: History of present illness: []Patient with recent pneumonia diagnosis history of aspiration pneumonia CHF and COPD home oxygen dependent on 2 L presents with shortness breath and hypoxia There is recently discharged on Levaquin No nausea vomiting chills sweats intermittent chest pains minor 1 out of 10 no association with diaphoresis or radiation to arm neck or jaw no bowel or urine symptoms Review of systems: As per history of present illness and below otherwise all systems reviewed and negative. Past medical history: As per history of present illness and as reviewed below otherwise noncontributory. Surgical history: As per history of present illness and as reviewed below otherwise noncontributory. Social history: No reported history of drug or alcohol abuse. Family history: As per history of present illness and as reviewed below otherwise noncontributory. Physical exam: HEENT: Atraumatic, normocephalic, pupils reactive, negative for conjunctival pallor or scleral icterus, mucous membranes moist, throat clear, neck supple, nontender, trachea midline. Lungs: Coarse breath sounds/crackles throughout, breath sounds equal bilaterally , chest nontender. Heart: S1S2, regular, negative for clicks, rubs, or JVD. Abdomen: Soft, nondistended, nontender. Negative for masses or hepatosplenomegaly. Negative for costovertebral tenderness. Pelvis: Stable nontender. Genitourinary: Deferred. Rectal: Deferred. Extremities: Atraumatic, negative for cords or calf pain. Neurovascular unremarkable. Neuro: Awake, alert, oriented. Cranial nerves II through XII unremarkable. Cerebellum unremarkable. Motor and sensory unremarkable throughout. Exam nonfocal. Diagnostics: []Lab as below EKG Chest 1 view Therapeutics: []DuoNeb Solu-Medrol 125 mg IV Patient is taking oral Levaquin for today Impression: []Hypoxia Left upper lobe pneumonia Chronic history of baseline Definitive disposition and diagnosis as appropriate pending reevaluation and review of above. Chest Pain Score (Numeric/FACES): 2 - Related Data Allergies Allergy/AdvReac Type Severity Reaction Status Date / Time No Known Allergies Allergy Verified 02/06/17 07:56 Home Meds: Home Meds Albuterol Sulfate [Proair Hfa] 2 puff IH QID PRN 06/14/16 [History] Albuterol/Ipratropium [DuoNeb 3.0-0.5 MG/3 ML] 3 ml NEB Q4H PRN 06/14/16 [ History] Bisacodyl [Dulcolax] 5 - 10 mg PO DAILY PRN 06/14/16 [History] Bisacodyl [Dulcolax] 10 mg RC DAILY PRN 06/14/16 [History] Diltiazem [Cardizem CD] 240 mg PO DAILY 06/14/16 [History] Hypromellose [Genteal Mild] 2 drop EYEBOTH BEDTIME 06/14/16 [History] Metoclopramide HCl [Reglan] 10 mg PO QIDACANDBED PRN 06/14/16 [History] Multivitamin [Multivitamins] 1 each PO DAILY 06/14/16 [History] Orphenadrine Citrate 100 mg PO Q12HR PRN 06/14/16 [History] Tamsulosin [Flomax] 0.4 mg PO PCBREAKFAST 06/14/16 [History] Acetaminophen [Tylenol] 500 mg PO Q4H PRN 06/15/16 [History] Albuterol Sulfate 2.5 mg IH Q6H PRN 06/15/16 [History] Pantoprazole [ProTONIX] 40 mg PO BIDAC 06/15/16 [History] Iron Polysaccharides Complex [Ferrex 150] 150 mg PO BID cap 06/17/16 [Rx] Potassium Chloride 20 meq PO BID #30 tab.er.prt 06/26/16 [Rx] LORazepam 0.25 mg PO Q6H PRN 10/20/16 [History] Ticagrelor [Brilinta] 90 mg PO BID 10/20/16 [History] predniSONE 5 mg PO Q2D 11/04/16 [History] predniSONE [Prednisone] 10 mg PO Q2D 11/26/16 [History] Lidocaine 5% [Lidoderm 5%] 1 patch TD DAILY PRN 02/01/17 [History] Levofloxacin [Levaquin] 750 mg PO DAILY #2 tab 02/03/17 [Rx] predniSONE 10 - 40 mg PO .TAPER #27 tablet 08/30/17 [Rx] Past Medical History HEENT History: Reports: Cataract Other HEENT History: glasses Cardiovascular History: Reports: Afib, CAD, Heart Failure, High Cholesterol, Hypertension, Stents (R carotid) Respiratory History: Reports: COPD, Pneumonia, Recurrent, Pneumothorax, SOB, Other (See Below) Other Respiratory History: chronic respiratory failure with hypoxia Gastrointestinal History: Reports: GI Bleed, Other (See Below) (Ileus) Other Gastrointestinal History: GI Bleed. 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 Dermatologic History: Reports: None Other Dermatologic History: dry skin - Infectious Disease History Infectious Disease History: Reports: Chicken Pox, Measles, Mumps Other Infectious Disease History: clear for MRSA per patient - Past Surgical History Head Surgeries/Procedures: Reports: None HEENT Surgical History: Reports: None Cardiovascular Surgical History: Reports: Coronary Artery Stent, Carotid Stents GI Surgical History: Reports: Other (See Below) Male Surgical History: Reports: None Endocrine Surgical History: Reports: None Neurological Surgical History: Reports: None Dermatological Surgical History: Reports: None Social & Family History - Family History Family Medical History: Noncontributory HEENT: Reports: None Cardiac: Reports: Hypertension Other Cardiac Family History: Father, Mother Respiratory: Reports: None GI: Reports: GI bleed : Reports: None OBGYN: Reports: Musculoskeletal: Reports: Arthritis Neurological: Reports: None Psychiatric: Reports: None Endocrine/Metabolic: Reports: Diabetes, type II Hematologic: Reports: None Immunologic: Reports: None Dermatologic: Reports: None Oncologic: Reports: Prostate - Tobacco Use Smoking Status *Q: Former Smoker Years of Tobacco use: 50 Packs/Tins Daily: 4 Used Tobacco, but Quit: Yes Month Tobacco Last Used: 5 years Second Hand Smoke Exposure: No - Caffeine Use Caffeine Use: Reports: Coffee Caffeine Use Comment: 3 cups daily - Alcohol Use Days Per Week of Alcohol Use: 2 Number of Drinks Per Day: 2 Total Drinks Per Week: 4 - Recreational Drug Use Recreational Drug Use: No Drug Use in Last 12 Months: No - Living Situation & Occupation Living situation: Reports: with Family Occupation: Retired ED ROS GENERAL - Review of Systems Review Of Systems: ROS reveals no pertinent complaints other than HPI. ED EXAM, GENERAL - Physical Exam Exam: See Below Course - Vital Signs Last Recorded V/S: Last Vital Signs Temp 36.9 C 02/06/17 07:57 Pulse 107 H 02/06/17 07:57 Resp 30 H 02/06/17 07:57 BP 122/61 02/06/17 07:57 Pulse Ox 93 L 02/06/17 07:57 - Orders/Labs/Meds Orders: Active Orders 24 hr Category Date Time Status EKG 12 Lead [EKG Documentation Completion] [RC] STAT Care 02/06/17 07:52 Active RT Aerosol Therapy [RC] ASDIRECTED Care 02/06/17 07:53 Active Chest 1V Frontal [CR] Stat Exams 02/06/17 07:52 Taken CKMB [CHEM] Stat Lab 02/06/17 07:58 Results COMPREHENSIVE METABOLIC PN,CMP [CHEM] Stat Lab 02/06/17 07:58 Results CREATINE KINASE,CK [CHEM] Stat Lab 02/06/17 07:58 Results CULTURE BLOOD [BC] Stat Lab 02/06/17 08:07 Received CULTURE BLOOD [BC] Stat Lab 02/06/17 08:24 Received INR,PT,PROTHROMBIN TIME [COAG] Stat Lab 02/06/17 07:58 Received UA W/MICROSCOPIC [URIN] Stat Lab 02/06/17 07:52 Uncollected Blood Culture x2 Reflex Set [OM.PC] Stat Oth 02/06/17 07:55 Ordered Labs: Laboratory Tests 02/06/17 02/06/17 02/06/17 Range/Units 07:58 07:58 07:58 WBC 19.61 H (4.0-11.0) K/uL RBC 4.50 (4.50-5.90) M/uL Hgb 13.7 (13.0-17.0) g/dL Hct 41.5 (38.0-50.0) % MCV 92.2 (80.0-98.0) fL MCH 30.4 (27.0-32.0) pg MCHC 33.0 (31.0-37.0) g/dL RDW Std Deviation 55.1 (28.0-62.0) fl RDW Coeff of Mavis 16 H (11.0-15.0) % Plt Count 194 (150-400) K/uL MPV 8.60 (7.40-12.00) fL Neut % (Auto) 94.9 H (48.0-80.0) % Lymph % (Auto) 1.4 L (16.0-40.0) % [place] % (Auto) 3.5 (0.0-15.0) % Eos % (Auto) 0.1 (0.0-7.0) % Baso % (Auto) 0.1 (0.0-1.5) % Neut # (Auto) 18.6 H (1.4-5.7) K/uL Lymph # (Auto) 0.3 L (0.6-2.4) K/uL [place] # (Auto) 0.7 (0.0-0.8) K/uL Eos # (Auto) 0.0 (0.0-0.7) K/uL Baso # (Auto) 0.0 (0.0-0.1) K/uL Nucleated RBC % 0.0 /100WBC Nucleated RBCs # 0 K/uL Sodium 138 (136-146) mmol/L Potassium 4.5 (3.5-5.1) mmol/L Chloride 104 (98-110) mmol/L Carbon Dioxide 25 (21-31) mmol/L BUN 18 (6.0-23.0) mg/dL Creatinine 0.9 (0.6-1.5) mg/dL Est Cr Clr Drug Dosing 58.72 mL/min Estimated GFR (MDRD) > 60.0 ml/min Glucose 111 H (60-110) mg/dL Calcium 9.2 (8.8-10.8) mg/dL Total Bilirubin 0.4 (0.1-1.5) mg/dL AST 13 (5-40) IU/L ALT 16 (8-54) IU/L Alkaline Phosphatase 65 (40-150) Creatine Kinase 34 (9-236) IU/L Troponin I < 0.10 (0.0-0.29) NG/ML B-Natriuretic Peptide (<100) PG/ML Total Protein 6.2 (6.0-8.0) g/dL Albumin 3.4 (3.4-4.8) g/dL Globulin 2.8 (2.0-3.5) g/dL Albumin/Globulin Ratio 1.2 L (1.3-2.8) 02/06/17 Range/Units 07:58 WBC (4.0-11.0) K/uL RBC (4.50-5.90) M/uL Hgb (13.0-17.0) g/dL Hct (38.0-50.0) % MCV (80.0-98.0) fL MCH (27.0-32.0) pg MCHC (31.0-37.0) g/dL RDW Std Deviation (28.0-62.0) fl RDW Coeff of Mavis (11.0-15.0) % Plt Count (150-400) K/uL MPV (7.40-12.00) fL Neut % (Auto) (48.0-80.0) % Lymph % (Auto) (16.0-40.0) % [place] % (Auto) (0.0-15.0) % Eos % (Auto) (0.0-7.0) % Baso % (Auto) (0.0-1.5) % Neut # (Auto) (1.4-5.7) K/uL Lymph # (Auto) (0.6-2.4) K/uL [place] # (Auto) (0.0-0.8) K/uL Eos # (Auto) (0.0-0.7) K/uL Baso # (Auto) (0.0-0.1) K/uL Nucleated RBC % /100WBC Nucleated RBCs # K/uL Sodium (136-146) mmol/L Potassium (3.5-5.1) mmol/L Chloride (98-110) mmol/L Carbon Dioxide (21-31) mmol/L BUN (6.0-23.0) mg/dL Creatinine (0.6-1.5) mg/dL Est Cr Clr Drug Dosing mL/min Estimated GFR (MDRD) ml/min Glucose (60-110) mg/dL Calcium (8.8-10.8) mg/dL Total Bilirubin (0.1-1.5) mg/dL AST (5-40) IU/L ALT (8-54) IU/L Alkaline Phosphatase (40-150) Creatine Kinase (9-236) IU/L Troponin I (0.0-0.29) NG/ML B-Natriuretic Peptide 119 H (<100) PG/ML Total Protein (6.0-8.0) g/dL Albumin (3.4-4.8) g/dL Globulin (2.0-3.5) g/dL Albumin/Globulin Ratio (1.3-2.8) Meds: Medications Discontinued Medications Generic Name Dose Route Start Last Admin Trade Name Freq PRN Reason Stop Dose Admin Albuterol/Ipratropium 3 ml 02/06/17 07:52 02/06/17 08:11 Duoneb 3.0-0.5 Mg/3 Ml NEB 02/06/17 07:53 3 ml ONETIME ONE Administration Methylprednisolone Sodium Succinate 125 mg 02/06/17 07:55 02/06/17 08:17 Solu-Medrol IVPUSH 02/06/17 07:56 125 mg ONETIME ONE Administration Departure - Departure Time of Disposition: 08:44 Disposition: Refer to Observation Condition: Poor Clinical Impression: Hypoxia Pneumonia Qualifiers: Pneumonia type: due to unspecified organism Laterality: bilateral Lung location : upper lobe of lung Qualified Code(s): J18.9 - Pneumonia, unspecified organism - Discharge Information Referrals: Adam Michel MD [Primary Care Provider] - - My Orders Last 24 Hours: My Active Orders 02/06/17 07:52 EKG 12 Lead [EKG Documentation Completion] [RC] STAT Chest 1V Frontal [CR] Stat UA W/MICROSCOPIC [URIN] Stat 02/06/17 07:53 RT Aerosol Therapy [RC] ASDIRECTED 02/06/17 07:55 Blood Culture x2 Reflex Set [OM.PC] Stat 02/06/17 07:58 CKMB [CHEM] Stat COMPREHENSIVE METABOLIC PN,CMP [CHEM] Stat CREATINE KINASE,CK [CHEM] Stat INR,PT,PROTHROMBIN TIME [COAG] Stat 02/06/17 08:07 CULTURE BLOOD [BC] Stat 02/06/17 08:24 CULTURE BLOOD [BC] Stat - Assessment/Plan Last 24 Hours: My Active Orders 02/06/17 07:52 EKG 12 Lead [EKG Documentation Completion] [RC] STAT Chest 1V Frontal [CR] Stat UA W/MICROSCOPIC [URIN] Stat 02/06/17 07:53 RT Aerosol Therapy [RC] ASDIRECTED 02/06/17 07:55 Blood Culture x2 Reflex Set [OM.PC] Stat 02/06/17 07:58 CKMB [CHEM] Stat COMPREHENSIVE METABOLIC PN,CMP [CHEM] Stat CREATINE KINASE,CK [CHEM] Stat INR,PT,PROTHROMBIN TIME [COAG] Stat 02/06/17 08:07 CULTURE BLOOD [BC] Stat 02/06/17 08:24 CULTURE BLOOD [BC] Stat
[2017-02-06 08:39] LABS: CHLORIDE,CL 104 mmol/L (98-110); SODIUM,NA 138 mmol/L (136-146)
[2017-02-06] MEDS ORDERED: Sodium Chloride 0.9% 1,000 ML IV SCH (09:00)
[2017-02-06] MEDS ORDERED: LIDOCAINE 5% PATCH TOP PRN (13:44)
[2017-02-06] MEDS ORDERED: Acetaminophen 500 MG Tab PO PRN (13:44)
[2017-02-06] MEDS ORDERED: ORPHENADRINE CITRATE 100 MG PO PRN (13:44)
[2017-02-06] MEDS ORDERED: LORazepam 0.5 MG Tab PO PRN (13:44)
[2017-02-06] MEDS ORDERED: Metoclopramide 10 MG Tab PO PRN (13:44)
[2017-02-06] MEDS ORDERED: methylPREDNISolone Sodium Succinate 125 MG/2 ML SDV IVPUSH SCH (13:45)
[2017-02-06] MEDS ORDERED: cefTRIAXone 1,000 MG VIAL IVPUSH SCH (13:45)
--- NOTE | 2017-02-06 13:56 | PCM.HP ---
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 He was discharged on 02/03/17 for treatment of his end stage COPD on levaquin and steroid taper. Chest Pain Score (Numeric/FACES): 2 - Related Data Allergies/Adverse Reactions: Allergies Allergy/AdvReac Type Severity Reaction Status Date / Time No Known Allergies Allergy Verified 02/06/17 07:56 Home Medications: Home Meds Albuterol Sulfate [Proair Hfa] 2 puff IH QID PRN 06/14/16 [History] Albuterol/Ipratropium [DuoNeb 3.0-0.5 MG/3 ML] 3 ml NEB Q4H PRN 06/14/16 [ History] Bisacodyl [Dulcolax] 5 - 10 mg PO DAILY PRN 06/14/16 [History] Bisacodyl [Dulcolax] 10 mg RC DAILY PRN 06/14/16 [History] Diltiazem [Cardizem CD] 240 mg PO DAILY 06/14/16 [History] Hypromellose [Genteal Mild] 2 drop EYEBOTH BEDTIME 06/14/16 [History] Metoclopramide HCl [Reglan] 10 mg PO QIDACANDBED PRN 06/14/16 [History] Multivitamin [Multivitamins] 1 each PO DAILY 06/14/16 [History] Orphenadrine Citrate 100 mg PO Q12HR PRN 06/14/16 [History] Tamsulosin [Flomax] 0.4 mg PO PCBREAKFAST 06/14/16 [History] Acetaminophen [Tylenol] 500 mg PO Q4H PRN 06/15/16 [History] Albuterol Sulfate 2.5 mg IH Q6H PRN 06/15/16 [History] Pantoprazole [ProTONIX] 40 mg PO BIDAC 06/15/16 [History] Iron Polysaccharides Complex [Ferrex 150] 150 mg PO BID cap 06/17/16 [Rx] Potassium Chloride 20 meq PO BID #30 tab.er.prt 06/26/16 [Rx] LORazepam 0.25 mg PO Q6H PRN 10/20/16 [History] Ticagrelor [Brilinta] 90 mg PO BID 10/20/16 [History] predniSONE 5 mg PO Q2D 11/04/16 [History] predniSONE [Prednisone] 10 mg PO Q2D 11/26/16 [History] Lidocaine 5% [Lidoderm 5%] 1 patch TD DAILY PRN 02/01/17 [History] Levofloxacin [Levaquin] 750 mg PO DAILY #2 tab 02/03/17 [Rx] predniSONE 10 - 40 mg PO .TAPER #27 tablet 02/03/17 [Rx] Past Medical History HEENT History: Reports: Cataract Other HEENT History: glasses Cardiovascular History: Reports: Afib, CAD, Heart Failure, High Cholesterol, Hypertension, Stents Respiratory History: Reports: COPD, Pneumonia, Recurrent, Pneumothorax, SOB, Other (See Below) Other Respiratory History: chronic respiratory failure with hypoxia Gastrointestinal History: Reports: Bowel Obstruction, GI Bleed, Other (See Below ) Other Gastrointestinal History: GI Bleed. 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 Dermatologic History: Reports: None Other Dermatologic History: dry skin - Infectious Disease History Infectious Disease History: Reports: Chicken Pox, Measles, Mumps Other Infectious Disease History: clear for MRSA per patient - Past Surgical History Head Surgeries/Procedures: Reports: None HEENT Surgical History: Reports: None Cardiovascular Surgical History: Reports: Coronary Artery Stent, Carotid Stents GI Surgical History: Reports: Other (See Below) Male Surgical History: Reports: None Endocrine Surgical History: Reports: None Neurological Surgical History: Reports: None Dermatological Surgical History: Reports: None Social & Family History - Family History Family Medical History: Noncontributory HEENT: Reports: None Cardiac: Reports: Hypertension Other Cardiac Family History: Father, Mother Respiratory: Reports: None GI: Reports: GI bleed : Reports: None OBGYN: Reports: Musculoskeletal: Reports: Arthritis Neurological: Reports: None Psychiatric: Reports: None Endocrine/Metabolic: Reports: Diabetes, type II Hematologic: Reports: None Immunologic: Reports: None Dermatologic: Reports: None Oncologic: Reports: Prostate - Tobacco Use Smoking Status *Q: Never Smoker Years of Tobacco use: 50 Packs/Tins Daily: 4 Used Tobacco, but Quit: Yes Month Tobacco Last Used: 5 years Second Hand Smoke Exposure: No - Caffeine Use Caffeine Use: Reports: Coffee Caffeine Use Comment: 3 cups daily - Alcohol Use Days Per Week of Alcohol Use: 2 Number of Drinks Per Day: 2 Total Drinks Per Week: 4 - Recreational Drug Use Recreational Drug Use: No Drug Use in Last 12 Months: No - Living Situation & Occupation Living situation: Reports: with Family Occupation: Retired H&P Review of Systems - Review of Systems: Review Of Systems: ROS reveals no pertinent complaints other than HPI. Exam - Exam Exam: See Below - Vital Signs Vital Signs: Last Vital Signs Temp 36.7 C 02/06/17 10:03 Pulse 98 02/06/17 10:03 Resp 22 H 02/06/17 10:03 BP 138/72 02/06/17 10:03 Pulse Ox 91 L 02/06/17 10:03 Weight: 60.4 kg - Exam General: Alert, Cooperative, Other (cachectic) HEENT: Mucosa Moist & [place] Neck: Supple Lungs: Decreased Breath Sounds, Rhonchi, Wheezing Cardiovascular: Regular Rate, Regular Rhythm GI/Abdominal Exam: Soft, No Distention Extremities: Non-Tender, No Pedal Edema Skin: Warm, Dry, Intact Neurological: No: Focal Deficit - Patient Data Result Diagrams: 02/06/17 07:58 02/06/17 07:58 *Q Meaningful Use (ADM) - VTE *Q VTE Criteria *Q: - Stroke *Q Stroke Criteria *Q: - AMI *Q AMI Criteria *Q: Problem List Initiated/Reviewed/Updated: Yes Orders Last 24hrs: Active Orders 24 hr Category Date Time Status Antiembolic Devices [RC] PER UNIT ROUTINE Care 02/06/17 13:48 Ordered Oxygen Therapy [RC] PRN Care 02/06/17 13:47 Ordered RT Aerosol Therapy [RC] ASDIRECTED Care 02/06/17 13:42 Active Telemetry Monitoring [Cardiac Monitoring] [RC] . Care 02/06/17 09:40 Active DIRECTED VTE/DVT Education [RC] PER UNIT ROUTINE Care 02/06/17 13:47 Ordered Vital Signs [RC] Q4H Care 02/06/17 13:47 Ordered Consult to Hospice [CONS] Routine Cons 02/06/17 13:42 Active Mechanical Soft Diet [DIET] Diet 02/06/17 Lunch Active BASIC METABOLIC PANEL,BMP [CHEM] AM Lab 02/07/17 05:11 Ordered BASIC METABOLIC PANEL,BMP [CHEM] AM Lab 02/08/17 05:11 Ordered CBC WITH AUTO DIFF [HEME] AM Lab 02/07/17 05:11 Ordered CBC WITH AUTO DIFF [HEME] AM Lab 02/08/17 05:11 Ordered CULTURE SPUTUM + SMEAR [RM] Routine Lab 02/06/17 13:40 Uncollected Acetaminophen [Tylenol] Med 02/06/17 13:44 Ordered 500 mg PO Q4H PRN Albuterol/Ipratropium [DuoNeb 3.0-0.5 MG/3 ML] Med 02/06/17 18:00 Ordered 3 ml NEB Q6HRRT Azithromycin [Zithromax] Med 02/06/17 13:45 Active 500 mg PO Q24H Diltiazem Med 02/07/17 09:00 Ordered 240 mg PO DAILY Hypromellose [Genteal Mild] Med 02/06/17 21:00 Ordered 2 drop EYEBOTH BEDTIME Iron Polysaccharides Complex [Ferrex 150] Med 02/06/17 21:00 Ordered 150 mg PO BID LORazepam [Ativan] Med 02/06/17 13:44 Ordered 0.25 mg PO Q6H PRN Lidocaine 5% Med 02/06/17 13:44 Ordered 1 patch TD DAILY PRN Metoclopramide [Reglan] Med 02/06/17 13:44 Ordered 10 mg PO QIDACANDBED PRN Multivitamin [Multivitamins] Med 02/07/17 09:00 Ordered 1 each PO DAILY Orphenadrine Citrate Med 02/06/17 13:44 Ordered 100 mg PO Q12HR PRN Pantoprazole [ProTONIX] Med 02/06/17 17:00 Ordered 40 mg PO BIDAC Sodium Chloride 0.9% [Normal Saline] 1,000 ml Med 02/06/17 09:00 Active IV STAT Tamsulosin [Flomax] Med 02/07/17 08:30 Ordered 0.4 mg PO PCBREAKFAST Ticagrelor Med 02/06/17 21:00 Ordered 90 mg PO BID cefTRIAXone [Rocephin in Dextrose,Iso-Osm 1 GM/50 ML] 1 Med 02/06/17 13:45 Active gm Premix Bag 1 bag IV Q24H methylPREDNISolone Sod Succ [Solu-MEDROL] Med 02/06/17 13:45 Active 125 mg IVPUSH Q6H Sequential Compression Device [OM.PC] Per Unit Routine Oth 02/06/17 13:47 Ordered Resuscitation Status Routine Resus Stat 02/06/17 13:47 Ordered Medication Orders Acetaminophen (Tylenol) 500 mg PO Q4H PRN PRN Reason: fever/pain Albuterol/Ipratropium (Duoneb 3.0-0.5 Mg/3 Ml) 3 ml NEB Q6HRRT [facility] Azithromycin (Zithromax) 500 mg PO Q24H [facility] Sodium Chloride (Normal Saline) 1,000 mls @ 125 mls/hr IV STAT [facility] Last Admin: 02/06/17 09:03 Dose: 125 mls/hr Ceftriaxone Sodium/Dextrose 1 (gm/ Premix) 50 mls @ 100 mls/hr IV Q24H [facility] Lorazepam (Ativan) 0.25 mg PO Q6H PRN PRN Reason: Anxiety Methylprednisolone Sodium Succinate (Solu-Medrol) 125 mg IVPUSH Q6H [facility] Metoclopramide HCl (Reglan) 10 mg PO QIDACANDBED PRN PRN Reason: Vomiting Non-Formulary Medication (Diltiazem) 240 mg PO DAILY [facility] Non-Formulary Medication (Hypromellose [Genteal Mild]) 2 drop EYEBOTH BEDTIME [facility] Non-Formulary Medication (Lidocaine 5%) 1 patch TD DAILY PRN PRN Reason: Pain Non-Formulary Medication (Multivitamin [Multivitamins]) 1 each PO DAILY [facility] Non-Formulary Medication (Orphenadrine Citrate) 100 mg PO Q12HR PRN PRN Reason: Pain Non-Formulary Medication (Ticagrelor) 90 mg PO BID [facility] Pantoprazole Sodium (Protonix) 40 mg PO BIDAC [facility] Polysaccharide Iron Complex (Ferrex 150) 150 mg PO BID [facility] Tamsulosin HCl (Flomax) 0.4 mg PO PCBREAKFAST [facility] Assessment/Plan Comment:: 76 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 Admitted for COPD exacerbation with acute on chronic hypoxic respiratory failure. Patient appears in usual state of health but reports worsening symptoms and increased oxygen demands. We will treat with IV solumedrol, duonebs, rocephin, and azithromycin. I have placed a hospice consult for palliative care. I have reconfirmed DNR/DNI status.
[2017-02-06] MEDS: cefTRIAXone 1 GM in Premix Bag 1 BAG IV SCH (15:03)
[2017-02-06] MEDS: Azithromycin 250 MG Tab PO SCH (15:06)
[2017-02-06] MEDS: Pantoprazole 40 MG Tab.CR PO SCH (16:46)
[2017-02-06] MEDS: Albuterol/Ipratropium 3.0-0.5 MG/3 ML Neb Soln NEB SCH ×2 (18:03→23:27)
[2017-02-06] MEDS: methylPREDNISolone Sodium Succinate 125 MG/2 ML SDV IVPUSH SCH (20:09)
[2017-02-06] MEDS: Iron Polysaccharides Complex 150 MG Cap PO SCH (20:09)
[2017-02-06] MEDS: HYPROMELLOSE EYEBOTH SCH (20:10)
[2017-02-06] MEDS: [UNRECOGNIZED DRUG - OTHER] EYEBOTH SCH (20:10)
[2017-02-06] MEDS ORDERED: Carboxymethylcellulose/Hypromellose Ophth Gel 15 ML Bottle EYEBOTH PRN (21:00)
[2017-02-07] MEDS: methylPREDNISolone Sodium Succinate 125 MG/2 ML SDV IVPUSH SCH ×4 (03:04→20:06)
[2017-02-07 04:45] LABS: CHLORIDE,CL 104 mmol/L (98-110); SODIUM,NA 138 mmol/L (136-146)
[2017-02-07] MEDS: Albuterol/Ipratropium 3.0-0.5 MG/3 ML Neb Soln NEB SCH ×4 (05:43→23:06)
[2017-02-07] MEDS ORDERED: Vancomycin 1.75 GM in Sodium Chloride 0.9% 500 ML IV ONE (06:00)
[2017-02-07] MEDS: Pantoprazole 40 MG Tab.CR PO SCH ×2 (06:30→17:05)
[2017-02-07] MEDS: Tamsulosin 0.4 MG Cap.ER PO SCH (08:36)
[2017-02-07] MEDS: Diltiazem 120 MG Cap.CD PO SCH (08:37)
[2017-02-07] MEDS: Multivitamins with Iron/Calcium/Folic Acid/Minerals Tab PO SCH (08:40)
[2017-02-07] MEDS: Iron Polysaccharides Complex 150 MG Cap PO SCH ×2 (08:40→20:06)
--- NOTE | 2017-02-07 10:28 | PCM.PN ---
- Review of Systems Systems Review Comment:: coughing up more, but feeling better. - Patient Data Vitals - Most Recent: Last Vital Signs Temp 36.6 C 02/07/17 08:00 Pulse 84 02/07/17 08:37 Resp 22 H 02/07/17 08:00 BP 138/61 02/07/17 08:37 Pulse Ox 89 L 02/07/17 08:00 Weight - Most Recent: 60.4 kg I&O - Last 24 Hours: Intake & Output 02/06/17 02/07/17 02/07/17 22:59 06:59 14:59 Intake Total 300 150 500 Output Total 350 350 Balance -50 -200 500 Lab Results Last 24 Hours: Laboratory Results - last 24 hr 02/06/17 02/07/17 02/07/17 Range/Units 16:46 04:16 04:16 WBC 17.29 H (4.0-11.0) K/uL RBC 3.64 L (4.50-5.90) M/uL Hgb 10.8 L (13.0-17.0) g/dL Hct 33.1 L (38.0-50.0) % MCV 90.9 (80.0-98.0) fL MCH 29.7 (27.0-32.0) pg MCHC 32.6 (31.0-37.0) g/dL RDW Std Deviation 54.4 (28.0-62.0) fl RDW Coeff of Mavis 16 H (11.0-15.0) % Plt Count 150 (150-400) K/uL MPV 8.50 (7.40-12.00) fL Add Manual Diff YES Neutrophils % (Manual) 94 H (48.0-80.0) % Band Neutrophils % 4 % Lymphocytes % (Manual) 1 L (16.0-40.0) % Monocytes % (Manual) 1 (0.0-15.0) % Nucleated RBC % 0.0 /100WBC Absolute Seg Neuts 16.3 Band Neutrophils # 0.7 Lymphocytes # (Manual) 0.2 Monocytes # (Manual) 0.2 Nucleated RBCs # 0 K/uL Sodium 138 (136-146) mmol/L Potassium 4.1 (3.5-5.1) mmol/L Chloride 104 (98-110) mmol/L Carbon Dioxide 26 (21-31) mmol/L BUN 19 (6.0-23.0) mg/dL Creatinine 0.8 (0.6-1.5) mg/dL Est Cr Clr Drug Dosing 66.06 mL/min Estimated GFR (MDRD) > 60.0 ml/min Glucose 133 H (60-110) mg/dL Calcium 8.2 L (8.8-10.8) mg/dL Urine Color YELLOW Urine Appearance CLEAR Urine pH 6.0 (5.0-8.0) Ur Specific [place] 1.025 (1.001-1.035) Urine Protein NEGATIVE (NEGATIVE) mg/dL Urine Glucose (UA) NEGATIVE (NEGATIVE) mg/dL Urine Ketones NEGATIVE (NEGATIVE) mg/dL Urine Occult Blood NEGATIVE (NEGATIVE) Urine Nitrite NEGATIVE (NEGATIVE) Urine Bilirubin NEGATIVE (NEGATIVE) Urine Urobilinogen 0.2 (<2.0) EU/dL Ur Leukocyte Esterase NEGATIVE (NEGATIVE) Urine RBC 0-1 (0-2/HPF) Urine WBC 0-1 (0-5/HPF) Ur Epithelial Cells RARE (NONE-FEW) Urine Bacteria RARE (NEGATIVE) Urine Mucus MODERATE (NONE-MOD) Kofi Results Last 24 Hours: Microbiology 02/06/17 16:00 Gram Stain - Final Sputum - Expectorated Sputum Culture - Preliminary Med Orders - Current: Current Medications Acetaminophen (Tylenol Extra Strength) 500 mg PO Q4H PRN PRN Reason: fever/pain Albuterol/Ipratropium (Duoneb 3.0-0.5 Mg/3 Ml) 3 ml NEB Q6HRRT [facility] Last Admin: 02/07/17 05:43 Dose: 3 ml Azithromycin (Zithromax) 500 mg PO Q24H [facility] Last Admin: 02/06/17 15:06 Dose: 500 mg Diltiazem HCl (Cardizem Cd) 240 mg PO DAILY [facility] Last Admin: 02/07/17 08:37 Dose: 240 mg Ceftriaxone Sodium/Dextrose 1 (gm/ Premix) 50 mls @ 100 mls/hr IV Q24H [facility] Last Admin: 02/06/17 15:03 Dose: 100 mls/hr Vancomycin HCl 1 gm/ Sodium (Chloride) 250 mls @ 166 mls/hr IV Q24H [facility] Lorazepam (Ativan) 0.25 mg PO Q6H PRN PRN Reason: Anxiety Methylprednisolone Sodium Succinate (Solu-Medrol) 125 mg IVPUSH Q6H [facility] Last Admin: 02/07/17 08:46 Dose: 125 mg Metoclopramide HCl (Reglan) 10 mg PO QIDACANDBED PRN PRN Reason: Vomiting Multivitamins/Minerals (Thera M Plus) 1 tab PO DAILY [facility] Last Admin: 02/07/17 08:40 Dose: 1 tab Pantoprazole Sodium (Protonix) 40 mg PO BIDAC [facility] Last Admin: 02/07/17 06:30 Dose: 40 mg Lidocaine 5% Patch 1 each TOP DAILY PRN PRN Reason: Pain Orphenadrine Citrate (100 Mg) 1 each PO Q12HR PRN PRN Reason: Pain Ticagrelor 90 Mg 1 each PO BID [facility] Last Admin: 02/07/17 08:41 Dose: 1 each Genteal Mild Eye Drops (Hypromellose 0.2%) 0 - 2 each EYEBOTH BEDTIME [facility] Last Admin: 02/06/17 20:10 Dose: Not Given Polysaccharide Iron Complex (Ferrex 150) 150 mg PO BID [facility] Last Admin: 02/07/17 08:40 Dose: 150 mg Tamsulosin HCl (Flomax) 0.4 mg PO PCBREAKFAST [facility] Last Admin: 02/07/17 08:36 Dose: 0.4 mg Vancomycin HCl (Pharmacy To Dose - Vancomycin) 1 dose .XX ASDIRECTED [facility] Discontinued Medications Albuterol/Ipratropium (Duoneb 3.0-0.5 Mg/3 Ml) 3 ml NEB ONETIME ONE Stop: 02/06/17 07:53 Last Admin: 02/06/17 08:11 Dose: 3 ml Carboxymethylcellu Sod/Hypromellose (Genteal Moderate To Severe Ophth Gel) 0 - 1 ml EYEBOTH BEDTIME PRN PRN Reason: Dryness Ceftriaxone Sodium (Rocephin) 1,000 mg IVPUSH Q24H [facility] Sodium Chloride (Normal Saline) 1,000 mls @ 125 mls/hr IV STAT [facility] Last Admin: 02/06/17 09:03 Dose: 125 mls/hr Vancomycin HCl 1.75 gm/ Sodium (Chloride) 500 mls @ 333.333 mls/hr IV ONETIME ONE Stop: 02/07/17 07:29 Last Admin: 02/07/17 06:14 Dose: 333.333 mls/hr Methylprednisolone Sodium Succinate (Solu-Medrol) 125 mg IVPUSH ONETIME ONE Stop: 02/06/17 07:56 Last Admin: 02/06/17 08:17 Dose: 125 mg Methylprednisolone Sodium Succinate (Solu-Medrol) 125 mg IVPUSH Q6H [facility] Last Admin: 02/06/17 15:03 Dose: 125 mg - Exam General: Alert, Cooperative Lungs: Decreased Breath Sounds, Rhonchi Cardiovascular: Regular Rate, Regular Rhythm GI/Abdominal Exam: Normal Bowel Sounds, Non-Tender, No Distention Extremities: Normal Inspection, Normal Range of Motion, Non-Tender, No Pedal Edema Skin: Warm, Dry, Intact Neurological: No New Focal Deficit - Problem List Review Problem List Initiated/Reviewed/Updated: Yes - My Orders Last 24 Hours: My Active Orders 02/06/17 09:40 Telemetry Monitoring [Cardiac Monitoring] [RC] Q8H 02/06/17 13:42 RT Aerosol Therapy [RC] ASDIRECTED Consult to Hospice [CONS] Routine 02/06/17 13:44 Acetaminophen [Tylenol Extra Strength] 500 mg PO Q4H PRN LORazepam [Ativan] 0.25 mg PO Q6H PRN Metoclopramide [Reglan] 10 mg PO QIDACANDBED PRN Patient's Own Medication [Ptom] 1 each PO Q12HR PRN Patient's Own Medication [Ptom] 1 each TOP DAILY PRN 02/06/17 13:45 Azithromycin [Zithromax] 500 mg PO Q24H cefTRIAXone [Rocephin in Dextrose,Iso-Osm 1 GM/50 ML] 1 gm Premix Bag 1 bag IV Q24H 02/06/17 13:47 Oxygen Therapy [RC] PRN VTE/DVT Education [RC] PER UNIT ROUTINE Vital Signs [RC] Q4H Sequential Compression Device [OM.PC] Per Unit Routine Resuscitation Status Routine 02/06/17 13:48 Antiembolic Devices [RC] PER UNIT ROUTINE 02/06/17 16:00 CULTURE SPUTUM + SMEAR [RM] Routine 02/06/17 16:46 CULTURE URINE [RM] Routine 02/06/17 17:00 Pantoprazole [ProTONIX] 40 mg PO BIDAC 02/06/17 18:00 Albuterol/Ipratropium [DuoNeb 3.0-0.5 MG/3 ML] 3 ml NEB Q6HRRT 02/06/17 21:00 Iron Polysaccharides Complex [Ferrex 150] 150 mg PO BID Patient's Own Medication [Ptom] 0 - 2 each EYEBOTH BEDTIME Patient's Own Medication [Ptom] 1 each PO BID methylPREDNISolone Sod Succ [Solu-MEDROL] 125 mg IVPUSH Q6H 02/06/17 Lunch Mechanical Soft Diet [DIET] 02/07/17 05:30 Vancomycin Pharmacy to Dose [Pharmacy to Dose - Vancomycin] 1 dose .XX ASDIRECTED 02/07/17 08:30 Tamsulosin [Flomax] 0.4 mg PO PCBREAKFAST 02/07/17 09:00 Diltiazem [Cardizem CD] 240 mg PO DAILY Multivitamins w-Iron/Ca/FA/Min [Thera M Plus] 1 tab PO DAILY 02/07/17 10:24 Admission Status [Patient Status] [ADT] Routine 02/08/17 05:11 BASIC METABOLIC PANEL,BMP [CHEM] AM CBC WITH AUTO DIFF [HEME] AM 02/08/17 06:00 Vancomycin [Vancocin] 1 gm Sodium Chloride 0.9% [Normal Saline] 250 ml IV Q24H - Plan Plan:: 76 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 COPD: on duonebs, solumedrol possible pneumonia: on Rocephin, azithromycin and vancomycin as 1/4 blood cultures growing gram positive cocci Hospice consulted regarding palliative care.
[2017-02-07] MEDS: cefTRIAXone 1 GM in Premix Bag 1 BAG IV SCH (13:48)
[2017-02-07] MEDS: Azithromycin 250 MG Tab PO SCH (13:53)
[2017-02-07] MEDS: [UNRECOGNIZED DRUG - OTHER] EYEBOTH SCH (20:06)
[2017-02-07] MEDS: HYPROMELLOSE EYEBOTH SCH (20:06)
[2017-02-08] MEDS: methylPREDNISolone Sodium Succinate 125 MG/2 ML SDV IVPUSH SCH ×2 (02:16→08:18)
[2017-02-08] MEDS ORDERED: Diltiazem 25 MG/5 ML SDV IVPUSH ONE (05:43)
[2017-02-08] MEDS: Albuterol/Ipratropium 3.0-0.5 MG/3 ML Neb Soln NEB SCH (05:54)
[2017-02-08 06:24] LABS: CHLORIDE,CL 106 mmol/L (98-110); SODIUM,NA 140 mmol/L (136-146)
[2017-02-08] MEDS: Pantoprazole 40 MG Tab.CR PO SCH (06:35)
[2017-02-08] MEDS: Multivitamins with Iron/Calcium/Folic Acid/Minerals Tab PO SCH (08:18)
[2017-02-08] MEDS: Iron Polysaccharides Complex 150 MG Cap PO SCH (08:18)
[2017-02-08] MEDS: Diltiazem 120 MG Cap.CD PO SCH (08:19)
[2017-02-08] MEDS: Tamsulosin 0.4 MG Cap.ER PO SCH (08:19)
[2017-02-08 08:20] VITALS: BP 146/66
--- NOTE | 2017-02-08 09:23 | PCM.DCSUM1 ---
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 He presented to the ED complaining of shortness of breath and productive cough. He was discharged on 02/03/17 for treatment of his end stage COPD on levaquin and steroid taper. On initial presentation he was requring a nonrebreather to mantain sats n the 90s. His WBC was 19,000. His Chest x-ray did show any acute changes. He was treated with solumedrol, duonebs, Rocephin and azithromycin. He did have improvement in his symptoms and decrease in his oxygen requirements follow three days of hospitalization. Today he is requesting discharge as he feels he could recover better at home. His sputum is growing staph aureus. 1/4 cultures are growing out gram positive bacteria but patient would prefer not to wait for speciation. We have recommended hospice in the past and patient wants a hospice consult at home. He is being discharge on a steroid taper and Bactrim DS BID for at least five more days. - Discharge Plan Prescriptions/Med Rec: predniSONE 10 - 40 mg PO .TAPER #27 tablet Sulfamethoxazole/Trimethoprim [Bactrim Ds Tablet] 1 each PO BID #14 tablet Home Medications: Home Meds Albuterol Sulfate [Proair Hfa] 2 puff IH QID PRN 06/14/16 [History] Albuterol/Ipratropium [DuoNeb 3.0-0.5 MG/3 ML] 3 ml NEB Q4H PRN 06/14/16 [ History] Bisacodyl [Dulcolax] 5 - 10 mg PO DAILY PRN 06/14/16 [History] Bisacodyl [Dulcolax] 10 mg RC DAILY PRN 06/14/16 [History] Diltiazem [Cardizem CD] 240 mg PO DAILY 06/14/16 [History] Hypromellose [Genteal Mild] 2 drop EYEBOTH BEDTIME 06/14/16 [History] Metoclopramide HCl [Reglan] 10 mg PO QIDACANDBED PRN 06/14/16 [History] Multivitamin [Multivitamins] 1 each PO DAILY 06/14/16 [History] Orphenadrine Citrate 100 mg PO Q12HR PRN 06/14/16 [History] Tamsulosin [Flomax] 0.4 mg PO PCBREAKFAST 06/14/16 [History] Acetaminophen [Tylenol] 500 mg PO Q4H PRN 06/15/16 [History] Albuterol Sulfate 2.5 mg IH Q6H PRN 06/15/16 [History] Pantoprazole [ProTONIX] 40 mg PO BIDAC 06/15/16 [History] Iron Polysaccharides Complex [Ferrex 150] 150 mg PO BID cap 06/17/16 [Rx] Potassium Chloride 20 meq PO BID #30 tab.er.prt 06/26/16 [Rx] LORazepam 0.25 mg PO Q6H PRN 10/20/16 [History] Ticagrelor [Brilinta] 90 mg PO BID 10/20/16 [History] predniSONE 5 mg PO Q2D 11/04/16 [History] predniSONE [Prednisone] 10 mg PO Q2D 11/26/16 [History] Lidocaine 5% [Lidoderm 5%] 1 patch TD DAILY PRN 02/01/17 [History] Sulfamethoxazole/Trimethoprim [Bactrim Ds Tablet] 1 each PO BID #14 tablet 02/08 [Rx] predniSONE 10 - 40 mg PO .TAPER #27 tablet 02/08/17 [Rx] Patient Handouts: Prednisone tablets, Sulfamethoxazole; Trimethoprim, SMX-TMP tablets, Community-Acquired Pneumonia, Adult, [id number] Referrals: Adam Michel MD [Primary Care Provider] - (Please follow-up with PCP in 1 week.) - Patient Data Vitals - Most Recent: Last Vital Signs Temp 36.9 C 02/08/17 08:09 Pulse 88 02/08/17 08:19 Resp 22 H 02/08/17 08:09 BP 146/66 H 02/08/17 08:19 Pulse Ox 91 L 02/08/17 08:09 Weight - Most Recent: 60.4 kg I&O - Last 24 hours: Intake & Output 02/07/17 02/08/17 02/08/17 22:59 06:59 14:59 Intake Total 450 730 Output Total 250 540 Balance 200 190 Lab Results - Last 24 hrs: Laboratory Results - last 24 hr 02/08/17 02/08/17 Range/Units 05:50 05:50 WBC 14.59 H (4.0-11.0) K/uL RBC 3.66 L (4.50-5.90) M/uL Hgb 11.0 L (13.0-17.0) g/dL Hct 33.3 L (38.0-50.0) % MCV 91.0 (80.0-98.0) fL MCH 30.1 (27.0-32.0) pg MCHC 33.0 (31.0-37.0) g/dL RDW Std Deviation 54.6 (28.0-62.0) fl RDW Coeff of Mavis 16 H (11.0-15.0) % Plt Count 160 (150-400) K/uL MPV 8.80 (7.40-12.00) fL Add Manual Diff YES Neutrophils % (Manual) 90 H (48.0-80.0) % Band Neutrophils % 5 % Lymphocytes % (Manual) 3 L (16.0-40.0) % Monocytes % (Manual) 2 (0.0-15.0) % Nucleated RBC % 0.0 /100WBC Absolute Seg Neuts 13.1 Band Neutrophils # 0.7 Lymphocytes # (Manual) 0.4 Monocytes # (Manual) 0.3 Nucleated RBCs # 0 K/uL Sodium 140 (136-146) mmol/L Potassium 3.3 L (3.5-5.1) mmol/L Chloride 106 (98-110) mmol/L Carbon Dioxide 23 (21-31) mmol/L BUN 19 (6.0-23.0) mg/dL Creatinine 0.8 (0.6-1.5) mg/dL Est Cr Clr Drug Dosing 66.06 mL/min Estimated GFR (MDRD) > 60.0 ml/min Glucose 141 H (60-110) mg/dL Calcium 8.3 L (8.8-10.8) mg/dL NAEL Results - Last 24 hrs: Microbiology 02/06/17 16:46 Urine Culture - Final Urine, Clean Catch MIXED SHLOMO <1000 CFU/ML 02/06/17 16:00 Gram Stain - Final Sputum - Expectorated Sputum Culture - Final Staphylococcus Aureus Med Orders - Current: Current Medications Acetaminophen (Tylenol Extra Strength) 500 mg PO Q4H PRN PRN Reason: fever/pain Albuterol/Ipratropium (Duoneb 3.0-0.5 Mg/3 Ml) 3 ml NEB Q6HRRT [facility] Last Admin: 02/08/17 05:54 Dose: 3 ml Azithromycin (Zithromax) 500 mg PO Q24H [facility] Last Admin: 02/07/17 13:53 Dose: 500 mg Diltiazem HCl (Cardizem Cd) 240 mg PO DAILY [facility] Last Admin: 02/08/17 08:19 Dose: 240 mg Ceftriaxone Sodium/Dextrose 1 (gm/ Premix) 50 mls @ 100 mls/hr IV Q24H [facility] Last Admin: 02/07/17 13:48 Dose: 100 mls/hr Vancomycin HCl 1 gm/ Sodium (Chloride) 250 mls @ 166 mls/hr IV Q24H [facility] Last Admin: 02/08/17 05:22 Dose: 166 mls/hr Lorazepam (Ativan) 0.25 mg PO Q6H PRN PRN Reason: Anxiety Last Admin: 02/08/17 02:15 Dose: 0.25 mg Methylprednisolone Sodium Succinate (Solu-Medrol) 125 mg IVPUSH Q6H [facility] Last Admin: 02/08/17 08:18 Dose: 125 mg Metoclopramide HCl (Reglan) 10 mg PO QIDACANDBED PRN PRN Reason: Vomiting Multivitamins/Minerals (Thera M Plus) 1 tab PO DAILY [facility] Last Admin: 02/08/17 08:18 Dose: 1 tab Pantoprazole Sodium (Protonix) 40 mg PO BIDAC [facility] Last Admin: 02/08/17 06:35 Dose: 40 mg Lidocaine 5% Patch 1 each TOP DAILY PRN PRN Reason: Pain Last Admin: 02/07/17 20:05 Dose: 1 each Orphenadrine Citrate (100 Mg) 1 each PO Q12HR PRN PRN Reason: Pain Ticagrelor 90 Mg 1 each PO BID [facility] Last Admin: 02/08/17 08:27 Dose: 1 each Genteal Mild Eye Drops (Hypromellose 0.2%) 0 - 2 each EYEBOTH BEDTIME [facility] Last Admin: 02/07/17 20:06 Dose: 2 each Polysaccharide Iron Complex (Ferrex 150) 150 mg PO BID [facility] Last Admin: 02/08/17 08:18 Dose: 150 mg Tamsulosin HCl (Flomax) 0.4 mg PO PCBREAKFAST [facility] Last Admin: 02/08/17 08:19 Dose: 0.4 mg Vancomycin HCl (Pharmacy To Dose - Vancomycin) 1 dose .XX ASDIRECTED [facility] Discontinued Medications Albuterol/Ipratropium (Duoneb 3.0-0.5 Mg/3 Ml) 3 ml NEB ONETIME ONE Stop: 02/06/17 07:53 Last Admin: 02/06/17 08:11 Dose: 3 ml Carboxymethylcellu Sod/Hypromellose (Genteal Moderate To Severe Ophth Gel) 0 - 1 ml EYEBOTH BEDTIME PRN PRN Reason: Dryness Ceftriaxone Sodium (Rocephin) 1,000 mg IVPUSH Q24H [facility] Diltiazem HCl (Diltiazem) 10 mg IVPUSH ONETIME ONE Stop: 02/08/17 05:44 Last Admin: 02/08/17 05:55 Dose: 10 mg Sodium Chloride (Normal Saline) 1,000 mls @ 125 mls/hr IV STAT [facility] Last Admin: 02/06/17 09:03 Dose: 125 mls/hr Vancomycin HCl 1.75 gm/ Sodium (Chloride) 500 mls @ 333.333 mls/hr IV ONETIME ONE Stop: 02/07/17 07:29 Last Admin: 02/07/17 06:14 Dose: 333.333 mls/hr Methylprednisolone Sodium Succinate (Solu-Medrol) 125 mg IVPUSH ONETIME ONE Stop: 02/06/17 07:56 Last Admin: 02/06/17 08:17 Dose: 125 mg Methylprednisolone Sodium Succinate (Solu-Medrol) 125 mg IVPUSH Q6H [facility] Last Admin: 02/06/17 15:03 Dose: 125 mg *Q Meaningful Use (DIS) - VTE *Q VTE Criteria *Q: - Stroke *Q Stroke Criteria *Q: - AMI *Q AMI Criteria *Q:
[2017-02-08] MEDS ORDERED: Sulfamethoxazole/Trimethoprim 800-160 MG Tab PO SCH (10:00)
[2017-02-08] MEDS ORDERED: Sulfamethoxazole/Trimethoprim 800-160 MG Tab PO ONE (21:00)
--- NOTE | 2017-02-09 13:14 | CR ---
EXAM DATE: 02/06/17 PATIENT'S AGE: 76 Patient: GILBERTO SIMONS Facility: [place], [place] Site . Site : [id number] Study: XRay Chest [id number]/2/2017 8:17:07 AM Ordering Physician: Berna Pisano Final Report: Indication: Hypoxia. Comparison: 31 January 2017. Impression: Chronic scarring left upper lobe medially. Some chronic scar right upper lobe. Chronic prominence of the interstitium diffusely. Low lung volumes. Atelectasis or scar partially obscures the medial left hemidiaphragm common not changed. Overall, no significant change from comparison. Dictated by Parker Blas MD @ Feb 06 2017 8:26AM (Electronic Signature) Report Signed by Proxy. BALDEV
== END 2017-02-08 11:14 | disposition home health service (06) | DRG 190 ==
LOC: MW.ED 07:49 → MW.MS 08:46 → OBSVTOIN 10:24
PROVIDERS: ADMIT Internal Medicine; ATTEND Internal Medicine
DX: J18.9 Pneumonia, unspecified organism (principal); R09.02 Hypoxemia; E11.9 Type 2 diabetes mellitus without complications; Z87.891 Personal history of nicotine dependence; J44.0 Chronic obstructive pulmonary disease with (acute) lower respiratory infection; J15.211 Pneumonia due to Methicillin susceptible Staphylococcus aureus; J96.01 Acute respiratory failure with hypoxia; J44.1 Chronic obstructive pulmonary disease with (acute) exacerbation; I50.9 Heart failure, unspecified; I48.91 Unspecified atrial fibrillation; I25.10 Atherosclerotic heart disease of native coronary artery without angina pectoris; E78.00 Pure hypercholesterolemia, unspecified; I10 Essential (primary) hypertension; Z86.73 Personal history of transient ischemic attack (TIA), and cerebral infarction without residual deficits; Z85.01 Personal history of malignant neoplasm of esophagus; Z79.899 Other long term (current) drug therapy
CPT/HCPCS: 36415; 71010; 80053; 82550; 82553; 83735; 83880; 84484; 85025; 85610; 87040 ×2; 93005; 94640; 96374; 99285; J2930; J7040; 80048; 81001; 87070; 87077; 87086; 87186; 87205; 94664; 99283; A9270-GY; J0696; J3370; J3490; J7050